=== PATIENT | female | born 1945 | race Caucasian/White ===

== ENCOUNTER → 2018-09-21 | Outpatient (CLI) | payer MEDICARE ==
--- NOTE | 2018-09-21 15:15 | XR ---
EXAMINATION TYPE: XR knee limited LT DATE OF EXAM: 09/21/2018 CLINICAL HISTORY: Left knee pain. Unilateral primary osteoarthritis per order. TECHNIQUE: Frontal and lateral views of the left knee are obtained. COMPARISON: None. FINDINGS: There is no acute fracture/dislocation evident in left knee. Mild to moderate narrowing la teral tibiofemoral and patellofemoral compartment is seen. There is advanced narrowing medial tibiofe moral compartment with ossific projection superior medially from the proximal tibia. Lucency at joint space favor subchondral cystic change. The overlying soft tissue shows increased density suprapatel lar bursa suspicious for small to moderate joint effusion. IMPRESSION: As above, suspect advanced osteoarthritic change most prominent medial tibiofemoral gail rtment.
== END ==
LOC: RADXRMAIN 14:51
PROVIDERS: ATTEND Family Medicine
DX: M17.12 Unilateral primary osteoarthritis, left knee (principal)

== ENCOUNTER → 2018-10-01 | Outpatient (CLI) | payer MEDICARE ==
--- NOTE | 2018-10-01 16:07 | MR ---
EXAMINATION TYPE: MR knee LT wo con DATE OF EXAM: 10/01/2018 COMPARISON: 09/21/2018 radiographs HISTORY: 72-year-old female with pain, Unilateral primary osteoarthritis, left knee TECHNIQUE: Multiplanar, multisequence imaging of the left knee is performed without IV contrast. FINDINGS: The ACL, PCL, and LCL complex are intact. There is prominent edema of the proximal MCL. There is also focal fluid signal involving the deep pro ximal femoral attaching fibers suggesting a small deep sided partial tear. Prominent medial bowing of the MCL from apparent low T1 and low T2 signal soft tissue which appears t o erode into the medial left of the medial tibial plateau, refer to axial image 7 and coronal PD FS i mage 18 for some financial services representative images. The meniscus is diffusely degenerative, torn, and extruded. Severe degenerative change in the medial compartment with complete loss of cartilage, [id number] articulation, bony remodeling of the weight bearing medial tibial plateau, and reactive underlying marrow signal changes. Lateral meniscus appears intact. Mild diffuse thinning of lateral compartment articular cartilage vol ume. Severe loss of articular cartilage along the medial patellar facet with underlying reactive marrow si gnal changes within the patella. Moderate irregular cartilage loss with along the medial trochlear fa cet. Extensor mechanism is intact. Moderate knee joint effusion with associated chronic synovitis and a leaking small to moderate sized but complex 4.5 cm Gaston cyst. No femoral popliteal artery anatomy in muscle bulk. No suspicious bone marrow replacement. IMPRESSION: 1. End-stage medial compartment osteoarthrosis with [id number] abutment and bony remodeling of the central weightbearing aspect of the medial tibial plateau. Extensive reactive marrow signal changes o f the subchondral bone. 2. Diffusely degenerative, torn, and extruded medial meniscus. 3. In addition, there appears to be low T1 and T2 signal soft tissue along the medial aspect of the j oint here eroding into the peripheral lip of the medial tibial plateau. Consider gouty involvement. Given the presence of a moderate effusion, arthrocentesis and fluid analysis for crystals can be cons idered. 4. Grade 2 MCL sprain with partial tear of deep proximal fibers. 5. Moderate overall patellofemoral compartmental osteoarthrosis. 6. Moderate size complex and leaking Gaston's cyst.
== END | disposition home or self-care (01) ==
LOC: RADMRIMAIN 12:43
PROVIDERS: ATTEND Family Medicine
DX: M17.12 Unilateral primary osteoarthritis, left knee (principal); S83.242A Other tear of medial meniscus, current injury, left knee, initial encounter; S83.412A Sprain of medial collateral ligament of left knee, initial encounter; M71.22 Synovial cyst of popliteal space [Baker], left knee

== ENCOUNTER → 2018-10-21 | Outpatient (CLI) | payer MEDICARE | END | disposition home or self-care (01) | LOC: LABPAT 11:59 | PROVIDERS: ATTEND Orthopaedic Surgery | DX: Z01.812 Encounter for preprocedural laboratory examination (principal) | CPT/HCPCS: 87070 ==

== ENCOUNTER → 2018-10-21 | Outpatient (CLI) | payer MEDICARE ==
[2018-10-21 12:44] LABS: Anisocytosis Slight; Basophils # (A) 0.1 k/uL (0-0.2); Basophils % (A) 1 %; Eosinophils # (A) 0.4 k/uL (0-0.7); Eosinophils % (A) 6 %; HGB 10.8 gm/dL (11.4-16.0); Hypochromasia Slight; Lymphocytes # (A) 1.4 k/uL (1.0-4.8); Lymphocytes % (A) 19 %; MCH 27.1 pg (25.0-35.0); MCHC 30.8 g/dL (31.0-37.0); Mean Platelet Volume 6.4; Monocytes # (A) 0.5 k/uL (0-1.0); Monocytes % (A) 7 %; Neutrophils # (A) 4.6 k/uL (1.3-7.7); Neutrophils % (A) 65 %; Platelet Count 418 k/uL (150-450); RBC 3.98 m/uL (3.80-5.40); RDW 16.4 % (11.5-15.5); WBC 7.1 k/uL (3.8-10.6)
[2018-10-21 13:33] LABS: Erythrocyte Sedimentation Rate 52 mm/hr (0-20)
[2018-10-21 18:19] LABS: Rheumatoid Factor 9 IU/mL (0-15)
[2018-10-21 18:43] LABS: Thyroid Peroxidase Antibodies <28.0 U/mL (0.0-60.0)
[2018-10-21 18:53] LABS: Albumin 4.4 g/dL (3.80-4.90); Albumin/Globulin Ratio 2.2 (1.60-3.17); Anion Gap 9.7 mmol/L (4.00-12.00); C Reactive Protein 0.9 mg/dL (0.0-0.8); Calcium 9.4 mg/dL (8.7-10.3); Carbon Dioxide 23.3 mmol/L (21.6-31.8); LDL Cholesterol,Calculated 84.4 mg/dL (0.0-131.0); Magnesium 2.2 mg/dL (1.5-2.4); Total Bilirubin 0.3 mg/dL (0.3-1.2); Total Protein 6.4 g/dL (6.2-8.2); VLDL Calculation 38.6 mg/dL (5.00-40.00)
[2018-10-21 19:00] LABS: T4, Free (Free Thyroxine) 0.9 ng/dL (0.80-1.80)
[2018-10-22 12:35] LABS: HLA B27 NEGATIVE
== END | disposition home or self-care (01) ==
LOC: LABWHC1 11:57
PROVIDERS: ATTEND Orthopaedic Surgery
DX: M17.12 Unilateral primary osteoarthritis, left knee (principal); I10 Essential (primary) hypertension; G62.9 Polyneuropathy, unspecified; G89.4 Chronic pain syndrome; M25.50 Pain in unspecified joint; R73.01 Impaired fasting glucose
CPT/HCPCS: 36415; 80053; 80061; 82607; 83036; 83735; 84439; 84443; 84550; 85025; 85652; 86038; 86140; 86376; 86431; 86812; 87070

== ENCOUNTER → 2018-11-19 | Outpatient (CLI) | payer MEDICARE ==
[2018-11-19 14:35] LABS: Basophils # (A) 0.1 k/uL (0-0.2); Basophils % (A) 1 %; Eosinophils # (A) 0.2 k/uL (0-0.7); Eosinophils % (A) 4 %; HCT 34.1 % (34.0-46.0); HGB 10.5 gm/dL (11.4-16.0); Hypochromasia Slight; Lymphocytes # (A) 1.2 k/uL (1.0-4.8); Lymphocytes % (A) 18 %; MCH 27.6 pg (25.0-35.0); MCHC 30.7 g/dL (31.0-37.0); MCV 89.7 fL (80.0-100.0); Mean Platelet Volume 6.9; Monocytes # (A) 0.4 k/uL (0-1.0); Monocytes % (A) 7 %; Neutrophils # (A) 4.6 k/uL (1.3-7.7); Neutrophils % (A) 70 %; Platelet Count 356 k/uL (150-450); Prothrombin Time 10.3 sec (9.0-12.0); RDW 15.4 % (11.5-15.5); WBC 6.6 k/uL (3.8-10.6)
--- NOTE | 2018-11-19 14:35 | XR ---
EXAMINATION TYPE: XR chest 2V DATE OF EXAM: 11/19/2018 COMPARISON: NONE HISTORY: Presurgery TECHNIQUE: Frontal and lateral views of the chest are obtained. FINDINGS: There is no focal air space opacity, pleural effusion, or pneumothorax seen. The cardiac silhouette size is within normal limits atherosclerotic change in thoracic aorta. The osseous struc tures are intact. IMPRESSION: No acute cardiopulmonary process.
[2018-11-19 14:55] LABS: Amorphous Sediment,Urine Rare /hpf; Appearance,Urine Cloudy (Clear); Bilirubin,Urine Negative (Negative); Blood,Urine Negative (Negative); Calcium Oxalate Crystals,Urine Many /hpf; Color,Urine Yellow; Glucose,Urine (UA) Negative (Negative); Hyaline Casts,Urine 1 /lpf (0-2); Ketones,Urine Negative (Negative); Leukocyte Esterase,Urine Large (Negative); Mucus,Urine Occasional /hpf; Nitrite,Urine Negative (Negative); PH, Urine 5.5 (5.0-8.0); Protein,Urine Trace (Negative); RBC,Urine 7 /hpf (0-5); Specific Gravity,Urine 1.029 (1.001-1.035); Squamous Epithelial Cell,Urine 1 /hpf (0-4); WBC,Urine 58 /hpf (0-5)
[2018-11-19 16:48] LABS: Erythrocyte Sedimentation Rate 58 mm/hr (0-20)
[2018-11-19 19:35] LABS: Iron Saturation 42.02 (12.00-45.00)
[2018-11-19 19:43] LABS: Anion Gap 7.9 mmol/L (4.00-12.00); C Reactive Protein 0.8 mg/dL (0.0-0.8); Calcium 9.4 mg/dL (8.7-10.3); Carbon Dioxide 27.1 mmol/L (21.6-31.8); Potassium 4.2 mmol/L (3.5-5.5)
== END | disposition home or self-care (01) ==
LOC: LABWHC1 13:19
PROVIDERS: ATTEND Family Medicine
DX: Z01.818 Encounter for other preprocedural examination (principal); I10 Essential (primary) hypertension; M17.12 Unilateral primary osteoarthritis, left knee; Z01.812 Encounter for preprocedural laboratory examination
CPT/HCPCS: 36415; 71046; 80048; 81001; 83540; 83550; 83880; 85025; 85610; 85652; 86140; 87077; 87086; 87186

== ENCOUNTER 2018-11-25 08:00 | Inpatient (IN) | payer MEDICARE ==
[2018-11-17 14:07] VITALS: BMI 28.9
--- NOTE | 2018-11-24 08:57 | HP ---
HISTORY AND PHYSICAL CHIEF COMPLAINT: Left knee pain. HISTORY OF PRESENT ILLNESS: Patient is a 73-year-old retired female who presents with progressive left knee pain secondary to osteoarthrosis, worsening over the past couple years. She notes diffuse pain and swelling. She has pain with any weightbearing activities. She has significant limitation because of this. She has been taking oxycodone 3 times a day. She does have a history of right total knee arthroplasty with subsequent infection and revision. PAST MEDICAL HISTORY: Significant for arthritis, gout, hypertension, asthma. PAST SURGICAL HISTORY: Significant for right total knee arthroplasty with extraction, cement spacer implantation, and revision. CURRENT MEDICATIONS: 1. Allopurinol. 2. Aspirin. 3. Cyclobenzaprine. 4. Gabapentin. 5. Lisinopril. 6. Meclizine. 7. Meloxicam. 8. [place]. 9. Nystatin. 10.Omeprazole. 11.Simvastatin. 12.Hydrochlorothiazide. She notes allergies to CIPROFLOXACIN. FAMILY HISTORY: Significant for cancer. SOCIAL HISTORY: Negative for current tobacco or alcohol use. 16 POINT REVIEW OF SYSTEMS: Otherwise is reviewed and is noncontributory. She denies recent fevers or chills. PHYSICAL EXAMINATION: On examination, the patient is approximately 4 foot 11, 145 pounds of mesomorphic habitus. HEENT exam is nonfocal. Neck is supple. She has painless passive motion of her left hip. Straight leg raise is negative. Active motion left knee -20 to 90 degrees of flexion. She has significant genu varum alignment. She has a moderate effusion. She is tender about the medial joint line. Collaterals are stable, Alexander is negative, Gerson's is equivocal. Her distal neurovascular appears intact in the left lower extremity. X-rays to include weightbearing, notch, lateral and Merchant views of the left knee obtained in the office show severe medial compartment osteoarthrosis with varus deformity. IMPRESSION: Left knee severe medial and patellofemoral compartment osteoarthrosis with significant varus deformity. RECOMMENDATIONS: I talked to the patient at length regarding her condition and treatment options. At this point she is quite limited because of pain related to her osteoarthrosis. We will plan to proceed with a left total knee arthroplasty. Risks and benefits were discussed at length in layman's terms. We will institute DVT prophylaxis postoperatively. MMODL / IJN: [id number] /
[2018-11-30] MEDS ORDERED: ACETAMINOPHEN TAB 500 MG TAB PO ONE (05:00)
[2018-11-30] MEDS ORDERED: ceFAZolin IN SWFI 2 GM/20 ML SYRINGE IVP ONE (05:00)
[2018-11-30] MEDS ORDERED: MELOXICAM 7.5 MG TAB PO ONE (05:00)
[2018-11-30] MEDS ORDERED: TRANEXAMIC ACID 1,000 MG in SODIUM CHLORIDE 0.9% 100 ML IVPB ONE ×4 (05:00)
[2018-11-30] MEDS ORDERED: SCOPOLAMINE 1.5MG/72HR PATCH TRANSDERM ONE (05:42)
[2018-11-30] MEDS ORDERED: MIDAZOLAM (PF) 2 MG/2 ML VIAL IV PRN (05:42)
[2018-11-30] MEDS ORDERED: DEXAMETHASONE SOD PHOSPHATE 10 MG/ML 1 ML VIAL IV ONE (05:42)
[2018-11-30] MEDS ORDERED: ONDANSETRON 4 MG/2 ML VIAL IVP ONE (05:42)
[2018-11-30] MEDS ORDERED: LIDOCAINE 1% 20 ML VIAL (10MG/ML) FOR IV START INTRADERMA PRN (05:42)
[2018-11-30] MEDS ORDERED: ROPIVACAINE 246.25 MG, EPINEPHrine 0.5 MG, KETOROLAC 30 MG, cloNIDine HCL/PF 80 MCG, WA... MISCELLANE ONE ×5 (11:12)
[2018-11-30] MEDS: LACTATED RINGERS 1,000 ML IV SCH (11:27)
[2018-11-30] MEDS ORDERED: MIDAZOLAM 2 MG/2 ML VIAL IVP ONE (12:21)
[2018-11-30] MEDS: fentaNYL (PF) 50 MCG/ML 2 ML AMP IVP ONE ×3 (12:23→17:02)
[2018-11-30] MEDS ORDERED: ROPIVACAINE 1,100 MG, SODIUM CHLORIDE 0.9% 500 ML 330 ML MISCELLANE PRN ×2 (12:50)
--- NOTE | 2018-11-30 12:50 | P.ONQ ---
Anesthesiology Proc Note - PNB - Peripheral Nerve Block Performed Left Adductor Canal Infusion Time Out Performed: Yes Procedure Start Time: 12:17 Procedure Stop Time: 12:30 Indication: Acute Post-Operative Pain, Analgesia, Requested by physician Sedation Type: Sedate with meaningful contact maintained Preparation: Sterile Prep Position: Supine Catheter: Indwelling Needle Types: On-Q Needle Size: 100mm (4") Needle Gauge: 20 Technique: Ultrasound Injectate: 0.5% Ropivacaine (see comment for volume) Blood Aspirated: No Pain Paresthesia on Injection Noted: No Resistance on Injection: Normal Events: Uneventful and Well Tolerated (20 ml used)
[2018-11-30] MEDS ORDERED: SODIUM CHLORIDE 0.9% 100 ML BAG ONE (13:30)
[2018-11-30] MEDS ORDERED: MIDAZOLAM 2 MG/2 ML VIAL ONE (13:30)
[2018-11-30] MEDS ORDERED: TRANEXAMIC ACID 1,000 MG/10 ML VIAL ONE (13:30)
[2018-11-30] MEDS ORDERED: ceFAZolin 3,000 MG in SODIUM CHLORIDE 0.9% IRRIGATIO 3,000 ML IRRIGATION ONE (13:59)
[2018-11-30] MEDS ORDERED: LACTATED RINGERS 1,000 ML IV ONE ×2 (15:01)
[2018-11-30] MEDS ORDERED: HYDROcodone/APAP 5-325MG 1 EACH TAB PO PRN (15:12)
[2018-11-30] MEDS ORDERED: MAGNESIUM HYDROXIDE 2,400 MG/10 ML CUP PO PRN (15:12)
[2018-11-30] MEDS ORDERED: HYDROmorphone 0.5 MG/0.5 ML SYRINGE IVP PRN (15:12)
[2018-11-30] MEDS ORDERED: ACETAMINOPHEN TAB 325 MG TAB PO PRN (15:12)
[2018-11-30] MEDS ORDERED: NALOXONE 0.4 MG/ML 1 ML VIAL IV PRN (15:12)
--- NOTE | 2018-11-30 15:44 | P.OP ---
Date of Procedure: 11/30/18 Preoperative Diagnosis: Left knee severe tricompartmental osteoarthrosis Postoperative Diagnosis: Same Procedure(s) Performed: Left total knee arthroplastycementedconstrained Implants: Depuy TC3 size 3 cemented femoral component, size 2.5 cemented tibial component, 10 mm articular surface, 32 mm cemented patellar component. Anesthesia: regional, local, spinal Surgeon: Levi Hilario Estimated Blood Loss (ml): 75 Pathology: other (Bone fragments) Condition: stable Disposition: PACU Indications for Procedure: The patient is a 73-year-old female who presents with progressive left knee pain secondary to osteoarthrosis despite conservative measures. A discussion of the risks and benefits of operative intervention versus continued conservative measures was made with the patient. She opted to proceed with surgery. Operative risks to include infection, neurovascular injury, blood clots, possible component loosening, possible component failure and need for subsequent procedures was discussed. Informed consent was obtained. Operative Findings: As below Description of Procedure: The patient was brought to the operating room, and after induction of spinal anesthesia the left lower extremity was prepped and draped in a normal fashion. The tourniquet was inflated to 270 mm marker. A longitudinal incision extending 3 finger breaths above the superior pole of patella extending to the medial aspect the tibial tubercle was then made. The skin and subcutaneous tissues were divided sharply. Electrocautery was used for hemostasis. A medial parapatellar arthrotomy was performed. The medial soft tissues to include the superficial and deep portions of the medial collateral ligament were elevated subperiosteally. The patella was everted. A portion of the retropatellar fat pad was excised sharply. The anterior cruciate ligament was sacrificed. Blunt retractors were placed. A starting hole was made in the distal femur 1 cm anterior to the posterior cruciate ligament origin. An intramedullary femoral guide was then inserted planning on 5 valgus distal cut with 9 mm distal resection. The cutting block was pinned in place. The distal cut was then made. The posterior referencing sizing guide was utilized. I felt size 3 was most appropriate. 3 of external rotation was built into the system and verified off the trans-epicondylar axis and the posterior condyles. The cutting block was pinned in place. The anterior, posterior, and chamfer cuts then made. Bone fragments were removed. The intercondylar guide was placed and the notch cut was made with a sagittal saw. The bone block was removed in one fragment. The trial component was then placed. There is good anterior to posterior and medial to lateral fit. The distal peg holes were drilled. The trial component was removed. Attention was then paid towards preparing the proximal femur. An extra medullary guide was utilized in line with the tibial shaft and second metatarsal distally. I planned on 0 mm resection from the medial compartment. The cutting block was pinned in place. The proximal tibial cut was then made. The bone was removed in one fragment. The remnants of the medial and lateral m enisci were excised at the capsular junction with electrocautery. The tibia sized most appropriately at size 2.5. The trial femoral and tibial components were placed along with a 10 mm articular surface. I was able to obtain full flexion and extension with internal and external rotation. After several flexion and extension cycles, the tibial rotation was marked with electrocautery line with the medial one third of the tibial tubercle. Attention was then paid towards preparing the patella. A patella reamer was utilized taking stem to 14 mm of bone stock. A good flush cut was made. The patella sized most appropriately 32 mm. The peg holes were drilled. The trial components placed. I had good patellofemoral tracking with no hands technique. The trial components were then removed. The tibia was prepared in the appropriate rotation with appropriate drill and keel punch. The posterior osteophytes were removed with a curved osteotome. The flexion and extension gaps were check ed and felt to be symmetric at 10 mm. A trial components were then removed. The posterior soft tissues were injected with ropivacaine. The bony surfaces were prepared with pulsatile lavage and dried. The tibial component was then cemented place was fully seated. Excess cement was removed. The femoral component cemented place and was fully seated. Excess cement was removed. The trial 10 mm articular surface was placed and the knee was put in full extension. The patella component was cemented place. After the cement had sufficiently hardened, the knee was again taken through a range of motion. Again I was able to obtain full flexion and extension with varus and valgus stress. The trial 10 mm articular surface was removed and the final one inserted. This was fully seated. Care was taken to avoid any soft tissue interposition. Pulsatile lavage was again utilized. The medial parapatellar arthrotomy was closed with #2 Ethibond suture. The tourniquet was deflated with approximately 70 minutes total tourniquet time. Final hemostasis was obtained with the cautery. There was minimal bleeding therefore a deep drain was not placed. The subcutaneous tissues were reapproximated with interrupted 2-0 Vicryl sutures. The skin was reapproximated with 3-0 subcuticular strata fix suture. Skin tape and adhesive was applied. A sterile dressing was applied. The patient was awoken from sedation and transferred to recovery room in good condition. Blood loss was estimated at 75 mL. No complications were incurred. Sponge and needle counts were correct at the end of the case.
[2018-11-30] MEDS: HYDROmorphone 0.5 MG/0.5 ML SYRINGE IVP PRN ×5 (16:04→16:37)
--- NOTE | 2018-11-30 16:08 | XR ---
EXAMINATION TYPE: XR knee limited LT DATE OF EXAM: 11/30/2018 COMPARISON: NONE TECHNIQUE: Two views submitted HISTORY: Post op FINDINGS: There is a prosthetic knee in near anatomic alignment. There is soft tissue edema and emphysema. IMPRESSION: 1. Postoperative change. Appears in near-anatomic alignment
[2018-11-30] MEDS: ONDANSETRON 4 MG/2 ML VIAL IVP PRN (20:04)
[2018-11-30] MEDS: ATORVASTATIN 10 MG TAB PO SCH (21:41)
[2018-11-30] MEDS: GABAPENTIN 300 MG CAP PO SCH (21:42)
[2018-11-30] MEDS: SENNOSIDES-DOCUSATE SODIUM 1 EACH TAB PO SCH (21:42)
[2018-11-30] MEDS: ceFAZolin IN SWFI 2 GM/20 ML SYRINGE IVP SCH (21:42)
[2018-11-30] MEDS: CYCLOBENZAPRINE 10 MG TAB PO SCH (21:42)
[2018-12-01] MEDS: HYDROmorphone 0.5 MG/0.5 ML SYRINGE IVP PRN ×2 (00:29→04:25)
[2018-12-01] MEDS: HYDROcodone/APAP 5-325MG 1 EACH TAB PO PRN ×4 (00:30→21:37)
[2018-12-01] MEDS: ONDANSETRON 4 MG/2 ML VIAL IVP PRN (04:25)
[2018-12-01] MEDS: ceFAZolin IN SWFI 2 GM/20 ML SYRINGE IVP SCH (04:25)
[2018-12-01] MEDS: LACTATED RINGERS 1,000 ML IV SCH (07:02)
[2018-12-01] MEDS: LACTOBACILLUS ACIDOPH & BULGAR 1 EACH PACKET PO SCH (08:24)
[2018-12-01] MEDS: CYCLOBENZAPRINE 5 MG TAB PO SCH (08:26)
[2018-12-01] MEDS: GABAPENTIN 300 MG CAP PO SCH ×3 (08:26→21:37)
[2018-12-01] MEDS: RIVAROXABAN 10 MG TAB PO SCH (08:26)
[2018-12-01] MEDS: PANTOPRAZOLE 40 MG TABLET PO SCH (08:27)
[2018-12-01] MEDS: LISINOPRIL 10 MG TAB PO SCH (08:27)
[2018-12-01] MEDS: ALLOPURINOL 100 MG TAB PO SCH (08:27)
[2018-12-01 08:41] LABS: Basophils % (A) 0 %; Eosinophils # (A) 0.1 k/uL (0-0.7); Eosinophils % (A) 1 %; HCT 29.7 % (34.0-46.0); HGB 9.4 gm/dL (11.4-16.0); Lymphocytes # (A) 0.8 k/uL (1.0-4.8); Lymphocytes % (A) 6 %; MCH 28.1 pg (25.0-35.0); MCHC 31.5 g/dL (31.0-37.0); MCV 89.2 fL (80.0-100.0); Mean Platelet Volume 7.1; Monocytes % (A) 7 %; Neutrophils # (A) 11.5 k/uL (1.3-7.7); Neutrophils % (A) 86 %; Platelet Count 282 k/uL (150-450); RBC 3.33 m/uL (3.80-5.40); RDW 14.7 % (11.5-15.5); WBC 13.4 k/uL (3.8-10.6)
[2018-12-01] MEDS ORDERED: NON-FORMULARY DRUG (Ubidecarenone [Co Q-10] 300 MG) PO SCH (09:00)
--- NOTE | 2018-12-01 09:44 | P.PN ---
Subjective Progress Note Date: 12/01/18 Principal diagnosis: Status post left total knee arthroplasty Patient evaluated at bedside, resting comfortably. Pain is controlled. She is not ambulating with therapy at this point. She denies any fevers or chills, shortness of breath or chest pain. Objective - Vital Signs Vital signs: Vital Signs Temp 98.2 F 12/01/18 07:00 Pulse 94 12/01/18 07:00 Resp 17 12/01/18 07:00 BP 133/66 12/01/18 07:00 Pulse Ox 95 12/01/18 07:00 Intake & Output 11/30/18 12/01/18 12/01/18 18:59 06:59 18:59 Intake Total 1401 Output Total 735 1175 200 Balance 666 -1175 -200 Intake: IV 1401 Output: Urine 660 1175 200 Uretheral (Hernandez) 200 Estimated Blood Loss 75 Other: Voiding Method Indwelling Catheter Indwelling Catheter - Exam Left lower extremity: Incision is clean, dry, and intact. The exofin fusion tape is in good condition. There is minimal soft tissue swelling and ecchymosis surrounding the medial and lateral aspects of the incision. Calf is soft, no tenderness with palpation. Plantar flexion, dorsiflexion, EHL, FHL are intact. Sensory exam to light touch throughout the extremity is intact, dorsal pedis pulses 2+. - Labs CBC & Chem 7: 12/01/18 07:55 Labs: Abnormal Lab Results - Last 24 Hours (Table) 12/01/18 Range/Units 07:55 WBC 13.4 H (3.8-10.6) k/uL RBC 3.33 L (3.80-5.40) m/uL Hgb 9.4 L (11.4-16.0) gm/dL Hct 29.7 L (34.0-46.0) % Neutrophils # 11.5 H (1.3-7.7) k/uL Lymphocytes # 0.8 L (1.0-4.8) k/uL Assessment and Plan Plan: Assessment: Postoperative day #1 status post left total knee arthroplasty Plan: Pain control, continue oral medication GI and DVT prophylaxis continue current medication Wound care instructions discussed Ice and elevate/continue therapy/CPM Medical recommendations Patient may require discharge to rehab, she lives at home by herself with many stairs, we'll evaluate tomorrow. Time with Patient: Less than 30
[2018-12-01] MEDS: MULTIVITAMINS, THERA 1 EACH TAB PO SCH (12:54)
--- NOTE | 2018-12-01 15:39 | P.CONS ---
History of Present Illness - Reason for Consult Consult date: 11/30/18 Medical management Requesting physician: Levi Hilario - Chief Complaint Status post left total knee arthroplasty. - History of Present Illness This is a 73-year-old female one of Dr. Tiwari with a previous medical history significant for hypertension and hypertensive cardiovascular disease with left ventricular hypertrophy, history of hyperlipidemia, seizure disorder, osteoarthritis, GERD, asthma, chronic pain syndrome, ALLERGIC rhinitis, patient underwent left total knee arthroplasty that was done by Dr. Busch were asked to see the patient for medical management patient is laying down in bed in no apparent distress she denies any chest pain or shortness breath she does not appear to be in acute distress, her family were at the bedside. Review of Systems Constitutional: Reports chronic pain, Denies anorexia, Denies chronic headaches, Denies lethargy, Denies malaise, Denies weakness, Denies weight gain, Denies weight loss Eyes: denies blurred vision, denies bulging eye, denies decreased vision, denies diplopia Ears: deny: decreased hearing Ears, nose, mouth and throat: Denies dysphagia, Denies neck lump, Denies swelling in throat, Denies sore throat Cardiovascular: Reports high blood pressure, Denies chest pain, Denies decreased exercise tolerance, Denies dyspnea on exertion, Denies lightheadedness, Denies rapid heart beat, Denies shortness of breath, Denies syncope Respiratory: Denies congestion, Denies cough with sputum, Denies home oxygen, Denies sleep apnea, Denies snoring, Denies wheezing Gastrointestinal: Denies abdominal pain, Denies bloating, Denies BRBPR, Denies heartburn, Denies loss of appetite, Denies melena, Denies nausea, Denies vo miting Genitourinary: Denies dysuria, Denies hematuria Menstruation: Reports postmenopausal Musculoskeletal: Denies myalgias Musculoskeletal: left: knee pain, knee stiffness, knee swelling, absent: ankle pain, ankle stiffness, ankle swelling, elbow pain, elbow stiffness, elbow swelling, foot pain, foot stiffness, foot swelling, hand pain, hand stiffness, hand swelling, hip pain, hip stiffness, hip swelling, shoulder pain, shoulder stiffness, shoulder swelling, wrist pain, wrist stiffness, wrist swelling Integumentary: Denies pruritus, Denies rash Neurological: Denies numbness, Denies weakness Psychiatric: Denies anxiety, Denies depression Endocrine: Denies fatigue, Denies weight change Past Medical History Past Medical History: Asthma, Hyperlipidemia, Hypertension, Osteoarthritis (OA), Rheumatoid Arthritis (RA) Additional Past Medical History / Comment(s): ANEMIA. RECENT UTI just finished Cipro antibiotics, history of seizure. History of Any Multi-Drug Resistant Organisms: None Reported Past Surgical History: Appendectomy, Section, Hernia Repair, Hysterectomy, Joint Replacement, Orthopedic Surgery Additional Past Surgical History / Comment(s): RIGHT- TOTAL KNEE X2 SPACER RIGHT KNEE X2 arthroscopic knee surgery 2, hysterectomy, vein stripping, appendectomy, 3, hernia repair, tonsillectomy. Past Anesthesia/Blood Transfusion Reactions: No Reported Reaction Past Psychological History: Depression Smoking Status: Never smoker Past Alcohol Use History: None Reported Past Drug Use History: None Reported - Past Family History Mother Family Medical History: Cancer (Mother at age 74 from lung cancer) Additional Family Medical History / Comment(s): LUNG CANCER Sister(s) Family Medical History: Cancer (Patient had 3 sisters to diet one of them from colon cancer the other one is alive.) Additional Family Medical History / Comment(s): OVARIAN CANCER Brother(s) Family Medical History: Blood Disorder (Patient had 3 brothers 2 of them from AIDS the other one from overdose as well as alive.) Father Family Medical History: Liver Disease (Father at age 52 from liver cirrhosis.) Daughter(s) Family Medical History: No Reported History (Patient has 2 daughters one adopted) Son(s) Family Medical History: No Reported History (Patient has one son no major medical problems.) Medications and Allergies Home Medications Medication Instructions Recorded Confirmed Type Allopurinol [Zyloprim] 100 mg PO DAILY 11/19/18 11/30/18 History Cyclobenzaprine [Flexeril] 5 mg PO DAILY 11/19/18 11/30/18 History Cyclobenzaprine [Flexeril] 10 mg PO HS 11/19/18 11/30/18 History Gabapentin [Neurontin] 300 mg PO TID 11/19/18 11/30/18 History HYDROcodone/APAP 5-325MG [Mustang 1 tab PO Q4HR PRN 11/19/18 11/30/18 History 5-325] L.acidoph,Paracasei, B.lactis 1 cap PO DAILY 11/19/18 11/30/18 History [Probiotic] Lisinopril [Zestril] 10 mg PO DAILY 11/19/18 11/30/18 History Multivitamins, Thera [Multivitamin 1 tab PO DAILY 11/19/18 11/30/18 History (formulary)] [place]-3 Fatty Acids/Fish Oil [Fish 1 cap PO DAILY 11/19/18 11/30/18 History Oil 1,000 mg Softgel] Omeprazole [PriLOSEC] 20 mg PO AC-BRKFST 11/19/18 11/30/18 History Simvastatin [Zocor] 20 mg PO HS 11/19/18 11/30/18 History Ubidecarenone [Co Q-10] 300 mg PO DAILY 11/19/18 11/30/18 History Ciprofloxacin HCl [Cipro] 500 mg PO DAILY 11/26/18 11/30/18 History Allergies Allergy/AdvReac Type Severity Reaction Status Date / Time sulfamethoxazole Allergy SEIZURE Verified 11/30/18 16:05 [From Bactrim] trimethoprim [From Bactrim] Allergy SEIZURE Verified 11/30/18 16:05 Physical Exam Vitals: Vital Signs Temp Pulse Pulse Pulse Resp BP Pulse Ox 11/30/18 19:53 98.8 F 107 H 18 120/62 92 L 11/30/18 17:01 98 16 130/63 96 11/30/18 16:45 101 H 16 144/67 96 11/30/18 16:31 104 H 16 140/63 96 11/30/18 16:16 104 H 16 135/58 96 11/30/18 16:02 107 H 16 153/67 96 11/30/18 15:43 97.4 F L 105 H 12 149/65 96 11/30/18 12:46 94 17 138/58 100 11/30/18 11:40 98 17 144/65 98 11/30/18 11:03 99.1 F 101 H 17 159/70 98 Intake and Output 11/30/18 11/30/18 11/30/18 06:59 14:59 22:59 Intake Total 1001 400 Output Total 735 Balance 1001 -335 Intake: IV 1001 400 Output: Urine 660 Estimated Blood Loss 75 Other: Voiding Method Indwelling Catheter - Constitutional General appearance: average body habitus, no acute distress - EENT Eyes: anicteric sclerae, EOMI, PERRLA, no ptosis, no scleral icterus, normal appearance ENT: hearing grossly normal, NA/AT, normal oropharynx, no thrush Ears: bilateral: normal - Neck Neck: no lymphadenopathy, normal ROM, no rigidity, no stridor, no thyromegaly Carotids: bilateral: upstroke normal Thyroid: bilateral: normal size - Respiratory Respiratory: bilateral: diminished, negative: dullness, rales, rhonchi, wheezing, prolonged expiration, prolonged inspiration - Cardiovascular Rhythm: regular Heart sounds: normal: S1, S2 Abnormal Heart Sounds: systolic murmur, no S3 Gallop, no S4 Gallop - Gastrointestinal General gastrointestinal: normal bowel sounds, soft, no splenomegaly, no tenderness, no umbilical hernia, no ventral hernia - Integumentary Integumentary: normal, normal turgor - Neurologic Neurologic: CNII-XII intact - Musculoskeletal Musculoskeletal: strength equal bilaterally - Psychiatric Psychiatric: A&O x's 3, appropriate affect, intact judgment & insight Results CBC & Chem 7: 12/01/18 07:55 Assessment and Plan Assessment: Assessment and plan: 1. Post operative day #0 status post left total knee arthroplasty. Patient was instructed to use the incentive spirometer to reduce the incidence of atelectasis and healthcare associated pneumonia, continue current pain management as outlined by orthopedic surgery, physical therapy evaluation the ne xt 24 hours, continue with DVT prophylaxis with Xarelto 10 mg orally once every day for the next 12 days, monitor the patient very closely during her hospital stay. 2. Hypertension and hypertensive cardiovascular disease. Continue lisinopril 10 mg orally once every day. 3. Hyperlipidemia. Continue patient on Lipitor 10 mg orally once every day. 4. GERD. Continue patient on Protonix 40 mg orally once every day. 5. Chronic pain syndrome. Continue patient on gabapentin 300 mg orally 3 times every day. 6. History of pemphigoid. Stable at this time. 7. Gout. Continue allopurinol 100 mg orally once every day. 8. DVT prophylaxis. Currently on Xarelto. 9. GI prophylaxis. Continue with Protonix 40 mg orally once every day. 10. Thank you for the consult we will follow with you.
[2018-12-01] MEDS: CYCLOBENZAPRINE 10 MG TAB PO SCH (21:36)
[2018-12-01] MEDS: SENNOSIDES-DOCUSATE SODIUM 1 EACH TAB PO SCH (21:36)
[2018-12-01] MEDS: ATORVASTATIN 10 MG TAB PO SCH (21:36)
[2018-12-02] MEDS: HYDROmorphone 0.5 MG/0.5 ML SYRINGE IVP PRN (00:42)
[2018-12-02] MEDS: HYDROcodone/APAP 5-325MG 1 EACH TAB PO PRN ×3 (05:30→21:36)
[2018-12-02] MEDS: LACTATED RINGERS 1,000 ML IV SCH (05:32)
--- NOTE | 2018-12-02 07:09 | P.PN ---
Progress Note - Text Progress Note Date: 12/01/18 The patient is status post[ 1] adductor canal catheter placement. The catheter was placed for postoperative pain control, status post total [left Knee] arthroplasty. Ropivacaine 0.2% is infusing at[ 8] mLs per hour. The patient has no complaints of[left ] lower extremity numbness or weakness. Patient's VAS score is[ 4]-10. Assessment: Patient's adductor canal catheter is in place and working appropriately. Plan: continue infusion and adjust it as needed.
--- NOTE | 2018-12-02 07:32 | P.PN ---
Progress Note - Text Anesthesia POD 2. Patient is status post left TKR under spinal anesthesia with a left adductor canal catheter placed for postoperative pain relief. With ropivacaine 0.2% running at 8 cc's per hour, the patient's VAS is (0, 2 anteriorly). Catheter site is clean dry and intact.
[2018-12-02] MEDS: GABAPENTIN 300 MG CAP PO SCH ×3 (08:41→21:35)
[2018-12-02] MEDS: LACTOBACILLUS ACIDOPH & BULGAR 1 EACH PACKET PO SCH (08:41)
[2018-12-02] MEDS: traMADol 50 MG TAB PO PRN (08:42)
[2018-12-02] MEDS: LISINOPRIL 10 MG TAB PO SCH (08:42)
[2018-12-02] MEDS: ALLOPURINOL 100 MG TAB PO SCH (08:43)
[2018-12-02] MEDS: CYCLOBENZAPRINE 5 MG TAB PO SCH (08:43)
[2018-12-02] MEDS: PANTOPRAZOLE 40 MG TABLET PO SCH (08:43)
[2018-12-02] MEDS: RIVAROXABAN 10 MG TAB PO SCH (08:43)
--- NOTE | 2018-12-02 11:00 | P.PN ---
Subjective Progress Note Date: 12/02/18 Principal diagnosis: Status post left total knee arthroplasty Patient evaluated at bedside, resting comfortably. Pain is controlled. She denies any fevers or chills, shortness of breath or chest pain. Objective - Vital Signs Vital signs: Vital Signs Temp 99.5 F 12/02/18 07:50 Pulse 98 12/02/18 07:50 Resp 18 12/02/18 07:50 BP 136/63 12/02/18 07:50 Pulse Ox 97 12/02/18 07:50 Intake & Output 12/01/18 12/02/18 12/02/18 18:59 06:59 18:59 Intake Total 960 1080 Output Total 200 Balance 760 1080 Intake: Oral 960 1080 Output: Urine 200 Uretheral (Hernandez) 200 Other: Voiding Method Bedside Commode # Voids 1 2 - Exam Left lower extremity: Incision is clean, dry, and intact. The exofin fusion tape is in good condition. There is minimal soft tissue swelling and ecchymosis surrounding the medial and lateral aspects of the incision. Calf is soft, no tenderness with palpation. Plantar flexion, dorsiflexion, EHL, FHL are intact. Sensory exam to light touch throughout the extremity is intact, dorsal pedis pulses 2+. - Labs CBC & Chem 7: 12/01/18 07:55 Assessment and Plan Plan: Assessment: Postoperative day #2 status post left total knee arthroplasty Plan: Pain control, continue oral medication GI and DVT prophylaxis continue current medication Wound care instructions discussed Ice and elevate/continue therapy/CPM Medical recommendations Plan for discharge to rehab tomorrow Time with Patient: Less than 30
[2018-12-02] MEDS: MULTIVITAMINS, THERA 1 EACH TAB PO SCH (13:24)
--- NOTE | 2018-12-02 14:30 | P.PN ---
Subjective Progress Note Date: 12/01/18 This is a 73-year-old female one of Dr. Tiwari with a previous medical history significant for hypertension and hypertensive cardiovascular disease with left ventricular hypertrophy, history of hyperlipidemia, seizure disorder, osteoarthritis, GERD, asthma, chronic pain syndrome, ALLERGIC rhinitis, patient underwent left total knee arthroplasty that was done by Dr. Busch were asked to see the patient for medical management patient is laying down in bed in no apparent distress she denies any chest pain or shortness breath she does not appear to be in acute distress, her family were at the bedside. 12/01: Patient states she had quite a bit of pain during the night and did not get much sleep. She denies any chest pain or shortness of breath no cough. She has been afebrile, heart rate in the 94-107, blood pressure 106/62, pulse ox 91% on room air. The CBC 13.4, hemoglobin 9.4, platelet count 282. Patient's plan is for discharge to [facility]. Continue PT and OT. Review of Systems Constitutional: Reports chronic pain, Denies anorexia, Denies chronic headaches, Denies lethargy, Denies malaise, Denies weakness, Denies weight gain, Denies weight loss Eyes: denies blurred vision, denies bulging eye, denies decreased vision, denies diplopia Ears: deny: decreased hearing Ears, nose, mouth and throat: Denies dysphagia, Denies neck lump, Denies swelling in throat, Denies sore throat Cardiovascular: Reports high blood pressure, Denies chest pain, Denies decreased exercise tolerance, Denies dyspnea on exertion, Denies lightheadedness, Denies rapid heart beat, Denies shortness of breath, Denies syncope Respiratory: Denies congestion, Denies cough with sputum, Denies home oxygen, Denies sleep apnea, Denies snoring, Denies wheezing Gastrointestinal: Denies abdominal pain, Denies bloating, Denies BRBPR, Denies heartburn, Denies loss of appetite, Denies melena, Denies nausea, Denies vomiting Genitourinary: Denies dysuria, Denies hematuria Menstruation: Reports postmenopausal Musculoskeletal: Denies myalgias, reports left knee pain Integumentary: Denies pruritus, Denies rash Neurological: Denies numbness, Denies weakness Psychiatric: Denies anxiety, Denies depression Endocrine: Denies fatigue, Denies weight change Objective - Vital Signs Vital signs: Vital Signs Temp 98.2 F 12/01/18 07:00 Pulse 94 12/01/18 07:45 Resp 17 12/01/18 07:00 BP 133/66 12/01/18 07:00 Pulse Ox 92 L 12/01/18 09:54 Intake & Output 11/30/18 12/01/18 12/01/18 18:59 06:59 18:59 Intake Total 1401 480 Output Total 735 1175 200 Balance 666 -1175 280 Intake: IV 1401 Oral 480 Output: Urine 660 1175 200 Uretheral (Hernandez) 200 Estimated Blood Loss 75 Other: Voiding Method Indwelling Catheter Indwelling Catheter - Exam General appearance: average body habitus, no acute distress, resting in recliner - EENT Eyes: anicteric sclerae, EOMI, PERRLA, no ptosis, no scleral icterus, normal appearance ENT: hearing grossly normal, NA/AT, normal oropharynx, no thrush Ears: bilateral: normal - Neck Neck: no lymphadenopathy, normal ROM, no rigidity, no stridor, no thyromegaly Carotids: bilateral: upstroke normal Thyroid: bilateral: normal size - Respiratory Respiratory: bilateral: diminished, negative: dullness, rales, rhonchi, wheezing, prolonged expiration, prolonged inspiration - Cardiovascular Rhythm: regular Heart sounds: normal: S1, S2 Abnormal Heart Sounds: systolic murmur, no S3 Gallop, no S4 Gallop - Gastrointestinal General gastrointestinal: normal bowel sounds, soft, no splenomegaly, no tenderness, no umbilical hernia, no ventral hernia - Integumentary Integumentary: normal, normal turgor - Neurologic Neurologic: CNII-XII intact - Musculoskeletal Musculoskeletal: strength equal bilaterally - Psychiatric Psychiatric: A&O x's 3, appropriate affect, intact judgment & insight - Labs CBC & Chem 7: 12/01/18 07:55 Labs: Abnormal Lab Results - Last 24 Hours (Table) 12/01/18 Range/Units 07:55 WBC 13.4 H (3.8-10.6) k/uL RBC 3.33 L (3.80-5.40) m/uL Hgb 9.4 L (11.4-16.0) gm/dL Hct 29.7 L (34.0-46.0) % Neutrophils # 11.5 H (1.3-7.7) k/uL Lymphocytes # 0.8 L (1.0-4.8) k/uL Assessment and Plan Plan: 1. Post operative day #1 status post left total knee arthroplasty. Patient was instructed to use the incentive spirometer to reduce the incidence of atelectasis and healthcare associated pneumonia, continue current pain management as outlined by orthopedic surgery, physical therapy evaluation, continue with DVT prophylaxis with Xarelto 10 mg orally once every day for the next 12 days, monitor the patient very closely during her hospital stay. 2. Hypertension and hypertensive cardiovascular disease. Continue lisinopril 10 mg orally once every day. 3. Hyperlipidemia. Continue patient on Lipitor 10 mg orally once every day. 4. GERD. Continue patient on Protonix 40 mg orally once every day. 5. Chronic pain syndrome. Continue patient on gabapentin 300 mg orally 3 times every day. 6. History of pemphigoid. Stable at this time. 7. Gout. Continue allopurinol 100 mg orally once every day. 8. DVT prophylaxis. Currently on Xarelto. 9. GI prophylaxis. Continue with Protonix 40 mg orally once every day. [facility] Impression and plan of care have been directed as dictated by the signing physician. Anabel Riggins nurse practitioner acting as scribe for signing physician.
--- NOTE | 2018-12-02 14:33 | P.PN ---
Subjective Progress Note Date: 12/02/18 This is a 73-year-old female one of Dr. Tiwari with a previous medical history significant for hypertension and hypertensive cardiovascular disease with left ventricular hypertrophy, history of hyperlipidemia, seizure disorder, osteoarthritis, GERD, asthma, chronic pain syndrome, ALLERGIC rhinitis, patient underwent left total knee arthroplasty that was done by Dr. Busch were asked to see the patient for medical management patient is laying down in bed in no apparent distress she denies any chest pain or shortness breath she does not appear to be in acute distress, her family were at the bedside. 12/01: Patient states she had quite a bit of pain during the night and did not get much sleep. She denies any chest pain or shortness of breath no cough. She has been afebrile, heart rate in the 94-107, blood pressure 106/62, pulse ox 91% on room air. The CBC 13.4, hemoglobin 9.4, platelet count 282. Patient's plan is for discharge to [facility]. Continue PT and OT. 12/02: Patient is having difficulty with pain control. She is currently on [place] and tramadol. Dilaudid will be discontinued. Patient normally takes Gardiner at home every 4 hours. She has been started on Xarelto. Patient is participating with PT and OT. Patient has been afebrile, heart rate in the 80s and 90s, blood pressure 136/63, pulse ox 97% on room air. Plan for discharge to [facility] tomorrow. Review of Systems Constitutional: Reports chronic pain, Denies anorexia, Denies chronic headaches, Denies lethargy, Denies malaise, Denies weakness, Denies weight gain, Denies we ight loss Eyes: denies blurred vision, denies bulging eye, denies decreased vision, denies diplopia Ears, nose, mouth and throat: Denies dysphagia, Denies neck lump, Denies swelling in throat, Denies sore throat Cardiovascular: Reports high blood pressure, Denies chest pain, Denies decreased exercise tolerance, Denies dyspnea on exertion, Denies lightheadedness, Denies rapid heart beat, Denies shortness of breath, Denies syncope Respiratory: Denies congestion, Denies cough with sputum, Denies home oxygen, Denies sleep apnea, Denies snoring, Denies wheezing Gastrointestinal: Denies abdominal pain, Denies bloating, Denies BRBPR, Denies heartburn, Denies loss of appetite, Denies melena, Denies nausea, Denies vomiting Genitourinary: Denies dysuria, Denies hematuria Menstruation: Reports postmenopausal Musculoskeletal: Denies myalgias, reports left knee pain Integumentary: Denies pruritus, Denies rash Neurological: Denies numbness, Denies weakness Psychiatric: Denies anxiety, Denies depression Endocrine: Denies fatigue, Denies weight change Objective - Vital Signs Vital signs: Vital Signs Temp 99.5 F 12/02/18 07:50 Pulse 98 12/02/18 07:50 Resp 18 12/02/18 07:50 BP 136/63 12/02/18 07:50 Pulse Ox 97 12/02/18 07:50 Intake & Output 12/01/18 12/02/18 12/02/18 18:59 06:59 18:59 Intake Total 960 1080 Output Total 200 Balance 760 1080 Intake: Oral 960 1080 Output: Urine 200 Uretheral (Hernandez) 200 Other: Voiding Method Bedside Commode # Voids 1 2 - Exam General appearance: average body habitus, appears to be comfortable, resting in recliner - EENT Eyes: anicteric sclerae, EOMI, PERRLA, no ptosis, no scleral icterus, normal appearance ENT: hearing grossly normal, NA/AT, normal oropharynx, no thrush Ears: bilateral: normal - Neck Neck: no lymphadenopathy, normal ROM, no rigidity, no stridor, no thyromegaly Carotids: bilateral: upstroke normal Thyroid: bilateral: normal size - Respiratory Respiratory: bilateral: diminished, negative: dullness, rales, rhonchi, wheezing, prolonged expiration, prolonged inspiration - Cardiovascular Rhythm: regular Heart sounds: normal: S1, S2 Abnormal Heart Sounds: systolic murmur, no S3 Gallop, no S4 Gallop - Gastrointestinal General gastrointestinal: normal bowel sounds, soft, no splenomegaly, no tenderness, no umbilical hernia, no ventral hernia - Integumentary Integumentary: normal, normal turgor - Neurologic Neurologic: CNII-XII intact - Musculoskeletal Musculoskeletal: strength equal bilaterally - Psychiatric Psychiatric: A&O x's 3, appropriate affect, intact judgment & insight - Labs CBC & Chem 7: 12/01/18 07:55 Assessment and Plan Plan: 1. Post operative day #1 status post left total knee arthroplasty. Patient was instructed to use the incentive spirometer to reduce the incidence of atelectasis and healthcare associated pneumonia, continue current pain management as outlined by orthopedic surgery, physical therapy evaluation, continue with DVT prophylaxis with Xarelto 10 mg orally once every day for the next 12 days, monitor the patient very closely during her hospital stay. 2. Hypertension and hypertensive cardiovascular disease. Continue lisinopril 10 mg orally once every day. 3. Hyperlipidemia. Continue patient on Lipitor 10 mg orally once every day. 4. GERD. Continue patient on Protonix 40 mg orally once every day. 5. Chronic pain syndrome. Continue patient on gabapentin 300 mg orally 3 times every day. 6. History of pemphigoid. Stable at this time. 7. Gout. Continue allopurinol 100 mg orally once every day. 8. DVT prophylaxis. Currently on Xarelto. 9. GI prophylaxis. Continue with Protonix 40 mg orally once every day. Discharge plan: [facility] tomorrow Impression and plan of care have been directed as dictated by the signing physician. Anabel Riggins nurse practitioner acting as scribe for signing physician.
[2018-12-02] MEDS: ATORVASTATIN 10 MG TAB PO SCH (21:35)
[2018-12-02] MEDS: CYCLOBENZAPRINE 10 MG TAB PO SCH (21:35)
[2018-12-02] MEDS: SENNOSIDES-DOCUSATE SODIUM 1 EACH TAB PO SCH (21:35)
[2018-12-03] MEDS: traMADol 50 MG TAB PO PRN (02:32)
[2018-12-03] MEDS: LACTATED RINGERS 1,000 ML IV SCH (03:55)
[2018-12-03] MEDS: HYDROcodone/APAP 5-325MG 1 EACH TAB PO PRN ×2 (05:54→11:36)
[2018-12-03 07:27] LABS: Basophils % (A) 0 %; Eosinophils # (A) 0.4 k/uL (0-0.7); Eosinophils % (A) 3 %; HCT 29.3 % (34.0-46.0); HGB 9.6 gm/dL (11.4-16.0); Lymphocytes # (A) 1.2 k/uL (1.0-4.8); Lymphocytes % (A) 12 %; MCHC 32.6 g/dL (31.0-37.0); MCV 86.1 fL (80.0-100.0); Mean Platelet Volume 8.3; Monocytes % (A) 9 %; Neutrophils # (A) 7.7 k/uL (1.3-7.7); Neutrophils % (A) 74 %; Platelet Count 305 k/uL (150-450); RBC 3.41 m/uL (3.80-5.40); RDW 15.2 % (11.5-15.5); WBC 10.5 k/uL (3.8-10.6)
[2018-12-03 07:38] VITALS: BP 153/64; PULSE 91; RESP 16; TEMP 97.9
[2018-12-03] MEDS: CYCLOBENZAPRINE 5 MG TAB PO SCH (07:59)
[2018-12-03] MEDS: LISINOPRIL 10 MG TAB PO SCH (07:59)
[2018-12-03] MEDS: GABAPENTIN 300 MG CAP PO SCH (07:59)
[2018-12-03] MEDS: MULTIVITAMINS, THERA 1 EACH TAB PO SCH (07:59)
[2018-12-03] MEDS: RIVAROXABAN 10 MG TAB PO SCH (07:59)
[2018-12-03] MEDS: ALLOPURINOL 100 MG TAB PO SCH (07:59)
[2018-12-03] MEDS: LACTOBACILLUS ACIDOPH & BULGAR 1 EACH PACKET PO SCH (08:00)
[2018-12-03] MEDS: PANTOPRAZOLE 40 MG TABLET PO SCH (08:00)
--- NOTE | 2018-12-03 08:28 | P.PN ---
Subjective Progress Note Date: 12/03/18 Principal diagnosis: Status post left total knee arthroplasty Patient evaluated at bedside, resting comfortably. Pain is controlled. She denies any fevers or chills, shortness of breath or chest pain. Objective - Vital Signs Vital signs: Vital Signs Temp 97.9 F 12/03/18 07:00 Pulse 91 12/03/18 07:00 Resp 16 12/03/18 07:00 BP 153/64 12/03/18 07:00 Pulse Ox 93 L 12/03/18 07:00 Intake & Output 12/02/18 12/03/18 12/03/18 18:59 06:59 18:59 Other: Voiding Method Toilet # Voids 1 2 - Exam Left lower extremity: Incision is clean, dry, and intact. The exofin fusion tape is in good condition. There is minimal soft tissue swelling and ecchymosis surrounding the medial and lateral aspects of the incision. Calf is soft, no tenderness with palpation. Plantar flexion, dorsiflexion, EHL, FHL are intact. Sensory exam to light touch throughout the extremity is intact, dorsal pedis pulses 2+. - Labs CBC & Chem 7: 12/03/18 06:47 Labs: Abnormal Lab Results - Last 24 Hours (Table) 12/03/18 Range/Units 06:47 RBC 3.41 L (3.80-5.40) m/uL Hgb 9.6 L (11.4-16.0) gm/dL Hct 29.3 L (34.0-46.0) % Assessment and Plan Plan: Assessment: Postoperative day #3 status post left total knee arthroplasty Plan: Pain control, continue oral medication GI and DVT prophylaxis continue current medication Wound care instructions discussed Ice and elevate/continue therapy/CPM Medical recommendations Plan for discharge to rehab today Time with Patient: Less than 30
--- NOTE | 2018-12-03 08:36 | P.DS ---
Providers Date of admission: 11/30/18 10:43 Expected date of discharge: 12/03/18 Attending physician: Levi Hilario Consults: 11/30/18 15:15 Consult Physician Routine Consulting Provider: Eunice Tiwari Consult Reason/Comments: Medical Management Do you want consulting provider notified?: Yes Primary care physician: Eunice Tiwari Hospital Course: Date of admission: 11/30/2018 Date of discharge: 12/03/2018 Admission diagnosis: Status post left total knee arthroplasty Discharge diagnosis: Same Attending physician: Dr. Hilario Surgical procedures: Left total knee arthroplasty Brief history: Patient is a 73-year-old female with a history of progressive primary left knee osteoarthritis. At this point patient has failed conservative treatment measures and has opted to proceed with a elective left total knee arthroplasty. Hospital course: Details of patient's surgery can be found in operative report. Patient tolerated the procedure well and was subsequently transported to orthopedic floor. Patient's orthopeidc and medical care was provided daily. Patient had daily laboratory tests performed for evaluation of overall blood counts. Patient had daily physical therapy to include strengthening range of motion as well as education with walker ambulation. Patient had daily CPM usage as part of their physical therapy program. Patient was treated with Xarelto for their postoperative DVT prophylaxis during their inpatient stay. Patient was noted to have a relatively uneventful postoperative course. Patient reported satisfactory pain control with oral pain medications by postoperative day 0. Patient showed satisfactory progress with physical therapy. Patient moved steadily through the program and had no difficulty meeting the goals by postoperative day 3. Given patient's otherwise satisfactory course and having met physical therapy goals, plan is to discharge patient rehab on postoperative day 3. Discharge condition/disposition: Patient will be discharged to rehab in stable condition. Discharge medications: Instructions are given on resumption of patient's normal daily medications per primary care recommendation, in addition patient will be prescribed Colace 100 mg, Xarelto 10 mg. Discharge instructions: 1. Wound care and infection precautions, keep incision dry and covered while showering, no lotions, creams, moisturizers. No soaking, tubs, pools, hottubs. Do not scrub over the incision. 2. Weight-bear as tolerated with walker / cane until follow-up. 3. Ice and elevate when necessary. Do not exceed 20 minutes per hour with ice pack. 4. Utilize compression sleeve until seen at first follow up appointment. 5. Visiting nursing care. 6. Home physical therapy including home CPM. 7. Pain meds and anticoagulants per prescription. 8. Pain medication has potential to cause constipation. Increase oral fluid and fiber intake. Contact primary care provider if you have not had a bowel movement within 48 hours after discharge 9. No anti-inflammatory medication until discussed at first post operative visit, this including Motrin, Aleve, Mobic, Diclofenac. 10. Follow up in office at 2 weeks postop with Hector Mccollum PA-C 11. Follow up with your primary care doctor 7-10 days after discharge. 12. Contact [facility] with any questions, . Procedures: Left total knee arthroplasty Patient Condition at Discharge: Good Plan - Discharge Summary Discharge Rx Participant: Yes New Discharge Prescriptions: New Docusate [Colace] 100 mg PO DAILY #30 capsule Hydrocodone/Acetaminophen [[place] 5-325] 1 - 2 each PO Q6HR PRN #56 tab PRN Reason: Pain Rivaroxaban [Xarelto] 10 mg PO DAILY #14 tab Cyclobenzaprine [Flexeril] 5 mg PO HS #30 tab Cyclobenzaprine [Flexeril] 10 mg PO DAILY #30 tab Gabapentin [Neurontin] 300 mg PO TID #60 capsule No Action L.acidoph,Paracasei, B.lactis [Probiotic] 1 cap PO DAILY Multivitamins, Thera [Multivitamin (formulary)] 1 tab PO DAILY Omeprazole [PriLOSEC] 20 mg PO AC-BRKFST Allopurinol [Zyloprim] 100 mg PO DAILY Lisinopril [Zestril] 10 mg PO DAILY HYDROcodone/APAP 5-325MG [[place] 5-325] 1 tab PO Q4HR PRN PRN Reason: Pain Simvastatin [Zocor] 20 mg PO HS Gabapentin [Neurontin] 300 mg PO TID Ubidecarenone [Co Q-10] 300 mg PO DAILY [place]-3 Fatty Acids/Fish Oil [Fish Oil 1,000 mg Softgel] 1 cap PO DAILY Ciprofloxacin HCl [Cipro] 500 mg PO DAILY Discharge Medication List Allopurinol [Zyloprim] 100 mg PO DAILY 11/19/18 [History] Gabapentin [Neurontin] 300 mg PO TID 11/19/18 [History] HYDROcodone/APAP 5-325MG [[place] 5-325] 1 tab PO Q4HR PRN 11/19/18 [History] L.acidoph,Paracasei, B.lactis [Probiotic] 1 cap PO DAILY 11/19/18 [History] Lisinopril [Zestril] 10 mg PO DAILY 11/19/18 [History] Multivitamins, Thera [Multivitamin (formulary)] 1 tab PO DAILY 11/19/18 [History] [place]-3 Fatty Acids/Fish Oil [Fish Oil 1,000 mg Softgel] 1 cap PO DAILY 11/19/18 [History] Omeprazole [PriLOSEC] 20 mg PO AC-BRKFST 11/19/18 [History] Simvastatin [Zocor] 20 mg PO HS 11/19/18 [History] Ubidecarenone [Co Q-10] 300 mg PO DAILY 11/19/18 [History] Ciprofloxacin HCl [Cipro] 500 mg PO DAILY 11/26/18 [History] Cyclobenzaprine [Flexeril] 5 mg PO HS #30 tab 12/03/18 [Rx] Cyclobenzaprine [Flexeril] 10 mg PO DAILY #30 tab 12/03/18 [Rx] Docusate [Colace] 100 mg PO DAILY #30 capsule 12/03/18 [Rx] Gabapentin [Neurontin] 300 mg PO TID #60 capsule 12/03/18 [Rx] Hydrocodone/Acetaminophen [[place] 5-325] 1 - 2 each PO Q6HR PRN #56 tab 12/03/18 [Rx] Rivaroxaban [Xarelto] 10 mg PO DAILY #14 tab 12/03/18 [Rx] Follow up Appointment(s)/Referral(s): Raheem Mccollum PAC [PHYSICIAN TRANSCRIPTION COORDINATOR] - 2 Weeks Activity/Diet/Wound Care/Special Instructions: Orthopedic Discharge Instructions: 1. Wound care and infection precautions, keep incision dry and covered while showering, no lotions, creams, moisturizers. No soaking, pools, hot tubs. Do not scrub over incision. 2. Weight-bear as tolerated with walker / cane until follow-up. 3. Ice and elevate when necessary. Do not exceed 20 minutes per hour with ice pack. 4. Utilize compression sleeve until seen at first follow up appointment. 5. Pain meds and anticoagulants per prescription. 6. Pain medication has potential to cause constipation. Increase oral fluid and fiber intake. Contact primary care provider if you have not had a bowel movement within 48 hours after discharge. 7. No anti-inflammatory medication until discussed at first post operative visit, this including Motrin, Aleve, Mobic, Diclofenac. 8. Follow up in office at 2 weeks postop with Hector Mccollum PA-C 9. Follow up with your primary care doctor 7-10 days after discharge. 10. Contact [facility] with any questions, . Discharge Disposition: HOME WITH HOME HEALTH SERVICES
--- NOTE | 2018-12-03 15:19 | P.PN ---
Subjective Progress Note Date: 12/03/18 This is a 73-year-old female one of Dr. Tiwari with a previous medical history significant for hypertension and hypertensive cardiovascular disease with left ventricular hypertrophy, history of hyperlipidemia, seizure disorder, osteoarthritis, GERD, asthma, chronic pain syndrome, ALLERGIC rhinitis, patient underwent left total knee arthroplasty that was done by Dr. Busch were asked to see the patient for medical management patient is laying down in bed in no apparent distress she denies any chest pain or shortness breath she does not appear to be in acute distress, her family were at the bedside. 4/3: Patient states she had quite a bit of pain during the night and did not get much sleep. She denies any chest pain or shortness of breath no cough. She has been afebrile, heart rate in the 94-107, blood pressure 106/62, pulse ox 91% on room air. The CBC 13.4, hemoglobin 9.4, platelet count 282. Patient's plan is for discharge to [facility]. Continue PT and OT. 12/02: Patient is having difficulty with pain control. She is currently on Sanford and tramadol. Dilaudid will be discontinued. Patient normally takes Sanford at home every 4 hours. She has been started on Xarelto. Patient is participating with PT and OT. Patient has been afebrile, heart rate in the 80s and 90s, blood pressure 136/63, pulse ox 97% on room air. Plan for discharge to [facility] tomorrow. 5:patient states that her pain is much better controlled taking 2 tablets of Sanford at a time. She states she slept well last night. She is eating well. She has had a bowel movement this morning. She is using incentive spirometry. Temperature max is 100. Heart rate 80-90, blood pressure 153/64 and pulse ox 93 % on room air. Patient is on Xarelto for DVT prophylaxis. She is being prepared for discharge to [facility]. Medication reconciliation will be reviewed. Review of Systems Constitutional: Reports chronic pain, Denies anorexia, Denies chronic headaches, Denies lethargy, Denies malaise, Denies weakness Eyes: denies blurred vision Ears, nose, mouth and throat: Denies dysphagia, Denies neck lump, Denies swellin g in throat, Denies sore throat Cardiovascular: Denies chest pain, Denies decreased exercise tolerance, Denies dyspnea on exertion, Denies lightheadedness, Denies rapid heart beat, Denies shortness of breath, Denies syncope Respiratory: Denies congestion, Denies cough with sputum, Denies home oxygen, Denies sleep apnea, Denies snoring, Denies wheezing Gastrointestinal: Denies abdominal pain, Denies bloating, Denies BRBPR, Denies heartburn, Denies loss of appetite, Denies melena, Denies nausea, Denies vomiting Genitourinary: Denies dysuria, Denies hematuria Menstruation: Reports postmenopausal Musculoskeletal: Denies myalgias, reports left knee pain-improved Integumentary: Denies pruritus, Denies rash Neurological: Denies numbness, Denies weakness Psychiatric: Denies anxiety, Denies depression Endocrine: Denies fatigue, Denies weight change Objective - Vital Signs Vital signs: Vital Signs Temp 97.9 F 12/03/18 07:00 Pulse 91 12/03/18 07:00 Resp 16 12/03/18 07:00 BP 153/64 12/03/18 07:00 Pulse Ox 93 L 12/03/18 07:00 Intake & Output 12/02/18 12/03/18 12/03/18 18:59 06:59 18:59 Other: Voiding Method Toilet # Voids 1 2 - Exam General appearance: average body habitus, appears to be comfortable, resting in recliner - EENT Eyes: anicteric sclerae, EOMI, PERRLA, no ptosis, no scleral icterus, normal appearance ENT: hearing grossly normal, NA/AT, normal oropharynx, no thrush - Neck Neck: no lymphadenopathy, normal ROM, no rigidity, no stridor, no thyromegaly Carotids: bilateral: upstroke normal Thyroid: bilateral: normal size - Respiratory Respiratory: bilateral: diminished, negative: dullness, rales, rhonchi, wheezing, prolonged expiration, prolonged inspiration - Cardiovascular Rhythm: regular Heart sounds: normal: S1, S2 Abnormal Heart Sounds: systolic murmur, no S3 Gallop, no S4 Gallop - Gastrointestinal General gastrointestinal: normal bowel sounds, soft, no splenomegaly, no tenderness, no umbilical hernia, no ventral hernia - Integumentary Integumentary: normal, normal turgor - Neurologic Neurologic: CNII-XII intact - Musculoskeletal Musculoskeletal: strength equal bilaterally Dressing in place left knee, no breakthrough bleeding/drainage - Psychiatric Psychiatric: A&O x's 3, appropriate affect, intact judgment & insight - Labs CBC & Chem 7: 12/03/18 06:47 Labs: Abnormal Lab Results - Last 24 Hours (Table) 12/03/18 Range/Units 06:47 RBC 3.41 L (3.80-5.40) m/uL Hgb 9.6 L (11.4-16.0) gm/dL Hct 29.3 L (34.0-46.0) % Assessment and Plan Plan: 1. Post operative day #2 status post left total knee arthroplasty. Continue incentive spirometer to reduce the incidence of atelectasis and healthcare associated pneumonia, continue current pain management as outlined by orthopedic surgery, physical therapy evaluation, continue with DVT prophylaxis with Xarelto 10 mg orally once every day for the next 12 days, monitor the patient very closely during her hospital stay. 2. Hypertension and hypertensive cardiovascular disease. Continue lisinopril 10 mg orally once every day. 3. Hyperlipidemia. Continue patient on Lipitor 10 mg orally once every day. 4. GERD. Continue patient on Protonix 40 mg orally once every day. 5. Chronic pain syndrome. Continue patient on gabapentin 300 mg orally 3 times every day. 6. History of pemphigoid. Stable at this time. 7. Gout. Continue allopurinol 100 mg orally once every day. 8. DVT prophylaxis. Currently on Xarelto. 9. GI prophylaxis. Continue with Protonix 40 mg orally once every day. Discharge plan: [facility] the care of Dr. Tiwari Impression and plan of care have been directed as dictated by the signing physician. Anabel Riggins nurse practitioner acting as scribe for signing physician.
== END 2018-12-03 13:01 | DRG 470 ==
LOC: 2ORMAIN 11-30 10:43 → 4SSUR 11-30 14:50
PROVIDERS: ADMIT Orthopaedic Surgery; ATTEND Orthopaedic Surgery
PROC: 0SRD0J9 Replacement of Left Knee Joint with Synthetic Substitute, Cemented, Open Approach (ICD-10-PCS; principal; 2018-11-30 12:20)
DX: M17.12 Unilateral primary osteoarthritis, left knee (principal); L12.9 Pemphigoid, unspecified; M06.9 Rheumatoid arthritis, unspecified; G62.9 Polyneuropathy, unspecified; G40.909 Epilepsy, unspecified, not intractable, without status epilepticus; I11.9 Hypertensive heart disease without heart failure; E78.5 Hyperlipidemia, unspecified; G89.4 Chronic pain syndrome; J45.30 Mild persistent asthma, uncomplicated; K21.9 Gastro-esophageal reflux disease without esophagitis; M10.9 Gout, unspecified; F32.9 Major depressive disorder, single episode, unspecified; J30.9 Allergic rhinitis, unspecified; M21.162 Varus deformity, not elsewhere classified, left knee; Z79.899 Other long term (current) drug therapy; Z79.82 Long term (current) use of aspirin; Z88.1 Allergy status to other antibiotic agents; Z88.6 Allergy status to analgesic agent; Z88.2 Allergy status to sulfonamides; Z96.651 Presence of right artificial knee joint; Z90.710 Acquired absence of both cervix and uterus; Z90.49 Acquired absence of other specified parts of digestive tract; Z87.440 Personal history of urinary (tract) infections; Z80.0 Family history of malignant neoplasm of digestive organs; Z80.1 Family history of malignant neoplasm of trachea, bronchus and lung; Z80.41 Family history of malignant neoplasm of ovary; Z83.0 Family history of human immunodeficiency virus [HIV] disease
CPT/HCPCS: 85025; 88300; 94760

== ENCOUNTER → 2019-09-09 | Outpatient (CLI) | payer MEDICARE ==
[2019-09-09 11:54] LABS: Basophils # (A) 0.1 k/uL (0-0.2); Basophils % (A) 2 %; Eosinophils # (A) 0.4 k/uL (0-0.7); Eosinophils % (A) 7 %; HCT 37.6 % (34.0-46.0); HGB 11.9 gm/dL (11.4-16.0); Hypochromasia Slight; Lymphocytes # (A) 1.1 k/uL (1.0-4.8); Lymphocytes % (A) 20 %; MCH 29.4 pg (25.0-35.0); MCHC 31.5 g/dL (31.0-37.0); MCV 93.1 fL (80.0-100.0); Monocytes # (A) 0.4 k/uL (0-1.0); Monocytes % (A) 8 %; Neutrophils # (A) 3.3 k/uL (1.3-7.7); Neutrophils % (A) 61 %; Platelet Count 347 k/uL (150-450); RBC 4.04 m/uL (3.80-5.40); RDW 14.2 % (11.5-15.5); WBC 5.4 k/uL (3.8-10.6)
[2019-09-09 18:46] LABS: African American GFR (CKD) 47.8 (60.0-200.0); Albumin 4.2 g/dL (3.80-4.90); Albumin/Globulin Ratio 2.63 (1.60-3.17); Anion Gap 6.2 mmol/L (4.00-12.00); BUN/Creat Ratio 23.85 Ratio (12.00-20.00); Calcium 9.2 mg/dL (8.7-10.3); Carbon Dioxide 27.8 mmol/L (21.6-31.8); Chol/HDL Ratio 4.04; Globulin 1.6 g/dL (1.6-3.3); Non-African American GFR(CKD) 41.2 (60.0-200.0); Potassium 4.7 mmol/L (3.5-5.5); Total Bilirubin 0.3 mg/dL (0.2-1.2); Total Protein 5.8 g/dL (6.2-8.2)
[2019-09-09 19:33] LABS: Hemoglobin A1C 5.7 % (4.0-6.0)
== END | disposition home or self-care (01) ==
LOC: LABWHC1 11:04
PROVIDERS: ATTEND Family Medicine
DX: I10 Essential (primary) hypertension (principal); D51.9 Vitamin B12 deficiency anemia, unspecified; E78.5 Hyperlipidemia, unspecified
CPT/HCPCS: 36415; 80053; 80061; 82550; 82607; 83036; 84443; 85025

== ENCOUNTER → 2020-09-06 | Outpatient (CLI) | payer MEDICARE ==
--- NOTE | 2020-09-06 15:40 | XR ---
EXAMINATION TYPE: XR chest 2V DATE OF EXAM: 09/06/2020 COMPARISON: 11/19/2018 INDICATION: Short of breath with exertion TECHNIQUE: Frontal and lateral views of the chest are obtained. FINDINGS: The heart size is normal. The pulmonary vasculature is normal. The lungs are clear. Some hyperinflation with mean of the diaphragms is present IMPRESSION: 1. No acute pulmonary process.
--- NOTE | 2020-09-06 16:15 | NM ---
EXAMINATION TYPE: NM pul vent and perfuse DATE OF EXAM: 09/06/2020 COMPARISON: 09/06/2020 chest x-ray HISTORY: Presurgical testing TECHNIQUE: Utilizing inhalation of 33 mCi Tc 99m DTPA aerosol and intravenous injection of 5 mCi of Tc 99m MAA, ventilation and perfusion images are acquired post injection in multiple projections. FINDINGS: No moderate or large mismatched defects are evident. There are some matched photopenic defects over t he left lung. No triple matched defects are evident. IMPRESSION: 1. Low probability for pulmonary embolism.
--- NOTE | 2020-09-06 17:02 | US ---
EXAMINATION TYPE: US venous doppler duplex LE DATE OF EXAM: 09/06/2020 4:01 PM COMPARISON: NONE CLINICAL HISTORY: R79.1 Abnormal. large body habitus, swelling SIDE PERFORMED: Bilateral TECHNIQUE: The lower extremity deep venous system is examined utilizing real time linear array sonog leandra with graded compression, doppler sonography and color-flow sonography. VESSELS IMAGED: Common Femoral Vein Deep Femoral Vein Greater Saphenous Vein * Femoral Vein Popliteal Vein Small Saphenous Vein * Proximal Calf Veins (* superficial vessels) Right Leg: Negative for DVT Left Leg: Negative for DVT IMPRESSION: 1. Bilateral lower extremity ultrasound negative for deep venous thrombosis.
== END | disposition home or self-care (01) ==
LOC: RADNMMAIN 13:43
PROVIDERS: ATTEND Family Medicine
DX: R79.1 Abnormal coagulation profile (principal)
CPT/HCPCS: 71046; 93970; 78582; A9540; A9567

== ENCOUNTER → 2020-09-11 | Outpatient (CLI) | payer MEDICARE ==
--- NOTE | 2020-09-11 12:11 | CT ---
EXAMINATION TYPE: CT abdomen pelvis wo con DATE OF EXAM: 09/11/2020 COMPARISON: HISTORY: Abdominal distention CT DLP: 605.9 mGycm Automated exposure control for dose reduction was used. TECHNIQUE: Helical acquisition of images was performed from the lung bases through the pelvis. FINDINGS: LUNG BASES: Subsegmental changes at the right lung base likely in the basis of atelectasis. LIVER/GB: Tiny gallstones. PANCREAS: No significant abnormality is seen. SPLEEN: Splenic granuloma noted. ADRENALS: No significant abnormality is seen. KIDNEYS: No significant abnormality is seen. ADENOPATHY: None visualized. OSSEOUS STRUCTURES: No significant abnormality is seen. BOWEL: Bowel gas pattern nonspecific with no obstruction. No inflammatory changes. OTHER: Small fat-containing periumbilical hernia. Hypertrophic and degenerative change of the spine n oted. Severe degenerative disc disease at multiple levels and most marked at L5-S1 suspected canal st enosis and foraminal encroachment. Aorta of normal caliber with atherosclerotic changes. Calcificatio ns in pelvis appear to lie outside the course of the ureter and bladder could be vascular. Nonspecifi c hyperdensity along the lower anterior abdominal wall and pelvic anterior abdominal wall. Additional subcutaneous calcification on the right and tiny punctate calcification of the lateral lower abdomin al sidewall. Findings are. IMPRESSION: 1. Cholelithiasis. 2. There is a linear hyperdensity along the anterior lower abdominal and pelvic wall which is of inde terminate etiology could been the basis of previous surgery rather than related to calcification or f oreign body correlate clinically. 3. Nonspecific abdomen with retained fecal debris correlate for conscious patient.
== END | disposition home or self-care (01) ==
LOC: RADCTMAIN 09:21
PROVIDERS: ATTEND Family Medicine
DX: K80.20 Calculus of gallbladder without cholecystitis without obstruction (principal); R93.5 Abnormal findings on diagnostic imaging of other abdominal regions, including retroperitoneum
CPT/HCPCS: 74176; 82565; 84520

== ENCOUNTER → 2020-09-28 | Outpatient (CLI) | payer MEDICARE ==
--- NOTE | 2020-09-28 10:47 | ECHOF ---
Referral Reason:R22.2 Mass of chest wall MEASUREMENTS -------- HEIGHT: 124.5 cm WEIGHT: 79.8 kg BP: RVIDd: 2.4 cm (< 3.3) IVSd: 1.4 cm (0.6 - 1.1) LVIDd: 3.3 cm (3.9 - 5.3) LVPWd: 1.1 cm (0.6 - 1.1) IVSs: 1.9 cm LVIDs: 2.6 cm LVPWs: 1.8 cm LAESV Index (A-L): 21.70 ml/m Ao Diam: 3.2 cm (2.0 - 3.7) AV Cusp: 1.8 cm (1.5 - 2.6) MV E Jorge: 0.45 m/s MV DecT: 184 ms MV A Jorge: 0.96 m/s MV E/A Ratio: 0.47 RAP: 5.00 mmHg RVSP: 23.77 mmHg FINDINGS -------- Sinus rhythm. This was a technically adequate study. The left ventricular size is normal. There is moderate concentric left ventricular hypertrophy. O verall left ventricular systolic function is normal with, an EF between 55 - 60 %. The diastolic fi lling pattern is normal for the age of the patient 6.04. The right ventricle is normal in size. Normal LA size by volume 22+/-6 ml/m2. The right atrial size is normal. Interatrial and interventricular septum intact. The aortic valve is trileaflet, and appears structurally normal. No aortic stenosis or regurgitation. The mitral valve is normal. There is trace to mild mitral regurgitation. The tricuspid valve appears structurally normal. Mild tricuspid regurgitation present. There is n o evidence of pulmonary hypertension. The right ventricular systolic pressure, as measured by Doppl er, is 23.77mmHg. There is no pulmonic regurgitation present. The aortic root size is normal. IVC Not well visulized. There is no pericardial effusion. CONCLUSIONS -------- 1. There is moderate concentric left ventricular hypertrophy. 2. Overall left ventricular systolic function is normal with, an EF between 55 - 60 %. 3. The aortic valve is trileaflet, and appears structurally normal. No aortic stenosis or regurgitati on. 4. There is trace to mild mitral regurgitation. 5. Mild tricuspid regurgitation present. 6. There is no pericardial effusion. VALIDATION ANALYST: Eunice Dumont RDCS
== END | disposition home or self-care (01) ==
LOC: RADECHMAIN 08:31
PROVIDERS: ATTEND Family Medicine
DX: I08.1 Rheumatic disorders of both mitral and tricuspid valves (principal)
CPT/HCPCS: 93306

== ENCOUNTER 2021-09-10 09:02 | Emergency (ER) | payer MEDICARE ==
[2021-09-10 09:12] VITALS: RESP 18; TEMP 97.7
[2021-09-10] MEDS ORDERED: KETOROLAC 15 MG/ML 1 ML VIAL IM STA (09:26)
[2021-09-10] MEDS ORDERED: MORPHINE SULFATE 4 MG/ML SYRINGE IM STA (09:31)
--- NOTE | 2021-09-10 09:43 | ED ---
Back Pain HPI - General Chief Complaint: Back Pain/Injury Stated Complaint: Back pain Time Seen by Provider: 09/10/21 09:12 Source: EMS Limitations: no limitations - History of Present Illness Initial Comments: This 75-year-old female presents to the emergency department with back pain that began 2 days ago. Patient states she was walking her dog up the ramp to go inside her house when she tweaked her back and instantly felt 10 out of 10 pain. Patient states she dropped to her knees due to the pain. She states when walking or moving, her pain worsens and she often gets pain radiating down both legs. Patient denies any saddle anesthesia, loss of bowel or bladder movement. Patient denies any loss of consciousness, chest pain, shortness of breath, abdominal pain, vomiting. - Related Data Home Medications Medication Instructions Recorded Confirmed Gabapentin [Neurontin] 300 mg PO TID 11/19/18 11/30/18 L.acidoph,Paracasei, B.lactis 1 cap PO DAILY 11/19/18 11/30/18 [Probiotic] Multivitamins, Thera [Multivitamin 1 tab PO DAILY 11/19/18 11/30/18 (formulary)] Omeprazole [PriLOSEC] 20 mg PO AC-BRKFST 11/19/18 11/30/18 Simvastatin [Zocor] 20 mg PO HS 11/19/18 11/30/18 Ubidecarenone [Co Q-10] 300 mg PO DAILY 11/19/18 11/30/18 allopurinoL [Zyloprim] 100 mg PO DAILY 11/19/18 11/30/18 lisinopriL [Zestril] 10 mg PO DAILY 11/19/18 11/30/18 Previous Rx's Medication Instructions Recorded Cyclobenzaprine [Flexeril] 5 mg PO HS #30 tab 12/03/18 Cyclobenzaprine [Flexeril] 10 mg PO DAILY #30 tab 12/03/18 Docusate [Colace] 100 mg PO DAILY #30 capsule 12/03/18 Gabapentin [Neurontin] 300 mg PO TID #60 capsule 12/03/18 Hydrocodone/Acetaminophen [Hamilton 1 - 2 each PO Q6HR PRN #56 tab 12/03/18 5-325] Rivaroxaban [Xarelto] 10 mg PO DAILY #14 tab 12/03/18 Cyclobenzaprine [Flexeril] 10 mg PO TID #5 tab 09/10/21 Allergies Allergy/AdvReac Type Severity Reaction Status Date / Time sulfamethoxazole Allergy SEIZURE Verified 09/10/21 09:12 [From Bactrim] trimethoprim [From Bactrim] Allergy SEIZURE Verified 09/10/21 09:12 Review of Systems ROS Statement: Those systems with pertinent positive or pertinent negative responses have been documented in the HPI. ROS Other: All systems not noted in ROS Statement are negative. Past Medical History Past Medical History: Asthma, Hyperlipidemia, Hypertension, Osteoarthritis (OA), Rheumatoid Arthritis (RA) Additional Past Medical History / Comment(s): ANEMIA. RECENT UTI just finished Cipro antibiotics, history of seizure. History of Any Multi-Drug Resistant Organisms: None Reported Past Surgical History: Appendectomy, Section, Hernia Repair, Hysterectomy, Joint Replacement, Orthopedic Surgery Additional Past Surgical History / Comment(s): RIGHT- TOTAL KNEE X2 SPACER RIGHT KNEE X2 arthroscopic knee surgery 2, hysterectomy, vein stripping, appendectomy, 3, hernia repair, tonsillectomy. Past Anesthesia/Blood Transfusion Reactions: No Reported Reaction Past Psychological History: Depression Smoking Status: Never smoker Past Alcohol Use History: None Reported Past Drug Use History: None Reported - Past Family History Mother Family Medical History: Cancer (Mother at age 74 from lung cancer) Additional Family Medical History / Comment(s): LUNG CANCER Sister(s) Family Medical History: Cancer (Patient had 3 sisters to diet one of them from colon cancer the other one is alive.) Additional Family Medical History / Comment(s): OVARIAN CANCER Brother(s) Family Medical History: Blood Disorder (Patient had 3 brothers 2 of them from AIDS the other one from overdose as well as alive.) Father Family Medical History: Liver Disease (Father at age 52 from liver cirrhosis.) Daughter(s) Family Medical History: No Reported History (Patient has 2 daughters one adopted) Son(s) Family Medical History: No Reported History (Patient has one son no major medical problems.) General Exam Limitations: no limitations General appearance: alert, in no apparent distress Head exam: Present: atraumatic, normocephalic, normal inspection Eye exam: Present: normal appearance, PERRL, EOMI. Absent: scleral icterus, conjunctival injection, periorbital swelling ENT exam: Present: normal exam, mucous membranes moist Neck exam: Present: normal inspection, full ROM. Absent: tenderness Respiratory exam: Present: normal lung sounds bilaterally. Absent: respiratory distress, wheezes, rales, rhonchi, stridor Cardiovascular Exam: Present: regular rate, normal rhythm, normal heart sounds. Absent: systolic murmur, diastolic murmur, rubs, gallop, clicks GI/Abdominal exam: Present: soft, normal bowel sounds. Absent: distended, tenderness, guarding, rebound, rigid Extremities exam: Present: full ROM, normal capillary refill, other (Lower back pain with raising bilateral legs, lower back pain with pushing against resistance while extending and flexing foot, lower back pain with raising/lowering bilateral legs against resistance). Absent: tenderness, pedal edema, joint swelling, calf tenderness Back exam: Present: tenderness, paraspinal tenderness (Paraspinal tenderness to light palpation on lumbar spine area). Absent: full ROM, CVA tenderness (R), CVA tenderness (L), rash noted Neurological exam: Present: alert, oriented X3, CN II-XII intact, reflexes normal Psychiatric exam: Present: normal affect, normal mood Skin exam: Present: warm, dry, intact, normal color. Absent: rash Course Vital Signs 09/10/21 09/10/21 09:05 10:18 Temperature 97.7 F Pulse Rate 87 95 Respiratory 18 18 Rate Blood Pressure 143/60 134/59 O2 Sat by Pulse 96 94 L Oximetry Medical Decision Making - Medical Decision Making This 75 -year-old presents to the emergency department with lumbar back pain [address] impression: Scoliosis with multilevel degenerative changes as detailed above. No acute findings are evident. No significant change from computed tomography scan study roughly 1 year earlier. Patient states after pain medication her back pain has subsided. Hamilton given to patient, son is here to drive patient home. Flexeril prescription given and patient informed to take ibuprofen as directed. Patient to follow-up with primary care provider or orthopedics in next 1-2 days. Strict return precautions given. Patient in agreement with plan. Patient sent home in stable condition. Disposition Clinical Impression: Back pain Disposition: HOME SELF-CARE Condition: Stable Instructions (If sedation given, give patient instructions): Acute Low Back Pain (ED) Additional Instructions: Please return to the emergency department with any new or worsening symptoms. Please follow-up with primary care provider next 1-2 days. Take ibuprofen as directed. Prescriptions: Cyclobenzaprine [Flexeril] 10 mg PO TID #5 tab Is patient prescribed a controlled substance at d/c from ED?: No Referrals: Eunice Tiwari MD [Primary Care Provider] - 1-2 days Time of Disposition: 11:13
[2021-09-10 10:20] VITALS: BP 134/59; PULSE 95
--- NOTE | 2021-09-10 10:55 | CT ---
EXAMINATION TYPE: CT lumbar spine wo con DATE OF EXAM: 09/10/2021 10:37 AM COMPARISON: CT abdomen and pelvis September 11, 2020 HISTORY: low back pain post "popping in low back" while walking up a ramp CT DLP: 996.9 mGycm Automated exposure control for dose reduction was used. Unenhanced CT of the lumbar spine was performed. Bone and soft tissue window settings are submitted as well as coronal and sagittal reconstructions. There are 5 lumbar type vertebra redemonstrated. Levoconvex scoliotic curvature centered lumbosacral junction is again seen. Persistent moderate to severe disc space narrowing with vacuum disc phenomeno n at L5-S1 level. Persistent mild to moderate disc space narrowing at L3-L4 level. Persistent moderat e disc space narrowing and anterior spurring at L1-L2 level. Old healed fracture of the right 12th ri b coronal image 22 is redemonstrated. No acute fracture or dislocation is seen. Axial images at T12-L1 level show mild broad disc bulge mildly effacing the anterior thecal sac, no s ignificant change from prior. Axial images at the L1-L2 level show posterior spur disc complex effacing the anterior thecal sac sim ilar to prior exam on image 40. Patent bilateral neural foramina. Axial images at L2-L3 level remain within normal limits. Axial images at L3-L4 level show moderate to severe broad-based disc bulge effacing the anterior thec al sac with [id number] facet degenerative changes and ligamentum flavum hypertrophy pressing po sterior lateral thecal sac on axial image 58. There is mild to moderate left greater than right bilat eral anterior inferior neural foraminal narrowing. No significant change from prior. Axial images at L4-L5 level show moderate facet degenerative changes bilaterally right greater than l eft. There is mild broad-based right paracentral disc protrusion redemonstrated. There is mild to mod erate left-sided anterior inferior neural foraminal narrowing. Right-sided neural foramina is patent. Axial images at the L5-S1 level show moderate right greater than left facet arthropathy. There is a b road-based right paracentral disc protrusion on axial image 75. There is some effacement of the anter ior thecal sac. There is moderate right-sided neural foraminal narrowing redemonstrated. Left-sided n eural foramina is patent. Mild to moderate calcified plaque of overlying abdominal aorta is only partially imaged. IMPRESSION: Scoliosis with multilevel degenerative changes as detailed above. No acute findings are e vident. No significant change from CT study roughly one year earlier.
[2021-09-10] MEDS ORDERED: HYDROcodone/APAP 5-325MG 1 EACH TAB PO STA (11:11)
== END 2021-09-10 11:32 | disposition home or self-care (01) ==
LOC: EC 09:02
DX: M54.50 Low back pain, unspecified (principal); J45.909 Unspecified asthma, uncomplicated; E78.5 Hyperlipidemia, unspecified; I10 Essential (primary) hypertension; M19.90 Unspecified osteoarthritis, unspecified site; F32.A Depression, unspecified; Z88.1 Allergy status to other antibiotic agents; Z88.2 Allergy status to sulfonamides; Z90.49 Acquired absence of other specified parts of digestive tract; Z90.710 Acquired absence of both cervix and uterus; Z96.651 Presence of right artificial knee joint
CPT/HCPCS: 99284; 96372 ×2; 72131; J2270; J1885

== ENCOUNTER 2022-02-03 20:24 | Inpatient (IN) | payer MEDICARE ==
[2022-02-03] MEDS ORDERED: PANTOPRAZOLE 40 MG/10 ML VIAL IVP STA (22:32)
[2022-02-03] MEDS ORDERED: SODIUM CHLORIDE 0.9% 500 ML 500 ML IV STA (22:32)
[2022-02-03] MEDS ORDERED: MORPHINE SULFATE 4 MG/ML SYRINGE IV STA (22:32)
[2022-02-03] MEDS ORDERED: ONDANSETRON 4 MG/2 ML VIAL IVP STA (22:32)
--- NOTE | 2022-02-03 22:38 | ED ---
General Adult HPI - General Chief complaint: Abdominal Pain Stated complaint: Vomiting/Abd Pain Time Seen by Provider: 02/03/22 22:20 Source: patient, family (Daughter), RN notes reviewed, old records reviewed Mode of arrival: ambulatory Limitations: no limitations - History of Present Illness Initial comments: This is a 76-year-old female that presents with her daughter complaining of abdominal pain with nausea and vomiting that started yesterday. Patient states that she is vomiting green in color. She states her last bowel movement was Thursday. She denies any fevers, no chest pain, no difficulty in breathing. She does have a history of multiple hernia repairs, appendectomy and C-sections. She states that she takes hydrocodone for chronic back pain. Daughter took me aside to tell me that she believes that her mom is taking too many of her pain medications. She states that she is concerned for polypharmacy. -: days(s) (2) Location: abdomen Radiation: non-radiation Severity scale (1-10): 10 Quality: constant Consistency: constant Improves with: none Worsens with: movement Associated Symptoms: nausea/vomiting (green in color) Treatments Prior to Arrival: other (Hydrocodone) - Related Data Home Medications Medication Instructions Recorded Confirmed Gabapentin [Neurontin] 300 mg PO TID 11/19/18 11/30/18 L.acidoph,Paracasei, B.lactis 1 cap PO DAILY 11/19/18 11/30/18 [Probiotic] Multivitamins, Thera [Multivitamin 1 tab PO DAILY 11/19/18 11/30/18 (formulary)] Omeprazole [PriLOSEC] 20 mg PO AC-BRKFST 11/19/18 11/30/18 Simvastatin [Zocor] 20 mg PO HS 11/19/18 11/30/18 Ubidecarenone [Co Q-10] 300 mg PO DAILY 11/19/18 11/30/18 allopurinoL [Zyloprim] 100 mg PO DAILY 11/19/18 11/30/18 lisinopriL [Zestril] 10 mg PO DAILY 11/19/18 11/30/18 Previous Rx's Medication Instructions Recorded Cyclobenzaprine [Flexeril] 5 mg PO HS #30 tab 12/03/18 Cyclobenzaprine [Flexeril] 10 mg PO DAILY #30 tab 12/03/18 Docusate [Colace] 100 mg PO DAILY #30 capsule 12/03/18 Gabapentin [Neurontin] 300 mg PO TID #60 capsule 12/03/18 Hydrocodone/Acetaminophen [[place] 1 - 2 each PO Q6HR PRN #56 tab 12/03/18 5-325] Rivaroxaban [Xarelto] 10 mg PO DAILY #14 tab 12/03/18 Cyclobenzaprine [Flexeril] 10 mg PO TID #5 tab 09/10/21 Allergies Allergy/AdvReac Type Severity Reaction Status Date / Time sulfamethoxazole Allergy SEIZURE Verified 02/03/22 20:36 [From Bactrim] trimethoprim [From Bactrim] Allergy SEIZURE Verified 02/03/22 20:36 Review of Systems ROS Statement: Those systems with pertinent positive or pertinent negative responses have been documented in the HPI. ROS Other: All systems not noted in ROS Statement are negative. Past Medical History Past Medical History: Asthma, Hyperlipidemia, Hypertension, Osteoarthritis (OA), Rheumatoid Arthritis (RA) Additional Past Medical History / Comment(s): ANEMIA. RECENT UTI just finished Cipro antibiotics, history of seizure. History of Any Multi-Drug Resistant Organisms: None Reported Past Surgical History: Appendectomy, Section, Hernia Repair, Hysterectomy, Joint Replacement, Orthopedic Surgery Additional Past Surgical History / Comment(s): RIGHT- TOTAL KNEE X2 SPACER RIGHT KNEE X2 arthroscopic knee surgery 2, hysterectomy, vein stripping, appendectomy, 3, hernia repair, tonsillectomy. Past Anesthesia/Blood Transfusion Reactions: No Reported Reaction Past Psychological History: Depression Smoking Status: Never smoker Past Alcohol Use History: None Reported Past Drug Use History: None Reported - Past Family History Mother Family Medical History: Cancer (Mother at age 74 from lung cancer) Additional Family Medical History / Comment(s): LUNG CANCER Sister(s) Family Medical History: Cancer (Patient had 3 sisters to diet one of them from colon cancer the other one is alive.) Additional Family Medical History / Comment(s): OVARIAN CANCER Brother(s) Family Medical History: Blood Disorder (Patient had 3 brothers 2 of them from AIDS the other one from overdose as well as alive.) Father Family Medical History: Liver Disease (Father at age 52 from liver cirrhosis.) Daughter(s) Family Medical History: No Reported History (Patient has 2 daughters one adopted) Son(s) Family Medical History: No Reported History (Patient has one son no major medica l problems.) General Exam Limitations: no limitations General appearance: alert, in no apparent distress Head exam: Present: atraumatic Eye exam: Present: normal appearance, EOMI. Absent: scleral icterus, conjunctival injection ENT exam: Present: mucous membranes moist Neck exam: Present: normal inspection. Absent: tenderness, meningismus Respiratory exam: Present: normal lung sounds bilaterally. Absent: respiratory distress, accessory muscle use Cardiovascular Exam: Present: regular rate, normal rhythm GI/Abdominal exam: Present: soft, distended, tenderness. Absent: rigid Extremities exam: Present: normal capillary refill. Absent: tenderness, pedal edema Back exam: Absent: tenderness, CVA tenderness (R), CVA tenderness (L), rash noted Neurological exam: Present: alert, oriented X3, CN II-XII intact Psychiatric exam: Present: normal affect, normal mood Skin exam: Present: warm, dry, normal color. Absent: cyanosis, diaphoretic, petechiae, pallor Course Vital Signs 02/03/22 20:33 Temperature 98.4 F Pulse Rate 94 Respiratory 22 Rate Blood Pressure 133/58 O2 Sat by Pulse 96 Oximetry EKG Findings - EKG Results: EKG: sinus rhythm (Ventricular rate of 87, OK interval 0.208, QRS 0.110, QTC 0.480) Medical Decision Making - Medical Decision Making 76-year-old female presents to the emergency room with nausea and vomiting and abdominal pain that started yesterday. On physical exam patient does have mid periumbilical abdominal tenderness. She denies any chest pain or shortness of breath. Daughter is concerned for polypharmacy stating that she is concerned that her mom may be taking too much of her hydrocodone. Chest x-ray is negative for any acute cardiopulmonary disease. 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 She did have an echo in August 2020 showing a 60% ejection fraction. CT abdomen shows a dilated small bowel consistent with mechanical small bowel obstruction in the distal ileum. Moderate constipation. Enema was ordered. Patient was given potassium replacement and IV fluid bolus. Case discussed with Dr. Hooper, she will be admitted with nephrology consult for SPRING, and cardiology consult for trending troponins. Patient and daughter are agreeable to this plan of care. - Lab Data Result diagrams: 02/04/22 00:01 02/04/22 00:01 Lab Results 02/04/22 02/04/22 02/04/22 Range/Units 00:01 00:01 00:01 WBC 16.6 H (3.8-10.6) k/uL RBC 4.01 (3.80-5.40) m/uL Hgb 11.7 (11.4-16.0) gm/dL Hct 35.7 (34.0-46.0) % MCV 89.0 (80.0-100.0) fL MCH 29.3 (25.0-35.0) pg MCHC 32.9 (31.0-37.0) g/dL RDW 13.8 (11.5-15.5) % Plt Count 459 H (150-450) k/uL MPV 7.8 Neutrophils % 82 % Lymphocytes % 9 % Monocytes % 7 % Eosinophils % 0 % Basophils % 0 % Neutrophils # 13.7 H (1.3-7.7) k/uL Lymphocytes # 1.5 (1.0-4.8) k/uL Monocytes # 1.1 H (0-1.0) k/uL Eosinophils # 0.1 (0-0.7) k/uL Basophils # 0.1 (0-0.2) k/uL PT 10.6 (9.0-12.0) sec INR 1.0 (<1.2) APTT 23.7 (22.0-30.0) sec Sodium 133 L (137-145) mmol/L Potassium 2.3 L* (3.5-5.1) mmol/L Chloride 89 L (98-107) mmol/L Carbon Dioxide 33 H (22-30) mmol/L Anion Gap 11 mmol/L BUN 83 H (7-17) mg/dL Creatinine 1.75 H (0.52-1.04) mg/dL Est GFR (CKD-EPI)AfAm 33 (>60 ml/min/1.73 sqM) Est GFR (CKD-EPI)NonAf 28 (>60 ml/min/1.73 sqM) Glucose 121 H (74-99) mg/dL Plasma Lactic Acid Vadim (0.7-2.0) mmol/L Calcium 8.7 (8.4-10.2) mg/dL Total Bilirubin 0.5 (0.2-1.3) mg/dL AST 34 (14-36) U/L ALT 19 (4-34) U/L Alkaline Phosphatase 87 (38-126) U/L Troponin I (0.000-0.034) ng/mL Total Protein 6.4 (6.3-8.2) g/dL Albumin 4.0 (3.5-5.0) g/dL Amylase 81 (30-110) U/L Lipase 119 (23-300) U/L 02/04/22 02/04/22 Range/Units 00:01 00:01 WBC (3.8-10.6) k/uL RBC (3.80-5.40) m/uL Hgb (11.4-16.0) gm/dL Hct (34.0-46.0) % MCV (80.0-100.0) fL MCH (25.0-35.0) pg MCHC (31.0-37.0) g/dL RDW (11.5-15.5) % Plt Count (150-450) k/uL MPV Neutrophils % % Lymphocytes % % Monocytes % % Eosinophils % % Basophils % % Neutrophils # (1.3-7.7) k/uL Lymphocytes # (1.0-4.8) k/uL Monocytes # (0-1.0) k/uL Eosinophils # (0-0.7) k/uL Basophils # (0-0.2) k/uL PT (9.0-12.0) sec INR (<1.2) APTT (22.0-30.0) sec Sodium (137-145) mmol/L Potassium (3.5-5.1) mmol/L Chloride (98-107) mmol/L Carbon Dioxide (22-30) mmol/L Anion Gap mmol/L BUN (7-17) mg/dL Creatinine (0.52-1.04) mg/dL Est GFR (CKD-EPI)AfAm (>60 ml/min/1.73 sqM) Est GFR (CKD-EPI)NonAf (>60 ml/min/1.73 sqM) Glucose (74-99) mg/dL Plasma Lactic Acid Vadim 0.9 (0.7-2.0) mmol/L Calcium (8.4-10.2) mg/dL Total Bilirubin (0.2-1.3) mg/dL AST (14-36) U/L ALT (4-34) U/L Alkaline Phosphatase (38-126) U/L Troponin I 0.047 H* (0.000-0.034) ng/mL Total Protein (6.3-8.2) g/dL Albumin (3.5-5.0) g/dL Amylase (30-110) U/L Lipase (23-300) U/L Disposition Clinical Impression: SPRING (acute kidney injury), Hypokalemia, Elevated troponin Disposition: ADMITTED IP TO THIS [facility] Decision Date: 02/04/22 Decision Time: 01:44
[2022-02-04 00:24] LABS: Basophils # (A) 0.1 k/uL (0-0.2); Basophils % (A) 0 %; Eosinophils # (A) 0.1 k/uL (0-0.7); Eosinophils % (A) 0 %; HCT 35.7 % (34.0-46.0); HGB 11.7 gm/dL (11.4-16.0); Lymphocytes # (A) 1.5 k/uL (1.0-4.8); Lymphocytes % (A) 9 %; MCH 29.3 pg (25.0-35.0); MCHC 32.9 g/dL (31.0-37.0); Mean Platelet Volume 7.8; Monocytes # (A) 1.1 k/uL (0-1.0); Monocytes % (A) 7 %; Neutrophils # (A) 13.7 k/uL (1.3-7.7); Neutrophils % (A) 82 %; Platelet Count 459 k/uL (150-450); RBC 4.01 m/uL (3.80-5.40); RDW 13.8 % (11.5-15.5); WBC 16.6 k/uL (3.8-10.6)
[2022-02-04 00:41] LABS: Partial Thromboplastin Time 23.7 sec (22.0-30.0); Prothrombin Time 10.6 sec (9.0-12.0)
[2022-02-04 01:02] LABS: Calcium 8.7 mg/dL (8.4-10.2); Total Bilirubin 0.5 mg/dL (0.2-1.3); Total Protein 6.4 g/dL (6.3-8.2)
[2022-02-04 01:30] LABS: Potassium 2.3 mmol/L (3.5-5.1)
[2022-02-04] MEDS ORDERED: POTASSIUM CHLORIDE 20 MEQ in WATER FOR INJECTION 1 100ML.BAG IVPB STA ×2 (01:37→10:02)
[2022-02-04] MEDS ORDERED: Potassium Replacement Protocol 1 EACH MISC MISCELLANE PRN (01:39)
[2022-02-04] MEDS ORDERED: NALOXONE 0.4 MG/ML 1 ML VIAL IV PRN (01:46)
--- NOTE | 2022-02-04 02:18 | XR ---
EXAMINATION TYPE: XR chest 2V DATE OF EXAM: 02/04/2022 COMPARISON: 09/06/2020 HISTORY: Short of breath TECHNIQUE: 2 views FINDINGS: Heart is normal. Lungs are clear of infiltrate. No heart failure. Bony thorax is intact. IMPRESSION: Normal chest. No change.
--- NOTE | 2022-02-04 02:41 | CT ---
EXAMINATION TYPE: CT abdomen pelvis wo con DATE OF EXAM: 02/04/2022 COMPARISON: 09/11/2020 HISTORY: abdominal pain, n/v CT DLP: 557.9 mGycm Automated exposure control for dose reduction was used. The lung bases are clear. There is minimal subsegmental atelectasis at the right posterior lung base. Heart size is normal. No pericardial effusion. There are small calcified gallstones. Liver and splee n are intact. There is small calcified splenic granulomata. The stomach is intact. No pancreatic mass . The bile ducts are not dilated. There is no adrenal mass. Kidneys of normal size. No hydronephrosis. The ureters are not dilated. Luisito dder distends smoothly. No inguinal hernia. No free fluid in the pelvis. There are multiple distended fluid-filled small bowel loops in the abdomen. Small bowel distended into the distal ileum. There is some retained fecal material in the large bowel. Abdominal aorta is atheromatous. There is multilevel lumbar spondylotic changes. No compression fracture. There is degenerative spurri ng in the lumbar spine. No compression fracture. The bony pelvis is intact. There is some fat strandi ng and fluid at the cecum. The terminal ileum appears dilated with fecal material. IMPRESSION: Dilated small bowel consistent with mechanical bowel obstruction at the level of the distal ileum. Th ere is moderate constipation. Obstruction due to constipation is most likely. No luminal narrowing se en. Obstruction appears new compared to the old exam.
[2022-02-04] MEDS ORDERED: NA PHOS,M-B/NA PHOS,DI-BA 133 ML ENEMA RECTAL ONE (02:53)
[2022-02-04] MEDS: HYDROmorphone 0.5 MG/0.5 ML SYRINGE IVP PRN ×3 (04:25→20:53)
[2022-02-04 06:41] LABS: Appearance,Urine Clear (Clear); Bilirubin,Urine Negative (Negative); Blood,Urine Negative (Negative); Color,Urine Yellow; Glucose,Urine (UA) Negative (Negative); Ketones,Urine Negative (Negative); Leukocyte Esterase,Urine Negative (Negative); Nitrite,Urine Negative (Negative); Protein,Urine 1+ (Negative); RBC,Urine 2 /hpf (0-5); Specific Gravity,Urine 1.013 (1.001-1.035); Squamous Epithelial Cell,Urine <1 /hpf (0-4); Urobilinogen,Urine <2.0 mg/dL (<2.0); WBC,Urine 1 /hpf (0-5)
[2022-02-04] MEDS: POTASSIUM CHLORIDE ER 20 MEQ TAB.ER PO SCH ×3 (06:47→09:19)
[2022-02-04] MEDS: SODIUM CHLORIDE 0.9% 1,000 ML IV SCH ×2 (08:10→19:47)
[2022-02-04] MEDS: PANTOPRAZOLE 40 MG TABLET PO SCH (08:10)
[2022-02-04] MEDS: DOCUSATE 100 MG CAP PO SCH (08:11)
[2022-02-04] MEDS: GABAPENTIN 300 MG CAP PO SCH ×2 (08:11→17:29)
[2022-02-04] MEDS ORDERED: lisinopriL 10 MG TAB PO SCH (09:00)
[2022-02-04 09:39] LABS: Albumin 3.9 g/dL (3.5-5.0); Calcium 8.6 mg/dL (8.4-10.2); Total Bilirubin 0.6 mg/dL (0.2-1.3); Total Protein 6.5 g/dL (6.3-8.2)
[2022-02-04 09:43] LABS: Magnesium 2.2 mg/dL (1.6-2.3); Potassium 2.9 mmol/L (3.5-5.1)
--- NOTE | 2022-02-04 10:48 | P.CRDCN ---
History of Present Illness History of present illness: HISTORY OF PRESENTING ILLNESS This is a pleasant 76-year-old female past medical history significant for Hypertension, dyslipidemia, asthma, hernia repairs, appendectomy, knee surgeries, hysterectomy. 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 We have been asked to see in consultation for elevated troponin. Patient presents to the ER with her daughter. Symptoms of nausea, vomiting, abdominal pain, green emesis, and constipation with last bowel movement Thursday. Patient denies any chest p ain, shortness of breath, palpitations, lightheadedness, dizziness, syncope or near syncope. She was found to be in Acute kidney injury, hypokalemic K 2.3, Leukocytosis. Troponins were drawn and mildly abnormal 0.04, 0.05, .0.4. CT abdomen and pelvis report revealed dilated small bowel consistent with mechanical bowel obstruction. No history of CAD, [place], Stroke, Diabetes. No family history of cardiac disease. Denies tobacco use. DIAGNOSTICS EKG reveals sinus rhythm, heart 87, nonspecific ST and T wave abnormalities, QTc 436 Chest xray no acute cardiopulmonary process CT abdomen and pelvis revealed dilated small bowel consistent with mechanical bowel obstruction at the level of the distal ileum, there is moderate constipation, structure and due to constipation is most likely. Obstruction appears new compared to old exam. Heart size is normal. No pericardial effusion. Laboratory reviewed, WBC 16.6, sodium 133, potassium 2.3, BUN 83, serum creatinine 1.7, magnesium 2.2, troponin 0.04, serum potassium 5. 0.04 Echocardiogram 09/28/2020 revealed EF 5560 percent, moderate concentric LVH, mild tricuspid regurgitation, trace to mild mitral regurgitation Current home cardiac medications include aspirin 81 mg daily, simvastatin 20 mg daily, nifedipine 30 mg daily, Bumex 1 mg twice a day REVIEW OF SYSTEMS At the time of my exam: CONSTITUTIONAL: Denies fever or chills. CARDIOVASCULAR: Denies chest pain, shortness of breath, orthopnea, PND or palpitations. RESPIRATORY: Denies cough. GASTROINTESTINAL: + abdominal pain, +diarrhea, +constipation, +nausea +vomiting. MUSCULOSKELETAL: Denies myalgias. NEUROLOGIC: Denies numbness, tingling, headacbe or weakness. ENDOCRINE: Denies fatigue, weight change, polydipsia or polyurina. GENITOURINARY: Denies burning, hematuria or urgency with micturation. HEMATOLOGIC: Denies history of anemia or bleeding. PHYSICAL EXAMINATION Blood pressure 126/61, heart rate 85, afebrile, oxygen saturations >92% on room air CONSTITUTIONAL: No apparent distress. HEENT: Head is normocephalic. Pupils are equal, round. Sclerae anicteric. Mucous membranes of the mouth are moist. No JVD. No carotid bruit. CHEST EXAMINATION: Lungs are clear to auscultation. No chest wall tenderness is noted on palpation or with deep breathing. HEART EXAMINATION: Regular rate and rhythm. S1, S2 heard. No murmurs, gallops or rub. ABDOMEN: Soft, distended Tender to palpation. Positive bowel sounds. EXTREMITIES: 2+ peripheral pulses, no lower extremity edema and no calf tenderness. NEUROLOGIC EXAMINATION: Patient is awake, alert and oriented x3. ASSESSMENT Elevated troponin, not consistent with acute coronary syndrome, no evidence of acute ischemia on EKG. Patient is asymptomatic, main complaint is abdomen pain. Patient without chest pain or shortness of breath. elevated likely related to acute kidney injury Acute kidney injury Leukocytosis Hypokalemia Small bowel obstruction seen on CT abdomen pelvis Symptoms of nausea, vomiting, constipation History of hypertension Dyslipidemia History hernia repairs History of hysterectomy History of appendectomy PLAN Echocardiogram has been ordered Replace potassium per protocol. From a cardiology perspective, no further inpatient workup at this time for elevated troponin. Patient may follow up outpatient with Dr. Charlton. We will follow the patient as needed. Please reconsult if needed. Nurse practitioner note has been reviewed by physician. Signing provider agrees with the documented findings, assessment, and plan of care. Past Medical History Past Medical History: Asthma, Hyperlipidemia, Hypertension, Osteoarthritis (OA), Rheumatoid Arthritis (RA) Additional Past Medical History / Comment(s): ANEMIA. RECENT UTI just finished Cipro antibiotics, history of seizure. History of Any Multi-Drug Resistant Organisms: None Reported Past Surgical History: Appendectomy, Section, Hernia Repair, Hysterectomy, Joint Replacement, Orthopedic Surgery Additional Past Surgical History / Comment(s): RIGHT- TOTAL KNEE X2 SPACER RIGHT KNEE X2 arthroscopic knee surgery 2, hysterectomy, vein stripping, appendectomy, 3, hernia repair, tonsillectomy. Past Anesthesia/Blood Transfusion Reactions: No Reported Reaction Past Psychological History: Depression Smoking Status: Never smoker Past Alcohol Use History: None Reported Past Drug Use History: None Reported - Past Family History Mother Family Medical History: Cancer (Mother at age 74 from lung cancer) Additional Family Medical History / Comment(s): LUNG CANCER Sister(s) Family Medical History: Cancer (Patient had 3 sisters to diet one of them from colon cancer the other one is alive.) Additional Family Medical History / Comment(s): OVARIAN CANCER Brother(s) Family Medical History: Blood Disorder (Patient had 3 brothers 2 of them from AIDS the other one from overdose as well as alive.) Father Family Medical History: Liver Disease (Father at age 52 from liver cirrhosis.) Daughter(s) Family Medical History: No Reported History (Patient has 2 daughters one adopted) Son(s) Family Medical History: No Reported History (Patient has one son no major medical problems.) Medications and Allergies Home Medications Medication Instructions Recorded Confirmed Type Gabapentin [Neurontin] 300 mg PO TID 11/19/18 02/04/22 History L.acidoph,Paracasei, B.lactis 1 cap PO DAILY 11/19/18 02/04/22 History [Probiotic] Simvastatin [Zocor] 20 mg PO HS 11/19/18 02/04/22 History Gabapentin [Neurontin] 300 mg PO TID #60 capsule 12/03/18 02/04/22 Rx Albuterol Inhaler [Ventolin Hfa 1 - 2 puff INHALATION RT-QID PRN 02/04/22 History Inhaler] Allopurinol [Zyloprim] 300 mg PO DAILY 02/04/22 02/04/22 History Aspirin EC [Ecotrin Low Dose] 81 mg PO DAILY 02/04/22 02/04/22 History Bumetanide [Bumex] 1 mg PO BID 02/04/22 02/04/22 History Cranberry Fruit Concentrate [Azo 250 mg PO DAILY 02/04/22 02/04/22 History Cranberry] Cyclobenzaprine [Flexeril] 5 mg PO DAILY 02/04/22 02/04/22 History Cyclobenzaprine [Flexeril] 10 mg PO HS 02/04/22 02/04/22 History Doxycycline [Vibramycin] 100 mg PO BID 02/04/22 02/04/22 History Fluconazole [Diflucan] 100 mg PO DAILY 02/04/22 02/04/22 History Hydrocodone/Acetaminophen [[place] 1 tab PO TID PRN 02/04/22 02/04/22 History 5-325] Meclizine [Antivert] 12.5 mg PO TID PRN 02/04/22 02/04/22 History Memantine [Namenda] 10 mg PO BID 02/04/22 02/04/22 History NIFEdipine [NIFEdipine ER] 30 mg PO DAILY 02/04/22 02/04/22 History Pantoprazole [Protonix] 40 mg PO DAILY 02/04/22 02/04/22 History Potassium Chloride [Klor-Con 10 ER] 20 meq PO BID 02/04/22 02/04/22 History Allergies Allergy/AdvReac Type Severity Reaction Status Date / Time sulfamethoxazole AdvReac SEIZURE Verified 02/04/22 07:53 [From Bactrim] trimethoprim [From Bactrim] AdvReac SEIZURE Verified 02/04/22 07:53 Physical Exam Vitals: Vital Signs Temp Pulse Resp BP Pulse Ox 02/04/22 06:00 88 16 136/56 02/03/22 20:33 98.4 F 94 22 133/58 96 Intake and Output 02/03/22 02/04/22 02/04/22 22:59 06:59 14:59 Other: Weight 69.853 kg Results 02/04/22 00:01 02/04/22 05:40 Cardiac Enzymes 02/04/22 02/04/22 02/04/22 Range/Units 00:01 00:01 02:41 AST 34 (14-36) U/L Troponin I 0.047 H* 0.052 H* (0.000-0.034) ng/mL 02/04/22 Range/Units 05:40 AST (14-36) U/L Troponin I 0.047 H* (0.000-0.034) ng/mL Coagulation 02/04/22 Range/Units 00:01 PT 10.6 (9.0-12.0) sec APTT 23.7 (22.0-30.0) sec CBC 02/04/22 Range/Units 00:01 WBC 16.6 H (3.8-10.6) k/uL RBC 4.01 (3.80-5.40) m/uL Hgb 11.7 (11.4-16.0) gm/dL Hct 35.7 (34.0-46.0) % Plt Count 459 H (150-450) k/uL Comprehensive Metabolic Panel 02/04/22 Range/Units 00:01 Sodium 133 L (137-145) mmol/L Potassium 2.3 L* (3.5-5.1) mmol/L Chloride 89 L (98-107) mmol/L Carbon Dioxide 33 H (22-30) mmol/L BUN 83 H (7-17) mg/dL Creatinine 1.75 H (0.52-1.04) mg/dL Glucose 121 H (74-99) mg/dL Calcium 8.7 (8.4-10.2) mg/dL AST 34 (14-36) U/L ALT 19 (4-34) U/L Alkaline Phosphatase 87 (38-126) U/L Total Protein 6.4 (6.3-8.2) g/dL Albumin 4.0 (3.5-5.0) g/dL Current Medications Generic Name Dose Route Start Last Admin Trade Name Freq PRN Reason Stop Dose Admin Atorvastatin Calcium 10 mg 02/04/22 21:00 Atorvastatin 10 Mg Tab PO HS [facility] Docusate Sodium 100 mg 02/04/22 09:00 Docusate 100 Mg Cap PO DAILY JUSTIN Gabapentin 300 mg 02/04/22 09:00 Gabapentin 300 Mg Cap PO TID [facility] Hydromorphone HCl 0.5 mg 02/04/22 01:46 02/04/22 04:25 Hydromorphone 0.5 Mg/0.5 Ml Syringe IVP 0.5 mg Q3HR PRN Administration Moderate Pain Sodium Chloride 1,000 mls @ 75 mls/hr 02/04/22 02:00 Saline 0.9% IV .[id number] [facility] Miscellaneous Information 1 each 02/04/22 01:39 Potassium Replacement Protocol 1 Each Misc MISCELLANE DAILY PRN Per Protocol Protocol Naloxone HCl 0.2 mg 02/04/22 01:46 Naloxone 0.4 Mg/Ml 1 Ml Vial IV Q2M PRN Opioid Reversal Pantoprazole Sodium 40 mg 02/04/22 07:30 Pantoprazole 40 Mg Tablet PO AC-BRKFST [facility] Intake and Output 02/03/22 02/04/22 02/04/22 22:59 06:59 14:59 Other: Weight 69.853 kg 02/04/22 00:01 02/04/22 00:01
--- NOTE | 2022-02-04 11:15 | P.NPCON ---
History of Present Illness - Reason for Consult acute renal failure, chronic renal failure - History of Present Illness Reason for consultation: Acute kidney injury on chronic kidney disease History of present illness: Patient is a 76-year-old female seen in renal consultation for acute kidney injury on chronic kidney disease. Patient has chronic kidney disease stage IIIb with baseline creatinine appears to be in the range of 1.2-1.3. Creatinine was 1.75 on admission and this morning it was 1.62. Patient presented to the hospital with nausea and vomiting going on for about 2-3 days. Patient states she was having cream-colored emesis. She also complains of abdominal pain and distention. States her last bowel movement was on Thursday. CAT scan showed bowel obstruction with out hydronephrosis. She denies history of diabetes. She denies any personal history of kidney disease. She denies seeing nephrology outpatient. She does have history of diastolic CHF and takes Bumex at home. Chest x-ray showed no evidence of fluid overload. She currently has no lower extremity edema. She denies hematuria or dysuria. No fever or chills. Potassium level noted to be low and is being replaced. Blood pressure well controlled. She is on room air. Vital signs are stable. General: Awake. No acute distress. HEENT: Head exam is unremarkable. LUNGS: Breath sounds decreased. HEART: Rate and Rhythm are regular. ABDOMEN: Tender to touch. Distention noted. EXTREMITITES: No edema. Past Medical History Past Medical History: Asthma, Hyperlipidemia, Hypertension, Osteoarthritis (OA), Rheumatoid Arthritis (RA) Additional Past Medical History / Comment(s): ANEMIA. RECENT UTI just finished Cipro antibiotics, history of seizure. History of Any Multi-Drug Resistant Organisms: None Reported Past Surgical History: Appendectomy, Section, Hernia Repair, Hysterectomy, Joint Replacement, Orthopedic Surgery Additional Past Surgical History / Comment(s): RIGHT- TOTAL KNEE X2 SPACER RIGHT KNEE X2 arthroscopic knee surgery 2, hysterectomy, vein stripping, appendectomy, 3, hernia repair, tonsillectomy. Past Anesthesia/Blood Transfusion Reactions: No Reported Reaction Past Psychological History: Depression Smoking Status: Never smoker Past Alcohol Use History: None Reported Past Drug Use History: None Reported - Past Family History Mother Family Medical History: Cancer (Mother at age 74 from lung cancer) Additional Family Medical History / Comment(s): LUNG CANCER Sister(s) Family Medical History: Cancer (Patient had 3 sisters to diet one of them from colon cancer the other one is alive.) Additional Family Medical History / Comment(s): OVARIAN CANCER Brother(s) Family Medical History: Blood Disorder (Patient had 3 brothers 2 of them from AIDS the other one from overdose as well as alive.) Father Family Medical History: Liver Disease (Father at age 52 from liver cirrhosis.) Daughter(s) Family Medical History: No Reported History (Patient has 2 daughters one adopted) Son(s) Family Medical History: No Reported History (Patient has one son no major medical problems.) Medications and Allergies Home Medications Medication Instructions Recorded Confirmed Type Gabapentin [Neurontin] 300 mg PO TID 11/19/18 02/04/22 History L.acidoph,Paracasei, B.lactis 1 cap PO DAILY 11/19/18 02/04/22 History [Probiotic] Simvastatin [Zocor] 20 mg PO HS 11/19/18 02/04/22 History Gabapentin [Neurontin] 300 mg PO TID #60 capsule 12/03/18 02/04/22 Rx Albuterol Inhaler [Ventolin Hfa 1 - 2 puff INHALATION RT-QID PRN 02/04/22 02/04/22 History Inhaler] Allopurinol [Zyloprim] 300 mg PO DAILY 02/04/22 02/04/22 History Aspirin EC [Ecotrin Low Dose] 81 mg PO DAILY 02/04/22 02/04/22 History Bumetanide [Bumex] 1 mg PO BID 02/04/22 02/04/22 History Cranberry Fruit Concentrate [Azo 250 mg PO DAILY 02/04/22 02/04/22 History Cranberry] Cyclobenzaprine [Flexeril] 5 mg PO DAILY 02/04/22 02/04/22 History Cyclobenzaprine [Flexeril] 10 mg PO HS 02/04/22 02/04/22 History Doxycycline [Vibramycin] 100 mg PO BID 02/04/22 02/04/22 History Fluconazole [Diflucan] 100 mg PO DAILY 02/04/22 02/04/22 History Hydrocodone/Acetaminophen [[place] 1 tab PO TID PRN 02/04/22 02/04/22 History 5-325] Meclizine [Antivert] 12.5 mg PO TID PRN 02/04/22 02/04/22 History Memantine [Namenda] 10 mg PO BID 02/04/22 02/04/22 History NIFEdipine [NIFEdipine ER] 30 mg PO DAILY 02/04/22 02/04/22 History Pantoprazole [Protonix] 40 mg PO DAILY 02/04/22 02/04/22 History Potassium Chloride [Klor-Con 10 ER] 20 meq PO BID 02/04/22 02/04/22 History Allergies Allergy/AdvReac Type Severity Reaction Status Date / Time sulfamethoxazole AdvReac SEIZURE Verified 02/04/22 07:53 [From Bactrim] trimethoprim [From Bactrim] AdvReac SEIZURE Verified 02/04/22 07:53 Physical Exam Vitals: Vital Signs Temp Pulse Resp BP Pulse Ox 02/04/22 10:28 85 18 126/61 94 L 02/04/22 06:00 88 16 136/56 02/03/22 20:33 98.4 F 94 22 133/58 96 Intake and Output 02/03/22 02/04/22 02/04/22 22:59 06:59 14:59 Other: Weight 69.853 kg Results - Lab Results Most recent lab results Calcium 8.6 mg/dL (8.4-10.2) 02/04/22 05:40 Magnesium 2.2 mg/dL (1.6-2.3) 02/04/22 05:40 02/04/22 00:01 02/04/22 05:40 Assessment and Plan Plan: Assessment: 1. Acute kidney injury secondary to ATN secondary to hypovolemia from vomiting and diuretics. Creatinine 1.75 on admission and 1.62 this morning. No hydronephrosis noted on CAT scan. 2. Chronic kidney disease stage IIIb with baseline creatinine in the range of 1.2-1.3 secondary to nephrosclerosis. 3. Hypokalemia from poor intake and diuretic. Magnesium normal. 4. Chronic diastolic CHF. 5. Small bowel obstruction and constipation noted on CAT scan. Plan: Maintain normal saline at 75 mL an hour. Hold lisinopril and diuretics. Potassium being replaced. Avoid nephrotoxins. Avoid fleet enemas. Consult surgery for bowel obstruction. Follow-up echocardiogram. Check bladder scan to make sure no urinary retention. Thank you for the consultation. I will continue to follow the patient with you during her hospital stay.
--- NOTE | 2022-02-04 11:36 | CA ---
Transthoracic Echo Report Name: Aleyda Moon Age: 76 Gender: F : 1945 Exam Date: 02/04/2022 08:23 Exam Location: [facility] Ht (in): 60 Wt (lb): 154 Ordering Physician: Lisandro Kohli Attending/Referring Phys: Garbage Collection Supervisor Mary Jane Escobar RDCS Procedure CPT: Indications: elevated troponin Cardiac Hx: No cardiac hx. Technical Quality: Fair Contrast 1: Total Dose (mL): Contrast 2: Total Dose (mL): MEASUREMENTS (Male / Female) Normal Values 2D ECHO LV Diastolic Diameter PLAX 3.2 cm 4.2 - 5.9 / 3.9 - 5.3 cm LV Systolic Diameter PLAX 1.4 cm IVS Diastolic Thickness 1.4 cm 0.6 - 1.0 / 0.6 - 0.9 cm LVPW Diastolic Thickness 1.1 cm 0.6 - 1.0 / 0.6 - 0.9 cm LV Relative Wall Thickness 0.8 RV Internal Dim ED PLAX 2.5 cm LVOT Diameter 1.7 cm LA Volume 34.2 cm??? 18 - 58 / 22 - 52 cm??? M-MODE Aortic Root Diameter MM 2.8 cm LA Systolic Diameter MM 3.0 cm LA Ao Ratio MM 1.0 AV Cusp Separation MM 2.0 cm DOPPLER AV Peak Velocity 211.1 cm/s AV Peak Gradient 17.8 mmHg AV Mean Velocity 150.7 cm/s AV Mean Gradient 10.1 mmHg AV Velocity Time Integral 45.2 cm LVOT Peak Velocity 136.0 cm/s LVOT Peak Gradient 7.4 mmHg AV Area Cont Eq pk 1.4 cm??? MV Area PHT 4.7 cm??? MR Peak Velocity 182.1 cm/s MR Peak Gradient 13.3 mmHg Mitral E Point Velocity 91.5 cm/s Mitral A Point Velocity 126.8 cm/s Mitral E to A Ratio 0.7 MV Deceleration Time 162.5 ms TR Peak Velocity 153.4 cm/s TR Peak Gradient 9.4 mmHg Right Ventricular Systolic Press 14.4 mmHg FINDINGS Left Ventricle Moderately increased septal wall thickness. Mildly increased posterior wall thickness. Left ventricular ejection fraction is estimated at 55-60 %. Right Ventricle The right ventricle is normal in size and function. Right Atrium The right atrium is normal in size. Left Atrium The left atrium is normal in size. Mitral Valve Structurally normal mitral valve without significant stenosis or prolapse. There is mild mitral regurgitation. Aortic Valve There is no aortic regurgitation. Mild aortic stenosis with a peak gradient of 17 mmHg and a mean gradient of 10 mmHg. Tricuspid Valve Structurally normal tricuspid valve without significant stenosis. Pulmonary artery systolic pressure is normal. Mild tricuspid regurgitation. Pulmonic Valve Structurally normal pulmonic valve without significant stenosis. There is no pulmonic regurgitation. Pericardium Normal pericardium without effusion. Aorta Normal aortic root dimension. CONCLUSIONS #1. Normal left ventricle size with concentric left ventricle hypertrophy. Preserved LV function. #2. Mild aortic stenosis. #3. Mild tricuspid regurgitation and mild mitral regurgitation Previewed by: Dr. Viktor Ro MD (Electronically Signed) Final Date: 04 February 2022 11:35
--- NOTE | 2022-02-04 13:15 | P.GSCN ---
History of Present Illness Consult date: 02/04/22 History of present illness: CHIEF COMPLAINT: Abdominal pain HISTORY OF PRESENT ILLNESS: This is a 76-year-old female who was seen in the ER with Dr. au. She presents to emergency room with complaints of abdominal pain with nausea and vomiting. The emesis was green in color. She reports that her last bowel movement was on Thursday. Her abdomen is distended. Her past surgical history includes multiple hernia repairs, appendectomy and C-sections. She does take hydrocodone for chronic back pain. Computed tomography scan abdomen and pelvis shows dilated small bowel consistent with mechanical bowel obstruction at the level of the distal ileum. There is moderate constipation. Obstruction due to constipation is most likely. Patient with elevated white count of 16.6 on admission and electrolyte abnormalities and evidence of acute kidney injury. PAST MEDICAL HISTORY: Asthma, Hyperlipidemia, Hypertension, Osteoarthritis (OA), Rheumatoid Arthritis (RA), anemia, UTI, seizure PAST SURGICAL HISTORY: See list. MEDICATIONS: See list. ALLERGIES: See list. SOCIAL HISTORY: No illicit drug use. REVIEW OF SYSTEMS: CONSTITUTIONAL: Denies fever or chills. HEENT: Denies blurred vision, vision changes, or eye pain. Denies hemoptysis CARDIOVASCULAR: Denies chest pain or pressure. RESPIRATORY: No shortness of breath. GASTROINTESTINAL: See HPI for pertinent findings HEMATOLOGIC: Denies bleeding disorders. GENITOURINARY: Denies any blood in urine or increased urinary frequency. SKIN: Denies pruitis. Denies rash. PHYSICAL EXAM: VITAL SIGNS: Reviewed GENERAL: Well-developed in no acute distress. HEENT: No sclera icterus. Extraocular movements grossly intact. Moist buccal mucosa. Head is atraumatic, normocephalic. No nasal drainage. ABDOMEN: Distended and tender NEUROLOGIC: Alert and oriented. Cranial nerves II through XII grossly intact. LABORATORY DATA: WBC 16.6 Hgb 11.7 platelets 459 Sodium 135 potassium 2.3 and now 2.9 creatinine 1.62 mildly elevated troponins Urinalysis negative for infection Acetaminophen level less than 10 IMAGING: Computed tomography scan abdomen and pelvis shows dilated small bowel consistent with mechanical bowel obstruction at the level of the distal ileum. There is moderate constipation. Obstruction due to constipation is most likely. No luminal narrowing seen. Patient appears new compared to old exam. ASSESSMENT: 1. Small bowel obstruction consistent with mechanical valve structure at the level of the distal ileum 2. Constipation possibly the cause of the obstruction 3. Chronic back pain with chronic narcotic use 4. Acute kidney injury 5. Hypokalemia 6. Elevated troponin seen and evaluated by cardiology PLAN: -Place NG tube for decompression -Keep patient nothing by mouth -Continue IV fluids -Potassium being replaced -Continue pain medication as needed -Continue supportive care Thank you for this consultation Physician Boiler Fireman note has been reviewed by physician. Signing provider agrees with the documented findings, assessment, and plan of care. Past Medical History Past Medical History: Asthma, Hyperlipidemia, Hypertension, Osteoarthritis (OA), Rheumatoid Arthritis (RA) Additional Past Medical History / Comment(s): ANEMIA. RECENT UTI just finished Cipro antibiotics, history of seizure. History of Any Multi-Drug Resistant Organisms: None Reported Past Surgical History: Appendectomy, Section, Hernia Repair, Hysterec su, Joint Replacement, Orthopedic Surgery Additional Past Surgical History / Comment(s): RIGHT- TOTAL KNEE X2 SPACER RIGHT KNEE X2 arthroscopic knee surgery 2, hysterectomy, vein stripping, appendectomy, 3, hernia repair, tonsillectomy. Past Anesthesia/Blood Transfusion Reactions: No Reported Reaction Past Psychological History: Depression Smoking Status: Never smoker Past Alcohol Use History: None Reported Past Drug Use History: None Reported - Past Family History Mother Family Medical History: Cancer (Mother at age 74 from lung cancer) Additional Family Medical History / Comment(s): LUNG CANCER Sister(s) Family Medical History: Cancer (Patient had 3 sisters to diet one of them from colon cancer the other one is alive.) Additional Family Medical History / Comment(s): OVARIAN CANCER Brother(s) Family Medical History: Blood Disorder (Patient had 3 brothers 2 of them from AIDS the other one from overdose as well as alive.) Father Family Medical History: Liver Disease (Father at age 52 from liver cirrhosis.) Daughter(s) Family Medical History: No Reported History (Patient has 2 daughters one adopted) Son(s) Family Medical History: No Reported History (Patient has one son no major medical problems.) Medications and Allergies Home Medications Medication Instructions Recorded Confirmed Type Gabapentin [Neurontin] 300 mg PO TID 11/19/18 02/04/22 History L.acidoph,Paracasei, B.lactis 1 cap PO DAILY 11/19/18 02/04/22 History [Probiotic] Simvastatin [Zocor] 20 mg PO HS 11/19/18 02/04/22 History Gabapentin [Neurontin] 300 mg PO TID #60 capsule 12/03/18 02/04/22 Rx Albuterol Inhaler [Ventolin Hfa 1 - 2 puff INHALATION RT-QID PRN 02/04/22 02/04/22 History Inhaler] Allopurinol [Zyloprim] 300 mg PO DAILY 02/04/22 02/04/22 History Aspirin EC [Ecotrin Low Dose] 81 mg PO DAILY 02/04/22 02/04/22 History Bumetanide [Bumex] 1 mg PO BID 02/04/22 02/04/22 History Cranberry Fruit Concentrate [Azo 250 mg PO DAILY 02/04/22 02/04/22 History Cranberry] Cyclobenzaprine [Flexeril] 5 mg PO DAILY 02/04/22 02/04/22 History Cyclobenzaprine [Flexeril] 10 mg PO HS 02/04/22 02/04/22 History Doxycycline [Vibramycin] 100 mg PO BID 02/04/22 02/04/22 History Fluconazole [Diflucan] 100 mg PO DAILY 02/04/22 02/04/22 History Hydrocodone/Acetaminophen [[place] 1 tab PO TID PRN 02/04/22 02/04/22 History 5-325] Meclizine [Antivert] 12.5 mg PO TID PRN 02/04/22 02/04/22 History Memantine [Namenda] 10 mg PO BID 02/04/22 02/04/22 History NIFEdipine [NIFEdipine ER] 30 mg PO DAILY 02/04/22 02/04/22 History Pantoprazole [Protonix] 40 mg PO DAILY 02/04/22 02/04/22 History Potassium Chloride [Klor-Con 10 ER] 20 meq PO BID 02/04/22 02/04/22 History Allergies Allergy/AdvReac Type Severity Reaction Status Date / Time sulfamethoxazole AdvReac SEIZURE Verified 02/04/22 07:53 [From Bactrim] trimethoprim [From Bactrim] AdvReac SEIZURE Verified 02/04/22 07:53 Surgical - Exam Vital Signs Temp Pulse Resp BP Pulse Ox 98.4 F 94 22 133/58 96 02/03/22 20:33 02/03/22 20:33 02/03/22 20:33 02/03/22 20:33 02/03/22 20:33 Results - Labs 02/04/22 00:01 02/04/22 05:40 Abnormal Lab Results - Last 24 Hours (Table) 02/04/22 02/04/22 02/04/22 Range/Units 00:01 00:01 00:01 WBC 16.6 H (3.8-10.6) k/uL Plt Count 459 H (150-450) k/uL Neutrophils # 13.7 H (1.3-7.7) k/uL Monocytes # 1.1 H (0-1.0) k/uL Sodium 133 L (137-145) mmol/L Potassium 2.3 L* (3.5-5.1) mmol/L Chloride 89 L (98-107) mmol/L Carbon Dioxide 33 H (22-30) mmol/L BUN 83 H (7-17) mg/dL Creatinine 1.75 H (0.52-1.04) mg/dL Glucose 121 H (74-99) mg/dL AST (14-36) U/L Troponin I 0.047 H* (0.000-0.034) ng/mL Urine Protein (Negative) 02/04/22 02/04/22 02/04/22 Range/Units 02:41 05:40 05:40 WBC (3.8-10.6) k/uL Plt Count (150-450) k/uL Neutrophils # (1.3-7.7) k/uL Monocytes # (0-1.0) k/uL Sodium 135 L (137-145) mmol/L Potassium 2.9 L (3.5-5.1) mmol/L Chloride 94 L (98-107) mmol/L Carbon Dioxide (22-30) mmol/L BUN 82 H (7-17) mg/dL Creatinine 1.62 H (0.52-1.04) mg/dL Glucose 109 H (74-99) mg/dL AST 40 H (14-36) U/L Troponin I 0.052 H* 0.047 H* (0.000-0.034) ng/mL Urine Protein (Negative) 02/04/22 Range/Units 05:42 WBC (3.8-10.6) k/uL Plt Count (150-450) k/uL Neutrophils # (1.3-7.7) k/uL Monocytes # (0-1.0) k/uL Sodium (137-145) mmol/L Potassium (3.5-5.1) mmol/L Chloride (98-107) mmol/L Carbon Dioxide (22-30) mmol/L BUN (7-17) mg/dL Creatinine (0.52-1.04) mg/dL Glucose (74-99) mg/dL AST (14-36) U/L Troponin I (0.000-0.034) ng/mL Urine Protein 1+ H (Negative) Diabetes panel 02/04/22 02/04/22 Range/Units 00:01 05:40 Sodium 133 L 135 L (137-145) mmol/L Potassium 2.3 L* 2.9 L (3.5-5.1) mmol/L Chloride 89 L 94 L (98-107) mmol/L Carbon Dioxide 33 H 29 (22-30) mmol/L BUN 83 H 82 H (7-17) mg/dL Creatinine 1.75 H 1.62 H (0.52-1.04) mg/dL Glucose 121 H 109 H (74-99) mg/dL Calcium 8.7 8.6 (8.4-10.2) mg/dL AST 34 40 H (14-36) U/L ALT 19 19 (4-34) U/L Alkaline Phosphatase 87 73 (38-126) U/L Total Protein 6.4 6.5 (6.3-8.2) g/dL Albumin 4.0 3.9 (3.5-5.0) g/dL Calcium panel 02/04/22 02/04/22 Range/Units 00:01 05:40 Calcium 8.7 8.6 (8.4-10.2) mg/dL Albumin 4.0 3.9 (3.5-5.0) g/dL Pituitary panel 02/04/22 02/04/22 Range/Units 00:01 05:40 Sodium 133 L 135 L (137-145) mmol/L Potassium 2.3 L* 2.9 L (3.5-5.1) mmol/L Chloride 89 L 94 L (98-107) mmol/L Carbon Dioxide 33 H 29 (22-30) mmol/L BUN 83 H 82 H (7-17) mg/dL Creatinine 1.75 H 1.62 H (0.52-1.04) mg/dL Glucose 121 H 109 H (74-99) mg/dL Calcium 8.7 8.6 (8.4-10.2) mg/dL Adrenal panel 02/04/22 02/04/22 Range/Units 00:01 05:40 Sodium 133 L 135 L (137-145) mmol/L Potassium 2.3 L* 2.9 L (3.5-5.1) mmol/L Chloride 89 L 94 L (98-107) mmol/L Carbon Dioxide 33 H 29 (22-30) mmol/L BUN 83 H 82 H (7-17) mg/dL Creatinine 1.75 H 1.62 H (0.52-1.04) mg/dL Glucose 121 H 109 H (74-99) mg/dL Calcium 8.7 8.6 (8.4-10.2) mg/dL Total Bilirubin 0.5 0.6 (0.2-1.3) mg/dL AST 34 40 H (14-36) U/L ALT 19 19 (4-34) U/L Alkaline Phosphatase 87 73 (38-126) U/L Total Protein 6.4 6.5 (6.3-8.2) g/dL Albumin 4.0 3.9 (3.5-5.0) g/dL
--- NOTE | 2022-02-04 14:02 | P.HPIM ---
History of Present Illness H&P Date: 02/04/22 HISTORY OF PRESENT ILLNESS This is a 76 year old female patient of Dr. Tiwari with past medical history of hypertension and hypertensive cardio vascular disease with left ventricle hypertrophy, hyperlipidemia, seizure disorder, generalized osteoarthritis, gastroesophageal reflux disease, mild intermittent asthma, chronic pain syndrome, ALLERGIC rhinitis, gout. Patient presented to [facility] emergency center due to nausea and vomiting. She complains of abdominal bloating and chills. She states she occasionally gets winded when she is active. No recent falls. Patient also states that she received enema this morning with no results. She denies any blood in her stools. Patient was found to be afebrile, heart rate 94, blood pressure 133/58, pulse ox 96% on room air. EKG sinus rhythm with no acute ST changes. WBC 16.6, hemoglobin 11.7, platelet 459. Sodium 133, potassium 2.3, chloride 89, CO2 33, BUN 83, creatinine 1.75. Blood sugar 121. INR 1.0. Liver function tests were normal. Lipase 119. Lactic acid 0.9. Troponin 0.047, 0.052, 0.047. Urinalysis negative for infection. Acetaminophen less than 10. Hold, CAT scan of the abdomen and pelvis revealed dilated small bowel consistent with mechanical bowel obstruction at the level of the distal ileum. There is moderate constipation. Obstruction due to constipation is most likely. No luminal narrowing seen. Obstruction appears new. Chest x-ray is normal. Echocardiogram reveals normal left ventricular size with concentric left ventricular hypertrophy, preserved LV function. Mild aortic stenosis, mild tricuspid regurgitation and mild mitral regurgitation. Patient is seen today in the emergency center waiting for a bed in the cardiac stepdown unit, consult in place with general surgery, cardiology. REVIEW OF SYSTEMS Constitutional: No freports chills, no night sweats. No weight change. No weakness, fatigue or lethargy. No daytime sleepiness. EENT: No headache. No blurred vision or double vision, no loss of vision. No loss of Hearing, no ringing in the ears, no dizziness. No nasal drainage or congestion. No epistaxis. No sore throat. Lungs: No shortness of breath, cough, no sputum production. No wheezing. Cardiovascular: No chest pain, no lower extremity edema. No palpitations. No paroxysmal nocturnal dyspnea. No orthopnea. No lightheadedness or dizziness. No syncopal episodes. Abdominal: Reports abdominal pain, reports abdominal distention, reports nausea, reports vomiting. No diarrhea. Reports onstipation. No bloody or tarry stools. reportss of appetite. Genitourinary: No dysuria, increased frequency, urgency. No urinary retention. Musculoskeletal: No myalgias. No muscle weakness, no gait dysfunction, no frequent falls. No back pain. No neck pain. Integumentary: No wounds, no lesions. No rash or pruritus. No unusual bruising. No change in hair or nails. Neurologic: No aphasia. No facial droop. No change in mentation. No head injury. No headache. No paralysis. No paresthesia. Psychiatric: No depression. No anxiety. No mood swings. Endocrine: No abnormal blood sugars. No weight change. No excessive sweating or thirst. No cold intolerance. SOCIAL HISTORY Patient is a lifelong nonsmoker, no alcohol use, illicit drug use or marijuana use. She does not utilize CPAP, nebulizer oxygen at home. She is a . FAMILY HISTORY Mother at age 74 from lung cancer. Father at age 52 from liver cirrhosis. Patient has 3 sisters and one from ovarian cancer. Patient has 3 brothers and one from AIDS and one from an overdose, third brother is alive. Patient has 2 daughters and one was adopted. She has one son with no major medical problems. Patient is 1 child that in a motor vehicle accident. PHYSICAL EXAMINATION Gen: This is a 76-year-old female. She is resting on ER stretch and appears to be comfortable and in no acute distress HEENT: Head is atraumatic, normocephalic. Pupils equal, round. Sclerae is anicteric. NECK: Supple. No JVD. No lymphadenopathy. No thyromegaly. LUNGS: Clear to auscultation. No wheezes or rhonchi. No intercostal retractions. HEART: Regular rate and rhythm. Systolic murmur. ABDOMEN: abdomen distended Bowel sounds are present. No masses. generalizederness. EXTREMITIES: No pedal edema. No calf tenderness. NEUROLOGICAL: Patient is awake alert and oriented 3. Cranial nerves II through XII grossly intact. ASSESSMENT AND PLAN 1. Small bowel obstruction at the level of the distal ileum. Consult with ge neral surgery and patient has been tentatively scheduled for exploratory laparotomy tomorrow with Dr. Cohen., alert and oriented x3. Cranial nerves 2 through 12 are grossly intact. Patient is nothing by mouth, continue IV fluids of 0.9 normal saline at 75 mL per hour, continue current pain medication. 2. Severe constipation leading to obstruction. Continue as in #1. 3. Acute kidney injury. Consult with nephrology. Avoid nephrotoxic agents, avoid fleets enema, hold lisinopril and diuretics. Check bladder scan 4. Hypokalemia status post replacement, continue to monitor and replace as needed 5. Elevated troponin without c/o chest pain. Cardiology consult. 6. Chronic kidney disease stage IIIB. Consult with nephrology. 7. Hypertension and hypertensive cardiovascular disease with left ventricular hypertrophy. Hold lisinopril. 8. Hyperlipidemia. Patient is currently nothing by mouth hold statin. 9. Seizure disorder. 10. Generalized osteoarthritis. 11. Gaseous after reflux disease. 12. Mild intermittent asthma. 13. Chronic pain syndrome. 14. Seasonal ALLERGIES. 15. Chronic gout. To be determined Patient will be admitted to the hospital for a minimum of 2 night stay. DISCHARGE PLAN [ ]. Impression and plan of care have been directed as dictated by the signing physician. Anabel Riggins nurse practitioner acting as scribe for signing physician. Past Medical History Past Medical History: Asthma, Hyperlipidemia, Hypertension, Osteoarthritis (OA), Rheumatoid Arthritis (RA) Additional Past Medical History / Comment(s): ANEMIA. RECENT UTI just finished Cipro antibiotics, history of seizure. History of Any Multi-Drug Resistant Organisms: None Reported Past Surgical History: Appendectomy, Section, Hernia Repair, Hysterectomy, Joint Replacement, Orthopedic Surgery Additional Past Surgical History / Comment(s): RIGHT- TOTAL KNEE X2 SPACER RIGHT KNEE X2 arthroscopic knee surgery 2, hysterectomy, vein stripping, appendectomy, 3, hernia repair, tonsillectomy. Past Anesthesia/Blood Transfusion Reactions: No Reported Reaction Past Psychological History: Depression Smoking Status: Never smoker Past Alcohol Use History: None Reported Past Drug Use History: None Reported - Past Family History Mother Family Medical History: Cancer (Mother at age 74 from lung cancer) Additional Family Medical History / Comment(s): LUNG CANCER Sister(s) Family Medical History: Cancer (Patient had 3 sisters to diet one of them from colon cancer the other one is alive.) Additional Family Medical History / Comment(s): OVARIAN CANCER Brother(s) Family Medical History: Blood Disorder (Patient had 3 brothers 2 of them from AIDS the other one from overdose as well as alive.) Father Family Medical History: Liver Disease (Father at age 52 from liver cirrhosis.) Daughter(s) Family Medical History: No Reported History (Patient has 2 daughters one adopted) Son(s) Family Medical History: No Reported History (Patient has one son no major medical problems.) Medications and Allergies Home Medications Medication Instructions Recorded Confirmed Type Gabapentin [Neurontin] 300 mg PO TID 11/19/18 02/04/22 History L.acidoph,Paracasei, B.lactis 1 cap PO DAILY 11/19/18 02/04/22 History [Probiotic] Simvastatin [Zocor] 20 mg PO HS 11/19/18 02/04/22 History Gabapentin [Neurontin] 300 mg PO TID #60 capsule 12/03/18 02/04/22 Rx Albuterol Inhaler [Ventolin Hfa 1 - 2 puff INHALATION RT-QID PRN 02/04/22 02/04/22 History Inhaler] Allopurinol [Zyloprim] 300 mg PO DAILY 02/04/22 02/04/22 History Aspirin EC [Ecotrin Low Dose] 81 mg PO DAILY 02/04/22 02/04/22 History Bumetanide [Bumex] 1 mg PO BID 02/04/22 02/04/22 History Cranberry Fruit Concentrate [Azo 250 mg PO DAILY 02/04/22 02/04/22 History Cranberry] Cyclobenzaprine [Flexeril] 5 mg PO DAILY 02/04/22 02/04/22 History Cyclobenzaprine [Flexeril] 10 mg PO HS 02/04/22 02/04/22 History Doxycycline [Vibramycin] 100 mg PO BID 02/04/22 02/04/22 History Fluconazole [Diflucan] 100 mg PO DAILY 02/04/22 02/04/22 History Hydrocodone/Acetaminophen [[place] 1 tab PO TID PRN 02/04/22 02/04/22 History 5-325] Meclizine [Antivert] 12.5 mg PO TID PRN 02/04/22 02/04/22 History Memantine [Namenda] 10 mg PO BID 02/04/22 02/04/22 History NIFEdipine [NIFEdipine ER] 30 mg PO DAILY 02/04/22 02/04/22 History Pantoprazole [Protonix] 40 mg PO DAILY 02/04/22 02/04/22 History Potassium Chloride [Klor-Con 10 ER] 20 meq PO BID 02/04/22 02/04/22 History Allergies Allergy/AdvReac Type Severity Reaction Status Date / Time sulfamethoxazole AdvReac SEIZURE Verified 02/04/22 07:53 [From Bactrim] trimethoprim [From Bactrim] AdvReac SEIZURE Verified 02/04/22 07:53 Physical Exam Vitals: Vital Signs Temp Pulse Resp BP Pulse Ox 02/04/22 06:00 88 16 136/56 02/03/22 20:33 98.4 F 94 22 133/58 96 Intake and Output 02/03/22 02/04/22 02/04/22 22:59 06:59 14:59 Other: Weight 69.853 kg Results CBC & Chem 7: 02/04/22 00:01 02/04/22 05:40 Labs: Abnormal Lab Results - Last 24 Hours (Table) 02/04/22 02/04/22 02/04/22 Range/Units 00:01 00:01 00:01 WBC 16.6 H (3.8-10.6) k/uL Plt Count 459 H (150-450) k/uL Neutrophils # 13.7 H (1.3-7.7) k/uL Monocytes # 1.1 H (0-1.0) k/uL Sodium 133 L (137-145) mmol/L Potassium 2.3 L* (3.5-5.1) mmol/L Chloride 89 L (98-107) mmol/L Carbon Dioxide 33 H (22-30) mmol/L BUN 83 H (7-17) mg/dL Creatinine 1.75 H (0.52-1.04) mg/dL Glucose 121 H (74-99) mg/dL Troponin I 0.047 H* (0.000-0.034) ng/mL Urine Protein (Negative) 02/04/22 02/04/22 02/04/22 Range/Units 02:41 05:40 05:42 WBC (3.8-10.6) k/uL Plt Count (150-450) k/uL Neutrophils # (1.3-7.7) k/uL Monocytes # (0-1.0) k/uL Sodium (137-145) mmol/L Potassium (3.5-5.1) mmol/L Chloride (98-107) mmol/L Carbon Dioxide (22-30) mmol/L BUN (7-17) mg/dL Creatinine (0.52-1.04) mg/dL Glucose (74-99) mg/dL Troponin I 0.052 H* 0.047 H* (0.000-0.034) ng/mL Urine Protein 1+ H (Negative)
[2022-02-04] MEDS: POTASSIUM CHLORIDE 10 MEQ in WATER FOR INJECTION 1 100ML.BAG IVPB SCH ×3 (20:55→23:50)
[2022-02-05] MEDS: POTASSIUM CHLORIDE 10 MEQ in WATER FOR INJECTION 1 100ML.BAG IVPB SCH ×11 (00:58→20:07)
[2022-02-05] MEDS: GABAPENTIN 300 MG CAP PO SCH ×4 (01:02→20:17)
[2022-02-05] MEDS: ATORVASTATIN 10 MG TAB PO SCH ×2 (01:03→20:17)
[2022-02-05 06:40] LABS: Basophils % (A) 0 %; Eosinophils # (A) 0.1 k/uL (0-0.7); Eosinophils % (A) 1 %; HCT 36.3 % (34.0-46.0); HGB 11.3 gm/dL (11.4-16.0); Lymphocytes # (A) 1.3 k/uL (1.0-4.8); Lymphocytes % (A) 11 %; MCH 28.8 pg (25.0-35.0); MCHC 31.1 g/dL (31.0-37.0); MCV 92.6 fL (80.0-100.0); Mean Platelet Volume 7.3; Monocytes # (A) 0.8 k/uL (0-1.0); Monocytes % (A) 7 %; Neutrophils # (A) 9.9 k/uL (1.3-7.7); Neutrophils % (A) 79 %; Platelet Count 437 k/uL (150-450); RBC 3.92 m/uL (3.80-5.40); WBC 12.4 k/uL (3.8-10.6)
[2022-02-05] MEDS: HYDROmorphone 0.5 MG/0.5 ML SYRINGE IVP PRN ×4 (06:44→21:32)
[2022-02-05 07:17] LABS: Albumin 3.6 g/dL (3.5-5.0); Calcium 9.1 mg/dL (8.4-10.2); Phosphorus 2.7 mg/dL (2.5-4.5); Potassium 2.8 mmol/L (3.5-5.1); Total Bilirubin 0.6 mg/dL (0.2-1.3)
[2022-02-05] MEDS: ONDANSETRON 4 MG/2 ML VIAL IVP PRN ×2 (08:48→20:20)
--- NOTE | 2022-02-05 10:27 | P.PN ---
Subjective Patient is seen in follow-up for acute kidney injury on chronic kidney disease. Renal function improving. Receiving IV fluids. Currently nothing by mouth due to bowel obstruction. Feels hungry. Vital signs are stable. General: Awake and alert. No acute distress. HEENT: Head exam is unremarkable. LUNGS:Breath sounds decreased. HEART: Rate and Rhythm are regular. ABDOMEN: Soft, distention noted. EXTREMITITES: No edema. Objective - Vital Signs Vital signs: Vital Signs Temp 98.8 F 02/05/22 08:00 Pulse 88 02/05/22 08:00 Resp 16 02/05/22 08:00 BP 135/63 02/05/22 08:00 Pulse Ox 93 L 02/05/22 08:00 FiO2 Intake & Output 02/04/22 02/05/22 02/05/22 18:59 06:59 18:59 Output Total 350 Balance -350 Weight 69.853 kg Output: Urine 350 Other: Voiding Method Toilet Toilet # Voids 1 1 - Labs CBC & Chem 7: 02/05/22 06:12 02/05/22 06:12 Labs: Abnormal Lab Results - Last 24 Hours (Table) 02/04/22 02/05/22 02/05/22 Range/Units 17:18 06:12 06:12 WBC 12.4 H (3.8-10.6) k/uL Hgb 11.3 L (11.4-16.0) gm/dL Neutrophils # 9.9 H (1.3-7.7) k/uL Potassium 2.6 L* 2.8 L (3.5-5.1) mmol/L BUN 46 H (7-17) mg/dL Creatinine 1.24 H (0.52-1.04) mg/dL Total Protein 6.0 L (6.3-8.2) g/dL Assessment and Plan Plan: Assessment: 1. Acute kidney injury secondary to ATN secondary to hypovolemia from vomiting and diuretics. Creatinine 1.75 on admission and 1.24 this morning. No hydronephrosis noted on CAT scan. 2. Chronic kidney disease stage IIIb with baseline creatinine in the range of 1.2-1.3 secondary to nephrosclerosis. 3. Hypokalemia from poor intake and diuretic. Magnesium normal. Being replaced. 4. Chronic diastolic CHF. 5. Small bowel obstruction and constipation noted on CAT scan. Surgery following. Needs a pediatric NG tube. Plan for surgery Thursday. Plan: Maintain normal saline at 75 mL an hour. Hold lisinopril and diuretics. Potassium being replaced. Avoid nephrotoxins. Avoid fleet enemas. Ejection fraction preserved.
--- NOTE | 2022-02-05 11:11 | P.PN ---
Subjective Progress Note Date: 02/05/22 HISTORY OF PRESENT ILLNESS This is a 76 year old female patient of Dr. 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 Patient presented to [facility] emergency center due to nausea and vomiting. She complains of abdomi nal bloating and chills. She states she occasionally gets winded when she is active. No recent falls. Patient also states that she received enema this morning with no results. She denies any blood in her stools. Patient was found to be afebrile, heart rate 94, blood pressure 133/58, pulse ox 96% on room air. EKG sinus rhythm with no acute ST changes. WBC 16.6, hemoglobin 11.7, platelet 459. Sodium 133, potassium 2.3, chloride 89, CO2 33, BUN 83, creatinine 1.75. Blood sugar 121. INR 1.0. Liver function tests were normal. Lipase 119. Lactic acid 0.9. Troponin 0.047, 0.052, 0.047. Urinalysis negative for infection. Acetaminophen less than 10. Hold, CAT scan of the abdomen and pelvis revealed dilated small bowel consistent with mechanical bowel obstruction at the level of the distal ileum. There is moderate constipation. Obstruction due to constipation is most likely. No luminal narrowing seen. Obstruction appears new. Chest x-ray is normal. Echocardiogram reveals normal left ventricular size with concentric left ventricular hypertrophy, preserved LV function. Mild aortic stenosis, mild tricuspid regurgitation and mild mitral regurgitation. Patient is seen today in the emergency center waiting for a bed in the cardiac stepdown unit, consult in place with general surgery, cardiology. 02/05: Patient is seen today on the cardiac stepdown unit. She states that she is feeling lousy. She continues to have abdominal soreness and nausea. Patient has been seen by nephrology for acute kidney injury secondary to ATN secondary to hypovolemia from vomiting and diuretics. Nephrology recommends maintaining IV fluids of 0.9 normal saline at 75 mL/h, hold lisinopril and diuretics and replace potassium. Patient also seen and followed by general surgery with recommendations for NG tube nothing by mouth, IV fluids and surgical intervention planned for Thursday. Patient was seen by cardiology and no further workup is necessary and signed off. Patient has been afebrile, heart rate 88, blood pressure 135/63, pulse ox 93% on room air. Repeat blood work reveals impr ovement of leukocytosis of 12.4, hemoglobin 11.3, platelet count 437. Potassium 2.8 is being replaced, sodium 138, chloride 90, CO2 29, BUN 46 creatinine 1.24. REVIEW OF SYSTEMS Constitutional: No freports chills, no night sweats. No weight change. No weakness, fatigue or lethargy. No daytime sleepiness. EENT: No headache. No blurred vision or double vision, no loss of vision. No loss of Hearing, no ringing in the ears, no dizziness. No nasal drainage or congestion. No epistaxis. No sore throat. Lungs: No shortness of breath, cough, no sputum production. No wheezing. Cardiovascular: No chest pain, no lower extremity edema. No palpitations. No paroxysmal nocturnal dyspnea. No orthopnea. No lightheadedness or dizziness. No syncopal episodes. Abdominal: Reports abdominal pain, reports abdominal distention, reports nausea, reports vomiting. No diarrhea. Reports onstipation. No bloody or tarry stools. reportss of appetite. Genitourinary: No dysuria, increased frequency, urgency. No urinary retention. Musculoskeletal: No myalgias. No muscle weakness, no gait dysfunction, no frequent falls. No back pain. No neck pain. Integumentary: No wounds, no lesions. No rash or pruritus. No unusual bruising. No change in hair or nails. Neurologic: No aphasia. No facial droop. No change in mentation. No head injury. No headache. No paralysis. No paresthesia. Psychiatric: No depression. No anxiety. No mood swings. Endocrine: No abnormal blood sugars. No weight change. No excessive sweating or thirst. No cold intolerance. PHYSICAL EXAMINATION Gen: This is a 76-year-old female. She is resting on ER stretch and appears to be comfortable and in no acute distress HEENT: Head is atraumatic, normocephalic. Pupils equal, round. Sclerae is anicteric. NECK: Supple. No JVD. No lymphadenopathy. No thyromegaly. LUNGS: Clear to auscultation. No wheezes or rhonchi. No intercostal retractions. HEART: Regular rate and rhythm. Systolic murmur. ABDOMEN: abdomen distended Bowel sounds are present. No masses. generalizederness. EXTREMITIES: No pedal edema. No calf tenderness. NEUROLOGICAL: Patient is awake alert and oriented 3. Cranial nerves II through XII grossly intact. ASSESSMENT AND PLAN 1. Small bowel obstruction at the level of the distal ileum. Consult with general surgery and patient has been tentatively scheduled for exploratory laparotomy postponed until Thursday with Dr. Cohen.Patient is nothing by mouth, continue IV fluids of 0.9 normal saline at 75 mL per hour, continue current pain medication. 2. Severe constipation leading to obstruction. Continue as in #1. 3. Acute kidney injury, ATN secondary to hypovolemia from vomiting and diuret ics. Consult with nephrology appreciated. Avoid nephrotoxic agents, avoid fleets enema, hold lisinopril and diuretics. Check bladder scan 4. Hypokalemia status post replacement, continue to monitor and replace as needed 5. Elevated troponin without c/o chest pain. Cardiology consult appreciated, acute coronary syndrome ruled out and cardiology has signed off. 6. Chronic kidney disease stage IIIB. Consult with nephrology. 7. Hypertension and hypertensive cardiovascular disease with left ventricular hypertrophy. Hold lisinopril. 8. Hyperlipidemia. Patient is currently nothing by mouth hold statin. 9. Seizure disorder. 10. Generalized osteoarthritis. 11. Gaseous after reflux disease. 12. Mild intermittent asthma. 13. Chronic pain syndrome. 14. Seasonal ALLERGIES. 15. Chronic gout. To be determined DISCHARGE PLAN Home. Impression and plan of care have been directed as dictated by the signing physician. Anabel Riggins nurse practitioner acting as scribe for signing physician. Objective - Vital Signs Vital signs: Vital Signs Temp 98.1 F 02/05/22 04:00 Pulse 92 02/05/22 04:00 Resp 18 02/05/22 04:00 BP 125/60 02/05/22 04:00 Pulse Ox 94 L 02/05/22 04:00 FiO2 Intake & Output 02/04/22 02/05/22 02/05/22 18:59 06:59 18:59 Output Total 350 Balance -350 Weight 69.853 kg Output: Urine 350 Other: Voiding Method Toilet # Voids 1 1 - Labs CBC & Chem 7: 02/05/22 06:12 02/05/22 06:12 Labs: Abnormal Lab Results - Last 24 Hours (Table) 02/04/22 02/04/22 02/05/22 Range/Units 05:40 17:18 06:12 WBC (3.8-10.6) k/uL Hgb (11.4-16.0) gm/dL Neutrophils # (1.3-7.7) k/uL Sodium 135 L (137-145) mmol/L Potassium 2.9 L 2.6 L* 2.8 L (3.5-5.1) mmol/L Chloride 94 L (98-107) mmol/L BUN 82 H 46 H (7-17) mg/dL Creatinine 1.62 H 1.24 H (0.52-1.04) mg/dL Glucose 109 H (74-99) mg/dL AST 40 H (14-36) U/L Total Protein 6.0 L (6.3-8.2) g/dL 02/05/22 Range/Units 06:12 WBC 12.4 H (3.8-10.6) k/uL Hgb 11.3 L (11.4-16.0) gm/dL Neutrophils # 9.9 H (1.3-7.7) k/uL Sodium (137-145) mmol/L Potassium (3.5-5.1) mmol/L Chloride (98-107) mmol/L BUN (7-17) mg/dL Creatinine (0.52-1.04) mg/dL Glucose (74-99) mg/dL AST (14-36) U/L Total Protein (6.3-8.2) g/dL
[2022-02-05] MEDS: SODIUM CHLORIDE 0.9% 1,000 ML IV SCH ×2 (12:40→20:04)
[2022-02-05] MEDS: DOCUSATE 100 MG CAP PO SCH (14:04)
[2022-02-05] MEDS: PANTOPRAZOLE 40 MG TABLET PO SCH (14:04)
--- NOTE | 2022-02-05 14:43 | P.PN ---
Subjective Progress Note Date: 02/05/22 CHIEF COMPLAINT: Small bowel obstruction HISTORY OF PRESENT ILLNESS: Patient continues to complain of abdominal pain and nausea. She did have a small amount of flatus. They've been unable to get the NG tube placed. Nursing staff will be trying a pediatric NG tube. Afebrile. WBC is down from 16.6-12.4 hemoglobin 11.3 platelet 437 sodium is 138 potassium 2.8 creatinine 1.24 magnesium 2.0 Patient seen and examined with Dr. au PHYSICAL EXAM: VITAL SIGNS: Reviewed. GENERAL: Well-developed in no acute distress. HEENT: No sclera icterus. Extraocular movements grossly intact. Moist buccal mucosa. Head is atraumatic, normocephalic. ABDOMEN: Distended. Diffuse tenderness NEUROLOGIC: Alert and oriented. Cranial nerves II through XII grossly intact. ASSESSMENT: 1. Small bowel obstruction consistent with mechanical bowel obstruction at the level of the distal ileum 2. Constipation possibly the cause of the obstruction 3. Chronic back pain with chronic narcotic use 4. Acute kidney injury 5. Hypokalemia 6. Elevated troponin seen and evaluated by cardiology. 7. Prior History of abdominal surgeries PLAN: -No surgery planned for today due to conflicting OR scheduling. Surgery will be scheduled for 02/07/2022 for exploratory laparotomy -Place NG tube for decompression -Keep patient nothing by mouth except for ice chips -Increase IV fluids to 125 mL per hour -Continue to correct potassium [employer] note has been reviewed by physician. Signing provider agrees with the documented findings, assessment, and plan of care. Objective - Vital Signs Vital signs: Vital Signs Temp 98.8 F 02/05/22 08:00 Pulse 88 02/05/22 08:00 Resp 16 02/05/22 08:00 BP 135/63 02/05/22 08:00 Pulse Ox 93 L 02/05/22 08:00 FiO2 Intake & Output 02/04/22 02/05/22 02/05/22 18:59 06:59 18:59 Output Total 350 Balance -350 Weight 69.853 kg Output: Urine 350 Other: Voiding Method Toilet Toilet # Voids 1 1 - Labs CBC & Chem 7: 02/05/22 06:12 02/05/22 06:12 Labs: Abnormal Lab Results - Last 24 Hours (Table) 02/04/22 02/05/22 02/05/22 Range/Units 17:18 06:12 06:12 WBC 12.4 H (3.8-10.6) k/uL Hgb 11.3 L (11.4-16.0) gm/dL Neutrophils # 9.9 H (1.3-7.7) k/uL Potassium 2.6 L* 2.8 L (3.5-5.1) mmol/L BUN 46 H (7-17) mg/dL Creatinine 1.24 H (0.52-1.04) mg/dL Total Protein 6.0 L (6.3-8.2) g/dL
[2022-02-06] MEDS: SODIUM CHLORIDE 0.9% 1,000 ML IV SCH ×3 (00:15→21:22)
[2022-02-06] MEDS: HYDROmorphone 0.5 MG/0.5 ML SYRINGE IVP PRN ×7 (02:26→21:17)
[2022-02-06] MEDS: PANTOPRAZOLE 40 MG TABLET PO SCH (05:26)
[2022-02-06] MEDS: ONDANSETRON 4 MG/2 ML VIAL IVP PRN ×3 (05:54→18:29)
[2022-02-06] MEDS ORDERED: TRIMETHOBENZAMIDE 100 MG/ML 2 ML VIAL IM PRN (09:49)
--- NOTE | 2022-02-06 10:01 | P.PN ---
Subjective Patient is seen in follow-up for acute kidney injury on chronic kidney disease. Renal function improving. Creatinine 1.24 yesterday. Receiving IV fluids. Currently nothing by mouth due to bowel obstruction. Vital signs are stable. General: Awake and alert. No acute distress. HEENT: Head exam is unremarkable. LUNGS:Breath sounds decreased. HEART: Rate and Rhythm are regular. ABDOMEN: Soft, distention noted. EXTREMITITES: No edema. Objective - Vital Signs Vital signs: Vital Signs Temp 98.2 F 02/06/22 08:00 Pulse 86 02/06/22 08:00 Resp 16 02/06/22 08:00 BP 162/63 02/06/22 08:00 Pulse Ox 95 02/06/22 08:00 FiO2 Intake & Output 02/05/22 02/06/22 02/06/22 18:59 06:59 18:59 Intake Total 30 10 Balance 30 10 Intake: IV 30 10 Invasive Line 1 20 10 Invasive Line 2 10 Other: Voiding Method Toilet Toilet # Voids 1 2 1 - Labs CBC & Chem 7: 02/05/22 06:12 02/05/22 06:12 Assessment and Plan Plan: Assessment: 1. Acute kidney injury secondary to ATN secondary to hypovolemia from vomiting and diuretics. Creatinine 1.75 on admission and 1.24 as of yesterday. No hydronephrosis noted on CAT scan. 2. Chronic kidney disease stage IIIb with baseline creatinine in the range of 1.2-1.3 secondary to nephrosclerosis. 3. Hypokalemia from poor intake and diuretic. Magnesium normal. Replaced. 4. Chronic diastolic CHF. 5. Small bowel obstruction and constipation noted on CAT scan. Surgery followi ng. NG tube could not be placed. Plan for surgery Thursday. Plan: Maintain normal saline. Hold lisinopril and diuretics. Potassium replaced. Avoid nephrotoxins. Avoid fleet enemas. Ejection fraction preserved. Follow-up for labs.
[2022-02-06] MEDS: GABAPENTIN 300 MG CAP PO SCH ×3 (10:42→20:17)
[2022-02-06] MEDS: DOCUSATE 100 MG CAP PO SCH (10:42)
[2022-02-06 11:39] LABS: Calcium 8.8 mg/dL (8.4-10.2)
[2022-02-06 11:40] LABS: Basophils % (A) 0 %; Eosinophils # (A) 0.2 k/uL (0-0.7); Eosinophils % (A) 1 %; HCT 37.2 % (34.0-46.0); HGB 11.7 gm/dL (11.4-16.0); Hypochromasia Slight; Lymphocytes # (A) 1.2 k/uL (1.0-4.8); Lymphocytes % (A) 9 %; MCH 29.6 pg (25.0-35.0); MCHC 31.4 g/dL (31.0-37.0); MCV 94.4 fL (80.0-100.0); Mean Platelet Volume 8.8; Monocytes # (A) 0.8 k/uL (0-1.0); Monocytes % (A) 7 %; Neutrophils # (A) 10.2 k/uL (1.3-7.7); Neutrophils % (A) 81 %; Platelet Count 308 k/uL (150-450); RBC 3.94 m/uL (3.80-5.40); WBC 12.5 k/uL (3.8-10.6)
[2022-02-06 11:56] LABS: Magnesium 1.7 mg/dL (1.6-2.3); Potassium 3.5 mmol/L (3.5-5.1)
[2022-02-06] MEDS ORDERED: MAGNESIUM SULFATE-D5W PMX 1 GM in DEXTROSE/WATER 1 100ML.BAG IVPB ONE (13:14)
--- NOTE | 2022-02-06 13:16 | P.PN ---
Subjective Progress Note Date: 02/06/22 CHIEF COMPLAINT: Small bowel obstruction HISTORY OF PRESENT ILLNESS: Patient reports her abdominal pain is about the same. She is distended. She is complaining of nausea. Patient still having nausea even after Zofran given. She did report a very small amount of flatus. No bowel movement. She is rating her pain about a 6 out of 10. They were unable to get NG tube placed yesterday. Vitals stable. WBC about the same at 12.5 hemoglobin 11.7 platelets 308 sodium is 136 potassium is 3.5 creatinine [address] Cohen notified and updated on patients symptoms and physical exam finding s. PHYSICAL EXAM: VITAL SIGNS: Reviewed. GENERAL: Well-developed in no acute distress. HEENT: No sclera icterus. Extraocular movements grossly intact. Moist buccal mucosa. Head is atraumatic, normocephalic. ABDOMEN: firm and more Distended. Diffuse tenderness NEUROLOGIC: Alert and oriented. Cranial nerves II through XII grossly intact. ASSESSMENT: 1. Small bowel obstruction consistent with mechanical bowel obstruction at the level of the distal ileum 2. Constipation 3. Chronic back pain with chronic narcotic use 4. Acute kidney injury 5. Hypokalemia and hypomagnesemia 6. Elevated troponin seen and evaluated by cardiology. 7. Prior History of abdominal surgeries PLAN: -Exploratory laparotomy scheduled for tomorrow, 02/07/[address] Cohen -Keep patient nothing by mouth except for ice chips -Continue IV fluids -Continue to correct potassium and magnesium -Add Tigan PRN to help with nausea -Continue supportive care Physician Host/Hostess Ground note has been reviewed by physician. Signing provider agrees with the documented findings, assessment, and plan of care. Objective - Vital Signs Vital signs: Vital Signs Temp 98.2 F 02/06/22 08:00 Pulse 86 02/06/22 12:00 Resp 16 02/06/22 12:00 BP 149/55 02/06/22 12:00 Pulse Ox 94 L 02/06/22 12:00 FiO2 Intake & Output 02/05/22 02/06/22 02/06/22 18:59 06:59 18:59 Intake Total 30 10 Balance 30 10 Intake: IV 30 10 Invasive Line 1 20 10 Invasive Line 2 10 Other: Voiding Method Toilet Toilet Toilet # Voids 1 2 1 - Labs CBC & Chem 7: 06/09/22 10:43 02/06/22 10:43 Labs: Abnormal Lab Results - Last 24 Hours (Table) 02/06/22 02/06/22 Range/Units 10:43 10:43 WBC 12.5 H (3.8-10.6) k/uL Neutrophils # 10.2 H (1.3-7.7) k/uL Sodium 136 L (137-145) mmol/L BUN 30 H (7-17) mg/dL Glucose 66 L (74-99) mg/dL
--- NOTE | 2022-02-06 13:39 | P.PN ---
Subjective Progress Note Date: 02/06/22 HISTORY OF PRESENT ILLNESS This is a 76 year old female patient of Dr. 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 Patient presented to [facility] emergency center due to nausea and vomiting. She complains of abdomi nal bloating and chills. She states she occasionally gets winded when she is active. No recent falls. Patient also states that she received enema this morning with no results. She denies any blood in her stools. Patient was found to be afebrile, heart rate 94, blood pressure 133/58, pulse ox 96% on room air. EKG sinus rhythm with no acute ST changes. WBC 16.6, hemoglobin 11.7, platelet 459. Sodium 133, potassium 2.3, chloride 89, CO2 33, BUN 83, creatinine 1.75. Blood sugar 121. INR 1.0. Liver function tests were normal. Lipase 119. Lactic acid 0.9. Troponin 0.047, 0.052, 0.047. Urinalysis negative for infection. Acetaminophen less than 10. Hold, CAT scan of the abdomen and pelvis revealed dilated small bowel consistent with mechanical bowel obstruction at the level of the distal ileum. There is moderate constipation. Obstruction due to constipation is most likely. No luminal narrowing seen. Obstruction appears new. Chest x-ray is normal. Echocardiogram reveals normal left ventricular size with concentric left ventricular hypertrophy, preserved LV function. Mild aortic stenosis, mild tricuspid regurgitation and mild mitral regurgitation. Patient is seen today in the emergency center waiting for a bed in the cardiac stepdown unit, consult in place with general surgery, cardiology. 02/05: Patient is seen today on the cardiac stepdown unit. She states that she is feeling lousy. She continues to have abdominal soreness and nausea. Patient has been seen by nephrology for acute kidney injury secondary to ATN secondary to hypovolemia from vomiting and diuretics. Nephrology recommends maintaining IV fluids of 0.9 normal saline at 75 mL/h, hold lisinopril and diuretics and replace potassium. Patient also seen and followed by general surgery with recommendations for NG tube nothing by mouth, IV fluids and surgical intervention planned for Thursday. Patient was seen by cardiology and no further workup is necessary and signed off. Patient has been afebrile, heart rate 88, blood pressure 135/63, pulse ox 93% on room air. Repeat blood work reveals impr ovement of leukocytosis of 12.4, hemoglobin 11.3, platelet count 437. Potassium 2.8 is being replaced, sodium 138, chloride 90, CO2 29, BUN 46 creatinine 1.24. 02/06: Patient continues to have significant abdominal pain over the entire abdomen, no bowel movement, no casts. She is scheduled by Dr. Cohen for surgery on Thursday. No change in plan. Patient is nothing by mouth. She has been afebrile, heart rate 86, blood pressure 162/63, pulse ox 95% on room air. WBC 12.5, hemoglobin 11.7, platelet count 308. Sodium 136, potassium 3.5, chloride 100, CO2 24, BUN 30, creatinine 1.01. Glucose 66. Dr. Do recommends continuing normal saline, replace potassium. REVIEW OF SYSTEMS Constitutional: No freports chills, no night sweats. No weight change. No weakness, fatigue or lethargy. No daytime sleepiness. EENT: No headache. No blurred vision or double vision, no loss of vision. No loss of Hearing, no ringing in the ears, no dizziness. No nasal drainage or congestion. No epistaxis. No sore throat. Lungs: No shortness of breath, cough, no sputum production. No wheezing. Cardiovascular: No chest pain, no lower extremity edema. No palpitations. No paroxysmal nocturnal dyspnea. No orthopnea. No lightheadedness or dizziness. No syncopal episodes. Abdominal: Reports abdominal pain, reports abdominal distention, reports nausea, denies vomiting. No diarrhea. Reports constipation. No bloody or tarry stools. reportss of appetite. Genitourinary: No dysuria, increased frequency, urgency. No urinary retention. Musculoskeletal: No myalgias. No muscle weakness, no gait dysfunction, no frequent falls. No back pain. No neck pain. Integumentary: No wounds, no lesions. No rash or pruritus. No unusual bruising. No change in hair or nails. Neurologic: No aphasia. No facial droop. No change in mentation. No head injury. No headache. No paralysis. No paresthesia. Psychiatric: No depression. No anxiety. No mood swings. Endocrine: No abnormal blood sugars. No weight change. No excessive sweating or thirst. No cold intolerance. PHYSICAL EXAMINATION Gen: This is a 76-year-old female. She is resting in bed and appears to be comfortable and in no acute distress HEENT: Head is atraumatic, normocephalic. Pupils equal, round. Sclerae is anicteric. NECK: Supple. No JVD. No lymphadenopathy. No thyromegaly. LUNGS: Clear to auscultation. No wheezes or rhonchi. No intercostal retractions. HEART: Regular rate and rhythm. Systolic murmur. ABDOMEN: abdomen distended Bowel sounds are present. No masses. generalized tenderness. EXTREMITIES: No pedal edema. No calf tenderness. NEUROLOGICAL: Patient is awake alert and oriented 3. Cranial nerves II through XII grossly intact. ASSESSMENT AND PLAN 1. Small bowel obstruction at the level of the distal ileum. Consult with general surgery and patient has been tentatively scheduled for exploratory laparotomy postponed until Thursday with Dr. Cohen.Patient is nothing by mouth, continue IV fluids of 0.9 normal saline at 75 mL per hour, continue current pain medication. 2. Severe constipation leading to obstruction. Continue as in #1. 3. Acute kidney injury, ATN secondary to hypovolemia from vomiting and diuretics. Consult with nephrology appreciated. Avoid nephrotoxic agents, avoid fleets enema, hold lisinopril and diuretics. 4. Hypokalemia status post replacement, continue to monitor and replace as needed 5. Elevated troponin without c/o chest pain. Cardiology consult appreciated, acute coronary syndrome ruled out and cardiology has signed off. 6. Chronic kidney disease stage IIIB. Consult with nephrology. 7. Hypertension and hypertensive cardiovascular disease with left ventricular hypertrophy. Hold lisinopril. 8. Hyperlipidemia. Patient is currently nothing by mouth hold statin. 9. Seizure disorder. 10. Generalized osteoarthritis. 11. Gaseous after reflux disease. 12. Mild intermittent asthma. 13. Chronic pain syndrome. 14. Seasonal ALLERGIES. 15. Chronic gout. To be determined DISCHARGE PLAN Home. Impression and plan of care have been directed as dictated by the signing physician. Anabel Riggins nurse practitioner acting as scribe for signing physician. Objective - Vital Signs Vital signs: Vital Signs Temp 98.4 F 02/06/22 03:45 Pulse 77 02/06/22 03:45 Resp 16 06/09/22 03:45 BP 114/67 02/06/22 03:45 Pulse Ox 93 L 02/06/22 03:45 FiO2 Intake & Output 02/05/22 02/06/22 02/06/22 18:59 06:59 18:59 Intake Total 30 Balance 30 Intake: IV 30 Invasive Line 1 20 Invasive Line 2 10 Other: Voiding Method Toilet Toilet # Voids 1 2 - Labs CBC & Chem 7: 02/06/22 10:43 02/06/22 10:43
[2022-02-06] MEDS: POTASSIUM CHLORIDE 20 MEQ in WATER FOR INJECTION 1 100ML.BAG IVPB SCH ×2 (16:32→18:29)
[2022-02-06] MEDS ORDERED: Magnesium Replacement Protocol 1 EACH MISC MISCELLANE PRN (19:46)
[2022-02-06] MEDS: ATORVASTATIN 10 MG TAB PO SCH (20:17)
[2022-02-07] MEDS: ONDANSETRON 4 MG/2 ML VIAL IVP PRN ×3 (00:25→18:26)
[2022-02-07] MEDS: HYDROmorphone 0.5 MG/0.5 ML SYRINGE IVP PRN ×8 (00:25→21:32)
[2022-02-07 01:13] LABS: Calcium 9.1 mg/dL (8.4-10.2); Potassium 3.2 mmol/L (3.5-5.1)
[2022-02-07] MEDS: POTASSIUM CHLORIDE 10 MEQ in WATER FOR INJECTION 1 100ML.BAG IVPB SCH ×8 (02:33→15:35)
[2022-02-07] MEDS: PANTOPRAZOLE 40 MG TABLET PO SCH (06:18)
[2022-02-07] MEDS: SODIUM CHLORIDE 0.9% 1,000 ML IV SCH (06:18)
[2022-02-07] MEDS: DOCUSATE 100 MG CAP PO SCH (08:35)
[2022-02-07] MEDS: GABAPENTIN 300 MG CAP PO SCH ×3 (08:35→20:45)
[2022-02-07] MEDS: TRIMETHOBENZAMIDE 100 MG/ML 2 ML VIAL IM PRN ×2 (10:20→23:37)
[2022-02-07] MEDS ORDERED: POTASSIUM CHLORIDE 40 MEQ in WATER FOR INJECTION 1 100ML.BAG IVPB STA (10:39)
--- NOTE | 2022-02-07 10:40 | P.PN ---
Subjective Patient is seen in follow-up for acute kidney injury on chronic kidney disease. Renal function improving. Creatinine 0.99 today. Receiving IV fluids. Currently nothing by mouth due to bowel obstruction. No changes overnight. Vital signs are stable. General: Awake and alert. No acute distress. HEENT: Head exam is unremarkable. LUNGS:Breath sounds decreased. HEART: Rate and Rhythm are regular. ABDOMEN: Distention noted. EXTREMITITES: No edema. Objective - Vital Signs Vital signs: Vital Signs Temp 98.3 F 02/07/22 08:39 Pulse 74 02/07/22 08:39 Resp 18 02/07/22 08:39 BP 175/71 02/07/22 08:39 Pulse Ox 93 L 02/07/22 08:39 FiO2 Intake & Output 02/06/22 02/07/22 02/07/22 18:59 06:59 18:59 Intake Total 30 10 Balance 30 10 Intake: IV 30 10 Invasive Line 1 30 10 Other: Voiding Method Toilet Toilet Toilet # Voids 3 1 - Labs CBC & Chem 7: 02/06/22 10:43 02/07/22 00:12 Labs: Abnormal Lab Results - Last 24 Hours (Table) 02/06/22 02/06/22 02/07/22 Range/Units 10:43 10:43 00:12 WBC 12.5 H (3.8-10.6) k/uL Neutrophils # 10.2 H (1.3-7.7) k/uL Sodium 136 L (137-145) mmol/L Potassium 3.2 L (3.5-5.1) mmol/L BUN 30 H 25 H (7-17) mg/dL Glucose 66 L 61 L (74-99) mg/dL Assessment and Plan Plan: Assessment: 1. Acute kidney injury secondary to ATN secondary to hypovolemia from vomiting and diuretics. Creatinine 1.75 on admission - 0.99 yesterday. No hydronephrosis noted on CAT scan. 2. Chronic kidney disease stage IIIb with baseline creatinine in the range of 1.2-1.3 secondary to nephrosclerosis. 3. Hypokalemia from poor intake. Magnesium normal. 4. Chronic diastolic CHF. 5. Small bowel obstruction and constipation noted on CAT scan. Surgery following. NG tube could not be placed. Plan for surgery today. Plan: Maintain normal saline. Hold lisinopril and diuretics. Replace potassium. Avoid nephrotoxins. Avoid fleet enemas. Ejection fraction preserved. Add hydralazine 10 mg IV every 6 hours as needed for systolic blood pressure greater than 140.
[2022-02-07] MEDS: hydrALAZINE HCL 20 MG/ML 1 ML VIAL IVP PRN (11:00)
[2022-02-07] MEDS ORDERED: Potassium Replacement Protocol 1 EACH MISC MISCELLANE PRN (11:50)
--- NOTE | 2022-02-07 11:56 | P.PN ---
Subjective Progress Note Date: 02/07/22 HISTORY OF PRESENT ILLNESS This is a 76 year old female patient of Dr. 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 Patient presented to [facility] emergency center due to nausea and vomiting. She complains of abdomi nal bloating and chills. She states she occasionally gets winded when she is active. No recent falls. Patient also states that she received enema this morning with no results. She denies any blood in her stools. Patient was found to be afebrile, heart rate 94, blood pressure 133/58, pulse ox 96% on room air. EKG sinus rhythm with no acute ST changes. WBC 16.6, hemoglobin 11.7, platelet 459. Sodium 133, potassium 2.3, chloride 89, CO2 33, BUN 83, creatinine 1.75. Blood sugar 121. INR 1.0. Liver function tests were normal. Lipase 119. Lactic acid 0.9. Troponin 0.047, 0.052, 0.047. Urinalysis negative for infection. Acetaminophen less than 10. Hold, CAT scan of the abdomen and pelvis revealed dilated small bowel consistent with mechanical bowel obstruction at the level of the distal ileum. There is moderate constipation. Obstruction due to constipation is most likely. No luminal narrowing seen. Obstruction appears new. Chest x-ray is normal. Echocardiogram reveals normal left ventricular size with concentric left ventricular hypertrophy, preserved LV function. Mild aortic stenosis, mild tricuspid regurgitation and mild mitral regurgitation. Patient is seen today in the emergency center waiting for a bed in the cardiac stepdown unit, consult in place with general surgery, cardiology. 02/05: Patient is seen today on the cardiac stepdown unit. She states that she is feeling lousy. She continues to have abdominal soreness and nausea. Patient has been seen by nephrology for acute kidney injury secondary to ATN secondary to hypovolemia from vomiting and diuretics. Nephrology recommends maintaining IV fluids of 0.9 normal saline at 75 mL/h, hold lisinopril and diuretics and replace potassium. Patient also seen and followed by general surgery with recommendations for NG tube nothing by mouth, IV fluids and surgical intervention planned for Thursday. Patient was seen by cardiology and no further workup is necessary and signed off. Patient has been afebrile, heart rate 88, blood pressure 135/63, pulse ox 93% on room air. Repeat blood work reveals impr ovement of leukocytosis of 12.4, hemoglobin 11.3, platelet count 437. Potassium 2.8 is being replaced, sodium 138, chloride 90, CO2 29, BUN 46 creatinine 1.24. 02/06: Patient continues to have significant abdominal pain over the entire abdomen, no bowel movement, no gas. She is scheduled by Dr. Cohen for surgery on Thursday. No change in plan. Patient is nothing by mouth. She has been afebrile, heart rate 86, blood pressure 162/63, pulse ox 95% on room air. WBC 12.5, hemoglobin 11.7, platelet count 308. Sodium 136, potassium 3.5, chloride 100, CO2 24, BUN 30, creatinine 1.01. Glucose 66. Dr. Do recommends continuing normal saline, replace potassium. 02/07:patient continues to have significant abdominal pain over the entire abdomen, no bowel movement,no flatulence. She is scheduled for surgical intervention today with Dr. Cohen in the afternoon. patient has been afebrile, heart rate 74, blood pressure 175/71, pulse ox 93% on room air. laboratory studies reveal sodium 137, potassium 3.2, chloride 99, CO2 30, BUN 25 and creatinine 0.99. Blood sugar 61. IV fluids will be changed to D5 0.9 with 20 of KCl at 100 mL per hour. Potassium will be replaced. REVIEW OF SYSTEMS Constitutional: No freports chills, no night sweats. No weight change. No weakness, fatigue or lethargy. No daytime sleepiness. EENT: No headache. No blurred vision or double vision, no loss of vision. No loss of Hearing, no ringing in the ears, no dizziness. No nasal drainage or congestion. No epistaxis. No sore throat. Lungs: No shortness of breath, cough, no sputum production. No wheezing. Cardiovascular: No chest pain, no lower extremity edema. No palpitations. No paroxysmal nocturnal dyspnea. No orthopnea. No lightheadedness or dizziness. No syncopal episodes. Abdominal: Reports abdominal pain, reports abdominal distention, reports nausea, denies vomiting. No diarrhea. Reports constipation. No bloody or tarry stools. reportss of appetite. Genitourinary: No dysuria, increased frequency, urgency. No urinary retention. Musculoskeletal: No myalgias. No muscle weakness, no gait dysfunction, no frequent falls. No back pain. No neck pain. Integumentary: No wounds, no lesions. No rash or pruritus. No unusual bruising. No change in hair or nails. Neurologic: No aphasia. No facial droop. No change in mentation. No head injury. No headache. No paralysis. No paresthesia. Psychiatric: No depression. No anxiety. No mood swings. Endocrine: Noted abnormal blood sugars. No weight change. No excessive sweat ing or thirst. No cold intolerance. PHYSICAL EXAMINATION Gen: This is a 76-year-old female. She is resting in bed and appears to be comfortable and in no acute distress HEENT: Head is atraumatic, normocephalic. Pupils equal, round. Sclerae is anicteric. NECK: Supple. No JVD. No lymphadenopathy. No thyromegaly. LUNGS: Clear to auscultation. No wheezes or rhonchi. No intercostal retractions. HEART: Regular rate and rhythm. Systolic murmur. ABDOMEN: abdomen distended Bowel sounds are present. No masses. generalized tenderness. EXTREMITIES: No pedal edema. No calf tenderness. NEUROLOGICAL: Patient is awake alert and oriented 3. Cranial nerves II through XII grossly intact. ASSESSMENT AND PLAN 1. Small bowel obstruction at the level of the distal ileum. Consult with general surgery and patient has been tentatively scheduled for exploratory laparotomy scheduled today with Dr. Cohen.Patient is nothing by mouth, continue IV fluids changed to D50.9 normal saline at 100 mL per hour, continue current pain medication. 2. Severe constipation leading to obstruction. Continue as in #1. 3. Acute kidney injury, ATN secondary to hypovolemia from vomiting and diuretics. Consult with nephrology appreciated. Avoid nephrotoxic agents, avoid fleets enema, hold lisinopril and diuretics. 4. Hypokalemia status post replacement, continue to monitor and replace as needed 5. Elevated troponin without c/o chest pain. Cardiology consult appreciated, acute coronary syndrome ruled out and cardiology has signed off. 6. Chronic kidney disease stage IIIB. Consult with nephrology. 7. Hypertension and hypertensive cardiovascular disease with left ventricular hypertrophy. Hold lisinopril. 8. Hyperlipidemia. Patient is currently nothing by mouth hold statin. 9. Seizure disorder. 10. Generalized osteoarthritis. 11. Gastroesphogeal reflux disease. 12. Mild intermittent asthma. 13. Chronic pain syndrome. 14. Seasonal ALLERGIES. 15. Chronic gout. To be determined 16. Hypoglycemia. IVF D5w/0.9 NS with 20 of KCL at 100 cc/h. DISCHARGE PLAN Home most likely. Impression and plan of care have been directed as dictated by the signing physician. Anabel Riggins nurse practitioner acting as scribe for signing physician. Objective - Vital Signs Vital signs: Vital Signs Temp 98.7 F 02/07/22 03:52 Pulse 77 02/07/22 03:52 Resp 16 02/07/22 03:52 BP 157/64 02/07/22 03:52 Pulse Ox 96 02/07/22 03:52 FiO2 Intake & Output 02/06/22 02/07/22 02/07/22 18:59 06:59 18:59 Intake Total 30 10 Balance 30 10 Intake: IV 30 10 Invasive Line 1 30 10 Other: Voiding Method Toilet Toilet # Voids 3 1 - Labs CBC & Chem 7: 02/06/22 10:43 02/07/22 00:12 Labs: Abnormal Lab Results - Last 24 Hours (Table) 02/06/22 02/06/22 02/07/22 Range/Units 10:43 10:43 00:12 WBC 12.5 H (3.8-10.6) k/uL Neutrophils # 10.2 H (1.3-7.7) k/uL Sodium 136 L (137-145) mmol/L Potassium 3.2 L (3.5-5.1) mmol/L BUN 30 H 25 H (7-17) mg/dL Glucose 66 L 61 L (74-99) mg/dL
[2022-02-07 12:01] LABS: Calcium 9.1 mg/dL (8.4-10.2); Potassium 3.5 mmol/L (3.5-5.1)
[2022-02-07] MEDS: D5-0.9% NACL WITH KCL 20 MEQ/L 1,000 ML IV SCH ×2 (12:38→22:48)
--- NOTE | 2022-02-07 14:11 | P.PN ---
Subjective Progress Note Date: 02/07/22 CHIEF COMPLAINT: Small bowel obstruction HISTORY OF PRESENT ILLNESS: Patient reports her abdominal pain is about the same. Patient remains distended. She is complaining of nausea. She also had an episode of vomiting this morning. She is no longer having any flatus. And has had no bowel movements. Afebrile. Potassium 3.2 replaced and now at 3.5 Dr. Cohen notified and updated on patients symptoms and physical exam findings. PHYSICAL EXAM: VITAL SIGNS: Reviewed. GENERAL: Well-developed in no acute distress. HEENT: No sclera icterus. Extraocular movements grossly intact. Moist buccal mucosa. Head is atraumatic, normocephalic. ABDOMEN: firm and more Distended. Diffuse tenderness NEUROLOGIC: Alert and oriented. Cranial nerves II through XII grossly intact. ASSESSMENT: 1. Small bowel obstruction consistent with mechanical bowel obstruction at the level of the distal ileum 2. Constipation 3. Chronic back pain with chronic narcotic use 4. Acute kidney injury 5. Hypokalemia and hypomagnesemia 6. Elevated troponin seen and evaluated by cardiology. 7. Prior History of abdominal surgeries PLAN: -Exploratory laparotomy scheduled for today, 02/07/[address] Cohen -Keep patient nothing by mouth -Continue IV fluids -Continue supportive care -Continue pain meds and antiemetics as needed Physician Senior Engineer note has been reviewed by physician. Signing provider agrees with the documented findings, assessment, and plan of care. Objective - Vital Signs Vital signs: Vital Signs Temp 98.3 F 02/07/22 08:39 Pulse 77 02/07/22 13:25 Resp 18 02/07/22 11:00 BP 171/71 02/07/22 11:00 Pulse Ox 95 02/07/22 11:00 FiO2 Intake & Output 02/06/22 02/07/22 02/07/22 18:59 06:59 18:59 Intake Total 30 10 Balance 30 10 Intake: IV 30 10 Invasive Line 1 30 10 Other: Voiding Method Toilet Toilet Toilet # Voids 3 1 2 - Labs CBC & Chem 7: 02/06/22 10:43 02/07/22 11:08 Labs: Abnormal Lab Results - Last 24 Hours (Table) 02/07/22 02/07/22 Range/Units 00:12 11:08 Potassium 3.2 L (3.5-5.1) mmol/L BUN 25 H 20 H (7-17) mg/dL Glucose 61 L (74-99) mg/dL
[2022-02-07] MEDS: ENALAPRILAT 1.25 MG/ML 1 ML VIAL IVP PRN (15:21)
[2022-02-07] MEDS: ATORVASTATIN 10 MG TAB PO SCH (20:43)
[2022-02-07] MEDS: MAGNESIUM SULFATE-D5W PMX 1 GM in DEXTROSE/WATER 1 100ML.BAG IVPB SCH ×2 (20:57→22:48)
[2022-02-08] MEDS: HYDROmorphone 0.5 MG/0.5 ML SYRINGE IVP PRN ×6 (00:29→23:53)
[2022-02-08] MEDS: hydrALAZINE HCL 20 MG/ML 1 ML VIAL IVP PRN (00:35)
[2022-02-08] MEDS: PANTOPRAZOLE 40 MG TABLET PO SCH (06:35)
[2022-02-08] MEDS: ENALAPRILAT 1.25 MG/ML 1 ML VIAL IVP PRN ×2 (06:45→16:01)
[2022-02-08 06:48] LABS: Glucose,Whole Blood 123 mg/dL (75-99)
[2022-02-08] MEDS: D5-0.9% NACL WITH KCL 20 MEQ/L 1,000 ML IV SCH ×2 (06:50→16:02)
[2022-02-08] MEDS ORDERED: LACTATED RINGERS 1,000 ML IV ONE ×3 (07:55→10:58)
[2022-02-08] MEDS ORDERED: IV FLUID CONTINUATION 1,000 ML IV ONE (07:55)
[2022-02-08] MEDS ORDERED: DEXAMETHASONE SOD PHOSPHATE 4 MG/ML 1 ML VIAL IVP ONE (08:10)
[2022-02-08] MEDS ORDERED: ONDANSETRON 4 MG/2 ML VIAL IVP ONE ×2 (08:10→09:44)
[2022-02-08] MEDS ORDERED: HEPARIN SODIUM,PORCINE 5,000 UNIT/ML 1 ML VIAL ONE (08:15)
[2022-02-08] MEDS ORDERED: GLYCOPYRROLATE 0.2 MG/ML 2 ML VIAL ONE (08:15)
[2022-02-08] MEDS ORDERED: SUCCINYLCHOLINE CHLORIDE 100 MG/5 ML SYR IV ONE (08:15)
[2022-02-08] MEDS ORDERED: LIDOCAINE 2% INJ 20 MG/ML (2 ML VIAL) ONE (08:15)
[2022-02-08] MEDS ORDERED: ROCURONIUM 10 MG/ML (5 ML VIAL) IV ONE (08:15)
[2022-02-08] MEDS ORDERED: PHENYLEPHRINE-0.9% NACL SYG 1,000 MCG/10 ML SYRINGE ONE (08:15)
[2022-02-08] MEDS ORDERED: MIDAZOLAM 2 MG/2 ML VIAL ONE (08:15)
[2022-02-08] MEDS ORDERED: PROPOFOL 10 MG/ML 20 ML VIAL IV ONE (08:15)
[2022-02-08] MEDS ORDERED: fentaNYL (PF) 50 MCG/ML 2 ML AMP ONE ×2 (08:15→10:15)
[2022-02-08] MEDS ORDERED: NEOSTIGMINE 1 MG/ML 10 ML VIAL ONE (08:15)
[2022-02-08] MEDS ORDERED: HYDROmorphone (PF) 1 MG/ML ONE (08:15)
[2022-02-08] MEDS ORDERED: SODIUM CHLORIDE 0.9% 100 ML with ceFAZolin 2,000 MG IV ONE ×2 (08:54)
[2022-02-08] MEDS ORDERED: NALOXONE 0.4 MG/ML 1 ML VIAL IV PRN (09:27)
--- NOTE | 2022-02-08 09:34 | P.OP ---
Date of Procedure: 02/08/22 Preoperative Diagnosis: Small bowel obstruction Postoperative Diagnosis: Spelled obstruction Severe constipation Adhesions Procedure(s) Performed: The patient's placed on the operating table in the supine position. She received general endotracheal tube anesthesia. Her abdomen was prepped and draped usual fashion. The area was entered through a midline incision. Using left cautery the subcutaneous tissue divided. The fascia was opened. There we re significant adhesions to the anterior abdominal wall. Visualized surfaces dissection. The patient had previous pelvic surgery. There were adhesions to the small bowel in the pelvis. These were lysed sharply dissection. There appeared to be evidence of some sort of obstruction of the distal ileum. Was freed with lysis of adhesions. The small bowel was then run from the ligament traced to the ileocecal valve. There is obstruction seen. The colon was palpated. There is significant stool burden within the colon. There is no evidence of any obstruction colon. The abdomen was irrigated is no bleeding seen. The fascia is closed loop #1 presents consult manuel. Patient top she will was sent to recovery room stable condition.
[2022-02-08] MEDS ORDERED: HYDROmorphone 0.5 MG/0.5 ML SYRINGE IVP ONE ×3 (09:43→09:59)
[2022-02-08] MEDS ORDERED: fentaNYL (PF) 50 MCG/ML 2 ML AMP IVP ONE (10:19)
[2022-02-08] MEDS: DOCUSATE 100 MG CAP PO SCH (10:31)
[2022-02-08] MEDS: GABAPENTIN 300 MG CAP PO SCH ×3 (10:31→20:17)
[2022-02-08 13:12] LABS: Calcium 8.7 mg/dL (8.4-10.2); Magnesium 1.8 mg/dL (1.6-2.3); Potassium 3.6 mmol/L (3.5-5.1)
[2022-02-08] MEDS ORDERED: Potassium Replacement Protocol 1 EACH MISC MISCELLANE PRN (14:42)
[2022-02-08] MEDS ORDERED: Magnesium Replacement Protocol 1 EACH MISC MISCELLANE PRN (14:43)
[2022-02-08] MEDS ORDERED: POTASSIUM CHLORIDE ER 20 MEQ TAB.ER PO SCH (15:00)
[2022-02-08] MEDS: MAGNESIUM SULFATE-D5W PMX 1 GM in DEXTROSE/WATER 1 100ML.BAG IVPB SCH ×2 (15:58→17:41)
--- NOTE | 2022-02-08 17:54 | P.PN ---
Subjective Progress Note Date: 02/08/22 Principal diagnosis: Small bowel obstruction consistent with mechanical bowel obstruction at the level of the distal ileum/ severe Constipation Chronic back pain with chronic narcotic use Acute kidney injury Hypokalemia and hypomagnesemia Elevated troponin 76 year old female patient of Dr. Tiwari with past medical history of hypertension and hypertensive cardio vascular disease with left ventricle hypertrophy, hyperlipidemia, seizure disorder, generalized osteoarthritis, gastroesophageal reflux disease, mild intermittent asthma, chronic pain synd maria de jesus, ALLERGIC rhinitis, gout. Patient presented to [facility] emergency center due to nausea and vomiting. She complains of abdominal bloating and chills. She states she occasionally gets winded when she is active. No recent falls. Patient also states that she received enema this morning with no results. She denies any blood in her stools. WBC 16.6, hemoglobin 11.7, platelet 459. Sodium 133, potassium 2.3, chloride 89, CO2 33, BUN 83, creatinine 1.75. Blood sugar 121. INR 1.0. Liver function tests were normal. Lipase 119. Lactic acid 0.9. Troponin 0.047, 0.052, 0.047. Urinalysis negative for infection. Acetaminophen less than 10. Hold, CAT scan of the abdomen and pelvis revealed dilated small bowel consistent with mechanical bowel obstruction at the level of the distal ileum. There is moderate constipation. Obstruction due to constipation is most likely. No luminal narrowing seen. Obstruction appears new. Echocardiogram reveals normal left ventricular size with concentric left ventricular hypertrophy, preserved LV function. Mild aortic stenosis, mild tricuspid regurgitation and mild mitral regurgitation. Patient is status post exploratory laparotomy which revealed significant stool noted within the colon without any evidence of obstructed hold; patient also underwent adhesiolysis Patient reports her abdominal pain is about the same. She is distended. She is complaining of nausea. Patient still having nausea even after Zofran given. She did report a very small amount of flatus. No bowel movement. She is rating her pain about a 6 out of 10. They were unable to get NG tube placed yesterday. Vitals stable. WBC about the same at 12.5 hemoglobin 11.7 platelets 308 sodium is 136 potassium is 3.5 creatinine 1.0 magnesium 1.7 Objective - Vital Signs Vital signs: Vital Signs Temp 98.3 F 02/08/22 09:35 Pulse 80 06/11/22 10:46 Resp 16 02/08/22 10:46 BP 146/64 02/08/22 10:46 Pulse Ox 95 02/08/22 10:46 FiO2 Intake & Output 02/07/22 02/08/22 02/08/22 18:59 06:59 18:59 Intake Total 10 1100 Output Total 480 Balance 10 620 Weight 69.853 kg Intake: IV 10 1100 Invasive Line 1 10 Output: Urine 460 Estimated Blood Loss 20 Other: Voiding Method Toilet Toilet # Voids 1 3 # Bowel Movements 0 - Exam VITAL SIGNS: Reviewed. GENERAL: Well-developed in no acute distress. HEENT: No sclera icterus. Extraocular movements grossly intact. Moist buccal mucosa. Head is atraumatic, normocephalic. ABDOMEN: firm and more Distended. Diffuse tenderness NEUROLOGIC: Alert and oriented. Cranial nerves II through XII grossly intact. - Labs CBC & Chem 7: 02/06/22 10:43 02/08/22 12:29 Labs: Abnormal Lab Results - Last 24 Hours (Table) 02/07/22 02/08/22 Range/Units 11:08 06:39 BUN 20 H (7-17) mg/dL POC Glucose (mg/dL) 123 H (75-99) mg/dL Assessment and Plan Assessment: 1. Small bowel obstruction consistent with mechanical bowel obstruction at the level of the distal ileum 2. Constipation 3. Chronic back pain with chronic narcotic use 4. Acute kidney injury 5. Hypokalemia and hypomagnesemia 6. Elevated troponin seen and evaluated by cardiology. 7. Prior History of abdominal surgeries PLAN: -Exploratory laparotomy scheduled for this afternoon -Keep patient nothing by mouth except for ice chips -Continue IV fluids -Continue to correct potassium and magnesium -Add Tigan PRN to help with nausea -Continue supportive car
[2022-02-08] MEDS: ATORVASTATIN 10 MG TAB PO SCH (20:16)
[2022-02-08] MEDS: LACTULOSE 20 GM/30 ML CUP PO SCH (20:19)
[2022-02-09] MEDS: HYDROmorphone 0.5 MG/0.5 ML SYRINGE IVP PRN ×2 (04:49→08:41)
[2022-02-09] MEDS: D5-0.9% NACL WITH KCL 20 MEQ/L 1,000 ML IV SCH (04:53)
[2022-02-09] MEDS: PANTOPRAZOLE 40 MG TABLET PO SCH (06:33)
[2022-02-09] MEDS: DOCUSATE 100 MG CAP PO SCH (08:41)
[2022-02-09] MEDS: GABAPENTIN 300 MG CAP PO SCH ×3 (08:41→22:23)
[2022-02-09] MEDS: LACTULOSE 20 GM/30 ML CUP PO SCH ×4 (08:41→22:23)
[2022-02-09] MEDS: ENOXAPARIN 40 MG/0.4 ML SYRINGE SQ SCH (08:41)
[2022-02-09 09:20] LABS: Calcium 8.6 mg/dL (8.4-10.2); Magnesium 2.3 mg/dL (1.6-2.3); Potassium 3.8 mmol/L (3.5-5.1)
--- NOTE | 2022-02-09 09:42 | P.PN ---
Subjective Patient is seen in follow-up for acute kidney injury on chronic kidney disease. Renal function improved with IV hydration. Underwent surgery for bowel obstruction yesterday. Currently on clear liquid diet. Receiving IV fluids. Nonoliguric. Vital signs are stable. General: Awake and alert. No acute distress. HEENT: Head exam is unremarkable. LUNGS:Breath sounds decreased. HEART: Rate and Rhythm are regular. ABDOMEN: Generalized tenderness. EXTREMITITES: No edema. Objective - Vital Signs Vital signs: Vital Signs Temp 98.4 F 02/09/22 08:40 Pulse 74 02/09/22 08:40 Resp 15 02/09/22 08:40 BP 153/67 02/09/22 08:40 Pulse Ox 95 02/09/22 08:40 FiO2 Intake & Output 02/08/22 02/09/22 02/09/22 18:59 06:59 18:59 Intake Total 1100 10 Output Total 730 700 Balance 370 -690 Weight 69.853 kg Intake: IV 1100 10 Invasive Line 5 10 Output: Urine 710 700 Estimated Blood Loss 20 Other: Voiding Method Indwelling Catheter # Bowel Movements 0 - Labs CBC & Chem 7: 02/06/22 10:43 02/09/22 08:17 Labs: Abnormal Lab Results - Last 24 Hours (Table) 02/08/22 02/09/22 Range/Units 12:29 08:17 Sodium 136 L (137-145) mmol/L Carbon Dioxide 31 H (22-30) mmol/L Glucose 131 H 131 H (74-99) mg/dL Assessment and Plan Plan: Assessment: 1. Acute kidney injury secondary to ATN secondary to hypovolemia from vomiting and diuretics. Creatinine 1.75 on admission - 0.88 today. No hydronephrosis noted on CAT scan. 2. Chronic kidney disease stage IIIb with baseline creatinine in the range of 1.2-1.3 secondary to nephrosclerosis. 3. Hypokalemia from poor intake. Magnesium normal. Replaced. Better. 4. Chronic diastolic CHF. 5. Small bowel obstruction and constipation noted on CAT scan. Surgery following. Status post surgery 02/08/2022. Plan: Maintain normal saline. Replace potassium. Avoid nephrotoxins. Avoid fleet enemas. Ejection fraction preserved. Resume home dose nifedipine.
[2022-02-09] MEDS ORDERED: NIFEdipine 10 MG CAP PO SCH (10:00)
[2022-02-09] MEDS ORDERED: POTASSIUM CHLORIDE 20 MEQ in WATER FOR INJECTION 1 100ML.BAG IVPB ONE (10:00)
[2022-02-09] MEDS: NIFEdipine XL 30 MG TAB.ER.24 PO SCH (10:28)
[2022-02-09] MEDS: DEXTROSE 5%-0.9% NACL 1,000 ML IV SCH (10:28)
[2022-02-09] MEDS: HYDROmorphone 1 MG/ML 1 ML SYRINGE IVP PRN ×5 (10:34→22:29)
--- NOTE | 2022-02-09 12:00 | P.PN ---
Progress Note - Text Progress Note Date: 02/09/22 Patient's postoperative day 1 from exploratory laparotomy lysis of adhesions. She is still had no significant bowel function. On exam her vital signs are stable. Abdomen soft. Incision is clean dry tach. Patient has significant constipation. We will increase her lactulose dose.
[2022-02-09] MEDS: ENALAPRILAT 1.25 MG/ML 1 ML VIAL IVP PRN (12:09)
[2022-02-09] MEDS: ONDANSETRON 4 MG/2 ML VIAL IVP PRN ×2 (13:10→19:55)
[2022-02-09] MEDS: hydrALAZINE HCL 20 MG/ML 1 ML VIAL IVP PRN (20:05)
[2022-02-09] MEDS: ATORVASTATIN 10 MG TAB PO SCH (22:22)
[2022-02-10] MEDS: HYDROmorphone 1 MG/ML 1 ML SYRINGE IVP PRN ×8 (02:04→23:52)
[2022-02-10] MEDS: ONDANSETRON 4 MG/2 ML VIAL IVP PRN ×4 (02:05→21:02)
[2022-02-10] MEDS: hydrALAZINE HCL 20 MG/ML 1 ML VIAL IVP PRN (05:22)
[2022-02-10] MEDS: DEXTROSE 5%-0.9% NACL 1,000 ML IV SCH ×2 (08:02→17:57)
[2022-02-10 08:05] LABS: Calcium 9.1 mg/dL (8.4-10.2); Potassium 3.5 mmol/L (3.5-5.1)
[2022-02-10] MEDS: ENOXAPARIN 40 MG/0.4 ML SYRINGE SQ SCH (08:21)
[2022-02-10] MEDS: LACTULOSE 20 GM/30 ML CUP PO SCH ×3 (10:21→17:57)
[2022-02-10] MEDS: GABAPENTIN 300 MG CAP PO SCH ×2 (10:22→16:08)
--- NOTE | 2022-02-10 11:39 | P.PN ---
Subjective Progress Note Date: 02/09/22 Principal diagnosis: Small bowel obstruction consistent with mechanical bowel obstruction at the level of the distal ileum/ severe Constipation Chronic back pain with chronic narcotic use Acute kidney injury Hypokalemia and hypomagnesemia Elevated troponin 76 year old female patient of Dr. Tiwari with past medical history of hypertension and hypertensive cardio vascular disease with left ventricle hypertrophy, hyperlipidemia, seizure disorder, generalized osteoarthritis, gastroesophageal reflux disease, mild intermittent asthma, chronic pain syn drome, ALLERGIC rhinitis, gout. Patient presented to [facility] emergency center due to nausea and vomiting. She complains of abdominal bloating and chills. She states she occasionally gets winded when she is active. No recent falls. Patient also states that she received enema this morning with no results. She denies any blood in her stools. WBC 16.6, hemoglobin 11.7, platelet 459. Sodium 133, potassium 2.3, chloride 89, CO2 33, BUN 83, creatinine 1.75. Blood sugar 121. INR 1.0. Liver function tests were normal. Lipase 119. Lactic acid 0.9. Troponin 0.047, 0.052, 0.047. Urinalysis negative for infection. Acetaminophen less than 10. Hold, CAT scan of the abdomen and pelvis revealed dilated small bowel consistent with mechanical bowel obstruction at the level of the distal ileum. There is moderate constipation. Obstruction due to constipation is most likely. No luminal narrowing seen. Obstruction appears new. Echocardiogram reveals normal left ventricular size with concentric left ventricular hypertrophy, preserved LV function. Mild aortic stenosis, mild tricuspid regurgitation and mild mitral regurgitation. Patient is status post exploratory laparotomy which revealed significant stool noted within the colon without any evidence of obstructed hold; patient also underwent adhesiolysis Patient reports her abdominal pain is about the same. She is distended. She is complaining of nausea. Patient still having nausea even after Zofran given. She did report a very small amount of flatus. No bowel movement. She is rating her pain about a 6 out of 10. They were unable to get NG tube placed yesterday. Vitals stable. WBC about the same at 12.5 hemoglobin 11.7 platelets 308 sodium is 136 potassium is 3.5 creatinine 1.0 magnesium 1.7 02/09/2022 Patient is status post explore laparotomy and lysis of adhesions.. Currently patient is complaining of abdominal pain. He had a small bowel movement and able to pass flatus. No complains of chest pain or shortness breath. Patient was nauseated. No headache or dizziness or lightheadedness. Complains of fever or chills. Laboratory data showed sodium 138 potassium 3.8 chloride 100 bicarb is 2030 BUN: Creatinine 0.88 General surgery is on board Current medications reviewed. Objective - Vital Signs Vital signs: Vital Signs Temp 98.5 F 02/09/22 11:47 Pulse 74 02/09/22 11:47 Resp 16 02/09/22 11:47 BP 174/79 02/09/22 11:47 Pulse Ox 98 02/09/22 11:47 FiO2 Intake & Output 02/08/22 02/09/22 02/09/22 18:59 06:59 18:59 Intake Total 1100 10 240 Output Total 730 700 400 Balance 370 -690 -160 Weight 69.853 kg Intake: IV 1100 10 Invasive Line 5 10 Oral 240 Output: Urine 710 700 400 Estimated Blood Loss 20 Other: Voiding Method Indwelling Catheter Indwelling Catheter # Bowel Movements 0 - Exam PHYSICAL EXAMINATION: Patient is lying in the bed comfortably, no acute distress, awake alert and oriented.. HEENT: Normocephalic. Neck is supple. Pupils reactive. Nostrils clear. Oral cavity is moist. Neck reveals no JVD, carotid bruits, or thyromegaly. CHEST EXAMINATION: Trachea is central. Symmetrical expansion. Bibasilar dimi nished sounds. Lung payne clear to auscultation and percussion. CARDIAC: Normal S1, S2 with no gallops. No murmurs ABDOMEN: Soft. Bowel sounds diminished. Surgical site bandaged.. No organomegaly. No abdominal bruits. Extremities: reveal no edema. No clubbing or cyanosis Neurologically awake, alert, oriented x3 with well-coordinated movements. No focal deficits noted Skin: No rash or skin lesions. Psychiatric: Coperative. Nonsuicidal Musculoskeletal: No joint swelling or deformity. Normal range of motion. - Labs CBC & Chem 7: 02/11/22 09:11 02/11/22 09:11 Labs: Abnormal Lab Results - Last 24 Hours (Table) 02/09/22 Range/Units 08:17 Carbon Dioxide 31 H (22-30) mmol/L Glucose 131 H (74-99) mg/dL Assessment and Plan Assessment: 1. Small bowel obstruction consistent with mechanical bowel obstruction at the level of the distal ileum . Status post explored laparotomy and lysis of adhesions. 2. Constipation improved. 3. Chronic back pain with chronic narcotic use 4. Acute kidney injury 5. Hypokalemia and hypomagnesemia 6. Elevated troponin seen and evaluated by cardiology. 7. Prior History of abdominal surgeries PLAN: -Exploratory laparotomy on 02/08/2022 -Keep patient nothing by mouth except for ice chips -Continue IV fluids -Continue to correct potassium and magnesium -Add Tigan PRN to help with nausea -Continue supportive car Time with Patient: Greater than 30
[2022-02-10 13:18] LABS: Basophils % (A) 0 %; Eosinophils # (A) 0.1 k/uL (0-0.7); Eosinophils % (A) 1 %; HCT 43.6 % (34.0-46.0); HGB 13.1 gm/dL (11.4-16.0); Hypochromasia Slight; Lymphocytes # (A) 1.2 k/uL (1.0-4.8); Lymphocytes % (A) 8 %; MCH 28.5 pg (25.0-35.0); MCHC 30.1 g/dL (31.0-37.0); MCV 94.8 fL (80.0-100.0); Mean Platelet Volume 7.3; Monocytes # (A) 0.7 k/uL (0-1.0); Monocytes % (A) 5 %; Neutrophils % (A) 84 %; Platelet Count 430 k/uL (150-450); RDW 14.1 % (11.5-15.5); WBC 14.2 k/uL (3.8-10.6)
[2022-02-10 13:38] LABS: Potassium 3.6 mmol/L (3.5-5.1)
--- NOTE | 2022-02-10 13:53 | P.PN ---
Progress Note - Text Progress Note Date: 02/10/22 Patient with nausea today. She did have an emesis. The patient still has not had any significant bowel movements. She is passing flatus. On exam vitals are still. Abdomen soft. It. Patient will start soapsuds enema today.
[2022-02-10] MEDS: PANTOPRAZOLE 40 MG/10 ML VIAL IVP SCH (14:09)
[2022-02-10 14:26] VITALS: BMI 30.3
[2022-02-10] MEDS ORDERED: LIDOCAINE 1% INJ 10MG/ML (10 ML MDV) SQ ONE (15:11)
--- NOTE | 2022-02-10 16:05 | IR ---
EXAMINATION TYPE: IR cvc insert >=5 years DATE OF EXAM: 02/10/2022 COMPARISON: NONE CLINICAL HISTORY: Bowel obstruction Needs long-term intravenous access for total parenteral nutrition . PROCEDURE: Hand hygiene obtained with soap and water and alcohol-based hand rub. After informed consent, the indwelling midline catheter was prepped and draped in sterile fashion. Li docaine was used for local anesthesia. Skin aneudy was made with a scalpel. The catheter was cannulated with a 0.018 inch cope wire. Access site was dilated with Peel-Away sheath and catheter tailored to the appropriate length and advanced such that the distal tip is at the cavoatrial junction. Spot amanda ge was obtained verifying placement. Catheter was fixed to the skin and a sterile dressing was place d following hemostasis. Catheter was aspirated and flushed with saline. Patient was discharged in s table condition without complication.Maximal barrier technique is utilized. Ultrasound image is docu mented on the chart. Ultrasound used with sterile technique. Fluoro time and fluoroscopic images submitted to document procedure: 0.6 minutes fluoroscopy time, 12 8 intraoperative C-arm images document the procedure IMPRESSION: STATUS POST ULTRASOUND AND FLUOROSCOPIC GUIDED PICC LINE PLACEMENT, READY FOR USE. THIS PROCEDURE WAS PERFORMED BY THE UNDERSIGNED.
[2022-02-10] MEDS: DOCUSATE 100 MG CAP PO SCH (16:07)
[2022-02-10] MEDS: NIFEdipine XL 30 MG TAB.ER.24 PO SCH (16:07)
[2022-02-10] MEDS ORDERED: MVI, ADULT NO.4 WITH VIT K 10 ML, TRACE (CONC-1ML/DOSE) 1 ML in AMINO ACID 5%-D20W+LYTE... IV SCH ×3 (18:30)
[2022-02-11] MEDS: HYDROmorphone 1 MG/ML 1 ML SYRINGE IVP PRN ×5 (03:17→19:52)
[2022-02-11] MEDS: ATORVASTATIN 10 MG TAB PO SCH ×2 (03:20→19:52)
[2022-02-11] MEDS: GABAPENTIN 300 MG CAP PO SCH ×3 (03:20→16:34)
[2022-02-11] MEDS: LACTULOSE 20 GM/30 ML CUP PO SCH ×4 (03:21→16:34)
[2022-02-11 09:41] LABS: Basophils # (A) 0.1 k/uL (0-0.2); Basophils % (A) 0 %; Eosinophils # (A) 0.3 k/uL (0-0.7); Eosinophils % (A) 2 %; HCT 42.9 % (34.0-46.0); HGB 12.6 gm/dL (11.4-16.0); Hypochromasia Moderate; Lymphocytes # (A) 1.2 k/uL (1.0-4.8); Lymphocytes % (A) 8 %; MCH 28.6 pg (25.0-35.0); MCHC 29.5 g/dL (31.0-37.0); MCV 96.8 fL (80.0-100.0); Mean Platelet Volume 7.5; Monocytes # (A) 0.7 k/uL (0-1.0); Monocytes % (A) 5 %; Neutrophils # (A) 12.2 k/uL (1.3-7.7); Neutrophils % (A) 83 %; Platelet Count 375 k/uL (150-450); RBC 4.43 m/uL (3.80-5.40); RDW 13.9 % (11.5-15.5); WBC 14.6 k/uL (3.8-10.6)
[2022-02-11] MEDS: ENOXAPARIN 40 MG/0.4 ML SYRINGE SQ SCH (09:46)
[2022-02-11] MEDS: PANTOPRAZOLE 40 MG/10 ML VIAL IVP SCH (09:46)
[2022-02-11] MEDS: NIFEdipine XL 30 MG TAB.ER.24 PO SCH (09:46)
[2022-02-11] MEDS: DOCUSATE 100 MG CAP PO SCH (09:46)
[2022-02-11] MEDS: ONDANSETRON 4 MG/2 ML VIAL IVP PRN ×2 (09:53→16:34)
[2022-02-11 09:55] LABS: Ionized Calcium 4.6 mg/dL (4.5-5.3)
[2022-02-11 10:28] LABS: Calcium 9.3 mg/dL (8.4-10.2)
[2022-02-11 10:31] LABS: Potassium 3.6 mmol/L (3.5-5.1)
[2022-02-11] MEDS ORDERED: Potassium Replacement Protocol 1 EACH MISC MISCELLANE PRN (12:23)
[2022-02-11] MEDS ORDERED: POTASSIUM CHLORIDE 20 MEQ in WATER FOR INJECTION 1 100ML.BAG IVPB ONE (13:00)
--- NOTE | 2022-02-11 13:06 | P.PN ---
Progress Note - Text Progress Note Date: 02/11/22 Patient is resting comfortably in her bed. She states that she's had flatus however no problems. On exam vital signs are stable. Abdomen soft. Severe constipation. Patient will continue receive lactulose Soapsuds Enema When Necessary.
[2022-02-11 17:30] LABS: Albumin 3.6 g/dL (3.8-4.9)
[2022-02-11] MEDS: 1: MVI, ADULT NO.4 WITH VIT K 10 ML, TRACE (CONC-1ML/DOSE) 1 ML in AMINO ACID 5%-D20W+LY IV SCH ×3 (18:23)
[2022-02-11] MEDS: DEXTROSE 5%-0.9% NACL 1,000 ML IV SCH ×2 (18:26)
[2022-02-12] MEDS: GABAPENTIN 300 MG CAP PO SCH ×4 (00:07→21:46)
[2022-02-12] MEDS: LACTULOSE 20 GM/30 ML CUP PO SCH ×5 (00:07→21:46)
[2022-02-12] MEDS: ONDANSETRON 4 MG/2 ML VIAL IVP PRN ×3 (00:08→19:59)
[2022-02-12] MEDS: HYDROmorphone 1 MG/ML 1 ML SYRINGE IVP PRN ×7 (00:08→21:47)
[2022-02-12] MEDS: ENALAPRILAT 1.25 MG/ML 1 ML VIAL IVP PRN ×2 (00:08→12:40)
[2022-02-12] MEDS: TRIMETHOBENZAMIDE 100 MG/ML 2 ML VIAL IM PRN ×2 (03:43→12:24)
[2022-02-12] MEDS: DEXTROSE 5%-0.9% NACL 1,000 ML IV SCH ×3 (03:44→19:58)
[2022-02-12 07:28] LABS: Glucose,Whole Blood 146 mg/dL (75-99)
[2022-02-12] MEDS: ENOXAPARIN 40 MG/0.4 ML SYRINGE SQ SCH (08:40)
[2022-02-12] MEDS: DOCUSATE 100 MG CAP PO SCH (08:40)
[2022-02-12] MEDS: NIFEdipine XL 30 MG TAB.ER.24 PO SCH (08:40)
[2022-02-12] MEDS: PANTOPRAZOLE 40 MG/10 ML VIAL IVP SCH (08:41)
[2022-02-12] MEDS ORDERED: FAT EMULSION 20% 500 ML in EMPTY BAG 1 BAG IV SCH (09:00)
[2022-02-12 09:52] LABS: Magnesium 2.1 mg/dL (1.6-2.3); Phosphorus 3.4 mg/dL (2.5-4.5); Potassium 3.5 mmol/L (3.5-5.1)
--- NOTE | 2022-02-12 11:33 | P.PN ---
Subjective Progress Note Date: 02/12/22 CHIEF COMPLAINT: Small bowel obstruction HISTORY OF PRESENT ILLNESS: Patient complains of abdominal pain. Mostly in the lower abdomen. She is distended. Still has had no bowel movement even after soapsuds enema and lactulose. She has been vomiting since last night. She does report a small amount of flatus. Afebrile. Sodium 138 potassium is 3.5 creatinine 0.83 PHYSICAL EXAM: VITAL SIGNS: Reviewed. GENERAL: Well-developed in no acute distress. HEENT: No sclera icterus. Extraocular movements grossly intact. Moist buccal mucosa. Head is atraumatic, normocephalic. ABDOMEN: Abdomen distended and diffuse tenderness. Incision site clean dry and intact NEUROLOGIC: Alert and oriented. Cranial nerves II through XII grossly intact. ASSESSMENT: 1. Small bowel obstruction status post lysis of adhesions 2. Constipation 3. Chronic back pain with chronic narcotic use 4. Acute kidney injury improved 5. Hypokalemia 6. Elevated troponin seen and evaluated by cardiology. 7. Prior History of abdominal surgeries PLAN: -Keep patient nothing by mouth -Milk and molasses enema ordered for constipation -Continue lactulose -Continue antiemetics -Encouraged patient to increase activity level -Abdominal binder ordered -Encouraged patient to use incentive spirometer -Continue IV fluids -Continue TPN for nutrition support -Continue pain medication as needed -Potassium replaced -DVT prophylaxis Lovenox and GI prophylaxis Protonix Physician Skill Training Program Coordinator note has been reviewed by physician. Signing provider agrees with the documented findings, assessment, and plan of care. Objective - Vital Signs Vital signs: Vital Signs Temp 98.2 F 02/12/22 06:23 Pulse 96 02/12/22 08:37 Resp 20 02/12/22 06:23 BP 131/75 02/12/22 08:37 Pulse Ox 91 L 02/12/22 08:37 FiO2 Intake & Output 02/11/22 02/12/22 02/12/22 18:59 06:59 18:59 Output Total 750 875 Balance -750 -875 Weight 70.5 kg Output: Urine 750 875 Uretheral (Hernandez) 875 Other: Voiding Method Indwelling Catheter Indwelling Catheter # Voids 2 - Labs CBC & Chem 7: 02/11/22 09:11 02/12/22 08:57 Labs: Abnormal Lab Results - Last 24 Hours (Table) 02/11/22 02/12/22 02/12/22 Range/Units 10:13 07:17 08:57 BUN 22 H (7-17) mg/dL Glucose 112 H (74-99) mg/dL POC Glucose (mg/dL) 146 H (75-99) mg/dL Albumin 3.6 L (3.8-4.9) g/dL
[2022-02-12] MEDS ORDERED: POTASSIUM CHLORIDE 20 MEQ in WATER FOR INJECTION 1 100ML.BAG IVPB ONE (12:00)
[2022-02-12] MEDS: 1: MVI, ADULT NO.4 WITH VIT K 10 ML, TRACE (CONC-1ML/DOSE) 1 ML in AMINO ACID 5%-D20W+LY IV SCH ×3 (12:24)
[2022-02-12] MEDS: ATORVASTATIN 10 MG TAB PO SCH (19:59)
[2022-02-12] MEDS: hydrALAZINE HCL 20 MG/ML 1 ML VIAL IVP PRN (20:08)
[2022-02-13 00:13] LABS: Glucose,Whole Blood 127 mg/dL (70-110)
[2022-02-13] MEDS: HYDROmorphone 1 MG/ML 1 ML SYRINGE IVP PRN ×6 (02:28→20:54)
[2022-02-13] MEDS: ONDANSETRON 4 MG/2 ML VIAL IVP PRN ×4 (02:36→22:32)
[2022-02-13] MEDS: 1: MVI, ADULT NO.4 WITH VIT K 10 ML, TRACE (CONC-1ML/DOSE) 1 ML, POTASSIUM CHLORIDE 30 M IV SCH ×8 (05:53→22:33)
[2022-02-13] MEDS: DEXTROSE 5%-0.9% NACL 1,000 ML IV SCH ×2 (05:56→20:54)
[2022-02-13 06:04] LABS: Glucose,Whole Blood 113 mg/dL (70-110)
[2022-02-13] MEDS: DOCUSATE 100 MG CAP PO SCH (08:04)
[2022-02-13] MEDS: LACTULOSE 20 GM/30 ML CUP PO SCH ×4 (08:04→20:53)
[2022-02-13] MEDS: ENOXAPARIN 40 MG/0.4 ML SYRINGE SQ SCH (08:04)
[2022-02-13] MEDS: PANTOPRAZOLE 40 MG/10 ML VIAL IVP SCH (08:04)
[2022-02-13] MEDS: GABAPENTIN 300 MG CAP PO SCH ×3 (08:05→20:52)
[2022-02-13] MEDS: NIFEdipine XL 30 MG TAB.ER.24 PO SCH (08:05)
[2022-02-13 08:36] LABS: Calcium 8.3 mg/dL (8.4-10.2); Phosphorus 3.5 mg/dL (2.5-4.5); Potassium 2.9 mmol/L (3.5-5.1)
[2022-02-13 09:22] LABS: Basophils # (A) 0.1 k/uL (0-0.2); Basophils % (A) 1 %; Eosinophils # (A) 0.4 k/uL (0-0.7); Eosinophils % (A) 4 %; HCT 35.6 % (34.0-46.0); HGB 10.8 gm/dL (11.4-16.0); Hypochromasia Moderate; Lymphocytes # (A) 0.9 k/uL (1.0-4.8); Lymphocytes % (A) 9 %; MCH 28.8 pg (25.0-35.0); MCHC 30.4 g/dL (31.0-37.0); MCV 94.6 fL (80.0-100.0); Mean Platelet Volume 7.5; Monocytes # (A) 0.7 k/uL (0-1.0); Monocytes % (A) 6 %; Neutrophils # (A) 8.1 k/uL (1.3-7.7); Neutrophils % (A) 79 %; Platelet Count 286 k/uL (150-450); RBC 3.76 m/uL (3.80-5.40); RDW 13.8 % (11.5-15.5); WBC 10.3 k/uL (3.8-10.6)
[2022-02-13] MEDS ORDERED: POTASSIUM CHLORIDE 20 MEQ in WATER FOR INJECTION 1 100ML.BAG IVPB ONE (10:00)
--- NOTE | 2022-02-13 10:10 | P.PN ---
Subjective Progress Note Date: 02/10/22 Principal diagnosis: Small bowel obstruction consistent with mechanical bowel obstruction at the level of the distal ileum/ severe Constipation Chronic back pain with chronic narcotic use Acute kidney injury Hypokalemia and hypomagnesemia Elevated troponin 76 year old female patient of Dr. Tiwari with past medical history of hypertension and hypertensive cardio vascular disease with left ventricle hypertrophy, hyperlipidemia, seizure disorder, generalized osteoarthritis, gastroesophageal reflux disease, mild intermittent asthma, chronic pain syn drome, ALLERGIC rhinitis, gout. Patient presented to [facility] emergency center due to nausea and vomiting. She complains of abdominal bloating and chills. She states she occasionally gets winded when she is active. No recent falls. Patient also states that she received enema this morning with no results. She denies any blood in her stools. WBC 16.6, hemoglobin 11.7, platelet 459. Sodium 133, potassium 2.3, chloride 89, CO2 33, BUN 83, creatinine 1.75. Blood sugar 121. INR 1.0. Liver function tests were normal. Lipase 119. Lactic acid 0.9. Troponin 0.047, 0.052, 0.047. Urinalysis negative for infection. Acetaminophen less than 10. Hold, CAT scan of the abdomen and pelvis revealed dilated small bowel consistent with mechanical bowel obstruction at the level of the distal ileum. There is moderate constipation. Obstruction due to constipation is most likely. No luminal narrowing seen. Obstruction appears new. Echocardiogram reveals normal left ventricular size with concentric left ventricular hypertrophy, preserved LV function. Mild aortic stenosis, mild tricuspid regurgitation and mild mitral regurgitation. Patient is status post exploratory laparotomy which revealed significant stool noted within the colon without any evidence of obstructed hold; patient also underwent adhesiolysis Patient reports her abdominal pain is about the same. She is distended. She is complaining of nausea. Patient still having nausea even after Zofran given. She did report a very small amount of flatus. No bowel movement. She is rating her pain about a 6 out of 10. They were unable to get NG tube placed yesterday. Vitals stable. WBC about the same at 12.5 hemoglobin 11.7 platelets 308 sodium is 136 potassium is 3.5 creatinine 1.0 magnesium 1.7 02/09/2022 Patient is status post explore laparotomy and lysis of adhesions.. Currently patient is complaining of abdominal pain. He had a small bowel movement and able to pass flatus. No complains of chest pain or shortness breath. Patient was nauseated. No headache or dizziness or lightheadedness. Complains of fever or chills. Laboratory data showed sodium 138 potassium 3.8 chloride 100 bicarb is 2030 BUN: Creatinine 0.88 02/10/2022 Patient is currently lying in the bed. Awake alert and oriented. Still complains of bowel movement and nausea and vomiting today. Patient able to pass flatus. No bowel movement yet. Patient was started on subsequent edema and stool softeners and laxatives. General surgery is on board. Denied any chest pain or shortness of breath. No fever no chills. No cough or sputum production. Laboratory data showed WBC 14.2 hemoglobin 13.1 and platelets 4:30 sodium 139 potassium 3.6 chloride 99 bicarb is 27 BUN 14 and creatinine 0.85 and phosphorus 2.8 General surgery is on board. Current medications reviewed. Objective - Vital Signs Vital signs: Vital Signs Temp 98.3 F 02/10/22 16:00 Pulse 68 02/10/22 12:00 Resp 16 02/10/22 16:00 BP 132/68 02/10/22 16:00 Pulse Ox 98 02/10/22 16:00 FiO2 Intake & Output 02/10/22 02/10/22 02/11/22 06:59 18:59 06:59 Intake Total 0 Output Total 850 150 Balance -850 -150 Weight 70.5 kg 70.5 kg Intake: Oral 0 Output: Urine 850 150 Other: Voiding Method Indwelling Catheter Indwelling Catheter - Exam PHYSICAL EXAMINATION: Patient is lying in the bed comfortably, no acute distress, awake alert and oriented.. HEENT: Normocephalic. Neck is supple. Pupils reactive. Nostrils clear. Oral cavity is moist. Neck reveals no JVD, carotid bruits, or thyromegaly. CHEST EXAMINATION: Trachea is central. Symmetrical expansion. Bibasilar diminished sounds. Lung payne clear to auscultation and percussion. CARDIAC: Normal S1, S2 with no gallops. No murmurs ABDOMEN: Soft. Bowel sounds present. Mild distention.. Surgical site bandaged.. No organomegaly. No abdominal bruits. Extremities: reveal no edema. No clubbing or cyanosis Neurologically awake, alert, oriented x3 with well-coordinated movements. No focal deficits noted Skin: No rash or skin lesions. Psychiatric: Coperative. Nonsuicidal Musculoskeletal: No joint swelling or deformity. Normal range of motion. - Labs CBC & Chem 7: 02/13/22 09:00 02/13/22 07:36 Labs: Abnormal Lab Results - Last 24 Hours (Table) 02/10/22 02/10/22 Range/Units 06:49 12:35 WBC 14.2 H (3.8-10.6) k/uL MCHC 30.1 L (31.0-37.0) g/dL Neutrophils # 12.0 H (1.3-7.7) k/uL Glucose 150 H (74-99) mg/dL Assessment and Plan Assessment: 1. Small bowel obstruction consistent with mechanical bowel obstruction at the level of the distal ileum . Status post explored laparotomy and lysis of adhesions. Patient is still having abdominal pain. 2. Constipation improved. 3. Chronic back pain with chronic narcotic use 4. Acute kidney injury 5. Hypokalemia and hypomagnesemia 6. Elevated troponin seen and evaluated by cardiology. 7. Prior History of abdominal surgeries PLAN: -Exploratory laparotomy on 02/08/2022 -Keep patient nothing by mouth except for ice chips. Continue with laxatives and stool softeners and added edema. -Continue IV fluids -Continue to correct potassium and magnesium -Add Tigan PRN to help with nausea -Continue supportive care Time with Patient: Greater than 30
--- NOTE | 2022-02-13 10:12 | P.PN ---
Subjective Progress Note Date: 02/11/22 Principal diagnosis: Small bowel obstruction consistent with mechanical bowel obstruction at the level of the distal ileum/ severe Constipation Chronic back pain with chronic narcotic use Acute kidney injury Hypokalemia and hypomagnesemia Elevated troponin 76 year old female patient of Dr. Tiwari with past medical history of hypertension and hypertensive cardio vascular disease with left ventricle hypertrophy, hyperlipidemia, seizure disorder, generalized osteoarthritis, gastroesophageal reflux disease, mild intermittent asthma, chronic pain syn drome, ALLERGIC rhinitis, gout. Patient presented to [facility] emergency center due to nausea and vomiting. She complains of abdominal bloating and chills. She states she occasionally gets winded when she is active. No recent falls. Patient also states that she received enema this morning with no results. She denies any blood in her stools. WBC 16.6, hemoglobin 11.7, platelet 459. Sodium 133, potassium 2.3, chloride 89, CO2 33, BUN 83, creatinine 1.75. Blood sugar 121. INR 1.0. Liver function tests were normal. Lipase 119. Lactic acid 0.9. Troponin 0.047, 0.052, 0.047. Urinalysis negative for infection. Acetaminophen less than 10. Hold, CAT scan of the abdomen and pelvis revealed dilated small bowel consistent with mechanical bowel obstruction at the level of the distal ileum. There is moderate constipation. Obstruction due to constipation is most likely. No luminal narrowing seen. Obstruction appears new. Echocardiogram reveals normal left ventricular size with concentric left ventricular hypertrophy, preserved LV function. Mild aortic stenosis, mild tricuspid regurgitation and mild mitral regurgitation. Patient is status post exploratory laparotomy which revealed significant stool noted within the colon without any evidence of obstructed hold; patient also underwent adhesiolysis Patient reports her abdominal pain is about the same. She is distended. She is complaining of nausea. Patient still having nausea even after Zofran given. She did report a very small amount of flatus. No bowel movement. She is rating her pain about a 6 out of 10. They were unable to get NG tube placed yesterday. Vitals stable. WBC about the same at 12.5 hemoglobin 11.7 platelets 308 sodium is 136 potassium is 3.5 creatinine 1.0 magnesium 1.7 02/09/2022 Patient is status post explore laparotomy and lysis of adhesions.. Currently patient is complaining of abdominal pain. He had a small bowel movement and able to pass flatus. No complains of chest pain or shortness breath. Patient was nauseated. No headache or dizziness or lightheadedness. Complains of fever or chills. Laboratory data showed sodium 138 potassium 3.8 chloride 100 bicarb is 2030 BUN: Creatinine 0.88 02/10/2022 Patient is currently lying in the bed. Awake alert and oriented. Still complains of bowel movement and nausea and vomiting today. Patient able to pass flatus. No bowel movement yet. Patient was started on subsequent edema and stool softeners and laxatives. General surgery is on board. Denied any chest pain or shortness of breath. No fever no chills. No cough or sputum production. Laboratory data showed WBC 14.2 hemoglobin 13.1 and platelets 4:30 sodium 139 potassium 3.6 chloride 99 bicarb is 27 BUN 14 and creatinine 0.85 and phosphorus 2.8 General surgery is on board. 02/12/2020 Patient is lying in the bed. Awake alert and oriented 3. Denies any bowel movement. Able to pass flatus. Patient is unlikely to stool softeners and subsequent edema as needed. Denied any complaints of chest pain or shortness of breath. Patient does have nausea. vomiting. no headache or dizziness or lightheadedness. patient has been afebrile. laboratory data showed wbc 14.6 hemoglobin 12.6 and platelets 375 sodium 136 potassium 3. his prior ones on bicarb is 23 bun 12 and creatinine 0.84 and blood sugar 128. general surgery is on board. Current medications reviewed. Objective - Vital Signs Vital signs: Vital Signs Temp 98.6 F 02/11/22 19:44 Pulse 85 02/11/22 19:44 Resp 18 02/11/22 20:00 BP 180/82 02/11/22 19:44 Pulse Ox 98 02/11/22 19:44 FiO2 Intake & Output 02/11/22 02/11/22 02/12/22 06:59 18:59 06:59 Output Total 0 750 Balance 0 -750 Output: Urine 0 750 Other: Voiding Method Indwelling Catheter Indwelling Catheter Indwelling Catheter # Voids 2 - Exam PHYSICAL EXAMINATION: Patient is lying in the bed comfortably, no acute distress, awake alert and oriented.. HEENT: Normocephalic. Neck is supple. Pupils reactive. Nostrils clear. Oral cavity is moist. Neck reveals no JVD, carotid bruits, or thyromegaly. CHEST EXAMINATION: Trachea is central. Symmetrical expansion. Bibasilar diminished sounds. Lung payne clear to auscultation and percussion. CARDIAC: Normal S1, S2 with no gallops. No murmurs ABDOMEN: Soft. Bowel sounds present. Mild distention.. Surgical site bandaged.. No organomegaly. No abdominal bruits. Extremities: reveal no edema. No clubbing or cyanosis Neurologically awake, alert, oriented x3 with well-coordinated movements. No focal deficits noted Skin: No rash or skin lesions. Psychiatric: Coperative. Nonsuicidal Musculoskeletal: No joint swelling or deformity. Normal range of motion. - Labs CBC & Chem 7: 02/13/22 09:00 02/13/22 07:36 Labs: Abnormal Lab Results - Last 24 Hours (Table) 02/11/22 02/11/22 02/11/22 Range/Units 09:11 09:11 10:13 WBC 14.6 H (3.8-10.6) k/uL MCHC 29.5 L (31.0-37.0) g/dL Neutrophils # 12.2 H (1.3-7.7) k/uL Sodium 136 L (137-145) mmol/L Glucose 128 H (74-99) mg/dL Albumin 3.6 L (3.8-4.9) g/dL Assessment and Plan Assessment: 1. Small bowel obstruction consistent with mechanical bowel obstruction at the level of the distal ileum . Status post explored laparotomy and lysis of adhesions. Patient is still having abdominal pain and not having bowel movement. 2. Constipation improved. 3. Chronic back pain with chronic narcotic use 4. Acute kidney injury 5. Hypokalemia and hypomagnesemia 6. Elevated troponin seen and evaluated by cardiology. 7. Prior History of abdominal surgeries PLAN: -Exploratory laparotomy on 02/08/2022 -Keep patient nothing by mouth except for ice chips. Continue with laxatives and stool softeners and added edema. -Continue IV fluids -Continue to correct potassium and magnesium -Add Tigan PRN to help with nausea -Continue supportive care Time with Patient: Greater than 30
--- NOTE | 2022-02-13 10:15 | P.PN ---
Subjective Progress Note Date: 02/12/22 Principal diagnosis: Small bowel obstruction consistent with mechanical bowel obstruction at the level of the distal ileum/ severe Constipation Chronic back pain with chronic narcotic use Acute kidney injury Hypokalemia and hypomagnesemia Elevated troponin 76 year old female patient of Dr. Tiwari with past medical history of hypertension and hypertensive cardio vascular disease with left ventricle hypertrophy, hyperlipidemia, seizure disorder, generalized osteoarthritis, gastroesophageal reflux disease, mild intermittent asthma, chronic pain syn drome, ALLERGIC rhinitis, gout. Patient presented to [facility] emergency center due to nausea and vomiting. She complains of abdominal bloating and chills. She states she occasionally gets winded when she is active. No recent falls. Patient also states that she received enema this morning with no results. She denies any blood in her stools. WBC 16.6, hemoglobin 11.7, platelet 459. Sodium 133, potassium 2.3, chloride 89, CO2 33, BUN 83, creatinine 1.75. Blood sugar 121. INR 1.0. Liver function tests were normal. Lipase 119. Lactic acid 0.9. Troponin 0.047, 0.052, 0.047. Urinalysis negative for infection. Acetaminophen less than 10. Hold, CAT scan of the abdomen and pelvis revealed dilated small bowel consistent with mechanical bowel obstruction at the level of the distal ileum. There is moderate constipation. Obstruction due to constipation is most likely. No luminal narrowing seen. Obstruction appears new. Echocardiogram reveals normal left ventricular size with concentric left ventricular hypertrophy, preserved LV function. Mild aortic stenosis, mild tricuspid regurgitation and mild mitral regurgitation. Patient is status post exploratory laparotomy which revealed significant stool noted within the colon without any evidence of obstructed hold; patient also underwent adhesiolysis Patient reports her abdominal pain is about the same. She is distended. She is complaining of nausea. Patient still having nausea even after Zofran given. She did report a very small amount of flatus. No bowel movement. She is rating her pain about a 6 out of 10. They were unable to get NG tube placed yesterday. Vitals stable. WBC about the same at 12.5 hemoglobin 11.7 platelets 308 sodium is 136 potassium is 3.5 creatinine 1.0 magnesium 1.7 02/09/2022 Patient is status post explore laparotomy and lysis of adhesions.. Currently patient is complaining of abdominal pain. He had a small bowel movement and able to pass flatus. No complains of chest pain or shortness breath. Patient was nauseated. No headache or dizziness or lightheadedness. Complains of fever or chills. Laboratory data showed sodium 138 potassium 3.8 chloride 100 bicarb is 2030 BUN: Creatinine 0.88 02/10/2022 Patient is currently lying in the bed. Awake alert and oriented. Still complains of bowel movement and nausea and vomiting today. Patient able to pass flatus. No bowel movement yet. Patient was started on subsequent edema and stool softeners and laxatives. General surgery is on board. Denied any chest pain or shortness of breath. No fever no chills. No cough or sputum production. Laboratory data showed WBC 14.2 hemoglobin 13.1 and platelets 4:30 sodium 139 potassium 3.6 chloride 99 bicarb is 27 BUN 14 and creatinine 0.85 and phosphorus 2.8 General surgery is on board. 02/11/2022 Patient is lying in the bed. Awake alert and oriented 3. Denies any bowel movement. Able to pass flatus. Patient is unlikely to stool softeners and subsequent edema as needed. Denied any complaints of chest pain or shortness of breath. Patient does have nausea. vomiting. no headache or dizziness or lightheadedness. patient has been afebrile. laboratory data showed wbc 14.6 hemoglobin 12.6 and platelets 375 sodium 136 potassium 3. his prior ones on bicarb is 23 bun 12 and creatinine 0.84 and blood sugar 128. general surgery is on board. 02/12/2022. Patient is currently sitting on the commode. Patient is having nausea and some vomiting. Didn't have a good bowel movement.. Still having abdominal pain mainly lower abdomen. Patient continues to be on soapsuds enema no when necessary. No compressive chest pain or shortness of breath. No fever no chills. No headache or dizziness or lightheadedness. No cough or sputum production. Laboratory data showed sodium 138 potassium 3.5 chloride 102 bicarb is 26 BUN 20 data creatinine 0.83 and blood sugar 112 medication 2.1. Patient is nothing by mouth and is being continued on TPN. Current medications reviewed. Objective - Vital Signs Vital signs: Vital Signs Temp 98 F 02/12/22 20:00 Pulse 98 02/12/22 20:00 Resp 20 02/12/22 20:00 BP 145/71 02/12/22 20:00 Pulse Ox 95 02/12/22 20:00 FiO2 Intake & Output 02/12/22 02/12/22 02/13/22 06:59 18:59 06:59 Intake Total 1000 Output Total 875 525 Balance -875 475 Weight 70.5 kg Intake: Intake, IV Titration 1000 Amount Amino Acid 5%-D20w+Lytes* 1000 E* 1,000 ml @ 60 mls/hr IV .BY DURATION [facility] Rx#: [id number] Output: Urine 875 525 Uretheral (Hernandez) 875 Other: Voiding Method Indwelling Catheter Toilet # Bowel Movements 5 1 - Exam PHYSICAL EXAMINATION: Patient is lying in the bed comfortably, no acute distress, awake alert and oriented.. HEENT: Normocephalic. Neck is supple. Pupils reactive. Nostrils clear. Oral cavity is moist. Neck reveals no JVD, carotid bruits, or thyromegaly. CHEST EXAMINATION: Trachea is central. Symmetrical expansion. Bibasilar diminished sounds. Lung payne clear to auscultation and percussion. CARDIAC: Normal S1, S2 with no gallops. No murmurs ABDOMEN: Soft. Bowel sounds present. Mild distention.. Surgical site bandaged.. No organomegaly. No abdominal bruits. Extremities: reveal no edema. No clubbing or cyanosis Neurologically awake, alert, oriented x3 with well-coordinated movements. No focal deficits noted Skin: No rash or skin lesions. Psychiatric: Coperative. Nonsuicidal Musculoskeletal: No joint swelling or deformity. Normal range of motion. - Labs CBC & Chem 7: 02/13/22 09:00 02/13/22 07:36 Labs: Abnormal Lab Results - Last 24 Hours (Table) 02/12/22 02/12/22 Range/Units 07:17 08:57 BUN 22 H (7-17) mg/dL Glucose 112 H (74-99) mg/dL POC Glucose (mg/dL) 146 H (75-99) mg/dL Assessment and Plan Assessment: 1. Small bowel obstruction consistent with mechanical bowel obstruction at the level of the distal ileum . Status post explored laparotomy and lysis of adhesions. Patient is still having abdominal pain and not having bowel movement. Continue on TPN. 2. Severe constipation. 3. Chronic back pain with chronic narcotic use 4. Acute kidney injury 5. Hypokalemia and hypomagnesemia 6. Elevated troponin seen and evaluated by cardiology. 7. Prior History of abdominal surgeries PLAN: -Exploratory laparotomy on 02/08/2022 -Keep patient nothing by mouth . Continue the TPN. Continue with laxatives and stool softeners and added edema. -Continue IV fluids -Continue to correct potassium and magnesium -Add Tigan PRN to help with nausea -Continue supportive care Time with Patient: Greater than 30
[2022-02-13 12:02] LABS: Glucose,Whole Blood 120 mg/dL (70-110)
--- NOTE | 2022-02-13 13:39 | P.PN ---
Subjective Progress Note Date: 02/13/22 CHIEF COMPLAINT: Small bowel obstruction HISTORY OF PRESENT ILLNESS: Patient has had some improvement in her abdominal pain. She does report nausea. She did have multiple bowel movements yesterday. And some were large. She is having flatus. She refused the milk of molasses enema last night. Last episode of vomiting was yesterday around dinnertime. She is currently nothing by mouth and on TPN. Afebrile. WBC is down from 14.6- 10.3 Hgb 10.8 platelets 286 sodium is 137 potassium is 2.9 and creatinine 0.85 magnesium 2 Patient seen and examined with Dr. au PHYSICAL EXAM: VITAL SIGNS: Reviewed. GENERAL: Well-developed in no acute distress. HEENT: No sclera icterus. Extraocular movements grossly intact. Moist buccal mucosa. Head is atraumatic, normocephalic. ABDOMEN: Abdomen is slightly less distended and less tender. Incisional dressing clean dry and intact. NEUROLOGIC: Alert and oriented. Cranial nerves II through XII grossly intact. ASSESSMENT: 1. Small bowel obstruction status post lysis of adhesions 2. Constipation 3. Chronic back pain with chronic narcotic use 4. Acute kidney injury improved 5. Hypokalemia 6. Elevated troponin seen and evaluated by cardiology. 7. Prior History of abdominal surgeries PLAN: -Advance diet to clear liquids -Give 2 L GoLYTELY prep to help with the constipation -Replace potassium -Continue antiemetics -Encouraged patient to increase activity level -Continue TPN for nutrition support -Continue pain medication as needed -DVT prophylaxis Lovenox and GI prophylaxis Protonix Physician Tangled Yarn Spool Straightener note has been reviewed by physician. Signing provider agrees with the documented findings, assessment, and plan of care. Objective - Vital Signs Vital signs: Vital Signs Temp 98.5 F 02/13/22 12:07 Pulse 100 02/13/22 12:07 Resp 16 02/13/22 12:07 BP 148/71 02/13/22 12:07 Pulse Ox 100 02/13/22 12:07 FiO2 Intake & Output 02/12/22 02/13/22 02/13/22 18:59 06:59 18:59 Intake Total 1000 Output Total 525 Balance 475 Weight 70.5 kg Intake: Intake, IV Titration 1000 Amount Amino Acid 5%-D20w+Lytes* 1000 E* 1,000 ml @ 60 mls/hr IV .BY DURATION [facility] Rx#: [id number] Output: Urine 525 Other: Voiding Method Toilet # Voids 1 # Bowel Movements 5 2 - Labs CBC & Chem 7: 02/13/22 09:00 02/13/22 07:36 Labs: Abnormal Lab Results - Last 24 Hours (Table) 02/13/22 02/13/22 02/13/22 Range/Units 00:12 06:02 07:36 RBC (3.80-5.40) m/uL Hgb (11.4-16.0) gm/dL MCHC (31.0-37.0) g/dL Neutrophils # (1.3-7.7) k/uL Lymphocytes # (1.0-4.8) k/uL Potassium 2.9 L (3.5-5.1) mmol/L BUN 24 H (7-17) mg/dL Glucose 131 H (74-99) mg/dL POC Glucose (mg/dL) 127 H 113 H (70-110) mg/dL Calcium 8.3 L (8.4-10.2) mg/dL 02/13/22 02/13/22 Range/Units 09:00 12:00 RBC 3.76 L (3.80-5.40) m/uL Hgb 10.8 L (11.4-16.0) gm/dL MCHC 30.4 L (31.0-37.0) g/dL Neutrophils # 8.1 H (1.3-7.7) k/uL Lymphocytes # 0.9 L (1.0-4.8) k/uL Potassium (3.5-5.1) mmol/L BUN (7-17) mg/dL Glucose (74-99) mg/dL POC Glucose (mg/dL) 120 H (70-110) mg/dL Calcium (8.4-10.2) mg/dL
[2022-02-13] MEDS ORDERED: PEG 3350-NA SULF,BICARB,CL/KCL 4,000 ML BOTTLE PO ONE (14:00)
[2022-02-13 16:39] LABS: Glucose,Whole Blood 124 mg/dL (70-110)
[2022-02-13] MEDS: ATORVASTATIN 10 MG TAB PO SCH (20:52)
[2022-02-14] MEDS: HYDROmorphone 1 MG/ML 1 ML SYRINGE IVP PRN ×7 (00:06→23:39)
[2022-02-14 01:15] LABS: Glucose,Whole Blood 139 mg/dL (70-110)
[2022-02-14] MEDS: ONDANSETRON 4 MG/2 ML VIAL IVP PRN (07:00)
[2022-02-14] MEDS: ENOXAPARIN 40 MG/0.4 ML SYRINGE SQ SCH (09:11)
[2022-02-14] MEDS: PANTOPRAZOLE 40 MG/10 ML VIAL IVP SCH (09:11)
[2022-02-14] MEDS: DOCUSATE 100 MG CAP PO SCH (09:11)
[2022-02-14] MEDS: NIFEdipine XL 30 MG TAB.ER.24 PO SCH (09:12)
[2022-02-14] MEDS: GABAPENTIN 300 MG CAP PO SCH ×3 (09:12→20:34)
[2022-02-14] MEDS: LACTULOSE 20 GM/30 ML CUP PO SCH ×4 (09:12→20:35)
[2022-02-14 10:18] LABS: Magnesium 1.9 mg/dL (1.6-2.3)
[2022-02-14 10:25] LABS: Calcium 8.7 mg/dL (8.4-10.2)
[2022-02-14 10:29] LABS: Phosphorus 3.2 mg/dL (2.5-4.5)
--- NOTE | 2022-02-14 11:06 | P.PN ---
Subjective Progress Note Date: 02/13/22 Principal diagnosis: Small bowel obstruction consistent with mechanical bowel obstruction at the level of the distal ileum/ severe Constipation Chronic back pain with chronic narcotic use Acute kidney injury Hypokalemia and hypomagnesemia Elevated troponin 76 year old female patient of Dr. Tiwari with past medical history of hypertension and hypertensive cardio vascular disease with left ventricle hypertrophy, hyperlipidemia, seizure disorder, generalized osteoarthritis, gastroesophageal reflux disease, mild intermittent asthma, chronic pain syn drome, ALLERGIC rhinitis, gout. Patient presented to [facility] emergency center due to nausea and vomiting. She complains of abdominal bloating and chills. She states she occasionally gets winded when she is active. No recent falls. Patient also states that she received enema this morning with no results. She denies any blood in her stools. WBC 16.6, hemoglobin 11.7, platelet 459. Sodium 133, potassium 2.3, chloride 89, CO2 33, BUN 83, creatinine 1.75. Blood sugar 121. INR 1.0. Liver function tests were normal. Lipase 119. Lactic acid 0.9. Troponin 0.047, 0.052, 0.047. Urinalysis negative for infection. Acetaminophen less than 10. Hold, CAT scan of the abdomen and pelvis revealed dilated small bowel consistent with mechanical bowel obstruction at the level of the distal ileum. There is moderate constipation. Obstruction due to constipation is most likely. No luminal narrowing seen. Obstruction appears new. Echocardiogram reveals normal left ventricular size with concentric left ventricular hypertrophy, preserved LV function. Mild aortic stenosis, mild tricuspid regurgitation and mild mitral regurgitation. Patient is status post exploratory laparotomy which revealed significant stool noted within the colon without any evidence of obstructed hold; patient also underwent adhesiolysis Patient reports her abdominal pain is about the same. She is distended. She is complaining of nausea. Patient still having nausea even after Zofran given. She did report a very small amount of flatus. No bowel movement. She is rating her pain about a 6 out of 10. They were unable to get NG tube placed yesterday. Vitals stable. WBC about the same at 12.5 hemoglobin 11.7 platelets 308 sodium is 136 potassium is 3.5 creatinine 1.0 magnesium 1.7 02/09/2022 Patient is status post explore laparotomy and lysis of adhesions.. Currently patient is complaining of abdominal pain. He had a small bowel movement and able to pass flatus. No complains of chest pain or shortness breath. Patient was nauseated. No headache or dizziness or lightheadedness. Complains of fever or chills. Laboratory data showed sodium 138 potassium 3.8 chloride 100 bicarb is 2030 BUN: Creatinine 0.88 02/10/2022 Patient is currently lying in the bed. Awake alert and oriented. Still complains of bowel movement and nausea and vomiting today. Patient able to pass flatus. No bowel movement yet. Patient was started on subsequent edema and stool softeners and laxatives. General surgery is on board. Denied any chest pain or shortness of breath. No fever no chills. No cough or sputum production. Laboratory data showed WBC 14.2 hemoglobin 13.1 and platelets 4:30 sodium 139 potassium 3.6 chloride 99 bicarb is 27 BUN 14 and creatinine 0.85 and phosphorus 2.8 General surgery is on board. 02/11/2022 Patient is lying in the bed. Awake alert and oriented 3. Denies any bowel movement. Able to pass flatus. Patient is unlikely to stool softeners and subsequent edema as needed. Denied any complaints of chest pain or shortness of breath. Patient does have nausea. vomiting. no headache or dizziness or lightheadedness. patient has been afebrile. laboratory data showed wbc 14.6 hemoglobin 12.6 and platelets 375 sodium 136 potassium 3. his prior ones on bicarb is 23 bun 12 and creatinine 0.84 and blood sugar 128. general surgery is on board. 02/12/2022. Patient is currently sitting on the commode. Patient is having nausea and some vomiting. Didn't have a good bowel movement.. Still having abdominal pain mainly lower abdomen. Patient continues to be on soapsuds enema no when necessary. No compressive chest pain or shortness of breath. No fever no chills. No headache or dizziness or lightheadedness. No cough or sputum production. Laboratory data showed sodium 138 potassium 3.5 chloride 102 bicarb is 26 BUN 20 data creatinine 0.83 and blood sugar 112 medication 2.1. Patient is nothing by mouth and is being continued on TPN. 02/13/2022 Patient is lying in bed. He feels better today. Abdominal pain is improving. No complaints of nausea or vomiting. Patient did not have any involvement today. Shortness breath. No headache or lightheadedness. Laboratory data showed WBC 10.8 hemoglobin 10.8. Potassium was replaced. Patient was started on clear liquid diet. Continued on TPN. Current medications reviewed. Objective - Vital Signs Vital signs: Vital Signs Temp 98.4 F 02/13/22 16:16 Pulse 89 02/13/22 16:16 Resp 16 02/13/22 16:16 BP 158/69 02/13/22 16:16 Pulse Ox 99 02/13/22 16:16 FiO2 Intake & Output 02/12/22 02/13/22 02/13/22 18:59 06:59 18:59 Intake Total 1000 Output Total 525 Balance 475 Weight 70.5 kg Intake: Intake, IV Titration 1000 Amount Amino Acid 5%-D20w+Lytes* 1000 E* 1,000 ml @ 60 mls/hr IV .BY DURATION [facility] Rx#: [id number] Output: Urine 525 Other: Voiding Method Toilet # Voids 1 1 # Bowel Movements 5 2 - Exam PHYSICAL EXAMINATION: Patient is lying in the bed comfortably, no acute distress, awake alert and oriented.. HEENT: Normocephalic. Neck is supple. Pupils reactive. Nostrils clear. Oral cavity is moist. Neck reveals no JVD, carotid bruits, or thyromegaly. CHEST EXAMINATION: Trachea is central. Symmetrical expansion. Bibasilar diminished sounds. Lung payne clear to auscultation and percussion. CARDIAC: Normal S1, S2 with no gallops. No murmurs ABDOMEN: Soft. Bowel sounds present. Nontender. Surgical site bandaged.. No organomegaly. No abdominal bruits. Extremities: reveal no edema. No clubbing or cyanosis Neurologically awake, alert, oriented x3 with well-coordinated movements. No focal deficits noted Skin: No rash or skin lesions. Psychiatric: Coperative. Nonsuicidal Musculoskeletal: No joint swelling or deformity. Normal range of motion. - Labs CBC & Chem 7: 02/13/22 09:00 02/14/22 09:18 Labs: Abnormal Lab Results - Last 24 Hours (Table) 02/13/22 02/13/22 02/13/22 Range/Units 00:12 06:02 07:36 RBC (3.80-5.40) m/uL Hgb (11.4-16.0) gm/dL MCHC (31.0-37.0) g/dL Neutrophils # (1.3-7.7) k/uL Lymphocytes # (1.0-4.8) k/uL Potassium 2.9 L (3.5-5.1) mmol/L BUN 24 H (7-17) mg/dL Glucose 131 H (74-99) mg/dL POC Glucose (mg/dL) 127 H 113 H (70-110) mg/dL Calcium 8.3 L (8.4-10.2) mg/dL 02/13/22 02/13/22 02/13/22 Range/Units 09:00 12:00 16:37 RBC 3.76 L (3.80-5.40) m/uL Hgb 10.8 L (11.4-16.0) gm/dL MCHC 30.4 L (31.0-37.0) g/dL Neutrophils # 8.1 H (1.3-7.7) k/uL Lymphocytes # 0.9 L (1.0-4.8) k/uL Potassium (3.5-5.1) mmol/L BUN (7-17) mg/dL Glucose (74-99) mg/dL POC Glucose (mg/dL) 120 H 124 H (70-110) mg/dL Calcium (8.4-10.2) mg/dL Assessment and Plan Assessment: 1. Small bowel obstruction consistent with mechanical bowel obstruction at the level of the distal ileum . Status post explored laparotomy and lysis of adhesions. Patient is still having abdominal pain and not having bowel movement. Continue on TPN. 2. Severe constipation. 3. Chronic back pain with chronic narcotic use 4. Acute kidney injury 5. Hypokalemia and hypomagnesemia. Replaced. 6. Elevated troponin seen and evaluated by cardiology. 7. Prior History of abdominal surgeries PLAN: -Exploratory laparotomy on 02/08/2022 -Patient was started on clear liquid diet. . Continue the TPN. Continue with laxatives and stool softeners and added edema. -Continue IV fluids -Continue to correct potassium and magnesium -Continue symptomatic management for nausea and vomiting. Continue the pain management. -Continue supportive care Time with Patient: Greater than 30
[2022-02-14 12:04] LABS: Glucose,Whole Blood 109 mg/dL (70-110)
--- NOTE | 2022-02-14 13:43 | P.PN ---
Subjective Progress Note Date: 02/14/22 CHIEF COMPLAINT: Small bowel obstruction HISTORY OF PRESENT ILLNESS: Patient reports that she is starting to feel better. She reports decreased abdominal pain. She's had bowel movements and flatus. Stools are still hard and round. She is only drank a few glasses of the GoLYTELY prep. She's been encouraged to continue to drink and finished a GoLYTELY prep. She denies any nausea or vomiting. Afebrile creatinine 0.77 potassium 4.0 sodium 138 Patient seen and examined with Dr. au PHYSICAL EXAM: VITAL SIGNS: Reviewed. GENERAL: Well-developed in no acute distress. HEENT: No sclera icterus. Extraocular movements grossly intact. Moist buccal mucosa. Head is atraumatic, normocephalic. ABDOMEN: Abdomen is slightly less distended and less tender. Incisional dressing clean dry and intact. NEUROLOGIC: Alert and oriented. Cranial nerves II through XII grossly intact. ASSESSMENT: 1. Small bowel obstruction status post lysis of adhesions 2. Constipation 3. Chronic back pain with chronic narcotic use 4. Acute kidney injury improved 5. Hypokalemia improved 6. Elevated troponin seen and evaluated by cardiology. 7. Prior History of abdominal surgeries PLAN: -Continue clear liquids -Encouraged patient to complete the 2 L GoLYTELY prep to help with the constipation -Continue antiemetics -Encouraged patient to increase activity level -Continue TPN for nutrition support -Continue pain medication as needed -DVT prophylaxis Lovenox and GI prophylaxis Protonix Physician Dryerman/Woman note has been reviewed by physician. Signing provider agrees with the documented findings, assessment, and plan of care. Objective - Vital Signs Vital signs: Vital Signs Temp 98.1 F 02/14/22 11:54 Pulse 88 02/14/22 11:54 Resp 20 02/14/22 11:54 BP 157/75 02/14/22 11:54 Pulse Ox 99 02/14/22 11:54 FiO2 Intake & Output 02/13/22 02/14/22 02/14/22 18:59 06:59 18:59 Intake Total 10 Balance 10 Intake: IV 10 Invasive Line 7 10 Other: Voiding Method Toilet Bedside Commode # Voids 1 3 # Bowel Movements 2 - Labs CBC & Chem 7: 02/13/22 09:00 02/14/22 09:18 Labs: Abnormal Lab Results - Last 24 Hours (Table) 02/13/22 02/14/22 02/14/22 Range/Units 16:37 01:13 09:18 BUN 18 H (7-17) mg/dL Glucose 110 H (74-99) mg/dL POC Glucose (mg/dL) 124 H 139 H (70-110) mg/dL
[2022-02-14] MEDS: 1: MVI, ADULT NO.4 WITH VIT K 10 ML, TRACE (CONC-1ML/DOSE) 1 ML, POTASSIUM CHLORIDE 30 M IV SCH ×8 (15:57→17:29)
[2022-02-14] MEDS: DEXTROSE 5%-0.9% NACL 1,000 ML IV SCH ×2 (16:04→17:29)
[2022-02-14 18:37] LABS: Glucose,Whole Blood 69 mg/dL (70-110)
--- NOTE | 2022-02-14 18:49 | XR ---
EXAMINATION TYPE: XR chest 2V DATE OF EXAM: 02/14/2022 5:07 PM COMPARISON: Chest radiographs from 02/04/2022 TECHNIQUE: XR chest 2V Frontal and lateral views of the chest. CLINICAL INDICATION:Female, 76 years old with history of shortness of breath; FINDINGS: Lungs/Pleura: There is no evidence of pleural effusion, focal consolidation, or pneumothorax. Pulmonary vascularity: Unremarkable. Heart/mediastinum: Cardiomediastinal silhouette is unremarkable. Musculoskeletal: No acute osseous pathology. Left PICC with tip at this superior cavoatrial junction. IMPRESSION: No acute cardiopulmonary disease/process.
[2022-02-14 18:55] LABS: Glucose,Whole Blood 89 mg/dL (70-110)
[2022-02-14] MEDS: ATORVASTATIN 10 MG TAB PO SCH (20:34)
[2022-02-15 00:11] LABS: Glucose,Whole Blood 121 mg/dL (70-110)
[2022-02-15] MEDS: HYDROmorphone 1 MG/ML 1 ML SYRINGE IVP PRN ×5 (05:15→20:40)
[2022-02-15 05:42] LABS: African American GFR (CKD) >90 (>60 ml/min/1.73 sqM); Anion Gap 2 mmol/L; Blood Urea Nitrogen 16 mg/dL (7-17); Carbon Dioxide 28 mmol/L (22-30); Chloride 103 mmol/L (98-107); Glucose 113 mg/dL (74-99); Magnesium 1.7 mg/dL (1.6-2.3); Non-African American GFR(CKD) 87 (>60 ml/min/1.73 sqM); Phosphorus 2.9 mg/dL (2.5-4.5); Potassium 3.6 mmol/L (3.5-5.1); Sodium 133 mmol/L (137-145)
[2022-02-15 06:29] LABS: Glucose,Whole Blood 120 mg/dL (70-110)
[2022-02-15] MEDS: PANTOPRAZOLE 40 MG/10 ML VIAL IVP SCH (08:13)
[2022-02-15] MEDS: LACTULOSE 20 GM/30 ML CUP PO SCH ×4 (08:13→20:40)
[2022-02-15] MEDS: ONDANSETRON 4 MG/2 ML VIAL IVP PRN ×2 (08:13→16:55)
[2022-02-15] MEDS: DOCUSATE 100 MG CAP PO SCH (08:14)
[2022-02-15] MEDS: NIFEdipine XL 30 MG TAB.ER.24 PO SCH (08:14)
[2022-02-15] MEDS: GABAPENTIN 300 MG CAP PO SCH ×3 (08:14→20:40)
[2022-02-15] MEDS: ENOXAPARIN 40 MG/0.4 ML SYRINGE SQ SCH (08:14)
[2022-02-15] MEDS ORDERED: POTASSIUM CHLORIDE 20 MEQ in WATER FOR INJECTION 1 100ML.BAG IVPB ONE (09:30)
--- NOTE | 2022-02-15 10:57 | P.PN ---
Subjective Progress Note Date: 02/14/22 Principal diagnosis: Small bowel obstruction consistent with mechanical bowel obstruction at the level of the distal ileum/ severe Constipation Chronic back pain with chronic narcotic use Acute kidney injury Hypokalemia and hypomagnesemia Elevated troponin 76 year old female patient of Dr. Tiwari with past medical history of hypertension and hypertensive cardio vascular disease with left ventricle hypertrophy, hyperlipidemia, seizure disorder, generalized osteoarthritis, gastroesophageal reflux disease, mild intermittent asthma, chronic pain syn drome, ALLERGIC rhinitis, gout. Patient presented to [facility] emergency center due to nausea and vomiting. She complains of abdominal bloating and chills. She states she occasionally gets winded when she is active. No recent falls. Patient also states that she received enema this morning with no results. She denies any blood in her stools. WBC 16.6, hemoglobin 11.7, platelet 459. Sodium 133, potassium 2.3, chloride 89, CO2 33, BUN 83, creatinine 1.75. Blood sugar 121. INR 1.0. Liver function tests were normal. Lipase 119. Lactic acid 0.9. Troponin 0.047, 0.052, 0.047. Urinalysis negative for infection. Acetaminophen less than 10. Hold, CAT scan of the abdomen and pelvis revealed dilated small bowel consistent with mechanical bowel obstruction at the level of the distal ileum. There is moderate constipation. Obstruction due to constipation is most likely. No luminal narrowing seen. Obstruction appears new. Echocardiogram reveals normal left ventricular size with concentric left ventricular hypertrophy, preserved LV function. Mild aortic stenosis, mild tricuspid regurgitation and mild mitral regurgitation. Patient is status post exploratory laparotomy which revealed significant stool noted within the colon without any evidence of obstructed hold; patient also underwent adhesiolysis Patient reports her abdominal pain is about the same. She is distended. She is complaining of nausea. Patient still having nausea even after Zofran given. She did report a very small amount of flatus. No bowel movement. She is rating her pain about a 6 out of 10. They were unable to get NG tube placed yesterday. Vitals stable. WBC about the same at 12.5 hemoglobin 11.7 platelets 308 sodium is 136 potassium is 3.5 creatinine 1.0 magnesium 1.7 02/09/2022 Patient is status post explore laparotomy and lysis of adhesions.. Currently patient is complaining of abdominal pain. He had a small bowel movement and able to pass flatus. No complains of chest pain or shortness breath. Patient was nauseated. No headache or dizziness or lightheadedness. Complains of fever or chills. Laboratory data showed sodium 138 potassium 3.8 chloride 100 bicarb is 2030 BUN: Creatinine 0.88 02/10/2022 Patient is currently lying in the bed. Awake alert and oriented. Still complains of bowel movement and nausea and vomiting today. Patient able to pass flatus. No bowel movement yet. Patient was started on subsequent edema and stool softeners and laxatives. General surgery is on board. Denied any chest pain or shortness of breath. No fever no chills. No cough or sputum production. Laboratory data showed WBC 14.2 hemoglobin 13.1 and platelets 4:30 sodium 139 potassium 3.6 chloride 99 bicarb is 27 BUN 14 and creatinine 0.85 and phosphorus 2.8 General surgery is on board. 02/11/2022 Patient is lying in the bed. Awake alert and oriented 3. Denies any bowel movement. Able to pass flatus. Patient is unlikely to stool softeners and subsequent edema as needed. Denied any complaints of chest pain or shortness of breath. Patient does have nausea. vomiting. no headache or dizziness or lightheadedness. patient has been afebrile. laboratory data showed wbc 14.6 hemoglobin 12.6 and platelets 375 sodium 136 potassium 3. his prior ones on bicarb is 23 bun 12 and creatinine 0.84 and blood sugar 128. general surgery is on board. 02/12/2022. Patient is currently sitting on the commode. Patient is having nausea and some vomiting. Didn't have a good bowel movement.. Still having abdominal pain mainly lower abdomen. Patient continues to be on soapsuds enema no when necessary. No compressive chest pain or shortness of breath. No fever no chills. No headache or dizziness or lightheadedness. No cough or sputum production. Laboratory data showed sodium 138 potassium 3.5 chloride 102 bicarb is 26 BUN 20 data creatinine 0.83 and blood sugar 112 medication 2.1. Patient is nothing by mouth and is being continued on TPN. 02/13/2022 Patient is lying in bed. He feels better today. Abdominal pain is improving. No complaints of nausea or vomiting. Patient did not have any involvement today. Shortness breath. No headache or lightheadedness. Laboratory data showed WBC 10.8 hemoglobin 10.8. Potassium was replaced. Patient was started on clear liquid diet. Continued on TPN. 02/14/2022 Patient is more comfortable today. Abdominal pain did improve. Patient did have a bowel movement today. Tolerating liquid diet. Continued on TPN. No complains of chest pain or shortness of breath. No nausea vomiting. No cough is from production. Patient has been afebrile. Laboratory data showed sodium 138 potassium 4.0 chloride 107 BUN 18 and creatinine 0.77 and magnesium 1.9. Current medications reviewed. Objective - Vital Signs Vital signs: Vital Signs Temp 98.1 F 02/14/22 11:54 Pulse 88 02/14/22 11:54 Resp 20 02/14/22 11:54 BP 157/75 02/14/22 11:54 Pulse Ox 99 02/14/22 11:54 FiO2 Intake & Output 02/13/22 02/14/22 02/14/22 18:59 06:59 18:59 Intake Total 1036 Output Total 0 Balance 1036 0 Intake: IV 10 Invasive Line 7 10 Intake, IV Titration 1026 Amount Mvi, Adult No.4 with Vit 1026 K 10 ml Trace (Conc-1Ml/ Dose) 1 ml Potassium Chloride 30 meq In Amino Acid 5%-D20w+Lytes*E* 1, 000 ml @ 60 mls/hr IV .BY DURATION [facility] Rx#: [id number] Output: Stool 0 Other: Voiding Method Toilet Bedside Commode # Voids 1 3 1 # Bowel Movements 2 0 - Exam PHYSICAL EXAMINATION: Patient is lying in the bed comfortably, no acute distress, awake alert and oriented.. HEENT: Normocephalic. Neck is supple. Pupils reactive. Nostrils clear. Oral cavity is moist. Neck reveals no JVD, carotid bruits, or thyromegaly. CHEST EXAMINATION: Trachea is central. Symmetrical expansion. Bibasilar diminished sounds. Lung payne clear to auscultation and percussion. CARDIAC: Normal S1, S2 with no gallops. No murmurs ABDOMEN: Soft. Bowel sounds present. Nontender. Surgical site bandaged.. No organomegaly. No abdominal bruits. Extremities: reveal no edema. No clubbing or cyanosis Neurologically awake, alert, oriented x3 with well-coordinated movements. No focal deficits noted Skin: No rash or skin lesions. Psychiatric: Coperative. Nonsuicidal Musculoskeletal: No joint swelling or deformity. Normal range of motion. - Labs CBC & Chem 7: 02/13/22 09:00 02/15/22 04:59 Labs: Abnormal Lab Results - Last 24 Hours (Table) 02/13/22 02/14/22 02/14/22 Range/Units 16:37 01:13 09:18 BUN 18 H (7-17) mg/dL Glucose 110 H (74-99) mg/dL POC Glucose (mg/dL) 124 H 139 H (70-110) mg/dL Assessment and Plan Assessment: 1. Small bowel obstruction consistent with mechanical bowel obstruction at the level of the distal ileum . Status post explored laparotomy and lysis of adhesions. Patient is still having abdominal pain and not having bowel movement. Continue on TPN. Patient was started on liquid diet. 2. Severe constipation. 3. Chronic back pain with chronic narcotic use 4. Acute kidney injury 5. Hypokalemia and hypomagnesemia. Replaced. 6. Elevated troponin seen and evaluated by cardiology. 7. Prior History of abdominal surgeries PLAN: -Exploratory laparotomy on 02/08/2022 -Patient was started on clear liquid diet. . Continue the TPN. Continue with laxatives and stool softeners and added edema. -Continue IV fluids -Continue to correct potassium and magnesium -Continue symptomatic management for nausea and vomiting. Continue the pain management. -Continue supportive care Time with Patient: Greater than 30
--- NOTE | 2022-02-15 11:23 | P.PN ---
Subjective Progress Note Date: 02/15/22 CHIEF COMPLAINT: Small bowel obstruction HISTORY OF PRESENT ILLNESS: The patient is a 76-year-old female status post lysis of adhesions for bowel obstruction. She is resting comfortably in bed. She reports having bowel movement last night. She is taken daily laxatives. She reports abdominal soreness which is improved from last night. ROS: No reports of nausea and vomiting. No fevers or chills. No new chest pain. No productive sputum PHYSICAL EXAM: VITAL SIGNS: Reviewed CONSTITUTIONAL: Well developed and in no acute distress. EYES: Conjuctivae without sclera icterus. Extraocular movements grossly intact. HEAD, EARS, NOSE, THROAT: Moist buccal mucosa. Head is atraumatic, normocepha lic. Hears conversational speech. No nasal drainage. RESPIRATORY: Non-labored respirations and equal bilateral excursions. CARDIOVASCULAR: Palpable 2+ radial pulses. ABDOMEN: Protuberant. Dressing intact. MUSCULOSKELETAL: No gross deformity of the lower extremities noted. No clubbing. No cyanosis. SKIN: Good skin turgor. Well perfused. NEUROLOGIC: Cranial nerves II through XII grossly intact. No focal or lateralizing signs. PSYCH: Appropriate affect. Alert and oriented to person, place and time. CLINICAL LABS: Reviewed. Blood sugar glucose down from 177-77. ASSESSMENT: 1. Small bowel obstruction due to adhesions 2. Chronic constipation PLAN: 1. Diet as tolerated. 2. Laxatives as needed. Objective - Vital Signs Vital signs: Vital Signs Temp 98.0 F 02/15/22 08:16 Pulse 69 02/15/22 08:16 Resp 18 02/15/22 08:16 BP 143/68 02/15/22 08:16 Pulse Ox 97 02/15/22 08:16 FiO2 Intake & Output 02/14/22 02/15/22 02/15/22 18:59 06:59 18:59 Intake Total 1236 20 Output Total 0 Balance 1236 20 Weight 70.5 kg Intake: IV 20 Invasive Line 7 20 Intake, IV Titration 1015 Amount Potassium Chloride 30 meq 1015 In Amino Acid 5%-D20w+ Lytes*E* 1,000 ml @ 60 mls/hr IV .BY DURATION [facility] Rx#:[id number] Oral 221 Output: Stool 0 Other: Voiding Method Toilet Bedside Commode # Voids 1 1 # Bowel Movements 0 1 - Labs CBC & Chem 7: 06/16/22 09:00 02/15/22 04:59 Labs: Abnormal Lab Results - Last 24 Hours (Table) 02/14/22 02/14/22 02/15/22 Range/Units 09:18 18:34 00:09 Sodium (137-145) mmol/L BUN 18 H (7-17) mg/dL Glucose 110 H (74-99) mg/dL POC Glucose (mg/dL) 69 L 121 H (70-110) mg/dL Calcium (8.4-10.2) mg/dL 02/15/22 02/15/22 Range/Units 04:59 06:27 Sodium 133 L (137-145) mmol/L BUN (7-17) mg/dL Glucose 113 H (74-99) mg/dL POC Glucose (mg/dL) 120 H (70-110) mg/dL Calcium 8.0 L (8.4-10.2) mg/dL
[2022-02-15] MEDS: MAGNESIUM SULFATE-D5W PMX 1 GM in DEXTROSE/WATER 1 100ML.BAG IVPB SCH ×2 (11:50→13:40)
[2022-02-15 11:52] LABS: Glucose,Whole Blood 95 mg/dL (70-110)
[2022-02-15] MEDS: 1: MVI, ADULT NO.4 WITH VIT K 10 ML, TRACE (CONC-1ML/DOSE) 1 ML, POTASSIUM CHLORIDE 30 M IV SCH ×4 (13:44)
[2022-02-15] MEDS: DEXTROSE 5%-0.9% NACL 1,000 ML IV SCH (17:21)
[2022-02-15 18:17] LABS: Glucose,Whole Blood 105 mg/dL (70-110)
[2022-02-15] MEDS: ATORVASTATIN 10 MG TAB PO SCH (20:40)
[2022-02-16 00:02] LABS: Glucose,Whole Blood 128 mg/dL (70-110)
[2022-02-16] MEDS: HYDROmorphone 1 MG/ML 1 ML SYRINGE IVP PRN ×7 (00:27→20:32)
[2022-02-16] MEDS: 1: MVI, ADULT NO.4 WITH VIT K 10 ML, TRACE (CONC-1ML/DOSE) 1 ML, POTASSIUM CHLORIDE 30 M IV SCH ×4 (03:09)
[2022-02-16 06:10] LABS: Glucose,Whole Blood 111 mg/dL (70-110)
[2022-02-16] MEDS: 1: MVI, ADULT NO.4 WITH VIT K 10 ML, TRACE (CONC-1ML/DOSE) 1 ML, POTASSIUM CHLORIDE 40 M IV SCH ×4 (07:53)
[2022-02-16] MEDS: PANTOPRAZOLE 40 MG/10 ML VIAL IVP SCH (07:59)
[2022-02-16] MEDS: NIFEdipine XL 30 MG TAB.ER.24 PO SCH (10:00)
[2022-02-16] MEDS: DOCUSATE 100 MG CAP PO SCH (10:00)
[2022-02-16] MEDS: LACTULOSE 20 GM/30 ML CUP PO SCH ×4 (10:00→20:37)
[2022-02-16] MEDS: GABAPENTIN 300 MG CAP PO SCH ×3 (10:01→20:32)
[2022-02-16] MEDS: ENOXAPARIN 40 MG/0.4 ML SYRINGE SQ SCH (10:01)
[2022-02-16 12:03] LABS: BUN/Creat Ratio 21.02 Ratio (12.00-20.00); Phosphorus 3.5 mg/dL (2.4-5.1)
[2022-02-16 12:04] LABS: African American GFR (CKD) 91.5 (60.0-200.0); Anion Gap 10.2 mmol/L (10.00-18.00); Blood Urea Nitrogen 15.7 mg/dL (9.0-27.0); Calcium 8.7 mg/dL (8.7-10.3); Carbon Dioxide 26.6 mmol/L (20.0-27.5); Magnesium 2.2 mg/dL (1.5-2.4); Non-African American GFR(CKD) 78.9 (60.0-200.0); Potassium 4.1 mmol/L (3.5-5.5)
--- NOTE | 2022-02-16 13:39 | P.PN ---
Subjective Progress Note Date: 02/16/22 CHIEF COMPLAINT: Small bowel obstruction HISTORY OF PRESENT ILLNESS: The patient is a 76-year-old female status post lysis of adhesions for bowel obstruction. She is having moderate bowel movements and passing flatus. Abdominal pain has improved. She is tolerating liquid diet has increased appetite. She had 4 bowel movements in 24 hours. ROS: No reports of nausea and vomiting. No fevers or chills. No new chest pain. No productive sputum PHYSICAL EXAM: VITAL SIGNS: Reviewed CONSTITUTIONAL: Well developed and in no acute distress. EYES: Conjuctivae without sclera icterus. Extraocular movements grossly intact. HEAD, EARS, NOSE, THROAT: Moist buccal mucosa. Head is atraumatic, normoce phalic. Hears conversational speech. No nasal drainage. RESPIRATORY: Non-labored respirations and equal bilateral excursions. CARDIOVASCULAR: Palpable 2+ radial pulses. ABDOMEN: Protuberant. Dressing intact. MUSCULOSKELETAL: No gross deformity of the lower extremities noted. No clubbing. No cyanosis. SKIN: Good skin turgor. Well perfused. NEUROLOGIC: Cranial nerves II through XII grossly intact. No focal or lateralizing signs. PSYCH: Appropriate affect. Alert and oriented to person, place and time. CLINICAL LABS: Reviewed. Electrolytes within normal limits, potassium 4.1, creatinine 0.7 ASSESSMENT: 1. Small bowel obstruction due to adhesions 2. Chronic constipation PLAN: 1. Diet advance to low fiber diet 2. Clinically stable from a surgical standpoint for discharge in 24 hours once medically stable Objective - Vital Signs Vital signs: Vital Signs Temp 98.5 F 02/16/22 07:52 Pulse 77 02/16/22 07:52 Resp 20 02/16/22 07:52 BP 139/77 02/16/22 07:52 Pulse Ox 99 02/16/22 07:52 FiO2 Intake & Output 02/15/22 02/16/22 02/16/22 18:59 06:59 18:59 Intake Total 1026 640 Output Total 525 Balance 1026 -525 640 Intake: Intake, IV Titration 1026 640 Amount Dextrose 5%-0.9% NaCl 1, 160 000 ml @ 20 mls/hr IV . Q24H [facility] Rx#:[id number] Mvi, Adult No.4 with Vit 1026 K 10 ml Trace (Conc-1Ml/ Dose) 1 ml Potassium Chloride 30 meq In Amino Acid 5%-D20w+Lytes*E* 1, 000 ml @ 60 mls/hr IV .BY DURATION [facility] Rx#: [id number] Potassium Chloride 40 meq 480 In Amino Acid 5%-D20w+ Lytes*E* 1,000 ml @ 60 mls/hr IV .BY DURATION [facility] Rx#:[id number] Output: Urine 525 Other: Voiding Method Toilet Toilet Bedside Commode Bedside Commode # Voids 2 2 # Bowel Movements 0 2 1 - Labs CBC & Chem 7: 02/13/22 09:00 02/16/22 07:49 Labs: Abnormal Lab Results - Last 24 Hours (Table) 02/16/22 02/16/22 02/16/22 Range/Units 00:00 06:08 07:49 BUN/Creatinine Ratio 21.02 H (12.00-20.00) Ratio POC Glucose (mg/dL) 128 H 111 H (70-110) mg/dL
[2022-02-16] MEDS: DEXTROSE 5%-0.9% NACL 1,000 ML IV SCH (16:25)
[2022-02-16 17:24] LABS: Glucose,Whole Blood 96 mg/dL (70-110)
[2022-02-16] MEDS: ONDANSETRON 4 MG/2 ML VIAL IVP PRN (20:32)
[2022-02-16] MEDS: ATORVASTATIN 10 MG TAB PO SCH (20:32)
--- NOTE | 2022-02-17 01:24 | P.PN ---
Subjective Progress Note Date: 02/16/22 Principal diagnosis: Small bowel obstruction consistent with mechanical bowel obstruction at the level of the distal ileum/ severe Constipation Chronic back pain with chronic narcotic use Acute kidney injury Hypokalemia and hypomagnesemia Elevated troponin 76 year old female patient of Dr. Tiwari with past medical history of hypertension and hypertensive cardio vascular disease with left ventricle hypertrophy, hyperlipidemia, seizure disorder, generalized osteoarthritis, gastroesophageal reflux disease, mild intermittent asthma, chronic pain syn drome, ALLERGIC rhinitis, gout. Patient presented to [facility] emergency center due to nausea and vomiting. She complains of abdominal bloating and chills. She states she occasionally gets winded when she is active. No recent falls. Patient also states that she received enema this morning with no results. She denies any blood in her stools. WBC 16.6, hemoglobin 11.7, platelet 459. Sodium 133, potassium 2.3, chloride 89, CO2 33, BUN 83, creatinine 1.75. Blood sugar 121. INR 1.0. Liver function tests were normal. Lipase 119. Lactic acid 0.9. Troponin 0.047, 0.052, 0.047. Urinalysis negative for infection. Acetaminophen less than 10. Hold, CAT scan of the abdomen and pelvis revealed dilated small bowel consistent with mechanical bowel obstruction at the level of the distal ileum. There is moderate constipation. Obstruction due to constipation is most likely. No luminal narrowing seen. Obstruction appears new. Echocardiogram reveals normal left ventricular size with concentric left ventricular hypertrophy, preserved LV function. Mild aortic stenosis, mild tricuspid regurgitation and mild mitral regurgitation. Patient is status post exploratory laparotomy which revealed significant stool noted within the colon without any evidence of obstructed hold; patient also underwent adhesiolysis Patient reports her abdominal pain is about the same. She is distended. She is complaining of nausea. Patient still having nausea even after Zofran given. She did report a very small amount of flatus. No bowel movement. She is rating her pain about a 6 out of 10. They were unable to get NG tube placed yesterday. Vitals stable. WBC about the same at 12.5 hemoglobin 11.7 platelets 308 sodium is 136 potassium is 3.5 creatinine 1.0 magnesium 1.7 02/09/2022 Patient is status post explore laparotomy and lysis of adhesions.. Currently patient is complaining of abdominal pain. He had a small bowel movement and able to pass flatus. No complains of chest pain or shortness breath. Patient was nauseated. No headache or dizziness or lightheadedness. Complains of fever or chills. Laboratory data showed sodium 138 potassium 3.8 chloride 100 bicarb is 2030 BUN: Creatinine 0.88 02/10/2022 Patient is currently lying in the bed. Awake alert and oriented. Still complains of bowel movement and nausea and vomiting today. Patient able to pass flatus. No bowel movement yet. Patient was started on subsequent edema and stool softeners and laxatives. General surgery is on board. Denied any chest pain or shortness of breath. No fever no chills. No cough or sputum production. Laboratory data showed WBC 14.2 hemoglobin 13.1 and platelets 4:30 sodium 139 potassium 3.6 chloride 99 bicarb is 27 BUN 14 and creatinine 0.85 and phosphorus 2.8 General surgery is on board. 02/11/2022 Patient is lying in the bed. Awake alert and oriented 3. Denies any bowel movement. Able to pass flatus. Patient is unlikely to stool softeners and subsequent edema as needed. Denied any complaints of chest pain or shortness of breath. Patient does have nausea. vomiting. no headache or dizziness or lightheadedness. patient has been afebrile. laboratory data showed wbc 14.6 hemoglobin 12.6 and platelets 375 sodium 136 potassium 3. his prior ones on bicarb is 23 bun 12 and creatinine 0.84 and blood sugar 128. general surgery is on board. 02/12/2022. Patient is currently sitting on the commode. Patient is having nausea and some vomiting. Didn't have a good bowel movement.. Still having abdominal pain mainly lower abdomen. Patient continues to be on soapsuds enema no when necessary. No compressive chest pain or shortness of breath. No fever no chills. No headache or dizziness or lightheadedness. No cough or sputum production. Laboratory data showed sodium 138 potassium 3.5 chloride 102 bicarb is 26 BUN 20 data creatinine 0.83 and blood sugar 112 medication 2.1. Patient is nothing by mouth and is being continued on TPN. 02/13/2022 Patient is lying in bed. He feels better today. Abdominal pain is improving. No complaints of nausea or vomiting. Patient did not have any involvement today. Shortness breath. No headache or lightheadedness. Laboratory data showed WBC 10.8 hemoglobin 10.8. Potassium was replaced. Patient was started on clear liquid diet. Continued on TPN. 02/14/2022 Patient is more comfortable today. Abdominal pain did improve. Patient did have a bowel movement today. Tolerating liquid diet. Continued on TPN. No complains of chest pain or shortness of breath. No nausea vomiting. No cough is from production. Patient has been afebrile. Laboratory data showed sodium 138 potassium 4.0 chloride 107 BUN 18 and creatinine 0.77 and magnesium 1.9. 02/15/2022 Patient is resting in bed. Awake alert and oriented x3. Abdominal pain is much improved. Patient did have a small bowel movement. Tolerating liquid diet. General surgery is following. Patient is also on TPN. Otherwise no cough or sputum production. No other acute overnight issues. Continue with stool softeners and Laxatives. Laboratory data reviewed. 02/16/2022 Patient is status post lysis of additions, expiratory laparotomy. Patient did have a bowel movement. No complaints of nausea or vomiting. Abdominal pain is much improved. No cough or sputum production. No diarrhea. Patient is continued on stool softeners. Liquid diet advance as tolerated. Also on TPN. General surgery is following. Anticipate discharge in the next 24 to 48 hours. Current laboratory data reviewed. Current medications reviewed. Objective - Vital Signs Vital signs: Vital Signs Temp 98.2 F 02/16/22 19:25 Pulse 80 02/16/22 19:25 Resp 16 02/16/22 19:25 BP 148/62 02/16/22 19:25 Pulse Ox 96 02/16/22 20:04 FiO2 Intake & Output 02/16/22 02/16/22 02/17/22 06:59 18:59 06:59 Intake Total 640 Output Total 525 Balance -525 640 Intake: Intake, IV Titration 640 Amount Dextrose 5%-0.9% NaCl 1, 160 000 ml @ 20 mls/hr IV . Q24H [facility] Rx#:[id number] Potassium Chloride 40 meq 480 In Amino Acid 5%-D20w+ Lytes*E* 1,000 ml @ 60 mls/hr IV .BY DURATION [facility] Rx#:[id number] Output: Urine 525 Other: Voiding Method Toilet Bedside Commode # Voids 2 5 # Bowel Movements 2 1 - Exam PHYSICAL EXAMINATION: Patient is lying in the bed comfortably, no acute distress, awake alert and oriented.. HEENT: Normocephalic. Neck is supple. Pupils reactive. Nostrils clear. Oral cavity is moist. Neck reveals no JVD, carotid bruits, or thyromegaly. CHEST EXAMINATION: Trachea is central. Symmetrical expansion. Bibasilar diminished sounds. Lung payne clear to auscultation and percussion. CARDIAC: Normal S1, S2 with no gallops. No murmurs ABDOMEN: Soft. Bowel sounds present. Nontender. Surgical site bandaged.. No organomegaly. No abdominal bruits. Extremities: reveal no edema. No clubbing or cyanosis Neurologically awake, alert, oriented x3 with well-coordinated movements. No focal deficits noted Skin: No rash or skin lesions. Psychiatric: Coperative. Nonsuicidal Musculoskeletal: No joint swelling or deformity. Normal range of motion. - Labs CBC & Chem 7: 02/13/22 09:00 02/16/22 07:49 Labs: Abnormal Lab Results - Last 24 Hours (Table) 02/16/22 02/16/22 02/16/22 Range/Units 00:00 06:08 07:49 BUN/Creatinine Ratio 21.02 H (12.00-20.00) Ratio POC Glucose (mg/dL) 128 H 111 H (70-110) mg/dL Assessment and Plan Assessment: 1. Small bowel obstruction consistent with mechanical bowel obstruction at the level of the distal ileum . Status post explored laparotomy and lysis of adhesions. started on oral diet and advance. Continue on TPN. Patient was started on liquid diet. 2. Severe constipation. 3. Chronic back pain with chronic narcotic use 4. Acute kidney injury 5. Hypokalemia and hypomagnesemia. Replaced. 6. Elevated troponin seen and evaluated by cardiology. 7. Prior History of abdominal surgeries PLAN: -Exploratory laparotomy on 02/08/2022 -Patient was started on clear liquid diet. . Continue the TPN. Continue with laxatives and stool softeners and added edema. -Continue IV fluids -Continue to correct potassium and magnesium -Continue symptomatic management for nausea and vomiting. Continue the pain management. -Continue supportive care
[2022-02-17] MEDS: ONDANSETRON 4 MG/2 ML VIAL IVP PRN ×3 (01:34→17:35)
[2022-02-17] MEDS: 1: MVI, ADULT NO.4 WITH VIT K 10 ML, TRACE (CONC-1ML/DOSE) 1 ML, POTASSIUM CHLORIDE 40 M IV SCH ×4 (01:34)
[2022-02-17] MEDS: HYDROmorphone 1 MG/ML 1 ML SYRINGE IVP PRN ×4 (01:35→12:18)
[2022-02-17 06:20] LABS: Glucose,Whole Blood 114 mg/dL (70-110)
[2022-02-17] MEDS: PANTOPRAZOLE 40 MG/10 ML VIAL IVP SCH (08:25)
[2022-02-17] MEDS: NIFEdipine XL 30 MG TAB.ER.24 PO SCH (08:26)
[2022-02-17] MEDS: DOCUSATE 100 MG CAP PO SCH (08:26)
[2022-02-17] MEDS: LACTULOSE 20 GM/30 ML CUP PO SCH (08:26)
[2022-02-17] MEDS: GABAPENTIN 300 MG CAP PO SCH ×3 (08:26→21:31)
[2022-02-17] MEDS: ENOXAPARIN 40 MG/0.4 ML SYRINGE SQ SCH (08:27)
[2022-02-17 09:06] LABS: African American GFR (CKD) 98.9 (60.0-200.0); Anion Gap 6.1 mmol/L (10.00-18.00); BUN/Creat Ratio 23.57 Ratio (12.00-20.00); Blood Urea Nitrogen 16.5 mg/dL (9.0-27.0); Calcium 8.3 mg/dL (8.7-10.3); Carbon Dioxide 27.9 mmol/L (20.0-27.5); Magnesium 1.9 mg/dL (1.5-2.4); Non-African American GFR(CKD) 85.4 (60.0-200.0); Potassium 4.8 mmol/L (3.5-5.5)
[2022-02-17] MEDS ORDERED: HYDROcodone/APAP 5-325MG 1 EACH TAB PO PRN (11:11)
[2022-02-17 11:23] LABS: Glucose,Whole Blood 94 mg/dL (70-110)
--- NOTE | 2022-02-17 13:20 | P.PN ---
Subjective Progress Note Date: 02/17/22 CHIEF COMPLAINT: Small bowel obstruction HISTORY OF PRESENT ILLNESS: Patient had 5 bowel movements yesterday. Her diet has been advanced to low fiber over the weekend. He shouldn't reports decreased abdominal pain. She has some tenderness at incision site. Denies any vomiting. She still occasionally has some nausea. She is eating almost half of her low fiber meal. She has been up and ambulating. afebrile.Potassium 4.8 creatinine 0.7 magnesium 1.9 Patient seen and examined with Dr. au PHYSICAL EXAM: VITAL SIGNS: Reviewed. GENERAL: Well-developed in no acute distress. HEENT: No sclera icterus. Extraocular movements grossly intact. Moist buccal mucosa. Head is atraumatic, normocephalic. ABDOMEN: Softer. Mildly distended. Incision site clean dry and intact. NEUROLOGIC: Alert and oriented. Cranial nerves II through XII grossly intact. ASSESSMENT: 1. Small bowel obstruction status post lysis of adhesions 2. Constipation 3. Chronic back pain with chronic narcotic use 4. Acute kidney injury improved 5. Hypokalemia improved 6. Elevated troponin seen and evaluated by cardiology. 7. Prior History of abdominal surgeries PLAN: -Patient can be discharged from surgical standpoint when medically cleared -Patient having multiple bowel movements. Lactulose will be decreased from 4 times a day to once a day -Add Alsey for oral pain medication -Continue low fiber diet -Encouraged patient to ambulate -Wean patient off of the TPN -DVT prophylaxis Lovenox and GI prophylaxis Protonix Physician [employer] note has been reviewed by physician. Signing provider agrees with the documented findings, assessment, and plan of care. Objective - Vital Signs Vital signs: Vital Signs Temp 98.5 F 02/17/22 07:37 Pulse 79 02/17/22 07:37 Resp 16 02/17/22 07:37 BP 143/72 02/17/22 07:37 Pulse Ox 97 02/17/22 07:37 FiO2 Intake & Output 02/16/22 02/17/22 02/17/22 18:59 06:59 18:59 Intake Total 640 1020 Output Total 525 Balance 640 495 Intake: Intake, IV Titration 640 1020 Amount Dextrose 5%-0.9% NaCl 1, 160 000 ml @ 20 mls/hr IV . Q24H [facility] Rx#:[id number] Potassium Chloride 40 meq 480 1020 In Amino Acid 5%-D20w+ Lytes*E* 1,000 ml @ 60 mls/hr IV .BY DURATION [facility] Rx#:[id number] Output: Urine 525 Stool 0 Other: Voiding Method Toilet Bedside Commode # Voids 5 3 # Bowel Movements 1 1 - Labs CBC & Chem 7: 02/13/22 09:00 02/17/22 05:09 Labs: Abnormal Lab Results - Last 24 Hours (Table) 02/17/22 02/17/22 Range/Units 05:09 06:19 Carbon Dioxide 27.9 H (20.0-27.5) mmol/L Anion Gap 6.10 L (10.00-18.00) mmol/L BUN/Creatinine Ratio 23.57 H (12.00-20.00) Ratio Glucose 118 H (70-110) mg/dL POC Glucose (mg/dL) 114 H (70-110) mg/dL Calcium 8.3 L (8.7-10.3) mg/dL
[2022-02-17] MEDS: HYDROmorphone 0.5 MG/0.5 ML SYRINGE IVP PRN (14:52)
[2022-02-17 16:33] LABS: Glucose,Whole Blood 91 mg/dL (70-110)
[2022-02-17] MEDS: DEXTROSE 5%-0.9% NACL 1,000 ML IV SCH (17:58)
[2022-02-17] MEDS ORDERED: [UNRECOGNIZED DRUG - REMARK] IV SCH ×4 (18:30)
[2022-02-17] MEDS: ATORVASTATIN 10 MG TAB PO SCH (21:31)
[2022-02-18] MEDS: HYDROmorphone 0.5 MG/0.5 ML SYRINGE IVP PRN ×2 (00:35→07:34)
[2022-02-18 01:13] LABS: Glucose,Whole Blood 109 mg/dL (70-110)
[2022-02-18] MEDS: ONDANSETRON 4 MG/2 ML VIAL IVP PRN (01:31)
--- NOTE | 2022-02-18 04:02 | P.PN ---
Subjective Progress Note Date: 02/17/22 Small bowel obstruction consistent with mechanical bowel obstruction at the level of the distal ileum/ severe Constipation Chronic back pain with chronic narcotic use Acute kidney injury Hypokalemia and hypomagnesemia Elevated troponin 76 year old female patient of Dr. Tiwari with past medical history of hypertension and hypertensive cardio vascular disease with left ventricle hypertrophy, hyperlipidemia, seizure disorder, generalized osteoarthritis, gastroesophageal reflux disease, mild intermittent asthma, chronic pain syndrome, ALLERGIC rhinitis, gout. Patient presented to [facility] emergency center due to nausea and vomiting. She complains of abdominal bloating and chills. She states she occasionally gets winded when she is active. No recent falls. Patient also states that she received enema this morning with no results. She denies any blood in her stools. WBC 16.6, hemoglobin 11.7, platelet 459. Sodium 133, potassium 2.3, chloride 89, CO2 33, BUN 83, creatinine 1.75. Blood sugar 121. INR 1.0. Liver function tests were normal. Lipase 119. Lactic acid 0.9. Troponin 0.047, 0.052, 0.047. Urinalysis negative for infection. Acetaminophen less than 10. Hold, CAT scan of the abdomen and pelvis revealed dilated small bowel consistent with mechanical bowel obstruction at the level of the distal ileum. There is moderate constipation. Obstruction due to constipation is most likely. No luminal narrowing seen. Obstruction appears new. Echocardiogram reveals normal left ventricular size with concentric left ventricular hypertrophy, preserved LV function. Mild aortic stenosis, mild tricuspid regurgitation and mild mitral regurgitation. Patient is status post exploratory laparotomy which revealed significant stool noted within the colon without any evidence of obstructed hold; patient also underwent adhesiolysis Patient reports her abdominal pain is about the same. She is distended. She is complaining of nausea. Patient still having nausea even after Zofran given. She did report a very small amount of flatus. No bowel movement. She is rating her pain about a 6 out of 10. They were unable to get NG tube placed yesterday. Vitals stable. WBC about the same at 12.5 hemoglobin 11.7 platelets 308 sodium is 136 potassium is 3.5 creatinine 1.0 magnesium 1.7 02/09/2022 Patient is status post explore laparotomy and lysis of adhesions.. Currently patient is complaining of abdominal pain. He had a small bowel movement and able to pass flatus. No complains of chest pain or shortness breath. Patient was nauseated. No headache or dizziness or lightheadedness. Complains of fever or chills. Laboratory data showed sodium 138 potassium 3.8 chloride 100 bicarb is 2030 BUN: Creatinine 0.88 02/10/2022 Patient is currently lying in the bed. Awake alert and oriented. Still complains of bowel movement and nausea and vomiting today. Patient able to pass flatus. No bowel movement yet. Patient was started on subsequent edema and stool softeners and laxatives. General surgery is on board. Denied any chest pain or shortness of breath. No fever no chills. No cough or sputum production. Laboratory data showed WBC 14.2 hemoglobin 13.1 and platelets 4:30 sodium 139 potassium 3.6 chloride 99 bicarb is 27 BUN 14 and creatinine 0.85 and phosphorus 2.8 General surgery is on board. 02/11/2022 Patient is lying in the bed. Awake alert and oriented 3. Denies any bowel movement. Able to pass flatus. Patient is unlikely to stool softeners and skinner bsequent edema as needed. Denied any complaints of chest pain or shortness of breath. Patient does have nausea. vomiting. no headache or dizziness or lightheadedness. patient has been afebrile. laboratory data showed wbc 14.6 hemoglobin 12.6 and platelets 375 sodium 136 potassium 3. his prior ones on bicarb is 23 bun 12 and creatinine 0.84 and blood sugar 128. general surgery is on board. 02/12/2022. Patient is currently sitting on the commode. Patient is having nausea and some vomiting. Didn't have a good bowel movement.. Still having abdominal pain mainly lower abdomen. Patient continues to be on soapsuds enema no when necessary. No compressive chest pain or shortness of breath. No fever no chills. No headache or dizziness or lightheadedness. No cough or sputum production. Laboratory data showed sodium 138 potassium 3.5 chloride 102 bicarb is 26 BUN 20 data creatinine 0.83 and blood sugar 112 medication 2.1. Patient is nothing by mouth and is being continued on TPN. 02/13/2022 Patient is lying in bed. He feels better today. Abdominal pain is improving. No complaints of nausea or vomiting. Patient did not have any involvement today. Shortness breath. No headache or lightheadedness. Laboratory data showed WBC 10.8 hemoglobin 10.8. Potassium was replaced. Patient was started on clear liquid diet. Continued on TPN. 02/14/2022 Patient is more comfortable today. Abdominal pain did improve. Patient did have a bowel movement today. Tolerating liquid diet. Continued on TPN. No complains of chest pain or shortness of breath. No nausea vomiting. No cou gh is from production. Patient has been afebrile. Laboratory data showed sodium 138 potassium 4.0 chloride 107 BUN 18 and creatinine 0.77 and magnesium 1.9. 02/15/2022 Patient is resting in bed. Awake alert and oriented x3. Abdominal pain is much improved. Patient did have a small bowel movement. Tolerating liquid diet. General surgery is following. Patient is also on TPN. Otherwise no cough or sputum production. No other acute overnight issues. Continue with stool softeners and Laxatives. Laboratory data reviewed. 02/16/2022 Patient is status post lysis of additions, expiratory laparotomy. Patient did have a bowel movement. No complaints of nausea or vomiting. Abdominal pain is much improved. No cough or sputum production. No diarrhea. Patient is continued on stool softeners. Liquid diet advance as tolerated. Also on TPN. General surgery is following. Anticipate discharge in the next 24 to 48 hours. Current laboratory data reviewed. 02/17/2022 Patient is seen in follow up this morning and general surgery following and status post exploratory laparotomy with lysis of adhesions. Diet is being advanced and tolerating. Working on weaning TPN as oral intake has somewhat improved. Recommend anti-nausea medications as needed. Labs improving and patient is noted to having multiple bowel movements. PT/OT to evaluate. Plan is for possible ECF. Patient denies chest pain or shortness of breath. Abdominal pain is improved. Surgical site intact. Patient is afebrile. Case management following and possible [facility] on discharge. Review of systems: Constitutional: No reports of fatigue, fever, or chills Cardiovascular: No reports of chest pain or palpitations Respiratory: No reports of shortness of breath or cough GI: No reports of nausea, vomiting, or diarrhea, reports having bowel movements : No reports of dysuria or retention Neurovascular: reports of generalized weakness All medications have been reviewed Active Medications Hydrocodone Bitart/Acetaminophen (Hydrocodone/Apap 5-325mg 1 Each Tab) 1 each PO Q4HR PRN PRN Reason: Pain Atorvastatin Calcium (Atorvastatin 10 Mg Tab) 10 mg PO HS [facility] Last Admin: 02/16/22 20:32 Dose: 10 mg Docusate Sodium (Docusate 100 Mg Cap) 100 mg PO DAILY [facility] Last Admin: 02/17/22 08:26 Dose: 100 mg Enalaprilat (Enalaprilat 1.25 Mg/Ml 1 Ml Vial) 1.25 mg IVP Q6HR PRN PRN Reason: SBP >160 Last Admin: 02/12/22 12:40 Dose: 1.25 mg Enoxaparin Sodium (Enoxaparin 40 Mg/0.4 Ml Syringe) 40 mg SQ DAILY [facility] Last Admin: 02/17/22 08:27 Dose: 40 mg Gabapentin (Gabapentin 300 Mg Cap) 300 mg PO TID [facility] Last Admin: 02/17/22 15:13 Dose: 300 mg Hydralazine HCl (Hydralazine Hcl 20 Mg/Ml 1 Ml Vial) 10 mg IVP Q6HR PRN PRN Reason: Blood Pressure - High Last Admin: 02/12/22 20:08 Dose: 10 mg Hydromorphone HCl (Hydromorphone 0.5 Mg/0.5 Ml Syringe) 0.5 mg IVP Q8H PRN PRN Reason: Moderate to Severe Pain Last Admin: 02/17/22 14:52 Dose: 0.5 mg Fat Emulsion Intravenous 500 (ml/ IV Solution) 500 mls @ 42 mls/hr IV We [facility] Last Admin: 02/12/22 08:40 Dose: 42 mls/hr Dextrose/Sodium Chloride (Dextrose 5%-Ns Iv Soln) 1,000 mls @ 20 mls/hr IV .Q24H [facility] Last Admin: 02/16/22 16:25 Dose: 20 mls/hr Parenteral Vitamin Supplement 10 ml/ Zinc/Copper/Manganese/Selenium 1 ml/ Potassium Chloride 40 meq/ Amino Ac/Electrol/Dextrose/Calcium 1,031 mls @ 60 mls/hr IV .BY DURATION [facility] Stop: 02/17/22 16:50 Potassium Chloride 40 meq/Amino Ac/Electrol/Dextrose/Calcium 1,020 mls @ 60 mls/hr IV .BY DURATION [facility] Stop: 02/17/22 16:50 Last Admin: 02/17/22 01:34 Dose: 60 mls/hr Parenteral Vitamin Supplement 10 ml/ Zinc/Copper/Manganese/Selenium 1 ml/ Potassium Chloride 34 meq/ Amino Ac/Electrol/Dextrose/Calcium 1,028 mls @ 60 mls/hr IV .BY DURATION [facility] Potassium Chloride 34 meq/Amino Ac/Electrol/Dextrose/Calcium 1,017 mls @ 60 mls/hr IV .BY DURATION [facility] Lactulose (Lactulose 20 Gm/30 Ml Cup) 30 gm PO DAILY [facility] Miscellaneous Information (Potassium Replacement Protocol 1 Each Misc) 1 each MISCELLANE DAILY PRN; Protocol PRN Reason: Per Protocol Miscellaneous Information (Magnesium Replacement Protocol 1 Each Misc) 1 each MISCELLANE DAILY PRN; Protocol PRN Reason: Per Protocol Naloxone HCl (Naloxone 0.4 Mg/Ml 1 Ml Vial) 0.2 mg IV Q2M PRN PRN Reason: Opioid Reversal Nifedipine (Nifedipine Xl 30 Mg Tab.Er.24) 30 mg PO DAILY [facility] Last Admin: 02/17/22 08:26 Dose: 30 mg Ondansetron HCl (Ondansetron 4 Mg/2 Ml Vial) 4 mg IVP Q6HR PRN PRN Reason: Nausea And Vomiting Last Admin: 02/17/22 08:25 Dose: 4 mg Pantoprazole Sodium (Pantoprazole 40 Mg/10 Ml Vial) 40 mg IVP Q24HR [facility] Last Admin: 02/17/22 08:25 Dose: 40 mg Sodium Chloride (Sodium Chloride 0.9% Flush 10 Ml Syringe) 10 ml IV Q4HR PRN PRN Reason: PICC Line Sodium Chloride (Sodium Chloride 0.9% Flush 10 Ml Syringe) 10 ml IV WEEKLY [facility] Last Admin: 02/17/22 08:29 Dose: 10 ml Sodium Chloride (Sodium Chloride 0.9% Flush 10 Ml Syringe) 20 ml IV Q4HR PRN PRN Reason: PICC Line Trimethobenzamide HCl (Trimethobenzamide 100 Mg/Ml 2 Ml Vial) 100 mg IM Q8HR PRN PRN Reason: Nausea Last Admin: 02/12/22 12:24 Dose: 100 mg PHYSICAL EXAMINATION: Patient is lying in the bed, awake alert and oriented.. HEENT: Normocephalic. Neck is supple. Pupils reactive. Nostrils clear. Oral cavity is moist. Neck reveals no JVD, carotid bruits, or thyromegaly. CHEST EXAMINATION: Trachea is central. Symmetrical expansion. Bibasilar diminished sounds. Lung payne clear to auscultation and percussion. CARDIAC: S1, S2 muffled ABDOMEN: Soft. Bowel sounds present. Nontender. Surgical site dressing is dry.. No organomegaly. No abdominal bruits. Extremities: reveal no edema. No clubbing or cyanosis Neurologically awake, alert, oriented x3 with well-coordinated movements. No fo jessica deficits noted Skin: No rash or skin lesions. Psychiatric: Cooperative. Non-suicidal Musculoskeletal: No joint swelling or deformity. Normal range of motion. Assessment: 1. Small bowel obstruction consistent with mechanical bowel obstruction at the level of the distal ileum . Status post explored laparotomy and lysis of adhesions. 2. Severe constipation. improved 3. Chronic back pain with chronic narcotic use 4. Acute kidney injury 5. Hypokalemia and hypomagnesemia. Replaced. 6. Elevated troponin seen and evaluated by cardiology. 7. Prior History of abdominal surgeries 8. Full code Plan: Patient is status post Exploratory laparotomy on 02/08/2022, weaning off TPn today and on low fiber diet with general surgery following Recommend to continue with small frequent meals and advance slowly. Anti-emetics as needed Recommend to Continue with laxatives and stool softeners Recommend to correct potassium and magnesium, follow up am labs ordered. PT/OT to evaluate and case management following and possible ECF being planned. Possible discharge in 24 hours. The impression and plan of care has been dictated by Arlette Peña, Nurse Practitioner as directed. Dr. Frantz MD I have performed a history and examination and MDM of this patient, discussed the same with the dictator, and agree with the dictator's assessment and plan as written ,documented as a scribe. Based on total visit time, I have performed more than 50% of the visit. Objective - Vital Signs Vital signs: Vital Signs Temp 97.5 F L 02/17/22 14:00 Pulse 78 02/17/22 14:00 Resp 15 02/17/22 14:00 BP 149/46 02/17/22 14:00 Pulse Ox 97 02/17/22 14:00 FiO2 Intake & Output 02/16/22 02/17/22 02/17/22 18:59 06:59 18:59 Intake Total 640 1020 Output Total 525 Balance 640 495 Intake: Intake, IV Titration 640 1020 Amount Dextrose 5%-0.9% NaCl 1, 160 000 ml @ 20 mls/hr IV . Q24H [facility] Rx#:[id number] Potassium Chloride 40 meq 480 1020 In Amino Acid 5%-D20w+ Lytes*E* 1,000 ml @ 60 mls/hr IV .BY DURATION [facility] Rx#:[id number] Output: Urine 525 Stool 0 Other: Voiding Method Toilet Bedside Commode # Voids 5 3 # Bowel Movements 1 1 - Labs CBC & Chem 7: 02/13/22 09:00 02/17/22 05:09 Labs: Abnormal Lab Results - Last 24 Hours (Table) 02/17/22 02/17/22 Range/Units 05:09 06:19 Carbon Dioxide 27.9 H (20.0-27.5) mmol/L Anion Gap 6.10 L (10.00-18.00) mmol/L BUN/Creatinine Ratio 23.57 H (12.00-20.00) Ratio Glucose 118 H (70-110) mg/dL POC Glucose (mg/dL) 114 H (70-110) mg/dL Calcium 8.3 L (8.7-10.3) mg/dL
[2022-02-18 05:50] LABS: African American GFR (CKD) 83 (>60 ml/min/1.73 sqM); Anion Gap 3 mmol/L; Blood Urea Nitrogen 15 mg/dL (7-17); Calcium 8.1 mg/dL (8.4-10.2); Carbon Dioxide 30 mmol/L (22-30); Chloride 102 mmol/L (98-107); Glucose 88 mg/dL (74-99); Non-African American GFR(CKD) 72 (>60 ml/min/1.73 sqM); Potassium 4.6 mmol/L (3.5-5.1); Sodium 135 mmol/L (137-145)
[2022-02-18 06:13] LABS: Glucose,Whole Blood 86 mg/dL (70-110)
[2022-02-18] MEDS: DEXTROSE 5%-0.9% NACL 1,000 ML IV SCH (07:24)
[2022-02-18] MEDS: PANTOPRAZOLE 40 MG/10 ML VIAL IVP SCH (07:26)
[2022-02-18 07:36] VITALS: BP 127/70; TEMP 98.2
[2022-02-18 08:15] LABS: Ionized Calcium 4.9 mg/dL (4.5-5.3)
[2022-02-18] MEDS ORDERED: LACTULOSE 20 GM/30 ML CUP PO SCH (09:00)
--- NOTE | 2022-02-18 10:24 | P.DS ---
Providers Date of admission: 02/04/22 01:55 Expected date of discharge: 02/18/22 Attending physician: Eunice Tiwari Consults: 02/04/22 01:47 Consult Physician Routine Consulting Provider: Beau Plasencia Consult Reason/Comments: Elevated troponin Do you want consulting provider notified?: Yes Consult Physician Routine Consulting Provider: Nathan Do Consult Reason/Comments: SPRING Do you want consulting provider notified?: Yes 02/04/22 09:56 Consult Physician Routine Consulting Provider: Dexter Cohen Consult Reason/Comments: Bowel obstruction Do you want consulting provider notified?: Yes Primary care physician: Eunice Tiwari Hospital Course: Final diagnosis Small bowel obstruction consistent with mechanical bowel obstruction at the level of the distal ileum . Status post explored laparotomy and lysis of adhesions. Severe constipation. improved Chronic back pain with chronic narcotic use Acute kidney injury Hypokalemia and hypomagnesemia. Elevated troponin seen and evaluated by cardiology recommending outpatient follow-up in the next 3-4 weeks. Prior History of abdominal surgeries Full code Discharge disposition Patient is being discharged in a stable condition with guarded prognosis to [facility]. Patient will follow-up with Dr. Tiwari in the outpatient setting upon discharge. Patient is to follow-up with general surgery and cardiology in the outpatient setting. Patient is to continue low fiber diet and recommend repeat labs in 2-3 days to monitor CBC, BMP, magnesium. Recommend continue with bowel regimen as needed. Total time taken is greater than 35 minutes. Hospital course This is a 76-year-old female who was recently admitted with small bowel obstruction with mechanical bowel obstruction at the level of the distal ileum with severe constipation and chronic back pain with chronic narcotic use along with acute kidney injury and elevated troponin and was being closely monitored. Patient was evaluated by cardiology recommending outpatient follow-up. Patient also continued to have bowel obstruction and poor intake and was maintained on TPN for quite some time. Patient is status post exploratory laparotomy and underwent lysis of adhesions with general surgery. Patient has been weaned off TPN and tolerating low fiber diet and will continue. Patient continues with weakness and physical therapy recommending ECF and patient will be going to [facility]. Recommend outpatient follow-up with primary care provider Dr. Tiwari along with cardiology in the next 4 weeks and general surgery on d ischarge. Currently no reports of chest pain, shortness of breath, or palpitations. Patient is afebrile. No reports of nausea or vomiting and patient is tolerating diet. Patient will be discharged to [facility] the [place] today. Guarded prognosis. On exam vital signs are stable. Cardio S1, S2 are muffled. Respiratory system shows diminished breath sounds at the bases with no wheezing or rhonchi noted. Abdomen is soft and nontender. Nervous system shows no focal deficits. Please refer to medication reconciliation sheet for a list of medications. The impression and plan of care has been dictated by Arlette Peña, Nurse Practitioner as directed. Dr. Frantz MD I have performed a history and examination and MDM of this patient, discussed the same with the dictator, and agree with the dictator's assessment and plan as written ,documented as a scribe. Based on total visit time, I have performed more than 50% of the visit. Patient Condition at Discharge: Stable Plan - Discharge Summary Discharge Rx Participant: Yes New Discharge Prescriptions: New Lactulose [Cephulac] 30 gm PO DAILY ml HYDROcodone/APAP 5-325MG [Harrington 5-325] 1 each PO Q4HR PRN #6 tab PRN Reason: Pain Ondansetron Odt [Zofran Odt] 4 mg PO Q8HR PRN #3 tab PRN Reason: Nausea Docusate [Colace] 100 mg PO DAILY cap Enoxaparin [Lovenox] 40 mg SQ DAILY each NIFEdipine XL [Procardia XL] 30 mg PO DAILY tab Continue L.acidoph,Paracasei, B.lactis [Probiotic] 1 cap PO DAILY Simvastatin [Zocor] 20 mg PO HS Meclizine [Antivert] 12.5 mg PO TID PRN PRN Reason: Vertigo Albuterol Inhaler [Ventolin Hfa Inhaler] 1 - 2 puff INHALATION RT-QID PRN PRN Reason: Shortness Of Breath Memantine [Namenda] 10 mg PO BID Hydrocodone/Acetaminophen [Harrington 5-325] 1 tab PO TID PRN PRN Reason: Pain Cyclobenzaprine [Flexeril] 5 mg PO DAILY Cyclobenzaprine [Flexeril] 10 mg PO HS Gabapentin [Neurontin] 300 mg PO TID #9 capsule Aspirin EC [Ecotrin Low Dose] 81 mg PO DAILY Pantoprazole [Protonix] 40 mg PO DAILY Discontinued Gabapentin [Neurontin] 300 mg PO TID Cranberry Fruit Concentrate [Azo Cranberry] 250 mg PO DAILY Potassium Chloride [Klor-Con 10 ER] 20 meq PO BID NIFEdipine [NIFEdipine ER] 30 mg PO DAILY Fluconazole [Diflucan] 100 mg PO DAILY Doxycycline [Vibramycin] 100 mg PO BID Bumetanide [Bumex] 1 mg PO BID allopurinoL [Zyloprim] 300 mg PO DAILY Discharge Medication List L.acidoph,Paracasei, B.lactis [Probiotic] 1 cap PO DAILY 11/19/18 [History] Simvastatin [Zocor] 20 mg PO HS 11/19/18 [History] Albuterol Inhaler [Ventolin Hfa Inhaler] 1 - 2 puff INHALATION RT-QID PRN 02/04/22 [History] Aspirin EC [Ecotrin Low Dose] 81 mg PO DAILY 02/04/22 [History] Cyclobenzaprine [Flexeril] 5 mg PO DAILY 02/04/22 [History] Cyclobenzaprine [Flexeril] 10 mg PO HS 02/04/22 [History] Hydrocodone/Acetaminophen [Harrington 5-325] 1 tab PO TID PRN 02/04/22 [History] Meclizine [Antivert] 12.5 mg PO TID PRN 02/04/22 [History] Memantine [Namenda] 10 mg PO BID 02/04/22 [History] Pantoprazole [Protonix] 40 mg PO DAILY 02/04/22 [History] Docusate [Colace] 100 mg PO DAILY cap 02/18/22 [Rx] Enoxaparin [Lovenox] 40 mg SQ DAILY each 02/18/22 [Rx] Gabapentin [Neurontin] 300 mg PO TID #9 capsule 02/18/22 [Rx] HYDROcodone/APAP 5-325MG [Harrington 5-325] 1 each PO Q4HR PRN #6 tab 02/18/22 [Rx] Lactulose [Cephulac] 30 gm PO DAILY ml 02/18/22 [Rx] NIFEdipine XL [Procardia XL] 30 mg PO DAILY tab 02/18/22 [Rx] Ondansetron Odt [Zofran Odt] 4 mg PO Q8HR PRN #3 tab 02/18/22 [Rx] Follow up Appointment(s)/Referral(s): Anthony Charlton MD [STAFF PHYSICIAN] - 4 Weeks (Follow-up with Dr. Charlton/rFancheska Schultz in 4 weeks) [facility], [NON-STAFF] - Eunice Tiwari MD [Primary Care Provider] - 1-2 days Dexter Cohen MD [STAFF PHYSICIAN] - 1 Week Ambulatory/Diagnostic Orders: Complete Blood Count w/diff [LAB.AMB] Time Frame: 3 Days, Location: None Selected Activity/Diet/Wound Care/Special Instructions: Patient is going to [facility] on the [place] Activity as tolerated Recommend repeat labs in 2-3 days of CBC, BMP, magnesium Recommend outpatient follow-up with general surgery Follow-up with primary care provider Dr. Tiwari Follow-up with cardiology in the next 4 weeks Recommend to continue with low fiber diet Recommend to continue with ensure clear 3 times a day with meals Discharge Disposition: TRANSFER TO SNF/ECF
[2022-02-18 11:29] LABS: Glucose,Whole Blood 91 mg/dL (70-110)
[2022-02-18] MEDS: DOCUSATE 100 MG CAP PO SCH (11:37)
[2022-02-18] MEDS: GABAPENTIN 300 MG CAP PO SCH (11:37)
[2022-02-18] MEDS: ENOXAPARIN 40 MG/0.4 ML SYRINGE SQ SCH (11:37)
[2022-02-18] MEDS: NIFEdipine XL 30 MG TAB.ER.24 PO SCH (11:38)
--- NOTE | 2022-02-18 11:55 | P.PN ---
Subjective Progress Note Date: 02/18/22 CHIEF COMPLAINT: Small bowel obstruction HISTORY OF PRESENT ILLNESS: Patient reports that the abdominal pain continues to improve. She is having bowel movements. She is tolerating low fiber diet. She's scheduled to be transferred to [facility] for rehab today. She denies any nausea or vomiting. She did have some mild shortness of breath after her shower. She is on room air at 95-96%. Afebrile sodium 135 potassium 4.6 creatinine 0.81 Patient seen and examined with Dr. au PHYSICAL EXAM: VITAL SIGNS: Reviewed. GENERAL: Well-developed in no acute distress. HEENT: No sclera icterus. Extraocular movements grossly intact. Moist buccal mucosa. Head is atraumatic, normocephalic. ABDOMEN: Softer. Mildly distended. Incision site clean dry and intact. NEUROLOGIC: Alert and oriented. Cranial nerves II through XII grossly intact. ASSESSMENT: 1. Small bowel obstruction status post lysis of adhesions 2. Constipation 3. Chronic back pain with chronic narcotic use 4. Acute kidney injury improved 5. Hypokalemia improved 6. Elevated troponin seen and evaluated by cardiology. 7. Prior History of abdominal surgeries PLAN: -Patient can be discharged from surgical standpoint when medically cleared -Continue lactulose daily -Continue pain medication as needed -Continue low fiber diet -DVT prophylaxis Lovenox and GI prophylaxis Protonix Physician Mechanical Integrity Specialist note has been reviewed by physician. Signing provider agrees with the documented findings, assessment, and plan of care. Objective - Vital Signs Vital signs: Vital Signs Temp 98.2 F 02/18/22 07:32 Pulse 75 02/18/22 07:32 Resp 17 02/18/22 07:32 BP 127/70 02/18/22 07:32 Pulse Ox 95 02/18/22 07:32 FiO2 Intake & Output 02/17/22 02/18/22 02/18/22 18:59 06:59 18:59 Other: # Voids 3 1 # Bowel Movements 3 - Labs CBC & Chem 7: 02/13/22 09:00 02/18/22 05:03 Labs: Abnormal Lab Results - Last 24 Hours (Table) 02/18/22 02/18/22 Range/Units 05:03 05:03 Sodium 135 L (137-145) mmol/L Calcium 8.1 L (8.4-10.2) mg/dL Albumin 2.7 L (3.5-5.0) g/dL
[2022-02-18] MEDS ORDERED: IPRATROPIUM-ALBUTEROL 3 ML NEB INHALATION STA (11:56)
[2022-02-18 12:18] VITALS: RESP 16
[2022-02-18 13:05] VITALS: PULSE 75
== END 2022-02-18 12:41 | DRG 335 ==
LOC: EC 20:24 → 3SCARD 02-04 01:55 → 4SSUR 02-15 16:00
PROVIDERS: ADMIT Family Medicine; ATTEND Family Medicine
PROC: 0D9670Z Drainage of Stomach with Drainage Device, Via Natural or Artificial Opening (ICD-10-PCS; 2022-02-04)
PROC: 0DNB0ZZ Release Ileum, Open Approach (ICD-10-PCS; principal; 2022-02-08 08:00)
PROC: 0DN80ZZ Release Small Intestine, Open Approach (ICD-10-PCS; principal; 2022-02-08 08:00)
PROC: 3E0436Z Introduction of Nutritional Substance into Central Vein, Percutaneous Approach (ICD-10-PCS; 2022-02-10)
PROC: 05HA33Z Insertion of Infusion Device into Left Brachial Vein, Percutaneous Approach (ICD-10-PCS; 2022-02-10)
PROC: 02HV33Z Insertion of Infusion Device into Superior Vena Cava, Percutaneous Approach (ICD-10-PCS; 2022-02-10 10:50)
DX: K56.50 Intestinal adhesions [bands], unspecified as to partial versus complete obstruction (principal); N17.0 Acute kidney failure with tubular necrosis; I13.0 Hypertensive heart and chronic kidney disease with heart failure and stage 1 through stage 4 chronic kidney disease, or unspecified chronic kidney disease; I50.32 Chronic diastolic (congestive) heart failure; N18.32 Chronic kidney disease, stage 3b; M06.9 Rheumatoid arthritis, unspecified; G40.909 Epilepsy, unspecified, not intractable, without status epilepticus; N73.6 Female pelvic peritoneal adhesions (postinfective); D72.829 Elevated white blood cell count, unspecified; E86.1 Hypovolemia; E87.6 Hypokalemia; J45.20 Mild intermittent asthma, uncomplicated; E78.5 Hyperlipidemia, unspecified; E16.2 Hypoglycemia, unspecified; E83.42 Hypomagnesemia; K59.00 Constipation, unspecified; K21.9 Gastro-esophageal reflux disease without esophagitis; I08.3 Combined rheumatic disorders of mitral, aortic and tricuspid valves; G89.4 Chronic pain syndrome; M54.9 Dorsalgia, unspecified; F32.A Depression, unspecified; R77.8 Other specified abnormalities of plasma proteins; J30.9 Allergic rhinitis, unspecified; M15.9 Polyosteoarthritis, unspecified; M1A.9XX0 Chronic gout, unspecified, without tophus (tophi); Z79.82 Long term (current) use of aspirin; Z79.899 Other long term (current) drug therapy; Z87.440 Personal history of urinary (tract) infections; Z90.710 Acquired absence of both cervix and uterus; Z87.19 Personal history of other diseases of the digestive system; Z90.49 Acquired absence of other specified parts of digestive tract; Z87.42 Personal history of other diseases of the female genital tract; Z90.89 Acquired absence of other organs; Z96.651 Presence of right artificial knee joint; Z98.891 History of uterine scar from previous surgery; Z86.79 Personal history of other diseases of the circulatory system; Z86.2 Personal history of diseases of the blood and blood-forming organs and certain disorders involving the immune mechanism; Z98.890 Other specified postprocedural states; Z88.2 Allergy status to sulfonamides; Z80.1 Family history of malignant neoplasm of trachea, bronchus and lung; Z80.41 Family history of malignant neoplasm of ovary; Z80.0 Family history of malignant neoplasm of digestive organs; Z83.0 Family history of human immunodeficiency virus [HIV] disease; Z81.4 Family history of other substance abuse and dependence; Z83.79 Family history of other diseases of the digestive system
CPT/HCPCS: 36410; 36415; 36573; 71046; 74176; 76937; 80048; 80051; 80053; 80143; 81001; 82040; 82150; 82330; 82565; 83605; 83690; 83735; 84100; 84132; 84478; 84484; 84520; 85025; 85610; 85730; 86850; 86900; 86901; 93005; 93306; 94640; 94760; 96361; 96365; 96366; 96375; 99285

== ENCOUNTER 2025-02-17 14:51 | Observation (INO) | payer MEDICARE ==
--- NOTE | 2025-02-17 16:01 | ED ---
General Adult HPI - General Chief complaint: Weakness Stated complaint: Dizziness Time Seen by Provider: 02/17/25 15:20 Source: patient Mode of arrival: wheelchair Limitations: no limitations - History of Present Illness Initial comments: This patient is a 79-year-old woman who is here to have evaluation because she does not seem to be her usual self today. The patient's son gives much of the history. He states that he talks with his mother every night around 8 PM and when he spoke with her last night she seemed to be repeating herself more than h is usual. He states that he went to visit her today which is usual for him and he arrived at noon to find her still in bed stating that she did not feel well. She was complaining of chest pain earlier but she does not now. Now she states she just does not feel well. She indicates the pain was to the right of the sternum. She is not able to characterize it well. She has not noted fever or chills. No cough or dyspnea noted. Onset/Timin -: hour(s) Location: chest Severity scale (1-10): 0 Quality: other Consistency: now resolved Improves with: none Worsens with: none Associated Symptoms: malaise, weakness Treatments Prior to Arrival: none - Related Data Home Medications Medication Instructions Recorded Confirmed L.acidoph,Paracasei, B.lactis 1 cap PO DAILY 11/19/18 09/26/22 [Probiotic] Simvastatin [Zocor] 20 mg PO HS 11/19/18 09/26/22 Albuterol Inhaler [Ventolin Hfa 1 - 2 puff INHALATION RT-QID PRN 02/04/22 09/26/22 Inhaler] Aspirin EC [Ecotrin Low Dose] 81 mg PO DAILY 02/04/22 09/26/22 Cyclobenzaprine [Flexeril] 5 mg PO DAILY 02/04/22 09/26/22 Cyclobenzaprine [Flexeril] 10 mg PO HS 02/04/22 09/26/22 Memantine [Namenda] 10 mg PO BID 02/04/22 09/26/22 Pantoprazole [Protonix] 20 mg PO DAILY 02/04/22 09/26/22 Clotrimazole 1 tab PO DIRECTED PRN 09/26/22 09/26/22 allopurinoL 300 mg PO DAILY 09/26/22 09/26/22 Previous Rx's Medication Instructions Recorded NIFEdipine XL [Procardia XL] 30 mg PO DAILY tab 02/18/22 Acetaminophen Tab [Tylenol] 650 mg PO Q6HR PRN tab 10/06/22 Albuterol Nebulized [Ventolin 2.5 mg INHALATION RT-QID PRN ml 10/06/22 Nebulized] Docusate [Colace] 100 mg PO BID #30 capsule 10/06/22 Enoxaparin [Lovenox] 40 mg SQ DAILY each 10/06/22 Gabapentin [Neurontin] 300 mg PO TID #9 capsule 10/06/22 HYDROcodone/APAP 7.5-325MG [[place] 1 tab PO Q6HR PRN 3 Days #12 tab 10/06/22 7.5-325] Ibuprofen [Motrin] 600 mg PO Q8HR PRN #30 tab 10/06/22 polyethylene glycoL 3350 [Miralax] 17 gm PO DAILY packet 10/06/22 Allergies Allergy/AdvReac Type Severity Reaction Status Date / Time sulfamethoxazole AdvReac SEIZURE Verified 02/17/25 15:13 [From Bactrim] trimethoprim [From Bactrim] AdvReac SEIZURE Verified 02/17/25 15:13 Review of Systems ROS Statement: Those systems with pertinent positive or pertinent negative responses have been documented in the HPI. ROS Other: All systems not noted in ROS Statement are negative. Constitutional: Reports: weakness. Denies: fever, chills Eyes: Denies: vision change Respiratory: Denies: cough, dyspnea Cardiovascular: Reports: as per HPI, chest pain. Denies: palpitations, orthopnea, syncope Gastrointestinal: Denies: abdominal pain, nausea, vomiting Genitourinary: Denies: dysuria, hematuria Musculoskeletal: Denies: back pain Skin: Denies: rash Neurological: Reports: as per HPI, confusion. Denies: headache, weakness, numbness Past Medical History Past Medical History: Asthma, Hyperlipidemia, Hypertension, Osteoarthritis (OA), Rheumatoid Arthritis (RA) Additional Past Medical History / Comment(s): ANEMIA. SEIZURE X1 WHEN TAKING BACTRIM AND BENADRYL TOGETHER. History of Any Multi-Drug Resistant Organisms: None Reported Past Surgical History: Appendectomy, Section, Hernia Repair, Hysterectomy, Joint Replacement, Orthopedic Surgery, Tonsillectomy Additional Past Surgical History / Comment(s): RIGHT- TOTAL KNEE X2, SPACER RIGHT KNEE X2, arthroscopic knee surgery 2, vein stripping Past Anesthesia/Blood Transfusion Reactions: No Reported Reaction Past Psychological History: Anxiety, Depression Smoking Status: Never smoker - Past Family History Mother Family Medical History: Cancer Additional Family Medical History / Comment(s): LUNG CANCER Sister(s) Family Medical History: Cancer Additional Family Medical History / Comment(s): OVARIAN CANCER Brother(s) Family Medical History: Blood Disorder Father Family Medical History: Liver Disease Daughter(s) Family Medical History: No Reported History Son(s) Family Medical History: No Reported History General Exam Limitations: no limitations General appearance: alert, in no apparent distress Head exam: Present: atraumatic, normocephalic Eye exam: Present: normal appearance. Absent: scleral icterus, conjunctival injection ENT exam: Present: mucous membranes dry Neck exam: Present: normal inspection, full ROM. Absent: meningismus Respiratory exam: Present: normal lung sounds bilaterally. Absent: respiratory distress, wheezes, rales, rhonchi, stridor, accessory muscle use Cardiovascular Exam: Present: regular rate, normal rhythm, normal heart sounds. Absent: systolic murmur, diastolic murmur, rubs, gallop GI/Abdominal exam: Present: soft. Absent: distended, tenderness, guarding, rebound, rigid Extremities exam: Present: normal inspection, normal capillary refill. Absent: pedal edema, calf tenderness Back exam: Present: normal inspection. Absent: CVA tenderness (R), CVA tenderness (L) Neurological exam: Present: alert, oriented X3, CN II-XII intact. Absent: motor sensory deficit Skin exam: Present: warm, dry, intact, normal color. Absent: rash Course Vital Signs 02/17/25 02/17/25 15:11 17:10 Temperature 97.5 F L Pulse Rate 87 86 Respiratory 18 18 Rate Blood Pressure 148/68 158/69 O2 Sat by Pulse 98 97 Oximetry EKG Findings - EKG Results: EKG: interpreted by REMI, sinus rhythm (Rate 74 bpm), normal axis, normal QRS, normal ST/T - Blocks, [place], Hypertrophy, ST Abn: AV and intraventricular conduction: 1 AV block Medical Decision Making - Medical Decision Making The patient had two-view chest x-ray that I interpreted as negative for acute infiltrate, pneumothorax, congestive heart failure. The patient had CT scan of the brain that I interpreted as negative for acute intracranial hemorrhage, mass effect or midline shift. - Lab Data Result diagrams: 02/17/25 16:02 02/17/25 16:02 Lab Results 02/17/25 02/17/25 02/17/25 Range/Units 16:02 16:02 16:02 WBC 8.99 (4.50-10.00) 10*3/uL RBC 4.08 L (4.10-5.20) 10*6/uL Hgb 12.0 (12.0-15.0) g/dL Hct 37.2 (37.2-46.3) % MCV 91.2 (80.0-97.0) fL MCH 29.4 (27.0-32.0) pg MCHC 32.3 (32.0-37.0) g/dL Plt Count 357 (140-440) 10*3/uL MPV 9.9 (9.5-12.2) fL Immature Gran % (Auto) 0.3 % Neutrophils % 72.6 % Lymphocytes % 14.7 % Monocytes % 10.7 % Eosinophils % 1.0 % Basophils % 0.7 % Immature Gran # 0.03 (0.00-0.04) 10*3/uL Neutrophils # 6.53 (1.80-7.70) 10*3/uL Lymphocytes # 1.32 (0.90-5.00) 10*3/uL Monocytes # 0.96 (0.20-1.00) 10*3/uL Eosinophils # 0.09 (0.04-0.35) 10*3/uL Basophils # 0.06 (0.00-0.10) 10*3/uL PT 10.1 (10.0-12.5) sec INR 0.9 (<1.2) APTT 23.8 (22.0-30.0) sec Sodium 144 (137-145) mmol/L Potassium 4.6 (3.5-5.1) mmol/L Chloride 111 H (98-107) mmol/L Carbon Dioxide 24 (22-30) mmol/L Anion Gap 9 mmol/L BUN 27 H (7-17) mg/dL Creatinine 1.05 H (0.52-1.04) mg/dL Est GFR (CKD-EPI)AfAm 59 (>60 ml/min/1.73 sqM) Est GFR (CKD-EPI)NonAf 51 (>60 ml/min/1.73 sqM) Glucose 101 H (74-99) mg/dL Plasma Lactic Acid Vadim (0.7-2.0) mmol/L Calcium 9.6 (8.4-10.2) mg/dL Magnesium 2.1 (1.6-2.3) mg/dL Total Bilirubin 0.6 (0.2-1.3) mg/dL AST 33 (14-36) U/L ALT 21 (4-34) U/L Alkaline Phosphatase 83 (38-126) U/L Troponin I (0.000-0.034) ng/mL Total Protein 6.6 (6.3-8.2) g/dL Albumin 4.3 (3.5-5.0) g/dL Urine Color Urine Appearance (Clear) Urine pH (5.0-8.0) Ur Specific [place] (1.001-1.035) Urine Protein (Negative) Urine Glucose (UA) (Negative) Urine Ketones (Negative) Urine Blood (Negative) Urine Nitrite (Negative) Urine Bilirubin (Negative) Urine Urobilinogen (<2.0) mg/dL Ur Leukocyte Esterase (Negative) Urine RBC (0-5) /hpf Urine WBC (0-5) /hpf Hyaline Casts (0-2) /lpf Urine Mucus (None) /hpf Urine Opiates Screen (NotDetected) Ur Oxycodone Screen (NotDetected) Urine Methadone Screen (NotDetected) Ur Barbiturates Screen (NotDetected) U Tricyclic Antidepress (NotDetected) Ur Phencyclidine Scrn (NotDetected) Ur Amphetamines Screen (NotDetected) U Methamphetamines Scrn (NotDetected) U Benzodiazepines Scrn (NotDetected) Urine Cocaine Screen (NotDetected) U Marijuana (THC) Screen (NotDetected) 02/17/25 02/17/25 02/17/25 Range/Units 16:02 16:02 17:01 WBC (4.50-10.00) 10*3/uL RBC (4.10-5.20) 10*6/uL Hgb (12.0-15.0) g/dL Hct (37.2-46.3) % MCV (80.0-97.0) fL MCH (27.0-32.0) pg MCHC (32.0-37.0) g/dL Plt Count (140-440) 10*3/uL MPV (9.5-12.2) fL Immature Gran % (Auto) % Neutrophils % % Lymphocytes % % Monocytes % % Eosinophils % % Basophils % % Immature Gran # (0.00-0.04) 10*3/uL Neutrophils # (1.80-7.70) 10*3/uL Lymphocytes # (0.90-5.00) 10*3/uL Monocytes # (0.20-1.00) 10*3/uL Eosinophils # (0.04-0.35) 10*3/uL Basophils # (0.00-0.10) 10*3/uL PT (10.0-12.5) sec INR (<1.2) APTT (22.0-30.0) sec Sodium (137-145) mmol/L Potassium (3.5-5.1) mmol/L Chloride (98-107) mmol/L Carbon Dioxide (22-30) mmol/L Anion Gap mmol/L BUN (7-17) mg/dL Creatinine (0.52-1.04) mg/dL Est GFR (CKD-EPI)AfAm (>60 ml/min/1.73 sqM) Est GFR (CKD-EPI)NonAf (>60 ml/min/1.73 sqM) Glucose (74-99) mg/dL Plasma Lactic Acid Vadim 1.5 (0.7-2.0) mmol/L Calcium (8.4-10.2) mg/dL Magnesium (1.6-2.3) mg/dL Total Bilirubin (0.2-1.3) mg/dL AST (14-36) U/L ALT (4-34) U/L Alkaline Phosphatase (38-126) U/L Troponin I <0.012 (0.000-0.034) ng/mL Total Protein (6.3-8.2) g/dL Albumin (3.5-5.0) g/dL Urine Color Yellow Urine Appearance Clear (Clear) Urine pH 5.5 (5.0-8.0) Ur Specific [place] 1.022 (1.001-1.035) Urine Protein Negative (Negative) Urine Glucose (UA) Negative (Negative) Urine Ketones Negative (Negative) Urine Blood Negative (Negative) Urine Nitrite Negative (Negative) Urine Bilirubin Negative (Negative) Urine Urobilinogen 2.0 (<2.0) mg/dL Ur Leukocyte Esterase Moderate H (Negative) Urine RBC 4 (0-5) /hpf Urine WBC 9 H (0-5) /hpf Hyaline Casts 1 (0-2) /lpf Urine Mucus Rare H (None) /hpf Urine Opiates Screen (NotDetected) Ur Oxycodone Screen (NotDetected) Urine Methadone Screen (NotDetected) Ur Barbiturates Screen (NotDetected) U Tricyclic Antidepress (NotDetected) Ur Phencyclidine Scrn (NotDetected) Ur Amphetamines Screen (NotDetected) U Methamphetamines Scrn (NotDetected) U Benzodiazepines Scrn (NotDetected) Urine Cocaine Screen (NotDetected) U Marijuana (THC) Screen (NotDetected) 02/17/25 Range/Units 17:01 WBC (4.50-10.00) 10*3/uL RBC (4.10-5.20) 10*6/uL Hgb (12.0-15.0) g/dL Hct (37.2-46.3) % MCV (80.0-97.0) fL MCH (27.0-32.0) pg MCHC (32.0-37.0) g/dL Plt Count (140-440) 10*3/uL MPV (9.5-12.2) fL Immature Gran % (Auto) % Neutrophils % % Lymphocytes % % Monocytes % % Eosinophils % % Basophils % % Immature Gran # (0.00-0.04) 10*3/uL Neutrophils # (1.80-7.70) 10*3/uL Lymphocytes # (0.90-5.00) 10*3/uL Monocytes # (0.20-1.00) 10*3/uL Eosinophils # (0.04-0.35) 10*3/uL Basophils # (0.00-0.10) 10*3/uL PT (10.0-12.5) sec INR (<1.2) APTT (22.0-30.0) sec Sodium (137-145) mmol/L Potassium (3.5-5.1) mmol/L Chloride (98-107) mmol/L Carbon Dioxide (22-30) mmol/L Anion Gap mmol/L BUN (7-17) mg/dL Creatinine (0.52-1.04) mg/dL Est GFR (CKD-EPI)AfAm (>60 ml/min/1.73 sqM) Est GFR (CKD-EPI)NonAf (>60 ml/min/1.73 sqM) Glucose (74-99) mg/dL Plasma Lactic Acid Vadim (0.7-2.0) mmol/L Calcium (8.4-10.2) mg/dL Magnesium (1.6-2.3) mg/dL Total Bilirubin (0.2-1.3) mg/dL AST (14-36) U/L ALT (4-34) U/L Alkaline Phosphatase (38-126) U/L Troponin I (0.000-0.034) ng/mL Total Protein (6.3-8.2) g/dL Albumin (3.5-5.0) g/dL Urine Color Urine Appearance (Clear) Urine pH (5.0-8.0) Ur Specific [place] (1.001-1.035) Urine Protein (Negative) Urine Glucose (UA) (Negative) Urine Ketones (Negative) Urine Blood (Negative) Urine Nitrite (Negative) Urine Bilirubin (Negative) Urine Urobilinogen (<2.0) mg/dL Ur Leukocyte Esterase (Negative) Urine RBC (0-5) /hpf Urine WBC (0-5) /hpf Hyaline Casts (0-2) /lpf Urine Mucus (None) /hpf Urine Opiates Screen Detected H (NotDetected) Ur Oxycodone Screen Not Detected (NotDetected) Urine Methadone Screen Not Detected (NotDetected) Ur Barbiturates Screen Not Detected (NotDetected) U Tricyclic Antidepress Not Detected (NotDetected) Ur Phencyclidine Scrn Not Detected (NotDetected) Ur Amphetamines Screen Not Detected (NotDetected) U Methamphetamines Scrn Not Detected (NotDetected) U Benzodiazepines Scrn Not Detected (NotDetected) Urine Cocaine Screen Not Detected (NotDetected) U Marijuana (THC) Screen Not Detected (NotDetected) Disposition Referrals: Eunice Tiwari MD [Primary Care Provider] - 1-2 days
[2025-02-17 16:12] LABS: Basophils # (A) 0.06 10*3/uL (0.00-0.10); Basophils % (A) 0.7 %; Eosinophils # (A) 0.09 10*3/uL (0.04-0.35); HCT 37.2 % (37.2-46.3); Lymphocytes # (A) 1.32 10*3/uL (0.90-5.00); Lymphocytes % (A) 14.7 %; MCH 29.4 pg (27.0-32.0); MCHC 32.3 g/dL (32.0-37.0); MCV 91.2 fL (80.0-97.0); Mean Platelet Volume 9.9 fL (9.5-12.2); Monocytes # (A) 0.96 10*3/uL (0.20-1.00); Monocytes % (A) 10.7 %; Neutrophils # (A) 6.53 10*3/uL (1.80-7.70); Neutrophils % (A) 72.6 %; Platelet Count 357 10*3/uL (140-440); RBC 4.08 10*6/uL (4.10-5.20); RDW 14.6 % (11.5-14.5); WBC 8.99 10*3/uL (4.50-10.00)
[2025-02-17 16:22] LABS: INR 0.9 (<1.2); Partial Thromboplastin Time 23.8 sec (22.0-30.0); Prothrombin Time 10.1 sec (10.0-12.5)
--- NOTE | 2025-02-17 16:26 | XR ---
EXAMINATION TYPE: XR chest 2V DATE OF EXAM: 02/17/2025 4:19 PM COMPARISON: 02/14/2022 CLINICAL INDICATION: Female, 79 years old with history of Weakness: Shortness of breath TECHNIQUE: XR chest 2V views of the chest are obtained. FINDINGS: Scattered senescent parenchymal changes noted. Hyperinflation compatible with COPD. No evidence for infiltrate. No evidence for atelectasis. Heart size is stable. Mediastinal structures are stable and grossly unremarkable. No evidence for hilar prominence. Degenerative changes dorsal spine. IMPRESSION: 1. No evidence for acute pulmonary disease. [facility], , 02/17/2025 4:23 PM
[2025-02-17 16:27] LABS: ALT 21 U/L (4-34); AST 33 U/L (14-36); African American GFR (CKD) 59 (>60 ml/min/1.73 sqM); Albumin 4.3 g/dL (3.5-5.0); Alkaline Phosphatase 83 U/L (38-126); Anion Gap 9 mmol/L; Blood Urea Nitrogen 27 mg/dL (7-17); Calcium 9.6 mg/dL (8.4-10.2); Carbon Dioxide 24 mmol/L (22-30); Chloride 111 mmol/L (98-107); Glucose 101 mg/dL (74-99); Magnesium 2.1 mg/dL (1.6-2.3); Non-African American GFR(CKD) 51 (>60 ml/min/1.73 sqM); Potassium 4.6 mmol/L (3.5-5.1); Sodium 144 mmol/L (137-145); Total Bilirubin 0.6 mg/dL (0.2-1.3); Total Protein 6.6 g/dL (6.3-8.2)
--- NOTE | 2025-02-17 16:32 | CT ---
EXAMINATION TYPE: CT brain wo con DATE OF EXAM: 02/17/2025 COMPARISON: None CLINICAL INDICATION: Female, 79 years old with history of weakness; PHH, weakness, AMS. CT DLP: 1170.4 mGycm Automated exposure control for dose reduction was used. Findings: The ventricles, basal cisterns and sulci over convexities are not enlarged. There is no mass effect o r shift of midline structures. There is marked decreased density in the periventricular white matter consistent with marked chronic ischemic white matter demyelination. There is no acute intra or extra-axial hemorrhage. The posterior fossa including the brainstem, fourth ventricle and cerebellopontine angles appear ranjan sly normal. The intraorbital contents appear normal symmetric Visualized paranasal sinuses and mastoid air cells are well aerated. Calvarium is intact. IMPRESSION: 1. Moderate to marked ischemic white matter demyelination. 2. No mass effect or shift of midline structures. 3. No acute hemorrhage. [facility], , 02/17/2025 4:30 PM
[2025-02-17 17:13] LABS: Appearance,Urine Clear (Clear); Bilirubin,Urine Negative (Negative); Blood,Urine Negative (Negative); Color,Urine Yellow; Glucose,Urine (UA) Negative (Negative); Hyaline Casts,Urine 1 /lpf (0-2); Ketones,Urine Negative (Negative); Leukocyte Esterase,Urine Moderate (Negative); Mucus,Urine Rare /hpf; Nitrite,Urine Negative (Negative); PH, Urine 5.5 (5.0-8.0); Protein,Urine Negative (Negative); RBC,Urine 4 /hpf (0-5); Specific Gravity,Urine 1.022 (1.001-1.035); WBC,Urine 9 /hpf (0-5)
[2025-02-17 17:17] LABS: Amphetamine Screen,Urine Not Detected (NotDetected); Barbiturate Screen,Urine Not Detected (NotDetected); Benzodiazepines Screen,Urine Not Detected (NotDetected); Cocaine Screen,Urine Not Detected (NotDetected); Methadone Screen, Urine Not Detected (NotDetected); Opiate Screen,Urine Detected (NotDetected); Oxycodone Screen, Urine Not Detected (NotDetected); Phencyclidine Screen,Urine Not Detected (NotDetected); Tricyclic Antidepressant,Urine Not Detected (NotDetected); Urn Cannabinoid Scrn Not Detected (NotDetected)
[2025-02-17] MEDS ORDERED: NALOXONE 0.4 MG/ML 1 ML VIAL IV PRN (18:16)
[2025-02-17] MEDS ORDERED: ACETAMINOPHEN TAB 325 MG TAB PO PRN (18:16)
[2025-02-17] MEDS: SODIUM CHLORIDE 0.9% 1,000 ML IV SCH (18:49)
[2025-02-17] MEDS: HYDROcodone/APAP 5-325MG 1 EACH TAB PO PRN (21:38)
--- NOTE | 2025-02-18 12:48 | P.CNNES ---
History of Present Illness Consult date: 02/18/25 Requesting physician: Eh Alejandra Reason for Consult: altered mental status History of Present Illness: This is a 79-year-old woman who presents emergency department because of passing out as well as pain. Patient stated about 3 days ago she passed out very briefly and she was caught by her son but she denies any warning sign and after waking up from the brief passing out she did not have any confusion. She denies any tongue bite, urinary or bowel incontinence. Her son did not notice any jerking of any extremities according to the patient. Also about 3 days ago she noticed that she is having pain over the left side of the head occipital region as well as frontal and the pain goes to the left shoulder and left leg and it is constant. The pain is nagging, throbbing. She does have nausea. She does have photophobia and phonophobia. She denies any head trauma. She denies any similar headaches like this before. Denies vomiting episode. She denies any focal weakness. New onset numbness. Denies any visual disturbance. Denies any history of seizure. Denies any history of stroke. She states that she has a history of rheumatoid arthritis and she is on [place] but she denies over dosing the [place]. She also has a right knee replacement she has residual numbness that is patchy in the right lower extremity and states this is chronic. Some of the work-up during this hospital visit consisted of: Patient is afebrile. White blood cells within normal limits Blood pressure systolic is in the 140s to 160s Plasma lactic acid vein is 1.5. Sodium, glucose, calcium, magnesium, AST ALT are within normal limits CT of the head is reported as moderate to marked ischemic white matter demyelination. No mass effect or shift or midline structure. No acute hemorrhage. I personally reviewed the CT of the head and I agree there is no acute ischemic process. Review of Systems As per HPI. Past Medical History Past Medical History: Asthma, Hyperlipidemia, Hypertension, Osteoarthritis (OA), Rheumatoid Arthritis (RA) Additional Past Medical History / Comment(s): ANEMIA. SEIZURE X1 WHEN TAKING BACTRIM AND BENADRYL TOGETHER. History of Any Multi-Drug Resistant Organisms: None Reported Past Surgical History: Appendectomy, Section, Hernia Repair, Hyst erectomy, Joint Replacement, Orthopedic Surgery, Tonsillectomy Additional Past Surgical History / Comment(s): RIGHT- TOTAL KNEE X2, SPACER RIGHT KNEE X2, arthroscopic knee surgery 2, vein stripping Past Anesthesia/Blood Transfusion Reactions: No Reported Reaction Past Psychological History: Anxiety, Depression Smoking Status: Never smoker Past Alcohol Use History: None Reported Past Drug Use History: None Reported - Past Family History Mother Family Medical History: Cancer Additional Family Medical History / Comment(s): LUNG CANCER Sister(s) Family Medical History: Cancer Additional Family Medical History / Comment(s): OVARIAN CANCER Brother(s) Family Medical History: Blood Disorder Father Family Medical History: Liver Disease Daughter(s) Family Medical History: No Reported History Son(s) Family Medical History: No Reported History Medications and Allergies Home Medications Medication Instructions Recorded Confirmed Type Simvastatin [Zocor] 20 mg PO HS 11/19/18 02/17/25 History Albuterol Inhaler [Ventolin Hfa 2 puff INHALATION RT-Q4H PRN 02/04/22 02/17/25 History Inhaler] Cyclobenzaprine [Flexeril] 5 mg PO DAILY PRN 02/04/22 02/17/25 History Cyclobenzaprine [Flexeril] 10 mg PO HS PRN 02/04/22 02/17/25 History Memantine [Namenda] 10 mg PO BID 02/04/22 02/17/25 History NIFEdipine XL [Procardia XL] 30 mg PO DAILY tab 02/18/22 02/17/25 Rx allopurinoL 300 mg PO DAILY 09/26/22 02/17/25 History Acetaminophen Tab [Tylenol] 650 mg PO Q6HR PRN tab 10/06/22 02/17/25 Rx Baclofen [Lioresal] 10 mg PO BID PRN 02/17/25 02/17/25 History Fluticasone Nasal [place] [Flonase 1 spray EA NOSTRIL BID 02/17/25 02/17/25 History Nasal [place]] HYDROcodone/APAP 5-325MG [[place] 1 tab PO TID 02/17/25 02/17/25 History 5-325] Melatonin 5 - 10 mg PO HS 02/17/25 02/17/25 History Montelukast [Singulair] 10 mg PO DAILY 02/17/25 02/17/25 History Pantoprazole Sodium [Protonix] 20 mg PO DAILY 02/17/25 02/17/25 History lisinopriL [Zestril] 20 mg PO DAILY 02/17/25 02/17/25 History Allergies Allergy/AdvReac Type Severity Reaction Status Date / Time sulfamethoxazole AdvReac SEIZURE Verified 02/17/25 20:04 [From Bactrim] trimethoprim [From Bactrim] AdvReac SEIZURE Verified 02/17/25 20:04 Physical Examination - Vital Signs Vital Signs: Vital Signs Temp Pulse Resp BP Pulse Ox 02/18/25 10:49 97.9 F 82 16 162/78 94 L 02/18/25 09:46 73 16 158/76 95 02/18/25 08:29 80 16 145/68 97 02/18/25 05:17 80 18 162/73 95 02/18/25 02:00 80 18 145/67 95 02/18/25 00:00 80 18 150/66 98 02/17/25 21:00 86 18 144/63 98 02/17/25 20:00 90 18 144/62 98 02/17/25 19:00 80 18 162/74 97 02/17/25 18:52 75 18 140/74 97 02/17/25 17:10 86 18 158/69 97 02/17/25 15:11 97.5 F L 87 18 148/68 98 Intake and Output 02/17/25 02/18/25 02/18/25 22:59 06:59 14:59 Other: Weight 65.771 kg 65.771 kg GENERAL: The patient is lying in bed and is not in acute distress. NEUROLOGICAL: Higher mental function: The patient is awake, alert, oriented to self, place, correctly stated current month but with options chose current year. Patient is following simple commands. No aphasia and no neglect. Cranial nerves: The pupils are round, equal and reactive to light and accommodation. Visual payne are full to confrontation throughout. Extraocular movement is intact no nystagmus is noted. Facial sensation is normal to touch throughout. The facial strength is normal throughout. Hearing is moderately decreased bilaterally to hand rub. Tongue is midline and moved [id number] without any difficulty. No dysarthria is noted. Shoulder shrug is normal bilaterally. Motor: The strength is 5 over 5 throughout uppers but lowers are limited because of pain. Patient has scalp/erythematous in the left lower extremity. Is able to wiggles bilateral ankles symmetrically. Normal tone and bulk. Cerebellum: Normal finger to nose bilaterally. Sensation: Sensation is normal to touch throughout. Reflexes (right/left): Deferred because of pain. Plantars are mute bilaterally. Results - Laboratory Findings CBC and BMP: 02/17/25 16:02 02/17/25 16:02 Abnormal Lab Findings: Abnormal Labs 02/17/25 02/17/25 02/17/25 16:02 16:02 17:01 RBC 4.08 L Chloride 111 H BUN 27 H Creatinine 1.05 H Glucose 101 H Ur Leukocyte Esterase Moderate H Urine WBC 9 H Urine Mucus Rare H Urine Opiates Screen 02/17/25 17:01 RBC Chloride BUN Creatinine Glucose Ur Leukocyte Esterase Urine WBC Urine Mucus Urine Opiates Screen Detected H Assessment and Plan Assessment: This is a 79-year-old woman who presents the emergency department because of syncopal spell and she stated that she had this episode about 3 days ago and she is having pain over the left side of the head left shoulder as well as leg. Syncopal spell unknown exact etiology does not appear like typical seizures. CT head is unremarkable for acute process. Cephalgia with left shoulder and leg pain unknown exact etiology unsure if the shoulder and left lower extremity is due to her rheumatoid arthritis. Rule out vasculitis that led to cephalgia. On examination patient does not have any focal deficit. Hypertension History of rheumatoid arthritis Plan: I ordered ESR, CRP, TSH For the syncopal spell I ordered routine EEG which will likely be completed this Thursday. This is typical seizure Consider consulting cardiology team I ordered carotid duplex, 2D echo and MRI of the brain Cardiac monitoring Defer the rest of the medical management to primary other specialist Plan discussed with the patient and her nurse who is at bedside Thank for the consultation Time with Patient: Greater than 30
--- NOTE | 2025-02-18 13:48 | US ---
EXAMINATION TYPE: US carotid duplex BILAT DATE OF EXAM: 02/18/2025 COMPARISON: NONE CLINICAL INDICATION: Female, 79 years old with history of syncope; altered mental status Additional History: .... TECHNIQUE: Grayscale, color Doppler and spectral Doppler evaluation of the bilateral carotid systems and vertebral arteries. Indirect Doppler criteria was utilized. FINDINGS: EXAM MEASUREMENTS: RIGHT: Peak Systolic Velocity (PSV) cm/sec ----- Right CCA: 92.9 ----- Right ICA: 146 ----- Right ECA: 222 ICA/CCA ratio: 1.6 RIGHT: End Diastole cm/sec ----- Right CCA: 20.1 ----- Right ICA: 17.2 ----- Right ECA: 12.8 LEFT: Peak Systolic Velocity (PSV) cm/sec ----- Left CCA: 78.0 ----- Left ICA: 141 ----- Left ECA: 114 ICA/CCA ratio: 1.8 LEFT: End Diastole cm/sec ----- Left CCA: 16.6 ----- Left ICA: 24.2 ----- Left ECA: 0.0 VERTEBRALS (direction of flow): Right Vertebral: Antegrade Left Vertebral: Antegrade Rhythm: Normal ORTHOTIC AND PROSTHETIC TECHNICIAN NOTES: very limited scan due to vessel tortuosity Elevated velocities seen within Rt ECA, no significant stenosis seen, plaque seen bilaterally Color Doppler imaging shows patency with blood flow throughout the carotid artery. Spectral waveforms are within normal limits. IMPRESSION: 1. Mild calcified plaque in the carotid bifurcations bilaterally. 2. Based on peak systolic velocities and ratios as well as color and grayscale imaging, there is no h emodynamically significant carotid stenosis bilaterally. Criteria for Assigning % of Stenosis / Diameter reduction (Estimation based on the indirect measurements of the internal carotid artery velocities (ICA PSV). 1. Normal (no stenosis)=ICA PSV < 180 cm/s: ratio < 2.0: ICA EDV<40 cm/s. 2. Less than 50% stenosis=ICA PSV < 180 cm/s: ratio < 2.0: ICA EDV<40 cm/s. 3. 50 to 69% stenosis=ICA PSV of 180 to 230 cm/s: ration 2.0 ? 4.0: ICA EDV 40-100 cm/s. PSV 125-180 cm/sec and ICA/CCA PSV Ratio ? 2.0 is also consistent with 50-69% stenosis 4. Greater than 70% stenosis to near occlusion= ICA PSV > 230 cm/s: ratio > 4.0: ICA EDV > 100 cm/s. 5. Near occlusion= ICA PSV velocities may be low or undetectable: variable ratio and ICA EDV. 6. Total occlusion=unable to detect flow. [facility], Workstation: THANG 02/18/2025 1:46 PM
[2025-02-18] MEDS ORDERED: ALBUTEROL NEBULIZED 2.5 MG/3 ML INHALATION PRN (15:45)
[2025-02-18] MEDS ORDERED: BACLOFEN 10 MG TAB PO PRN (15:45)
[2025-02-18] MEDS: NIFEdipine XL 30 MG TAB.ER.24 PO SCH (17:09)
[2025-02-18] MEDS: HYDROmorphone 0.5 MG/0.5 ML SYRINGE IVP STA (17:09)
--- NOTE | 2025-02-18 19:12 | CT ---
EXAMINATION TYPE: CT angio chest DATE OF EXAM: 02/18/2025 6:18 PM COMPARISON: Chest radiograph 02/17/2025. CLINICAL INDICATION: Female, 79 years old with history of Rule out PE; Elevated D-dimer. TECHNIQUE/CONTRAST: CTA scan of the thorax is performed with IV Contrast, patient injected with 80 ml mL of Isovue 370, M IP images are created and reviewed these are created on a separate workstation.. CT DLP: 407.4 mGycm, Automated exposure control for dose reduction was used. FINDINGS: Pulmonary Artery: Suboptimal timing of contrast bolus limits evaluation of distal segmental and subse gmental pulmonary branches. Within these limitations, no definite central or segmental acute pulmonar y embolus identified. The pulmonary artery is of normal size. Lungs/Pleura: No evidence of focal consolidation, pleural effusion or pneumothorax. Airway: Large airways are patent. Heart: Heart is within normal limits for size. Coronary artery calcifications. Vasculature: No evidence of aortic aneurysm. Mediastinum: No gross evidence of adenopathy. Musculoskeletal: Age-indeterminate severe compression deformity of the T6 vertebral body and mild/mod erate compression deformity of T5 vertebral body. Recommend correlation with any prior outside imagin g if available. Associated sclerotic changes would suggest chronic etiology. Overall, osseous structu res are diffusely demineralized. Soft Tissues/lymph nodes: Unremarkable. Lower neck: No significant findings. Upper Abdomen: No significant findings. IMPRESSION: 1. No evidence of central or segmental acute pulmonary embolism. No acute pulmonary pathology. 2. Age-indeterminate compression deformities of the T5 and T6 vertebral bodies as above. [facility], , 02/18/2025 7:09 PM
[2025-02-18] MEDS: FLUTICASONE NASAL 50MCG/SPRAY 16GM BTL EA NOSTRIL SCH (21:20)
[2025-02-18] MEDS: ATORVASTATIN 10 MG TAB PO SCH (21:21)
[2025-02-18] MEDS: MELATONIN 5 MG TABLET PO SCH (21:21)
[2025-02-18] MEDS: MEMANTINE 10 MG TAB PO SCH (21:21)
--- NOTE | 2025-02-18 23:30 | P.HPIM ---
History of Present Illness H&P Date: 02/18/25 Chief Complaint: Chest pain Patient is a 79-year-old female with a past medical history of hypertension, hyperlipidemia, rheumatoid arthritis and asthma, anxiety/depression was brought to the hospital by her son due to not feeling well and unusual herself. Patient states that she did have mid retrosternal chest discomfort and radiated to the bilateral upper and lower extremities associated some nausea. No episodes of vomiting. She felt confused after that and was able to fall. Patient's son brought her to the hospital. He usually calls around 8 PM and when she spoke to her last night she seems to be repeating herself more than her usual. He went to visit her next day and find her still in the bed around noon time. Denied any fever or chills. Denies any dysuria or hematuria. No cough or sputum production. Denies any recent illnesses. Chest x-ray showed no evidence for acute pulmonary disease. CT head showed moderate to marked ischemic white matter demyelination. No mass effect shift of midline structures. No acute hemorrhage. EKG showed sinus rhythm with first-degree AV block Laboratory data showed WBC 8.9 hemoglobin 12.0 and platelets 357 sodium 144 potassium 4.6 chloride 111 bicarb is 24 BUN 27 creatinine 1.05 and blood sugar 101 liver enzymes are not elevated. Troponin x 1 negative Urinalysis showed clear, yellow moderate leukocyte esterase with WBCs 9. UDS positive for opiates Review of Systems Complete review of systems could not be obtained from the patient except as per HPI. Patient is somewhat poor historian. Past Medical History Past Medical History: Asthma, Hyperlipidemia, Hypertension, Osteoarthritis (OA), Rheumatoid Arthritis (RA) Additional Past Medical History / Comment(s): ANEMIA. SEIZURE X1 WHEN TAKING BACTRIM AND BENADRYL TOGETHER. History of Any Multi-Drug Resistant Organisms: None Reported Past Surgical History: Appendectomy, Section, Hernia Repair, Hysterec su, Joint Replacement, Orthopedic Surgery, Tonsillectomy Additional Past Surgical History / Comment(s): RIGHT- TOTAL KNEE X2, SPACER RIGHT KNEE X2, arthroscopic knee surgery 2, vein stripping Past Anesthesia/Blood Transfusion Reactions: No Reported Reaction Past Psychological History: Anxiety, Depression Smoking Status: Never smoker Past Alcohol Use History: None Reported Past Drug Use History: None Reported - Past Family History Mother Family Medical History: Cancer Additional Family Medical History / Comment(s): LUNG CANCER Sister(s) Family Medical History: Cancer Additional Family Medical History / Comment(s): OVARIAN CANCER Brother(s) Family Medical History: Blood Disorder Father Family Medical History: Liver Disease Daughter(s) Family Medical History: No Reported History Son(s) Family Medical History: No Reported History Medications and Allergies Home Medications Medication Instructions Recorded Confirmed Type Simvastatin [Zocor] 20 mg PO HS 11/19/18 02/17/25 History Albuterol Inhaler [Ventolin Hfa 2 puff INHALATION RT-Q4H PRN 02/04/22 02/17/25 History Inhaler] Cyclobenzaprine [Flexeril] 5 mg PO DAILY PRN 02/04/22 02/17/25 History Cyclobenzaprine [Flexeril] 10 mg PO HS PRN 02/04/22 02/17/25 History Memantine [Namenda] 10 mg PO BID 02/04/22 02/17/25 History NIFEdipine XL [Procardia XL] 30 mg PO DAILY tab 02/18/22 02/17/25 Rx allopurinoL 300 mg PO DAILY 09/26/22 02/17/25 History Acetaminophen Tab [Tylenol] 650 mg PO Q6HR PRN tab 10/06/22 02/17/25 Rx Baclofen [Lioresal] 10 mg PO BID PRN 02/17/25 02/17/25 History Fluticasone Nasal [place] [Flonase 1 spray EA NOSTRIL BID 02/17/25 02/17/25 History Nasal [place]] HYDROcodone/APAP 5-325MG [[place] 1 tab PO TID 02/17/25 02/17/25 History 5-325] Melatonin 5 - 10 mg PO HS 02/17/25 02/17/25 History Montelukast [Singulair] 10 mg PO DAILY 02/17/25 02/17/25 History Pantoprazole Sodium [Protonix] 20 mg PO DAILY 02/17/25 02/17/25 History lisinopriL [Zestril] 20 mg PO DAILY 02/17/25 02/17/25 History Allergies Allergy/AdvReac Type Severity Reaction Status Date / Time sulfamethoxazole AdvReac SEIZURE Verified 02/17/25 20:04 [From Bactrim] trimethoprim [From Bactrim] AdvReac SEIZURE Verified 02/17/25 20:04 Physical Exam Vitals: Vital Signs Temp Pulse Resp BP Pulse Ox 02/18/25 10:49 97.9 F 82 16 162/78 94 L 02/18/25 09:46 73 16 158/76 95 02/18/25 08:29 80 16 145/68 97 02/18/25 05:17 80 18 162/73 95 02/18/25 02:00 80 18 145/67 95 02/18/25 00:00 80 18 150/66 98 02/17/25 21:00 86 18 144/63 98 02/17/25 20:00 90 18 144/62 98 02/17/25 19:00 80 18 162/74 97 02/17/25 18:52 75 18 140/74 97 02/17/25 17:10 86 18 158/69 97 02/17/25 15:11 97.5 F L 87 18 148/68 98 Intake and Output 02/17/25 02/18/25 02/18/25 22:59 06:59 14:59 Other: Weight 65.771 kg 65.771 kg PHYSICAL EXAMINATION: Patient is lying in the bed comfortably, no acute distress, awake alert and oriented.. HEENT: Normocephalic. Neck is supple. Pupils reactive. Nostrils clear. Oral cavity is moist. Neck reveals no JVD, carotid bruits, or thyromegaly. CHEST EXAMINATION: Trachea is central. Symmetrical expansion. Lung payne clear to auscultation and percussion. CARDIAC: Normal S1, S2 with no gallops. No murmurs ABDOMEN: Soft. Bowel sounds normal. No organomegaly. No abdominal bruits. Extremities: reveal no edema. No clubbing or cyanosis Neurologically awake, alert, oriented x 2 able to move all extremities. No gr oss focal deficits noted Skin: No rash or skin lesions. Psychiatric: Coperative. Nonsuicidal Musculoskeletal: No joint swelling or deformity. Normal range of motion. Results CBC & Chem 7: 02/17/25 16:02 02/17/25 16:02 Labs: Abnormal Lab Results - Last 24 Hours (Table) 02/17/25 02/17/25 02/17/25 Range/Units 16:02 16:02 17:01 RBC 4.08 L (4.10-5.20) 10*6/uL Chloride 111 H (98-107) mmol/L BUN 27 H (7-17) mg/dL Creatinine 1.05 H (0.52-1.04) mg/dL Glucose 101 H (74-99) mg/dL Ur Leukocyte Esterase Moderate H (Negative) Urine WBC 9 H (0-5) /hpf Urine Mucus Rare H (None) /hpf Urine Opiates Screen (NotDetected) 02/17/25 Range/Units 17:01 RBC (4.10-5.20) 10*6/uL Chloride (98-107) mmol/L BUN (7-17) mg/dL Creatinine (0.52-1.04) mg/dL Glucose (74-99) mg/dL Ur Leukocyte Esterase (Negative) Urine WBC (0-5) /hpf Urine Mucus (None) /hpf Urine Opiates Screen Detected H (NotDetected) Thrombosis Risk Factor Assmnt - DVT/VTE Prophylaxis DVT/VTE Prophylaxis: Pharmacologic Prophylaxis ordered - Choose All That Apply Each Factor Represents 1 point: Obesity (BMI >25) Each Risk Factor Represents 3 Points: Age 75 years or older Thrombosis Risk Factor Assessment Total Risk Factor Score: 4 Thrombosis Risk Factor Assessment Level: Moderate Risk Assessment and Plan Assessment: Atypical chest pain. Rule out ACS Near syncopal episode. Not sure if she lost her consciousness.. CT head showed no acute process. Orthostatic vitals were ordered. Hypertension Hyperlipidemia Enterocolitis Asthma Anxiety/depression DVT prophylaxis with heparin subcu Plan: Patient will be continued on telemonitoring. Gentle IV hydration. Follow-up TSH, ESR and CRP levels. EEG was ordered to rule out seizures. Neurology is on board. Orthostatic vitals were ordered. Follow-up D-dimer level. Cardiology evaluation. Continue to follow closely. Continue home medications. PT OT evaluation. Time with Patient: Greater than 30
[2025-02-19] MEDS: HEPARIN SODIUM,PORCINE 5,000 UNIT/ML 1 ML VIAL SQ SCH (02:05)
[2025-02-19] MEDS: PANTOPRAZOLE 40 MG TABLET PO SCH (06:22)
[2025-02-19 08:11] LABS: Basophils # (A) 0.08 10*3/uL (0.00-0.10); Eosinophils # (A) 0.23 10*3/uL (0.04-0.35); Eosinophils % (A) 2.9 %; HCT 37.6 % (37.2-46.3); HGB 11.7 g/dL (12.0-15.0); Lymphocytes # (A) 2.05 10*3/uL (0.90-5.00); Lymphocytes % (A) 25.4 %; MCH 29.3 pg (27.0-32.0); MCHC 31.1 g/dL (32.0-37.0); MCV 94.2 fL (80.0-97.0); Mean Platelet Volume 9.9 fL (9.5-12.2); Monocytes % (A) 11.2 %; Neutrophils # (A) 4.77 10*3/uL (1.80-7.70); Neutrophils % (A) 59.1 %; Platelet Count 310 10*3/uL (140-440); RBC 3.99 10*6/uL (4.10-5.20); RDW 14.7 % (11.5-14.5); WBC 8.06 10*3/uL (4.50-10.00)
[2025-02-19 08:32] LABS: African American GFR (CKD) 74 (>60 ml/min/1.73 sqM); Anion Gap 11 mmol/L; Blood Urea Nitrogen 19 mg/dL (7-17); Calcium 9.2 mg/dL (8.4-10.2); Carbon Dioxide 22 mmol/L (22-30); Chloride 109 mmol/L (98-107); Glucose 94 mg/dL (74-99); Non-African American GFR(CKD) 64 (>60 ml/min/1.73 sqM); Potassium 3.9 mmol/L (3.5-5.1); Sodium 142 mmol/L (137-145)
[2025-02-19] MEDS: allopurinoL 300 MG TAB PO SCH (09:27)
[2025-02-19] MEDS: lisinopriL 20 MG TAB PO SCH (09:28)
[2025-02-19] MEDS: MONTELUKAST 10 MG TAB PO SCH (09:28)
--- NOTE | 2025-02-19 12:28 | P.PN ---
Subjective Progress Note Date: 02/19/25 I am following-up with the patient and states she continues to have pain her knees in which she was suppose to have surgery in past but she chose not pursue it. She is requesting pain medication for her pain. Denies any further headache, nausea. Denies any new focal weakness, visual disturbance. Objective - Vital Signs Vital signs: Vital Signs Temp 98.1 F 02/19/25 07:18 Pulse 72 02/19/25 07:18 Resp 17 02/19/25 07:18 BP 155/76 02/19/25 07:18 Pulse Ox 96 02/19/25 07:18 FiO2 Intake & Output 02/18/25 02/19/25 02/19/25 18:59 06:59 18:59 Intake Total 118 Balance 118 Weight 65.771 kg Intake: Oral 118 Other: # Voids 1 2 - Exam GENERAL: The patient is lying in bed and is not in acute distress. NEUROLOGICAL: Higher mental function: The patient is awake, alert, oriented to self, place, correctly stated current month but with options chose current year. Patient is following simple commands. No aphasia and no neglect. Cranial nerves: The pupils are round, equal and reactive to light and accommodation. Visual payne are full to confrontation throughout. Extraocular movement is intact no nystagmus is noted. Facial sensation is normal to touch throughout. The facial strength is normal throughout. Hearing is moderately decreased bilaterally to hand rub. Tongue is midline and moved [id number] without any difficulty. No dysarthria is noted. Shoulder shrug is normal bilaterally. Motor: The strength is 5 over 5 throughout uppers but in lowers limited because of knee pain but was able to lift lowers above gravity which is better compared to yesterday. Patient has scalp/erythematous in the left lower extremity. Is able to wiggles bilateral ankles symmetrically. Normal tone and bulk. Cerebellum: Normal finger to nose bilaterally. Sensation: Sensation is normal to touch throughout. Reflexes (right/left): Deferred because of pain. Plantars are mute bilaterally. Some of the work-up during this hospital visit consisted of: Patient is afebrile. White blood cells within normal limits Blood pressure systolic is in the 140s to 160s Plasma lactic acid vein is 1.5. ESR: 29 CRP 1.0 TSH: 2.60 Sodium, glucose, calcium, magnesium, AST ALT are within normal limits CT of the head is reported as moderate to marked ischemic white matter demyelination. No mass effect or shift or midline structure. No acute hemorrhage. I personally reviewed the CT of the head and I agree there is no acute ischemic process. Carotid duplex: Mild calcified palques in the carotid bifurcation bilaterally. Based on peak systolic velocities and rations as well as color and grayscale imaging, there is no hemodynamically significant carotid stenosis bilaterally. - Labs CBC & Chem 7: 02/19/25 07:44 02/19/25 07:44 Labs: Abnormal Lab Results - Last 24 Hours (Table) 02/18/25 02/18/25 02/19/25 Range/Units 15:06 16:29 07:44 RBC 3.99 L (4.10-5.20) 10*6/uL Hgb 11.7 L (12.0-15.0) g/dL MCHC 31.1 L (32.0-37.0) g/dL RDW 14.7 H (11.5-14.5) % D-Dimer 0.95 H (<0.60) mg/L FEU Chloride (98-107) mmol/L BUN (7-17) mg/dL C-Reactive Protein 1.0 H (<1.0) mg/dL 02/19/25 Range/Units 07:44 RBC (4.10-5.20) 10*6/uL Hgb (12.0-15.0) g/dL MCHC (32.0-37.0) g/dL RDW (11.5-14.5) % D-Dimer (<0.60) mg/L FEU Chloride 109 H (98-107) mmol/L BUN 19 H (7-17) mg/dL C-Reactive Protein (<1.0) mg/dL Assessment and Plan Assessment: This is a 79-year-old woman who presents the emergency department because of syncopal spell and she stated that she had this episode about 3 days ago and she is having pain over the left side of the head left shoulder as well as leg. Syncopal spell unknown exact etiology does not appear like typical seizures. CT head is unremarkable for acute process. Cephalgia with left shoulder and leg pain unknown exact etiology unsure if the shoulder and left lower extremity is due to her rheumatoid arthritis. On examination patient does not have any focal deficit. ESR is normal. Today headache is resolved. Hypertension History of rheumatoid arthritis Plan: For the syncopal spell I ordered routine EEG which will likely be completed this Thursday. This is typical seizure Consider consulting cardiology team Pending 2D echo and MRI of the brain Cardiac monitoring Defer the rest of the medical management to primary other specialist The patient wants to be discharged since has to deal with personal situation. I notified the patient if she wants to leave, then to leave Again Medical Advice (AMA). Plan discussed with the patient and her nurse who is at bedside Dr. Ross will resume neurology service tomorrow A.M. Time with Patient: Less than 30
[2025-02-19 17:41] LABS: NT-Pro-B-Type Natriuretic Pept 133 pg/mL
--- NOTE | 2025-02-19 17:48 | MR ---
EXAMINATION TYPE: MR brain wo/w con DATE OF EXAM: 02/19/2025 5:30 PM COMPARISON: None available. CLINICAL INDICATION: Female, 79 years old with history of syncope; PHH, Syncope TECHNIQUE: Multi planar, multi sequence imaging was performed through the brain including: T1, T2, In version recovery, susceptibility weighted imaging and gradient echo imaging and Diffusion weighted im aging. The patient was then given intravenous contrast and multi planar, T1 fat-saturation images wer e obtained. IV Contrast: 6.5 mL Gadobutrol FINDINGS: Ventricles and sulci are within normal limits. Basal cisterns are patent. Diffusion-weighted imaging shows no evidence of restricted diffusion to suggest acute/subacute infarct. Intracranial arterial fl ow voids are maintained. Midline structures show no abnormality. Scattered foci of high T2 signal int ensity are seen within the periventricular and subcortical white matter compatible with severe microv ascular ischemic disease. The susceptibility weighted images do not reveal any evidence for micro-hem orrhage. After administration of gadolinium, no abnormal enhancement is seen. The bone marrow signal is within normal limits. Paranasal sinuses and mastoid air cells: No significant paranasal sinus disease. Visualized orbits: Orbital contents are intact. IMPRESSION: 1. No evidence of intracranial mass, acute/subacute infarct, or abnormal enhancement. 2. Nonspecific white matter changes, likely related to severe small vessel ischemic disease. [facility], , 02/19/2025 5:46 PM
--- NOTE | 2025-02-19 19:46 | P.CRDCN ---
History of Present Illness Consult date: 02/19/25 History of present illness: HISTORY OF PRESENTING ILLNESS: 79-year-old with past medical history of hypertension dyslipidemia rheumatoid arthritis, anxiety depression asthma. Patient's son brought her to the hospital because of concerns of mild confusion. She is also complaining of some nonspecific chest heaviness symptoms for which cardiology was consulted. She is also been feeling lightheaded and dizzy on occasions lately. Overall she is a poor historian. BP 155/76, heart rate 90 Admission ECG showed sinus rhythm with first-degree block. On telemetry she has been showing first-degree AV block. No other arrhythmias or any significant pauses noticed on telemetry so far. Admission labs shows hemoglobin 11, BUN 19, creatinine 0.8, troponin x 2 are negative, NT-proBNP 133, TSH 2.6. UDS was positive for opiates Her D-dimer was mildly elevated for this she had a CTA chest done which did not show any evidence of PE MRI brain was done which did not show any acute process. Did show nonspecific white matter changes likely related to severe small vessel ischemic disease. REVIEW OF SYSTEMS: 14 point review of system is negative except what is mentioned above in HPI. PHYSICAL EXAMINATION: Neck: Brisk carotid upstroke, no jugular venous distention. Lungs: Clear to auscultation. Heart: Regular rate and rhythm, S1-S2, mild systolic murmur Abdomen: Soft nontender, positive bowel sounds. Extremities: No edema, intact distal pulses. Neuro: Alert, oritented, no focal deficits. Detailed neuro exam was not performed. ASSESSMENT: # Questionable syncope # Atypical chest pain, rule out of ACS # Essential hypertension # History of rheumatoid arthritis PLAN: She is on lisinopril 20, nifedipine XL 30 and Lipitor 10 mg. Will continue these medication without any changes Obtain updated echocardiogram tomorrow Obtain orthostatic vital signs Further recommendations to follow Consider 7-14 days extended Holter monitor to go home with Miguel Boone MD, FACC, RPVI Thank you for allowing [facility] to participate in this patient's care. Feel free to reach out in case of any followup questions. Past Medical History Past Medical History: Asthma, Hyperlipidemia, Hypertension, Osteoarthritis (OA), Rheumatoid Arthritis (RA) Additional Past Medical History / Comment(s): ANEMIA. SEIZURE X1 WHEN TAKING BACTRIM AND BENADRYL TOGETHER. History of Any Multi-Drug Resistant Organisms: None Reported Past Surgical History: Appendectomy, Section, Hernia Repair, Hysterectomy, Joint Replacement, Orthopedic Surgery, Tonsillectomy Additional Past Surgical History / Comment(s): RIGHT- TOTAL KNEE X2, SPACER RIGHT KNEE X2, arthroscopic knee surgery 2, vein stripping Past Anesthesia/Blood Transfusion Reactions: No Reported Reaction Past Psychological History: Anxiety, Depression Smoking Status: Never smoker Past Alcohol Use History: None Reported Past Drug Use History: None Reported - Past Family History Mother Family Medical History: Cancer Additional Family Medical History / Comment(s): LUNG CANCER Sister(s) Family Medical History: Cancer Additional Family Medical History / Comment(s): OVARIAN CANCER Brother(s) Family Medical History: Blood Disorder Father Family Medical History: Liver Disease Daughter(s) Family Medical History: No Reported History Son(s) Family Medical History: No Reported History Medications and Allergies Home Medications Medication Instructions Recorded Confirmed Type Simvastatin [Zocor] 20 mg PO HS 11/19/18 02/17/25 History Albuterol Inhaler [Ventolin Hfa 2 puff INHALATION RT-Q4H PRN 02/04/22 02/17/25 History Inhaler] Cyclobenzaprine [Flexeril] 5 mg PO DAILY PRN 02/04/22 02/17/25 History Cyclobenzaprine [Flexeril] 10 mg PO HS PRN 02/04/22 02/17/25 History Memantine [Namenda] 10 mg PO BID 02/04/22 02/17/25 History NIFEdipine XL [Procardia XL] 30 mg PO DAILY tab 02/18/22 02/17/25 Rx allopurinoL 300 mg PO DAILY 09/26/22 02/17/25 History Acetaminophen Tab [Tylenol] 650 mg PO Q6HR PRN tab 10/06/22 02/17/25 Rx Baclofen [Lioresal] 10 mg PO BID PRN 02/17/25 02/17/25 History Fluticasone Nasal [place] [Flonase 1 spray EA NOSTRIL BID 02/17/25 02/17/25 History Nasal [place]] HYDROcodone/APAP 5-325MG [[place] 1 tab PO TID 02/17/25 02/17/25 History 5-325] Melatonin 5 - 10 mg PO HS 02/17/25 02/17/25 History Montelukast [Singulair] 10 mg PO DAILY 02/17/25 02/17/25 History Pantoprazole Sodium [Protonix] 20 mg PO DAILY 02/17/25 02/17/25 History lisinopriL [Zestril] 20 mg PO DAILY 02/17/25 02/17/25 History Allergies Allergy/AdvReac Type Severity Reaction Status Date / Time sulfamethoxazole AdvReac SEIZURE Verified 02/17/25 20:04 [From Bactrim] trimethoprim [From Bactrim] AdvReac SEIZURE Verified 02/17/25 20:04 Physical Exam Vitals: Vital Signs Temp Pulse Pulse Pulse Pulse Resp BP 02/19/25 15:32 90 103 H 87 02/19/25 14:52 98.1 F 96 18 02/19/25 07:18 98.1 F 72 17 02/19/25 01:34 98.2 F 85 16 146/81 02/18/25 20:00 81 17 02/18/25 19:55 98.8 F 81 17 147/73 BP BP BP BP Pulse Ox 02/19/25 15:32 153/72 161/72 148/67 02/19/25 14:52 136/67 94 L 02/19/25 07:18 155/76 96 02/19/25 01:34 95 02/18/25 20:00 02/18/25 19:55 94 L Intake and Output 02/19/25 02/19/25 02/19/25 06:59 14:59 22:59 Intake Total 118 Balance 118 Intake: Oral 118 Other: # Voids 2 2 Results 02/19/25 07:44 02/19/25 07:44 Cardiac Enzymes 02/19/25 Range/Units 16:30 Troponin I <0.012 (0.000-0.034) ng/mL CBC 02/19/25 Range/Units 07:44 WBC 8.06 (4.50-10.00) 10*3/uL RBC 3.99 L (4.10-5.20) 10*6/uL Hgb 11.7 L (12.0-15.0) g/dL Hct 37.6 (37.2-46.3) % Plt Count 310 (140-440) 10*3/uL Comprehensive Metabolic Panel 02/19/25 Range/Units 07:44 Sodium 142 (137-145) mmol/L Potassium 3.9 (3.5-5.1) mmol/L Chloride 109 H (98-107) mmol/L Carbon Dioxide 22 (22-30) mmol/L BUN 19 H (7-17) mg/dL Creatinine 0.88 (0.52-1.04) mg/dL Glucose 94 (74-99) mg/dL Calcium 9.2 (8.4-10.2) mg/dL Current Medications Generic Name Dose Route Start Last Admin Trade Name Freq PRN Reason Stop Dose Admin Acetaminophen 650 mg 02/17/25 18:16 Acetaminophen Tab 325 Mg Tab PO Q6HR PRN Mild Pain or Fever > 100.5 Hydrocodone Bitart/Acetaminophen 1 each 02/17/25 21:32 02/19/25 11:47 Hydrocodone/Apap 5-325mg 1 Each Tab PO 1 each Q8HR PRN Administration Pain Albuterol Sulfate 2.5 mg 02/18/25 15:45 Albuterol Nebulized 2.5 Mg/3 Ml INHALATION RT-Q4H PRN Shortness Of Breath Allopurinol 300 mg 02/19/25 09:00 02/19/25 09:27 Allopurinol 300 Mg Tab PO 300 mg DAILY JUSTIN Administration Atorvastatin Calcium 10 mg 02/18/25 21:00 02/18/25 21:21 Atorvastatin 10 Mg Tab PO 10 mg HS JUSTIN Administration Baclofen 10 mg 02/18/25 15:45 Baclofen 10 Mg Tab PO BID PRN Muscle Spasm Fluticasone Propionate 1 spray 02/18/25 21:00 02/19/25 09:29 Fluticasone Nasal 50mcg/[place] 16gm Btl EA NOSTRIL Not Given BID JUSTIN Heparin Sodium (Porcine) 5,000 unit 02/19/25 00:00 02/19/25 17:22 Heparin Sodium,Porcine 5,000 Unit/Ml 1 Ml Vial SQ Not Given Q8HR [facility] Sodium Chloride 1,000 mls @ 75 mls/hr 02/17/25 18:30 02/19/25 13:15 Saline 0.9% IV Not Given .[id number] JUSTIN Lisinopril 20 mg 02/19/25 09:00 02/19/25 09:28 Lisinopril 20 Mg Tab PO 20 mg DAILY JUSTIN Administration Melatonin 5 mg 02/18/25 21:00 02/18/25 21:21 Melatonin 5 Mg Tablet PO 5 mg HS JUSTIN Administration Memantine 10 mg 02/18/25 21:00 02/19/25 09:28 Memantine 10 Mg Tab PO 10 mg BID JUSTIN Administration Montelukast Sodium 10 mg 02/19/25 09:00 02/19/25 09:28 Montelukast 10 Mg Tab PO 10 mg DAILY JSUTIN Administration Naloxone HCl 0.2 mg 02/17/25 18:16 Naloxone 0.4 Mg/Ml 1 Ml Vial IV Q2M PRN Opioid Reversal Nifedipine 30 mg 02/18/25 16:00 02/19/25 09:28 Nifedipine Xl 30 Mg Tab.Er.24 PO 30 mg DAILY JUSTIN Administration Pantoprazole Sodium 40 mg 02/19/25 07:30 02/19/25 06:22 Pantoprazole 40 Mg Tablet PO 40 mg [id number] JUSTIN Administration Intake and Output 02/19/25 02/19/25 02/19/25 06:59 14:59 22:59 Intake Total 118 Balance 118 Intake: Oral 118 Other: # Voids 2 2 02/19/25 07:44 02/19/25 07:44
--- NOTE | 2025-02-19 23:26 | P.PN ---
Subjective Progress Note Date: 02/19/25 Patient is a 79-year-old female with a past medical history of hypertension, hyperlipidemia, rheumatoid arthritis and asthma, anxiety/depression was brought to the hospital by her son due to not feeling well and unusual herself. Patient states that she did have mid retrosternal chest discomfort and radiated to the bilateral upper and lower extremities associated some nausea. No episodes of vomiting. She felt confused after that and was able to fall. Patient's son brought her to the hospital. He usually calls around 8 PM and when she spoke to her last night she seems to be repeating herself more than her usual. He went to visit her next day and find her still in the bed around noon time. Denied any fever or chills. Denies any dysuria or hematuria. No cough or sputum production. Denies any recent illnesses. Chest x-ray showed no evidence for acute pulmonary disease. CT head showed moderate to marked ischemic white matter demyelination. No mass effect shift of midline structures. No acute hemorrhage. EKG showed sinus rhythm with first-degree AV block Laboratory data showed WBC 8.9 hemoglobin 12.0 and platelets 357 sodium 144 potassium 4.6 chloride 111 bicarb is 24 BUN 27 creatinine 1.05 and blood sugar 101 liver enzymes are not elevated. Troponin x 1 negative Urinalysis showed clear, yellow moderate leukocyte esterase with WBCs 9. UDS positive for opiates 02/19/2025 Patient is resting in the bed. Awake alert and oriented x 2-3. No complaints of chest pain or shortness of breath. No headache or dizziness. Complains of bilateral knee pain. No fever no chills. No other acute overnight issues. Laboratory data showed WBC 8.0 hemoglobin 11.7 and platelets 310 BUN 19 and creatinine 0.8, proBNP 133. 2D echocardiogram tomorrow. Current medications reviewed. Objective - Vital Signs Vital signs: Vital Signs Temp 98.1 F 02/19/25 14:52 Pulse 87 02/19/25 15:32 Resp 18 02/19/25 14:52 BP 148/67 02/19/25 15:32 Pulse Ox 94 L 02/19/25 14:52 FiO2 Intake & Output 02/18/25 02/19/25 02/19/25 18:59 06:59 18:59 Intake Total 118 Balance 118 Weight 65.771 kg Intake: Oral 118 Other: # Voids 1 2 2 - Exam PHYSICAL EXAMINATION: Patient is lying in the bed comfortably, no acute distress, awake alert and oriented.. HEENT: Normocephalic. Neck is supple. Pupils reactive. Nostrils clear. Oral cavity is moist. Neck reveals no JVD, carotid bruits, or thyromegaly. CHEST EXAMINATION: Trachea is central. Symmetrical expansion. Lung payne clear to auscultation and percussion. CARDIAC: Normal S1, S2 with no gallops. No murmurs ABDOMEN: Soft. Bowel sounds normal. No organomegaly. No abdominal bruits. Extremities: reveal no edema. No clubbing or cyanosis Neurologically awake, alert, oriented x 2 able to move all extremities. No gross focal deficits noted Skin: No rash or skin lesions. Psychiatric: Coperative. Nonsuicidal Musculoskeletal: No joint swelling or deformity. Normal range of motion. - Labs CBC & Chem 7: 02/19/25 07:44 02/19/25 07:44 Labs: Abnormal Lab Results - Last 24 Hours (Table) 02/18/25 02/19/25 02/19/25 Range/Units 16:29 07:44 07:44 RBC 3.99 L (4.10-5.20) 10*6/uL Hgb 11.7 L (12.0-15.0) g/dL MCHC 31.1 L (32.0-37.0) g/dL RDW 14.7 H (11.5-14.5) % D-Dimer 0.95 H (<0.60) mg/L FEU Chloride 109 H (98-107) mmol/L BUN 19 H (7-17) mg/dL Assessment and Plan Assessment: Atypical chest pain. Rule out ACS Near syncopal episode. Not sure if she lost her consciousness.. CT head showed no acute process. Orthostatic vitals were ordered. Elevated D-dimer level 0.95 CT angiogram showed no evidence of PE. Hypertension Hyperlipidemia Enterocolitis Asthma Anxiety/depression DVT prophylaxis with heparin subcu Plan: Patient will be continued on telemonitoring. Gentle IV hydration. TSH within normal limits., CRP 1.0. EEG was ordered to rule out seizures. Neurology is on board. Orthostatic vitals were ordered. 2D echocardiogram. Cardiology has seen the patient. Considering event monitor at discharge. Continue to follow closely. Continue home medications. PT OT evaluation. Time with Patient: Greater than 30
[2025-02-20 00:42] LABS: Chol/HDL Ratio 4.48 Ratio; LDL Cholesterol,Calculated 91.2 mg/dL (0.0-131.0)
[2025-02-20 05:44] VITALS: BP 132/77; PULSE 90; RESP 18; TEMP 98.6
[2025-02-20 10:49] LABS: Blood Urea Nitrogen 20.2 mg/dL (9.0-27.0); Calcium 8.7 mg/dL (8.7-10.3); Carbon Dioxide 22.3 mmol/L (21.6-31.8); Chloride 109 mmol/L (96-109); Glucose 93 mg/dL (70-110); Potassium 3.9 mmol/L (3.5-5.5); Sodium 142 mmol/L (135-145)
--- NOTE | 2025-02-20 10:51 | P.PN ---
Subjective HISTORY OF PRESENTING ILLNESS: 79-year-old with past medical history of hypertension dyslipidemia rheumatoid arthritis, anxiety depression asthma. Patient's son brought her to the hospital because of concerns of mild confusion. She is also complaining of some nonspecific chest heaviness symptoms for which cardiology was consulted. She is also been feeling lightheaded and dizzy on occasions lately. Overall she is a poor historian. BP 155/76, heart rate 90 Admission ECG showed sinus rhythm with first-degree block. On telemetry she has been showing first-degree AV block. No other arrhythmias or any significant pauses noticed on telemetry so far. Admission labs shows hemoglobin 11, BUN 19, creatinine 0.8, troponin x 2 are negative, NT-proBNP 133, TSH 2.6. UDS was positive for opiates Her D-dimer was mildly elevated for this she had a CTA chest done which did not show any evidence of PE MRI brain was done which did not show any acute process. Did show nonspecific white matter changes likely related to severe small vessel ischemic disease. 02/20/2025 Patient seen and examined sitting up in bed in no acute distress. Blood pr essure reviewed. Orthostatic vitals were unremarkable. Echo has been ordered and will be reviewed. PHYSICAL EXAMINATION: Neck: Brisk carotid upstroke, no jugular venous distention. Lungs: Clear to auscultation. Heart: Regular rate and rhythm, S1-S2, mild systolic murmur Abdomen: Soft nontender, positive bowel sounds. Extremities: No edema, intact distal pulses. Neuro: Alert, oritented, no focal deficits. Detailed neuro exam was not performed. ASSESSMENT: # Questionable syncope # Atypical chest pain, rule out of ACS # Essential hypertension # History of rheumatoid arthritis PLAN: No evidence of pauses or bradycardia on telemetry. Once echo is complete she can be discharged home. She does not have to be held for results. Apply 7-day Holter monitor upon discharge and follow-up with Dr. Coughlin in 2 weeks. Nurse Practitioner note has been reviewed, I agree with a documented findings a nd plan of care. Patient was seen and examined. Objective - Vital Signs Vital signs: Vital Signs Temp 98.6 F 02/20/25 05:43 Pulse 90 02/20/25 05:43 Resp 18 02/20/25 05:43 BP 132/77 02/20/25 05:43 Pulse Ox 94 L 02/20/25 05:43 FiO2 Intake & Output 02/19/25 02/20/25 02/20/25 18:59 06:59 18:59 Intake Total 118 118 Balance 118 118 Intake: Oral 118 118 Other: # Voids 2 3 - Labs CBC & Chem 7: 02/19/25 07:44 02/19/25 07:44 Labs: Abnormal Lab Results - Last 24 Hours (Table) 02/19/25 Range/Units 16:30 Triglycerides 321.00 H (0.00-149.00) mg/dL VLDL Cholesterol, Calc 64.20 H (5.00-40.00) mg/dL
--- NOTE | 2025-02-20 13:09 | CA ---
Transthoracic Echo Report Name: Aleyda Moon Age: 79 Gender: F : 1945 Exam Date: 02/20/2025 10:40 Exam Location: [facility] Ht (in): 60 Wt (lb): 145 Ordering Physician: Mo Stinson MD Attending/Referring Phys: Lead Ramp Service Man Magda So RDCS Procedure CPT: Indications: Syncope Cardiac Hx: Technical Quality: Fair Contrast 1: Total Dose (mL): Contrast 2: Total Dose (mL): MEASUREMENTS (Male / Female) Normal Values 2D ECHO LV Diastolic Diameter PLAX 4.5 cm 4.2 - 5.9 / 3.9 - 5.3 cm LV Systolic Diameter PLAX 3.2 cm IVS Diastolic Thickness 1.1 cm 0.6 - 1.0 / 0.6 - 0.9 cm LVPW Diastolic Thickness 1.2 cm 0.6 - 1.0 / 0.6 - 0.9 cm LV Relative Wall Thickness 0.5 RV Internal Dim ED PLAX 2.5 cm LVOT Diameter 1.9 cm LA Systolic Diameter LX 3.7 cm 3.0 - 4.0 / 2.7 - 3.8 cm LV Diastolic Volume MOD BP 30.0 cm??? 67 - 155 / 56 - 104 cm??? LV Systolic Volume MOD BP 15.0 cm??? 22 - 58 / 19 - 49 cm??? LV Ejection Fraction MOD BP 50.0 % >= 55 % LV Cardiac Index MOD BP 773.6 cm???/min???m??? LV Diastolic Volume MOD 4C 33.6 cm??? LV Systolic Volume MOD 4C 8.4 cm??? LV Ejection Fraction MOD 4C 75.0 % LV Cardiac Index MOD 4C 1295.3 cm???/min???m??? LV Diastolic Length 4C 7.4 cm LV Systolic Length 4C 2.3 cm LV Diastolic Volume MOD 2C 26.7 cm??? LV Systolic Volume MOD 2C 11.7 cm??? LV Ejection Fraction MOD 2C 56.2 % LV Cardiac Index MOD 2C 774.2 cm???/min???m??? LV Diastolic Length 2C 7.3 cm LV Systolic Length 2C 5.7 cm LA Volume 33.0 cm??? 18 - 58 / 22 - 52 cm??? LA Volume Index 19.5 cm???/m??? 16 - 28 cm???/m??? M-MODE Aortic Root Diameter MM 3.3 cm LA Systolic Diameter MM 3.5 cm LA Ao Ratio MM 1.1 AV Cusp Separation MM 1.8 cm DOPPLER AV Peak Velocity 160.8 cm/s AV Peak Gradient 10.3 mmHg MV Area PHT 3.3 cm??? Mitral E Point Velocity 76.5 cm/s Mitral A Point Velocity 128.6 cm/s Mitral E to A Ratio 0.6 MV Deceleration Time 228.7 ms TR Peak Velocity 226.3 cm/s TR Peak Gradient 20.5 mmHg FINDINGS Left Ventricle Left ventricular ejection fraction is estimated at 60-65%. Mildly increased septal wall thickness. Mildly increased posterior wall thickness. Normal left ventricular systolic function with no obvious regional wall motion abnormalities. Right Ventricle Normal right ventricular size and function. Right ventricular systolic pressure within normal limits. Right Atrium Normal right atrial size. Left Atrium Normal left atrial size. Mitral Valve Structurally normal mitral valve. Trace to mild mitral regurgitation. No mitral stenosis. Aortic Valve Aortic valve not well visualized. No aortic valve stenosis or regurgitation. Tricuspid Valve Structurally normal tricuspid valve. Trace tricuspid regurgitation. No tricuspid stenosis. Pulmonic Valve Structurally normal pulmonic valve. Trace pulmonic regurgitation. No pulmonic stenosis. Pericardium Minimal pericardial effusion (normal variant). No pleural effusion. Aorta Normal size aortic root and proximal ascending aorta. CONCLUSIONS Normal LV size and systolic function. Mild mitral and tricuspid regurgitation. No pulmonary hypertension. No significant pericardial effusion Previewed by: Dr. Jalil Montague MD (Electronically Signed) Final Date: 20 February 2025 13:09
--- NOTE | 2025-02-20 14:07 | P.PN ---
Subjective Progress Note Date: 02/20/25 Patient was initially seen by Dr. Mo Stinson. Please refer to his note for details. Patient has presented with syncopal spell with headache. Patient is undergoing workup. Objective - Vital Signs Vital signs: Vital Signs Temp 98.6 F 02/20/25 05:43 Pulse 90 02/20/25 05:43 Resp 18 02/20/25 05:43 BP 132/77 02/20/25 05:43 Pulse Ox 94 L 02/20/25 05:43 FiO2 Intake & Output 02/19/25 02/20/25 02/20/25 18:59 06:59 18:59 Intake Total 118 118 Balance 118 118 Intake: Oral 118 118 Other: # Voids 2 3 - Exam On examination patient is alert and awake fairly well-oriented. Speech and language functions are normal. Patient's visual payne are full on confrontation with no neglect. Face is symmetric. Extraocular muscles intact. Muscle strength testing is normal in arms and legs distally and proximally. No ataxia for [id number] testing. Sensations are equal. - Labs CBC & Chem 7: 02/19/25 07:44 02/20/25 05:31 Labs: Abnormal Lab Results - Last 24 Hours (Table) 02/19/25 02/20/25 Range/Units 16:30 05:31 Est GFR (CKD-EPI) 58 L (>=60) BUN/Creatinine Ratio 20.20 H (12.00-20.00) Ratio Triglycerides 321.00 H (0.00-149.00) mg/dL VLDL Cholesterol, Calc 64.20 H (5.00-40.00) mg/dL Assessment and Plan Assessment: This is a 79-year-old woman who presents the emergency department because of syncopal spell and she stated that she had this episode about 3 days ago and she is having pain over the left side of the head left shoulder as well as leg. Syncopal spell unknown exact etiology does not appear like typical seizures. CT head is unremarkable for acute process. Cephalgia with left shoulder and leg pain unknown exact etiology unsure if the shoulder and left lower extremity is due to her rheumatoid arthritis. On examination patient does not have any focal deficit. ESR is normal. Today headache is resolved. Hypertension History of rheumatoid arthritis Plan: EEG was normal awake pattern. No focal, lateralized or epileptiform activity was seen. Consider consulting cardiology team Orthostatics were checked, and normal. Her supine blood pressure 148/67, sitting 153/72 and standing 161/72. MRI of the brain revealed no evidence of intracranial mass, acute/subacute infarct or abnormal enhancement. Nonspecific white matter changes, likely related to small vessel ischemic disease. I personally reviewed MRI agree with the findings. 2D echo revealed normal LVEF 60 to 65%. Mildly increased septal wall thickness. Mildly increased posterior wall thickness. No obvious regional wall motion abnormalities. Normal left and right atrial size. No significant valvular abnormalities. Cardiac monitoring Defer the rest of the medical management to primary other specialist Neurologically clear for discharge. Discussed with patient's nurse.
--- NOTE | 2025-02-20 14:21 | EEG ---
Date of Service: 02/20/25 ELECTROENCEPHALOGRAM REPORT PREAMBLE: This is a 79-year-old female, who came with syncope versus seizure. CURRENT MEDICATIONS: 1. Zyloprim. 2. Lioresal. 3. [place]. 4. Zestril. 5. [place]. 6. Melatonin. 7. Procardia. EEG FINDINGS: This is a 21-channel digital EEG recorded with video component, utilizing 10/20 international system with referential and bipolar montages. Background consists of well-developed, well-regulated moderate voltage activity in 10 hertz alpha. Background is posterior dominant and is reactive to eye opening and closing. Photic driving response was not clearly seen. Hyperventilation was not done. Different stages of sleep were not seen. No focal or generalized epileptiform activity was seen. IMPRESSION: This is a normal awake EEG. No focal, lateralized or epileptiform activity was seen. Normal EEG does not rule out seizure disorder. If your suspicion for seizures is high, suggest prolonged, sleep-deprived EEG. MMODL / IJN: [id number] / JAMIE
--- NOTE | 2025-02-22 16:30 | P.DS ---
Providers Date of admission: 02/17/25 18:22 Attending physician: Bambi Turner MD Consults: 02/17/25 18:16 Consult Physician Routine Consulting Provider: Mo Stinson Consult Reason/Comments: altered mental status Do you want consulting provider notified?: Yes 02/18/25 15:48 Consult Physician Routine Consulting Provider: Miguel Boone Consult Reason/Comments: Syncope Do you want consulting provider notified?: Yes Primary care physician: Eunice Tiwari Hospital Course: Final Diagnosis Atypical chest pain. Rule out ACS Near syncopal episode. Not sure if she lost her consciousness. Elevated D-dimer level 0.95 CT angiogram showed no evidence of PE. Hypertension Hyperlipidemia Enterocolitis Asthma Anxiety/depression DVT prophylaxis with heparin subcu Discharge Disposition Patient stable for discharge home. Acute coronary syndrome was ruled out. No evidence for seizure-like activity. No TIA or stroke. 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 Follow-up with PCP Dr. Tiwari 1 to 2 days. Hospital Course This is a 79-year-old female with medical history significant for hypertension hyperlipidemia, rheumatoid arthritis, asthma, anxiety depression. Patient was brought into the hospital by her son due to not feeling well and altered mentation. Patient states that she had met retrosternal chest discomfort and radiate to the bilateral upper and lower extremities associate with some nausea. She did not have any vomiting. Patient felt confused after that and like she was about to fall. Patient son also states that he usually calls her around 8 PM and when he spoke to her last night she seemed to repeating her several than usual. When he went to see her the next day he found her still in the bed around noontime. She has not had any recent illness or chills no dysuria or hematuria no cough or sputum production and no recent illness. Her chest x-ray was negative for any acute pulmonary disease. CT head showed marked ischemic white matter demyelination no mass effect or midline structures and no acute hemorrhage. Her EKG showed normal sinus rhythm with a first-degree AV block. BUN 27 creatinine 1.05. Troponin level was negative. Urinalysis shows clear yellow moderate leukocytosis esterase with WBCs 9. Her urine drug toxicology was positive for opiates. Patient was admitted to the hospital with a cardiology and neurology consultation. Patient underwent echocardiogram which reveals EF of 60 to 65% with normal LV size and systolic function with mild mitral and tricuspid regurgitation. Patient underwent full stroke workup. She had a carotid Doppler study which reveals mild calcified plaque in the carotid bifurcations bilaterally. I based on a peak systolic velocity and ratios as well as color and grayscale imaging there is no hemodynamically significant carotid stenosis bilaterally. Patient underwent brain MRI which reveals no evidence of intracranial mass/subacute acute infarct or abnormal enhancement. There is nonspecific white matter changes likely related to severe small vessel ischemic disease. EEG reveals no no epileptiform or seizure-like activity. Patient also underwent a chest CT angiography which reveals no evidence of central or segmental acute pulmonary embolism. There is no acute pulmonary pathology. There is an age-indeterminate compression deformity of the T5 and T6 vertebral bodies as above. Patient was awake alert oriented no acute complaints. She was cleared for discharge home on all same home medications. Neurology felt she had a syncopal episode no evidence of acute seizures. Elbert like her aches and pains were likely due to her rheumatoid arthritis. Patient was recommended for a Holter monitor. Review of Systems Constitutional: Denied any fatigue denied any fever. Cardio vascular: denied any chest pain, palpitations Gastrointestinal: denied any nausea, vomiting, diarrhea Pulmonary: Denied any shortness of breath cough Neurologic denied any new focal deficits PHYSICAL EXAMINATION: GENERAL: The patient is alert and oriented x3, not in any acute distress. Well developed, well nourished. HEENT: Pupils are round and equally reacting to light. EOMI. No scleral icterus. No conjunctival pallor. Normocephalic, atraumatic. No pharyngeal erythema. No thyromegaly. CARDIOVASCULAR: S1 and S2 present. No murmurs, rubs, or gallops. PULMONARY: Chest is clear to auscultation, no wheezing or crackles. ABDOMEN: Soft, nontender, nondistended, normoactive bowel sounds. No palpable organomegaly. MUSCULOSKELETAL: No joint swelling or deformity. EXTREMITIES: No cyanosis, clubbing, or pedal edema. NEUROLOGICAL: Gross neurological examination did not reveal any focal deficits. SKIN: No rashes. Please see medication reconciliation for a list of current medications. Thank you for allowing us to participate in the care of this patient. The impression and plan of care has been dictated by Nighat Gannon, Nurse Practitioner as directed. Dr. Donavon MD I have performed a history and physical examination and medical decision making of this patient, discussed the same with the dictator, and agree with the dictators assessment and plan as written, documented as a scribe. Based on total visit time, I have performed more than 50% of this visit. Patient Condition at Discharge: Good Plan - Discharge Summary Discharge Rx Participant: Yes New Discharge Prescriptions: Continue Simvastatin [Zocor] 20 mg PO HS Albuterol Inhaler [Ventolin Hfa Inhaler] 2 puff INHALATION RT-Q4H PRN PRN Reason: Shortness Of Breath Memantine [Namenda] 10 mg PO BID Cyclobenzaprine [Flexeril] 5 mg PO DAILY PRN PRN Reason: Muscle Spasm Cyclobenzaprine [Flexeril] 10 mg PO HS PRN PRN Reason: Muscle Spasm Acetaminophen Tab [Tylenol] 650 mg PO Q6HR PRN tab PRN Reason: Mild Pain Or Fever >= 100.5 Baclofen [Lioresal] 10 mg PO BID PRN PRN Reason: Muscle Spasm HYDROcodone/APAP 5-325MG [Stow 5-325] 1 tab PO TID lisinopriL [Zestril] 20 mg PO DAILY NIFEdipine XL [Procardia XL] 30 mg PO DAILY tab allopurinoL 300 mg PO DAILY Fluticasone Nasal Lasara [Flonase Nasal Lasara] 1 spray EA NOSTRIL BID Melatonin 5 - 10 mg PO HS Montelukast [Singulair] 10 mg PO DAILY Pantoprazole Sodium [Protonix] 20 mg PO DAILY Discharge Medication List Simvastatin [Zocor] 20 mg PO HS 11/19/18 [History] Albuterol Inhaler [Ventolin Hfa Inhaler] 2 puff INHALATION RT-Q4H PRN 02/04/22 [History] Cyclobenzaprine [Flexeril] 5 mg PO DAILY PRN 02/04/22 [History] Cyclobenzaprine [Flexeril] 10 mg PO HS PRN 02/04/22 [History] Memantine [Namenda] 10 mg PO BID 02/04/22 [History] NIFEdipine XL [Procardia XL] 30 mg PO DAILY tab 02/18/22 [Rx] allopurinoL 300 mg PO DAILY 09/26/22 [History] Acetaminophen Tab [Tylenol] 650 mg PO Q6HR PRN tab 10/06/22 [Rx] Baclofen [Lioresal] 10 mg PO BID PRN 02/17/25 [History] Fluticasone Nasal Lasara [Flonase Nasal Lasara] 1 spray EA NOSTRIL BID 02/17/25 [History] HYDROcodone/APAP 5-325MG [Stow 5-325] 1 tab PO TID 02/17/25 [History] Melatonin 5 - 10 mg PO HS 02/17/25 [History] Montelukast [Singulair] 10 mg PO DAILY 02/17/25 [History] Pantoprazole Sodium [Protonix] 20 mg PO DAILY 02/17/25 [History] lisinopriL [Zestril] 20 mg PO DAILY 02/17/25 [History] Follow up Appointment(s)/Referral(s): Miguel Boone MD [Medical Doctor] - 2 Weeks (Office will call patient with appointment ) Eunice Tiwari MD [Primary Care Provider] - 1-2 days Ambulatory/Diagnostic Orders: Basic Metabolic Panel [LAB.AMB] Time Frame: 3 Days, Location: None Selected Activity/Diet/Wound Care/Special Instructions: holter monitor placed 01/2325 Discharge Disposition: HOME WITH HOME HEALTH SERVICES
== END 2025-02-20 14:45 | disposition home health service (06) ==
LOC: EC 14:51 → 6NMEDSUR 18:22
PROVIDERS: ADMIT Internal Medicine; ATTEND Internal Medicine
DX: R07.89 Other chest pain (principal); R55 Syncope and collapse; R79.89 Other specified abnormal findings of blood chemistry; R51.9 Headache, unspecified; M25.512 Pain in left shoulder; M79.605 Pain in left leg; I10 Essential (primary) hypertension; E78.5 Hyperlipidemia, unspecified; J45.909 Unspecified asthma, uncomplicated; F32.A Depression, unspecified; F41.9 Anxiety disorder, unspecified; K52.9 Noninfective gastroenteritis and colitis, unspecified; M06.9 Rheumatoid arthritis, unspecified; Z79.51 Long term (current) use of inhaled steroids; Z79.82 Long term (current) use of aspirin; Z79.899 Other long term (current) drug therapy; Z88.2 Allergy status to sulfonamides
CPT/HCPCS: 96372 ×2; 96374; 99285; 36415; 95816; 93005; 93225; 93306; 85379; 82747; 83880; 80061; 80053; 80048 ×2; 85652; 84443; 82607; 83605; 83735; 84484 ×2; 85025 ×2; 85610; 85730; 86140; 81001; 80306; 83036; 71046; 93880; 70450; 71275; 70553; G0378 ×4; J1644 ×2; A9585; J1171; Q9967